=== PATIENT | male | born 1955 | race Hispanic/Latino ===

== ENCOUNTER → 2019-07-09 | Outpatient (CLI) | payer MEDICARE ==
[~2019-07-09] MED LIST: ASPIR 8181 MG PO; ATORVASTATIN CA10 MG PO; CALCIUM ACETAT667 M1 PO; CIPRO500 MG PO; CLOPIDOGREL75 MG PO; DOXYCYCLINE HY100 MG PO; GABAPENTIN100 MG PO; GLIPIZIDE5 MG PO; LEVOCETIRIZINE D5 MG PO; MELOXICAM15 MG PO; METOPROLOL SUCC50 MG PO; METOPROLOL TART50 MG PO; MIDODRINE HCL10 MG PO; MULTAQ 400MG T400 MG PO; MULTI-VITAMIN1 EACH PO; NITROSTAT0.4 MG SL; NORCO 5-325 TA1 EACH PO; OMEPRAZOLE40 MG PO; RENVELA800 MG PO; SANTYL15 GM TOP; SENSIPAR30 MG PO; TEMAZEPAM15 MG PO
--- NOTE | 2019-07-09 15:42 | Diagnostic Imaging Report ---
Chest, 2 views, 07/09/2019. History: Diabetes, preop. Comparison: None available. Findings: The cardiomediastinal silhouette and pulmonary vasculature are mildly prominent. Linear opacities are present at the lung bases. There is no focal consolidation or pleural effusion. Median sternotomy wires are present. There are no acute osseous or soft tissue abnormalities. Impression: Mild cardiomegaly, vascular congestion, and bibasilar atelectasis. Signed by: Aroldo Douglas on 07/09/2019 3:39 PM
--- NOTE | 2019-07-09 15:56 | Diagnostic Imaging Report ---
Right foot, 3 views. History: Diabetes with foot ulcer. Findings: There are diffuse vascular calcifications and mild diffuse swelling with a possible ulcer on the plantar surface of the foot. The bones are diffusely osteopenic. There is deformity of the distal aspects of the fourth and fifth metatarsals consistent with old trauma. There is no evidence of acute fracture or dislocation. There are no lytic or sclerotic lesions. The joint spaces are within normal limits. IMPRESSION: Plantar ulcer without focal osseous abnormality. A nuclear medicine bone scan would be more sensitive for detection of early osteomyelitis. Signed by: Aroldo Douglas on 07/09/2019 3:53 PM
== END ==
LOC: RAD 13:07
PROVIDERS: ATTEND Internal Medicine Pulmonary Disease
DX: E11.621 Type 2 diabetes mellitus with foot ulcer (principal); L97.411 Non-pressure chronic ulcer of right heel and midfoot limited to breakdown of skin; Z01.810 Encounter for preprocedural cardiovascular examination; Z01.811 Encounter for preprocedural respiratory examination
CPT/HCPCS: 71046; 93005; 93306

== ENCOUNTER → 2019-07-13 | Outpatient (CLI) | payer MEDICARE ==
[2019-07-13 10:13] LABS: ABG HCO3 27 mmol/L (23-28); ABG PCO2 42 mmHg (41-51); ABG PH 7.42 (7.31-7.41); ABG PO2 83 mmHg (80-105)
--- NOTE | 2019-07-13 10:22 | NUR ---
This patient was scheduled for both an arterial blood gas and a pulmonary function testing. The patient is aware that his pulmonary function test is not approved by medicare and if he has it done he will be charged for the test. The arterial blood gas is approved. The patients son told me that if the patient is going to have to pay out of pocket for the test that he does not want to have the pulmonary function test done. I called the woundcare/ hyperbaric department and spoke with Vy. I explained the situation and explained that per Akila Read health insurance adjuster that the patient was not approved for the pulmonary function testing and that the patient was only going to have the arterial blood gas drawn and that I would fax over the results. I also had spoken with Akila Read in insurance verification to make sure and confirm that there had been no changes to the account and that the patient was still not approved from medicare to have the pulmonary function test done. She stated that no medicare does not except the diagnosis code we were given for the test. I faxed over the arterial blood gas results to [phone].
== END ==
LOC: RESP 09:03
DX: E11.621 Type 2 diabetes mellitus with foot ulcer (principal); Z01.810 Encounter for preprocedural cardiovascular examination; Z01.811 Encounter for preprocedural respiratory examination
CPT/HCPCS: 36415; 82805

== ENCOUNTER → 2019-07-27 | Outpatient (CLI) | payer MEDICARE ==
--- NOTE | 2019-07-28 19:33 | Diagnostic Imaging Report ---
Bone Scan, three-phase - feet and ankles Reason for exam: 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 Concern for osteomyelitis. Radiopharmaceutical: Tc-99m MDP 27.5 mCi IV left forearm Comparison: Right foot radiograph 07/09/2019 Following intravenous administration of the radiopharmaceutical, dynamic flow and immediate blood pool images of the right lower leg, ankle and foot followed by 3-hour delayed spot images were obtained. Left LLE BKA. No abnormal focal accumulation of tracer is seen in the right foot on the flow images. The blood pool images show diffusely increased tracer in the plantar aspect of the right mid foot region. The delayed images show mildly increased tracer in the right calcaneal bursa, otherwise, distribution of tracer activity is normal throughout the right foot without abnormal focal uptake in bone. Impression: Soft tissue inflammation in the plantar aspect of the right mid foot. No scan evidence of osteomyelitis. Calcaneal bursitis is noted. Signed by: Dr. Isa Shah M.D. on 07/28/2019 7:30 PM
== END ==
LOC: NM 11:53
PROVIDERS: ATTEND Internal Medicine Pulmonary Disease
DX: E11.621 Type 2 diabetes mellitus with foot ulcer (principal); L97.414 Non-pressure chronic ulcer of right heel and midfoot with necrosis of bone; Z01.810 Encounter for preprocedural cardiovascular examination
CPT/HCPCS: 78315; 94010; A9503

== ENCOUNTER 2019-08-23 13:51 | Outpatient (RCR) | payer MEDICARE ==
[~2019-08-23 13:51] MED LIST changes: +LIDOCAINE/PRILOCAINE 2.5-2.5% KIT ONE
== END 2019-08-31 ==
LOC: WCC 13:51 → EDUNIT# 13:51
PROVIDERS: ATTEND Podiatrist Foot & Ankle Surgery
DX: E11.621 Type 2 diabetes mellitus with foot ulcer (principal); E11.40 Type 2 diabetes mellitus with diabetic neuropathy, unspecified; E11.65 Type 2 diabetes mellitus with hyperglycemia; I70.201 Unspecified atherosclerosis of native arteries of extremities, right leg; N18.6 End stage renal disease; E78.49 Other hyperlipidemia; Z01.810 Encounter for preprocedural cardiovascular examination; Z01.811 Encounter for preprocedural respiratory examination

== ENCOUNTER 2019-09-20 14:19 | Outpatient (RCR) | payer MEDICARE ==
[~2019-09-20 14:19] MED LIST changes: -LIDOCAINE/PRILOCAINE 2.5-2.5% KIT ONE
== END 2019-09-30 ==
LOC: WCC 14:19
PROVIDERS: ATTEND Podiatrist Foot & Ankle Surgery
DX: E11.621 Type 2 diabetes mellitus with foot ulcer (principal); E11.40 Type 2 diabetes mellitus with diabetic neuropathy, unspecified; E11.65 Type 2 diabetes mellitus with hyperglycemia; E11.51 Type 2 diabetes mellitus with diabetic peripheral angiopathy without gangrene; L97.511 Non-pressure chronic ulcer of other part of right foot limited to breakdown of skin; L97.411 Non-pressure chronic ulcer of right heel and midfoot limited to breakdown of skin; I70.201 Unspecified atherosclerosis of native arteries of extremities, right leg; R91.8 Other nonspecific abnormal finding of lung field; B96.89 Other specified bacterial agents as the cause of diseases classified elsewhere; E78.49 Other hyperlipidemia; N18.6 End stage renal disease; Z01.810 Encounter for preprocedural cardiovascular examination; Z01.811 Encounter for preprocedural respiratory examination

== ENCOUNTER → 2019-10-14 | Outpatient (CLI) | payer MEDICARE ==
--- NOTE | 2019-10-14 11:24 | Diagnostic Imaging Report ---
EXAMINATION: CHEST 2 VIEWS INDICATION: Preprocedural COMPARISON: Chest radiograph 07/09/2019 FINDINGS: LINES/TUBES:None LUNGS:The lungs are moderately inflated. Increased AP diameter of the chest. There is perihilar fullness and indistinctness of the pulmonary vasculature. PLEURA:No pleural effusion or pneumothorax. MEDIASTINUM:Mild cardiomegaly. Atherosclerotic calcifications of the thoracic aorta. BONES/SOFT TISSUES:No acute osseous injury. Sternotomy wires in place. ABDOMEN:No free air under the diaphragm. Status post cholecystectomy. IMPRESSION: Mild cardiomegaly. Pulmonary interstitial edema. No focal pneumonia. Signed by: Gus Altamirano MD on 10/14/2019 11:21 AM
== END ==
LOC: RAD 08:25
PROVIDERS: ATTEND Podiatrist Foot & Ankle Surgery
DX: Z01.810 Encounter for preprocedural cardiovascular examination (principal); Z01.811 Encounter for preprocedural respiratory examination
CPT/HCPCS: 71046; 93005; 93306

== ENCOUNTER 2019-10-18 13:15 | Outpatient (RCR) | payer MEDICARE ==
[2019-10-11 15:31] LABS: BASOPHILS # (AUTO) 0.1 (0.0-0.1); BASOPHILS % 0.9 % (0.0-1.0); EOSINOPHILS # (AUTO) 0.5 (0.0-0.4); EOSINOPHILS % 5.1 % (0.0-6.0); HEMATOCRIT 43.2 % (38.2-49.6); HEMOGLOBIN 13.7 g/dL (14.0-18.0); LYMPHOCYTES # (AUTO) 0.8 (1.0-3.2); LYMPHOCYTES % 8.9 % (18.0-39.1); MEAN CORPUSCULAR HEMOGLOBIN 29.9 pg (28-32); MEAN CORPUSCULAR HGB CONC 31.7 g/dL (31-35); MEAN CORPUSCULAR VOLUME 94.3 fL (81-99); MONOCYTES # (AUTO) 0.5 (0.2-0.8); MONOCYTES % 5.2 % (4.4-11.3); NEUTROPHILS # (AUTO) 7.3 (2.1-6.9); NEUTROPHILS % 79.6 % (38.7-80.0); PLATELET COUNT 281 x10e3/uL (140-360); RED BLOOD COUNT 4.58 x10e6/uL (4.3-5.7); RED CELL DISTRIBUTION WIDTH 14.9 % (11.7-14.4)
[2019-10-11 15:51] LABS: ALBUMIN 3.1 g/dL (3.5-5.0); ALBUMIN/GLOBULIN RATIO 0.6 (0.8-2.0); ANION GAP 16.7 mmol/L (8-16); CALCIUM 9.7 mg/dL (8.4-10.2); CREATININE, SERUM 4.03 mg/dL (0.72-1.25); POTASSIUM 3.7 mmol/L (3.5-5.1)
== END 2019-10-31 ==
LOC: WCC 13:15
PROVIDERS: ATTEND Podiatrist Foot & Ankle Surgery
DX: E11.621 Type 2 diabetes mellitus with foot ulcer (principal); E11.51 Type 2 diabetes mellitus with diabetic peripheral angiopathy without gangrene; E11.40 Type 2 diabetes mellitus with diabetic neuropathy, unspecified; E11.65 Type 2 diabetes mellitus with hyperglycemia; L97.411 Non-pressure chronic ulcer of right heel and midfoot limited to breakdown of skin; L97.511 Non-pressure chronic ulcer of other part of right foot limited to breakdown of skin; I70.201 Unspecified atherosclerosis of native arteries of extremities, right leg; N18.6 End stage renal disease; R91.8 Other nonspecific abnormal finding of lung field; B96.89 Other specified bacterial agents as the cause of diseases classified elsewhere; E78.49 Other hyperlipidemia; Z01.810 Encounter for preprocedural cardiovascular examination; Z01.811 Encounter for preprocedural respiratory examination
CPT/HCPCS: 15275; 36415; 80053; 83036; 84134; 85025; 85651; 86140; 99203; 99213 ×3; Q4186

== ENCOUNTER → 2019-11-30 | Outpatient (RCR) | payer MEDICARE ==
[~2019-11-30] MED LIST changes: +BALSAM PERU/CASTOR OIL 60 GM OINT...G. TP ONE; +MUPIROCIN 2% OINT 22 GM TUBE ONE
== END ==
LOC: WCC 11-01 14:32
PROVIDERS: ATTEND Podiatrist Foot & Ankle Surgery
DX: E11.621 Type 2 diabetes mellitus with foot ulcer (principal); E11.65 Type 2 diabetes mellitus with hyperglycemia; E11.40 Type 2 diabetes mellitus with diabetic neuropathy, unspecified; I96 Gangrene, not elsewhere classified; L97.514 Non-pressure chronic ulcer of other part of right foot with necrosis of bone; L97.411 Non-pressure chronic ulcer of right heel and midfoot limited to breakdown of skin; I70.201 Unspecified atherosclerosis of native arteries of extremities, right leg; N18.6 End stage renal disease; R91.8 Other nonspecific abnormal finding of lung field; B96.89 Other specified bacterial agents as the cause of diseases classified elsewhere; E78.49 Other hyperlipidemia; Z01.810 Encounter for preprocedural cardiovascular examination; Z01.811 Encounter for preprocedural respiratory examination
CPT/HCPCS: 11042 ×2; 36415 ×7; 82948 ×10; 97597; 99213 ×11; G0277 ×10

== ENCOUNTER → 2019-12-14 | Day surgery (SDC) | payer MEDICARE, OTHER ==
--- NOTE | 2019-12-09 14:45 | Diagnostic Imaging Report ---
X-ray chest PA and lateral History: Preop Comparison: 10/14/2019 Findings: Image taken in AP lordotic view. Poor inspiratory effort. Status post median sternotomy. Likely IVC dialysis catheter. Lower neck surgical kevin in the midline. Central airways unremarkable. Cardiomegaly. No definite pleural effusion. No pneumothorax. Vascular markings are crowded because of the poor respiratory effort. Visualized skeleton shows degenerative changes. Vascular calcification. Cholecystectomy clips. Impression: Cardiomegaly. No other acute cardiopulmonary disease. Signed by: Rangel Boogie MD on 12/09/2019 2:41 PM
[~2019-12-14] MED LIST changes: +BACITRACIN 50,000 UNIT VIAL ONE; -BALSAM PERU/CASTOR OIL 60 GM OINT...G. TP ONE; +BUPIVACAINE HCL 0.5% INJ 30 ML VIAL INJ ONE; +BUSPIRONE HCL5 MG PO; +CEFAZOLIN SOD 1 GM/NS 50ML 100 ML IV ONE; +CILOSTAZOL50 MG PO; +HYDROXYZINE HCL25 MG PO; +ISOSORBIDE MONO30 MG PO; +JANUVIA100 MG PO; +LEVOTHYROXINE50 MCG PO; +LORAZEPAM2 MG/1 M1 PO; +MONTELUKAST SOD10 MG PO; -MUPIROCIN 2% OINT 22 GM TUBE ONE; +NEOSTIGMINE 1 MG/ML 10ML VIAL ONE; +SEVOFLURANE INHAL SOLN 250 ML PEN BTL ONE; +SODIUM CHLORIDE 0.9% 500ML 500 ML ONE; +WARFARIN SODIUM1 MG PO
[2019-12-14 08:59] LABS: BASOPHILS # (AUTO) 0.1 (0.0-0.1); BASOPHILS % 0.5 % (0.0-1.0); EOSINOPHILS # (AUTO) 0.3 (0.0-0.4); EOSINOPHILS % 2.3 % (0.0-6.0); HEMATOCRIT 36.7 % (38.2-49.6); HEMOGLOBIN 11.3 g/dL (14.0-18.0); LYMPHOCYTES # (AUTO) 0.8 (1.0-3.2); LYMPHOCYTES % 6.1 % (18.0-39.1); MEAN CORPUSCULAR HEMOGLOBIN 27.6 pg (28-32); MEAN CORPUSCULAR HGB CONC 30.8 g/dL (31-35); MEAN CORPUSCULAR VOLUME 89.7 fL (81-99); MONOCYTES # (AUTO) 0.6 (0.2-0.8); MONOCYTES % 4.9 % (4.4-11.3); NEUTROPHILS # (AUTO) 10.6 (2.1-6.9); NEUTROPHILS % 85.7 % (38.7-80.0); PLATELET COUNT 394 x10e3/uL (140-360); RED BLOOD COUNT 4.09 x10e6/uL (4.3-5.7); RED CELL DISTRIBUTION WIDTH 15.6 % (11.7-14.4)
[2019-12-14 09:34] LABS: CALCIUM 9.1 mg/dL (8.4-10.2); CREATININE, SERUM 5.21 mg/dL (0.72-1.25)
[2019-12-14 09:35] LABS: INR 1.6; PROTHROMBIN TIME 20.2 seconds (11.9-14.5)
[2019-12-14 13:30] VITALS: BP 104/69
--- NOTE | 2019-12-14 18:16 | NUR ---
WOUND CARE INITIAL CONSULT FOR 64 YO MALE ADMITTED TO [facility] FOR RIGHT FOOT GANGRENE AND SURGICAL RIGHT TMA. WBC 12.37 HGB 11.3 GLUCOSE 108 RECEIVED REPORT AND INSTRUCTIONS FROM DR. GAFFNEY TO HOLD [facility] WOUND VAC APPLICATION TO RIGHT TMA; DUE TO EXCESSIVE SANGUINEOUS DRAINAGE AND TO ALLOW RIGHT TMA TO SURGICAL SITE TO DECREASE SANGUINOUS DRAINAGE BY NATURALLY COAGULATING WITH SURGICAL DRESSING IN PLACE. RECEIVED ORDERS TO LEAVE SURGICAL DRESSING INTACT UNTIL TOMORROW 12/15/2019 AND TO APPLY [facility] WOUND VAC TO RIGHT FOOT AT [facility] PATIENT WOUND CARE CENTER AND TO HAVE A CONSULT WITH INFECTIOUS DISEASE DOCTOR ALLEN ON FRIDAY. WOUND WINE SPECIALIST AWARE AND NOTIFIED FAMILY MEMBER TO TAKE PT TO OUTPATIENT WOUND CARE CENTER FOR [facility] WOUND VAC APPLICATION TO RIGHT TMA TOMORROW 12/15/[address] VILLA ON 12/17/2019. THANK YOU FOR THIS CONSULTATION. Addendum: 12/14/19 at 1822 by Vy Catalan RN Amended: Links added.
--- NOTE | 2019-12-14 19:56 | Operative Report ---
DATE OF PROCEDURE: 12/14/2019 SURGEON: Jennifer Garcia DPM SLAT GRADER: None. PREOPERATIVE DIAGNOSES: 1. Gangrene, diabetic foot ulcer, forefoot, right foot. 2. Diabetic foot ulcer, grade 2, plantar foot. POSTOPERATIVE DIAGNOSES: 1. Gangrene, diabetic foot ulcer, forefoot, right foot. 2. Diabetic foot ulcer, grade 2, plantar foot. PROCEDURES: 1. Transmetatarsal amputation, right foot. 2. Debridement with application of graft, right plantar foot. MATERIALS: AmnioFill 2000 mg for the TMA and AmnioFill 1000 mg for the plantar foot. HEMOSTASIS: None. ESTIMATED BLOOD LOSS: 50 mL. COMPLICATIONS: None. CONDITION: Stable. PROCEDURE IN DETAIL: Under mild sedation, the patient was brought to the operative room, placed on the operating table. Following IV sedation, anesthesia was obtained with a MAC anesthetic. The right foot scrubbed, prepped, and draped in usual aseptic manner and then was lowered to the table. Attention was then directed to the dorsal aspect of the foot, where utilizing sharp dissection all nonviable tissue at the dorsal aspect of the fishmouth-type of incision was then made. The metatarsals were then transected proximally. There was not enough tissue to flap dorsally, so AmnioFill application was performed. After all nonviable tissue was removed and the area was then flushed with a pressure carboy filler. Bone cultures and sensitivities were taken and sent for pathology. AmnioFill was then used to fill the void, it was then secured utilizing Adaptic and skin stapler. Attention was then directed to the plantar foot, where utilizing a #15 blade and a BONE rongeur and a curette, all tissue was removed to the plantar aspect of the foot down to clean viable tissue after the area was then flushed with copious amount of normal sterile saline solution. At this point, AmnioFill was also applied, it was then secured utilizing Adaptic and a skin stapler. Clean dressing was applied consisting of Adaptic, 4 X4s, Kerlix, and an Pawel bandage. The patient tolerated the procedure and anesthesia well, will be discharged home when he meets criteria. He will continue to follow up in Wound Care. He will have the wound VAC applied tomorrow at Wound care. He will call the office if any questions, concerns, or any problems arise. BISHOP Prakash/CAROLA /[id number]
== END | disposition home or self-care (01) ==
LOC: OR 08:15
PROVIDERS: ATTEND Podiatrist Foot & Ankle Surgery
DX: M86.171 Other acute osteomyelitis, right ankle and foot (principal); M86.671 Other chronic osteomyelitis, right ankle and foot; I96 Gangrene, not elsewhere classified; E11.22 Type 2 diabetes mellitus with diabetic chronic kidney disease; I12.0 Hypertensive chronic kidney disease with stage 5 chronic kidney disease or end stage renal disease; N18.6 End stage renal disease; I48.91 Unspecified atrial fibrillation; I25.810 Atherosclerosis of coronary artery bypass graft(s) without angina pectoris; I10 Essential (primary) hypertension; E78.5 Hyperlipidemia, unspecified; Z01.810 Encounter for preprocedural cardiovascular examination; Z01.812 Encounter for preprocedural laboratory examination; Z01.818 Encounter for other preprocedural examination; Z11.59 Encounter for screening for other viral diseases; Z79.01 Long term (current) use of anticoagulants; Z79.02 Long term (current) use of antithrombotics/antiplatelets; Z99.2 Dependence on renal dialysis; Z86.73 Personal history of transient ischemic attack (TIA), and cerebral infarction without residual deficits; Z95.1 Presence of aortocoronary bypass graft
CPT/HCPCS: 28805; 36415; 71046; 80048; 82948; 85025; 85610; 85730; 87071; 87075; 87186; 87205; 88307; 88311; 93005; J0690; J7040; Q4100 ×2; U0002; 88304; J2710

== ENCOUNTER 2019-12-30 12:47 | Outpatient (RCR) | payer MEDICARE ==
[~2019-12-30 12:47] MED LIST changes: -BACITRACIN 50,000 UNIT VIAL ONE; -BUPIVACAINE HCL 0.5% INJ 30 ML VIAL INJ ONE; -CEFAZOLIN SOD 1 GM/NS 50ML 100 ML IV ONE; +MINERAL OIL/PETROLAT/GLYCERI 6OZ BTL ONE; -NEOSTIGMINE 1 MG/ML 10ML VIAL ONE; -SEVOFLURANE INHAL SOLN 250 ML PEN BTL ONE; -SODIUM CHLORIDE 0.9% 500ML 500 ML ONE
== END 2019-12-31 ==
LOC: WCC 12:47
PROVIDERS: ATTEND Podiatrist Foot & Ankle Surgery
DX: E11.621 Type 2 diabetes mellitus with foot ulcer (principal); E11.51 Type 2 diabetes mellitus with diabetic peripheral angiopathy without gangrene; E11.65 Type 2 diabetes mellitus with hyperglycemia; E11.40 Type 2 diabetes mellitus with diabetic neuropathy, unspecified; I96 Gangrene, not elsewhere classified; L97.514 Non-pressure chronic ulcer of other part of right foot with necrosis of bone; L97.411 Non-pressure chronic ulcer of right heel and midfoot limited to breakdown of skin; R91.8 Other nonspecific abnormal finding of lung field; I70.201 Unspecified atherosclerosis of native arteries of extremities, right leg; N18.6 End stage renal disease; E78.49 Other hyperlipidemia; B96.89 Other specified bacterial agents as the cause of diseases classified elsewhere; Z01.810 Encounter for preprocedural cardiovascular examination; Z01.811 Encounter for preprocedural respiratory examination
CPT/HCPCS: 87071; 87075; 87186; 87205; 97605 ×4; 99212; 99213 ×12; G0277 ×9

== ENCOUNTER 2020-01-28 15:40 | Outpatient (RCR) | payer MEDICARE, OTHER ==
[~2020-01-28 15:40] MED LIST changes: -MINERAL OIL/PETROLAT/GLYCERI 6OZ BTL ONE
== END 2020-01-31 ==
LOC: WCC 15:40
PROVIDERS: ATTEND Podiatrist Foot & Ankle Surgery
DX: T87.89 Other complications of amputation stump (principal); E11.621 Type 2 diabetes mellitus with foot ulcer; E11.40 Type 2 diabetes mellitus with diabetic neuropathy, unspecified; E11.65 Type 2 diabetes mellitus with hyperglycemia; E11.51 Type 2 diabetes mellitus with diabetic peripheral angiopathy without gangrene; L97.411 Non-pressure chronic ulcer of right heel and midfoot limited to breakdown of skin; I70.201 Unspecified atherosclerosis of native arteries of extremities, right leg; B95.2 Enterococcus as the cause of diseases classified elsewhere; B96.29 Other Escherichia coli [E. coli] as the cause of diseases classified elsewhere; R91.8 Other nonspecific abnormal finding of lung field; B96.89 Other specified bacterial agents as the cause of diseases classified elsewhere; N18.6 End stage renal disease; E78.49 Other hyperlipidemia; Z01.810 Encounter for preprocedural cardiovascular examination; Z01.811 Encounter for preprocedural respiratory examination

== ENCOUNTER → 2020-02-15 | Outpatient (CLI) | payer MEDICARE ==
--- NOTE | 2020-02-15 12:29 | Diagnostic Imaging Report ---
Exam: CHEST 2 VIEWS Date: 02/15/2020 12:25 PM INDICATION: ^[id number] ^1207 ^PRE - PROCEDURE EXAM Comparison: 12/09/2019 FINDINGS: Lines/Tubes:Partially visualized probable femoral venous dialysis catheter is noted with tip projecting within the upper IVC. Midline sternotomy changes are again noted. Lungs:The lungs are well inflated. No focal consolidation or pulmonary edema. Pleura:No pleural effusion. No pneumothorax. Heart/Mediastinum:Cardiomediastinal silhouette is enlarged. Central vascular congestion is noted. Bones/Soft Tissues: No acute osseous abnormality. Upper abdomen: Unremarkable. IMPRESSION: 1. Negative for acute intrathoracic process. 2. Stable cardiomegaly and central vascular congestion. Signed by: Nilo Mackenzie MD on 02/15/2020 12:26 PM
== END ==
LOC: RAD 11:33
PROVIDERS: ATTEND Internal Medicine Infectious Disease
DX: Z01.810 Encounter for preprocedural cardiovascular examination (principal); Z01.811 Encounter for preprocedural respiratory examination
CPT/HCPCS: 71046; 93005

== ENCOUNTER → 2020-03-01 | Outpatient (RCR) | payer MEDICARE, OTHER ==
[~2020-03-01] MED LIST changes: +COLLAGENASE OINTMENT 30 GM TUBE ONE; +TYLENOL # 31 EA PO
== END ==
LOC: WCC 02-01 15:58
PROVIDERS: ATTEND Podiatrist Foot & Ankle Surgery
DX: E11.621 Type 2 diabetes mellitus with foot ulcer (principal); E11.40 Type 2 diabetes mellitus with diabetic neuropathy, unspecified; E11.65 Type 2 diabetes mellitus with hyperglycemia; E11.51 Type 2 diabetes mellitus with diabetic peripheral angiopathy without gangrene; M86.171 Other acute osteomyelitis, right ankle and foot; L97.416 Non-pressure chronic ulcer of right heel and midfoot with bone involvement without evidence of necrosis; L97.411 Non-pressure chronic ulcer of right heel and midfoot limited to breakdown of skin; I70.201 Unspecified atherosclerosis of native arteries of extremities, right leg; B96.89 Other specified bacterial agents as the cause of diseases classified elsewhere; E78.49 Other hyperlipidemia; B95.2 Enterococcus as the cause of diseases classified elsewhere; B96.29 Other Escherichia coli [E. coli] as the cause of diseases classified elsewhere; N18.6 End stage renal disease; R91.8 Other nonspecific abnormal finding of lung field; Z01.810 Encounter for preprocedural cardiovascular examination; Z01.811 Encounter for preprocedural respiratory examination
CPT/HCPCS: 11042 ×2; 11045; 36415 ×5; 82948 ×5; 97605 ×9; 99211; 99213 ×7; G0277 ×5

== ENCOUNTER 2020-03-31 13:16 | Outpatient (RCR) | payer MEDICARE ==
[~2020-03-31 13:16] MED LIST changes: -COLLAGENASE OINTMENT 30 GM TUBE ONE; +DEXTROSE 40% GEL 31 GM TUBE ONE; +LIDOCAINE/PRILOCAINE 2.5-2.5% KIT ONE; +TRYPSIN/BALSAM PERU/CASTOR OIL ONE; -TYLENOL # 31 EA PO
== END 2020-04-01 ==
LOC: WCC 13:16
PROVIDERS: ATTEND Podiatrist Foot & Ankle Surgery
DX: E11.621 Type 2 diabetes mellitus with foot ulcer (principal); E11.40 Type 2 diabetes mellitus with diabetic neuropathy, unspecified; E11.65 Type 2 diabetes mellitus with hyperglycemia; E11.51 Type 2 diabetes mellitus with diabetic peripheral angiopathy without gangrene; M86.671 Other chronic osteomyelitis, right ankle and foot; L97.416 Non-pressure chronic ulcer of right heel and midfoot with bone involvement without evidence of necrosis; L97.411 Non-pressure chronic ulcer of right heel and midfoot limited to breakdown of skin; B96.29 Other Escherichia coli [E. coli] as the cause of diseases classified elsewhere; B95.2 Enterococcus as the cause of diseases classified elsewhere; R91.8 Other nonspecific abnormal finding of lung field; Z01.811 Encounter for preprocedural respiratory examination
CPT/HCPCS: 11042; 15275 ×2; 15276; 36415 ×16; 82948 ×17; 83036; 84134; 97605 ×3; 99211; 99212 ×3; 99213 ×8; G0277 ×17; Q4186 ×2

== ENCOUNTER 2020-04-04 15:19 | Inpatient (IN) | payer MEDICARE ==
[2020-04-04] VITALS (7 sets, daily range): BP systolic 136; BP diastolic 72–75
[~2020-04-04] VITALS: Ht 152.4 cm; Wt 73.0 kg
[~2020-04-04 15:19] MED LIST changes: -DEXTROSE 40% GEL 31 GM TUBE ONE; -LIDOCAINE/PRILOCAINE 2.5-2.5% KIT ONE; -TRYPSIN/BALSAM PERU/CASTOR OIL ONE
--- NOTE | 2020-04-04 15:38 | NUR ---
DIRECT ADMISSION RECEIVED VIA EMS. PT IS AAOX3. EDUCATED PT ABOUT FALL PRECAUTIONS. PT VERBALIZED UNDERSTANDING. CALL LIGHT WITH IN EASY REACH. INSTRUCTED PT TO USE CALL LIGHT FOR ALL THE NEEDS. BED IS LOW AND LOCKED. SIDE RAILS X2. BED ALARM IS ON. PT DENIES NEEDS AT THIS TIME.
--- NOTE | 2020-04-04 15:45 | NUR ---
DR. VILLA AT BEDSIDE. NEW ORDER RECEIVED FOR CENTRAL LINE
[2020-04-04] MEDS ORDERED: VANCOMYCIN 750MG/NS 150ML IVPB 150 ML IV SCH ×2 (16:00→18:00)
[2020-04-04] MEDS ORDERED: MEROPENEM 500MG/ NS 50ML 50 ML IV SCH (16:00)
--- NOTE | 2020-04-04 16:38 | NUR ---
CONSENT FOR CENTRAL LINE RECEIVED THROUGH [facility] . [place] [id number] [place] [id number]. PT AGREED FOR NON TUNNELLED CENTRAL LINE
--- NOTE | 2020-04-04 16:40 | NUR ---
PT OFF TO RADIOLOGY IN SAFE CONDITION.
--- NOTE | 2020-04-04 17:06 | NUR ---
PT IS BACK TO THE UNIT FROM RADIOLOGY. PT REFUSED CENTRAL LINE PER RADIOLOGY. INFORMED THE SAME TO IRMA CLEMENTS AND DR. VILLA.
[2020-04-04] MEDS ORDERED: MEROPENEM 1GM 100 ML IV SCH (17:15)
--- NOTE | 2020-04-04 17:25 | NUR ---
OKAY TO START PERIPHERAL IV PER IRMA CLEMENTS
--- NOTE | 2020-04-04 17:30 | NUR ---
NEW PERIPHERAL IV 20 G RAC STARTED BY [address] PAINTER.
--- NOTE | 2020-04-04 18:30 | NUR ---
UNABLE TO VERIFY HOME MEDS. PT IS NOT SURE ABOUT HIS HOME MEDS. PAGED PT AND LEFT MESSAGE REGARDING THE SAME.
[2020-04-04 18:55] LABS: BASOPHILS # (AUTO) 0.1 (0.0-0.1); BASOPHILS % 0.6 % (0.0-1.0); EOSINOPHILS # (AUTO) 0.5 (0.0-0.4); EOSINOPHILS % 4.9 % (0.0-6.0); HEMATOCRIT 43.3 % (38.2-49.6); HEMOGLOBIN 13.4 g/dL (14.0-18.0); LYMPHOCYTES # (AUTO) 1.1 (1.0-3.2); MEAN CORPUSCULAR HEMOGLOBIN 29.6 pg (28-32); MEAN CORPUSCULAR HGB CONC 30.9 g/dL (31-35); MEAN CORPUSCULAR VOLUME 95.8 fL (81-99); MONOCYTES # (AUTO) 0.7 (0.2-0.8); MONOCYTES % 7.5 % (4.4-11.3); NEUTROPHILS % 74.6 % (38.7-80.0); PLATELET COUNT 234 x10e3/uL (140-360); RED BLOOD COUNT 4.52 x10e6/uL (4.3-5.7); RED CELL DISTRIBUTION WIDTH 14.8 % (11.7-14.4)
--- NOTE | 2020-04-04 19:00 | NUR ---
BEDSIDE SHIFT REPORT GIVEN TO THE LOGGING TRUCK DRIVER RN. PT DENIED FURTHER NEEDS.
--- NOTE | 2020-04-04 19:10 | NUR ---
PAGED DR. ARELLANO OFFICE REGARDING NEW CONSULT.
[2020-04-04 19:17] LABS: ANION GAP 18.1 mmol/L (8-16); CALCIUM 10.3 mg/dL (8.4-10.2); CREATININE, SERUM 5.33 mg/dL (0.72-1.25); POTASSIUM 4.1 mmol/L (3.5-5.1)
--- NOTE | 2020-04-04 19:19 | Diagnostic Imaging Report ---
X-ray 3 views of the foot. HISTORY: Pain. COMPARISON: None available. FINDINGS: The bones are severely demineralized. The patient is status post transmetatarsal amputation of the foot. Overlying dressing optimal assessment the soft tissues. There are no obvious erosive changes or lucency to suggest presence of osteomyelitis. There is severe scarring vascular calcification. IMPRESSION: 1. Status post transmetatarsal amputation of the foot. No radiographic evidence of osteomyelitis. However, if there is high clinical suspicion for osteomyelitis an MRI of the foot should be considered for further evaluation. 2. Severe atherosclerotic vascular calcification. Signed by: Valerie Gale MD on 04/04/2020 7:15 PM
[2020-04-04] MEDS ORDERED: ONDANSETRON HCL INJ 2MG/ML 2ML 2 MG/ML VIAL IV PRN (20:15)
[2020-04-04] MEDS ORDERED: HYDRALAZINE HCL 20 MG/ML VIAL IV PRN (20:15)
[2020-04-04] MEDS ORDERED: DEXTROSE 50% SYRINGE 50 ML IV PRN (20:15)
[2020-04-04] MEDS: INSULIN LISPRO 100 UNIT/1 ML 3ML VIAL SQ SCH (21:00)
[2020-04-04] MEDS: GABAPENTIN 100 MG CAP PO SCH (22:28)
[2020-04-04] MEDS: MIDODRINE HCL 5 MG TABLET PO SCH (22:28)
[2020-04-04] MEDS: CALCIUM ACETATE 667 MG GELCAP PO SCH (22:28)
[2020-04-04] MEDS: TEMAZEPAM 15 MG CAP PO SCH (22:29)
[2020-04-04] MEDS: METOPROLOL SUCCINATE 50 MG TAB XL PO SCH (22:29)
--- NOTE | 2020-04-04 22:33 | Consultation ---
DATE OF CONSULTATION: 04/04/2020 REQUESTING PHYSICIAN: Lowell Gregorio MD REASON FOR CONSULTATION: Sepsis, right BKA wound infection, and osteomyelitis. Thank you for this consultation. HISTORY OF PRESENT ILLNESS: This is a 64-year-old male with end-stage renal disease on hemodialysis through a dialysis catheter in the left groin. The patient has had a left BKA, has a right TMA, was seen at the wound care center, noted to be febrile with redness and swelling in the right foot and infection along the TMA site and was admitted to the hospital. The patient has subjective fevers, but no chills or rigors. REVIEW OF SYSTEMS: HEENT: Denies any headaches, visual complaints, sinus congestion, ear ache, throat pain, or neck pain. RESPIRATORY: No cough or shortness of breath. CARDIOVASCULAR: No chest pain or palpitations. GI: No nausea, vomiting, or diarrhea. : Makes very little urine. ALLERGIES: NO KNOWN DRUG ALLERGIES. MEDICATIONS: Chronic medications are reviewed. FAMILY HISTORY: Noncontributory. SOCIAL HISTORY: No active alcohol, tobacco, or drug use. PAST MEDICAL HISTORY: 1. End-stage renal disease, on hemodialysis. 2. Diabetes mellitus. 3. LSA. PAST SURGICAL HISTORY: Amputation, left 3 middle fingers of the right hand, cholecystectomy, ICD implantation, left BKA, history of chest tube, AV fistula previously, coronary artery disease with coronary artery bypass graft, and right TMA. PHYSICAL EXAMINATION: VITAL SIGNS: The patient is afebrile. Vital signs stable. LUNGS: Fair air entry bilaterally. Clear to auscultation. HEART: Sounds S1, S2. No murmur. No gallop. ABDOMEN: Soft, nontender, and normoactive bowel sounds. EXTREMITIES: The patient has left groin hemodialysis catheter. The right foot has a TMA wound with slough and necrosis. There is redness and some warmth in the right leg. LABORATORY DATA: Labs are pending. ASSESSMENT: 1. End-stage renal disease, on hemodialysis. 2. Diabetes mellitus. 3. Right below-knee amputation infection. 4. Cellulitis, right leg. 5. History of extended spectrum beta-lactamase positive, Escherichia coli infection in the right below-knee amputation stump. RECOMMENDATIONS: We will place the patient on an antibiotic regimen of vancomycin and meropenem. Labs will be obtained. Podiatry Dr. Garcia will be consulted. We will continue to follow. Thank you, Dr. Gregorio, for this consultation. We will follow the patient along with you. Damion Perry MD SR/MODL /[id number] cc: Lowell Gregorio MD
[2020-04-04] MEDS: ACETAMINOPHEN/CODEINE 300MG - 30MG TAB PO PRN (23:00)
[2020-04-05] VITALS (8 sets, daily range): BP systolic 93–136; BP diastolic 54–82
[2020-04-05] MEDS: ACETAMINOPHEN 325 MG TAB PO PRN (02:30)
[2020-04-05 05:49] LABS: BASOPHILS # (AUTO) 0.1 (0.0-0.1); EOSINOPHILS # (AUTO) 0.6 (0.0-0.4); EOSINOPHILS % 7.3 % (0.0-6.0); HEMATOCRIT 39.5 % (38.2-49.6); HEMOGLOBIN 12.5 g/dL (14.0-18.0); LYMPHOCYTES # (AUTO) 0.9 (1.0-3.2); LYMPHOCYTES % 11.5 % (18.0-39.1); MEAN CORPUSCULAR HEMOGLOBIN 29.9 pg (28-32); MEAN CORPUSCULAR HGB CONC 31.6 g/dL (31-35); MEAN CORPUSCULAR VOLUME 94.5 fL (81-99); MONOCYTES # (AUTO) 0.5 (0.2-0.8); MONOCYTES % 6.9 % (4.4-11.3); NEUTROPHILS # (AUTO) 5.6 (2.1-6.9); PLATELET COUNT 220 x10e3/uL (140-360); RED BLOOD COUNT 4.18 x10e6/uL (4.3-5.7); RED CELL DISTRIBUTION WIDTH 14.8 % (11.7-14.4)
[2020-04-05] MEDS: LEVOTHYROXINE SODIUM 100 MCG TAB PO SCH (05:55)
[2020-04-05 05:58] LABS: INR 1.11; PROTHROMBIN TIME 14.9 seconds (11.9-14.5)
[2020-04-05 06:14] LABS: ALBUMIN 2.8 g/dL (3.5-5.0); ALBUMIN/GLOBULIN RATIO 0.5 (0.8-2.0); ALKALINE PHOSPHATASE 170 IU/L (40-150); ANION GAP 16.5 mmol/L (8-16); BLOOD UREA NITROGEN 31 mg/dL (7-26); BUN/CREATININE RATIO 5 (6-25); CALCIUM 10.1 mg/dL (8.4-10.2); CARBON DIOXIDE 26 mmol/L (22-29); CHLORIDE 103 mmol/L (98-107); CREATININE, SERUM 5.81 mg/dL (0.72-1.25); EST GLOMERULAR FILTRATION RATE 10 ML/MIN (60-); GLUCOSE 80 mg/dL (74-118); POTASSIUM 4.5 mmol/L (3.5-5.1); SODIUM 141 mmol/L (136-145)
[2020-04-05 06:15] LABS: ALANINE AMINOTRANSFERASE < 6 IU/L (0-55)
--- NOTE | 2020-04-05 06:15 | NUR ---
COMPLETED DRESSING CHANGE AND COLLECTED WOUND CULTURE SAMPLE. SENT SAMPLE TO LAB
--- NOTE | 2020-04-05 07:05 | NUR ---
RCD PT AT BED PT IS ALERT AND ORIENTED PT RESTING ON BED IV PATENT BED LOW AND LOCKED CALL LIGHT IN REACH
[2020-04-05] MEDS: INSULIN LISPRO 100 UNIT/1 ML 3ML VIAL SQ SCH ×4 (07:30→20:42)
[2020-04-05] MEDS: PANTOPRAZOLE SOD 40 MG TABEC PO SCH (07:30)
--- NOTE | 2020-04-05 07:50 | NUR ---
AC TO DR ARELLANO TALKED TO RBAN IN ANSWERING SERVICE REGARDING HD SHE SAID SHE WILL SEND THE MESSAGE
[2020-04-05] MEDS: SEVELAMER CARBONATE 800 MG TAB PO SCH ×3 (08:00→16:50)
[2020-04-05] MEDS: GABAPENTIN 100 MG CAP PO SCH ×3 (09:00→20:42)
[2020-04-05] MEDS: MIDODRINE HCL 5 MG TABLET PO SCH ×3 (09:00→20:42)
[2020-04-05] MEDS ORDERED: CLOPIDOGREL BISULFATE 75 MG TAB PO SCH (09:00)
[2020-04-05] MEDS: CILOSTAZOL 100 MG TAB PO SCH ×2 (09:00→16:50)
[2020-04-05] MEDS: ISOSORBIDE MONONITRATE 30 MG TAB CR PO SCH (09:00)
[2020-04-05] MEDS: CALCIUM ACETATE 667 MG GELCAP PO SCH (09:00)
[2020-04-05] MEDS: BUSPIRONE HCL 5 MG TAB PO SCH (09:00)
[2020-04-05] MEDS: ACETAMINOPHEN/CODEINE 300MG - 30MG TAB PO PRN ×2 (09:04→20:41)
[2020-04-05] MEDS ORDERED: SODIUM CHLORIDE 0.9% 1000ML 2,000 ML ONE (09:15)
[2020-04-05] MEDS ORDERED: ONDANSETRON HCL 4 MG ORAL DISINTEGRATING TAB PO PRN (10:45)
--- NOTE | 2020-04-05 11:36 | Progress Note ---
DATE: 04/05/2020 SUBJECTIVE: The patient overall has been doing better. Has not had any febrile episodes, still has induration in the right leg along with warmth. Receiving hemodialysis, but not getting any chills. OBJECTIVE: VITAL SIGNS: Temperature of 98.3, pulse 74, respiratory rate 18, blood pressure 128/72. HEENT: Normocephalic, atraumatic. Extraocular movements not assessed. NECK: Supple. LUNGS: Fair air entry bilaterally. Clear to auscultation. HEART: Sounds S1, S2. No murmur. No gallop. ABDOMEN: Soft, nontender, normoactive bowel sounds. EXTREMITIES: Right TMA wound with slight slough, but there is no tissue necrosis today. There is some redness and warmth in the right leg. LABORATORY DATA: WBC count is 7.7, hemoglobin 12.5, and platelets 220. Wound culture in the right leg has been done pending. ASSESSMENT: 1. End-stage renal disease, on hemodialysis. 2. Right transmetatarsal amputation wound, infected. 3. Cellulitis, right foot and right leg. 4. History of extended-spectrum beta-lactamases positive gram negative infections in the right leg previously. 5. Diabetes mellitus. RECOMMENDATIONS: Antibiotic regimen of vancomycin and meropenem to continue. We will discuss halfway IV plans with Dr. Garcia and determine method of IV access which is difficult in this patient as central line was attempted yesterday, but could not be performed because of central venous congestion. Damion Perry MD SR/MODL /[id number]
--- NOTE | 2020-04-05 12:21 | NUR ---
WOUND CARE [id number] YO MALE HX OF RIGHT FOOT INFECTION CLARICE 15 0N MODERATE PUP STATUS AND INTERVENTIONS ALTERNATING PRESSURE SURFACE LABS: WBC- 7.71 HGB- 12.5 GLUCOSE-5 HEAD TO TOE SKIN ASSESSMENT COMPLETE PATIENT PRESENTS WITH RIGHT FOOT NONHEALING TRANS MET AMPUTATION SITE OPEN WOUND MEASURES 3CM X7CM X 0.3CM RIGHT PLANTAR SURFACE UNOPENED BLISTER DIABETIC RELATED 6CM X7.5CM RECOMMENDATIONS: NURSING TO CONTINUE TO MONITOR PATIENT AND KEEP SKIN CLEAN AND FREE FROM LOOSE STOOL OR IRRITATING MOISTURE AND CONTINUE TO FOLLOW MODERATE PUP STATUS INTERVENTIONS NURSING TO CONTINUE TO GET PATIENT OUT OF BED FOR MEALS AND MUCH TOLERATED NURSING TO CLEAN RIGHT FOOT NONHEALING TRANS MET AMPUTATION SITE AND RIGHT PLANTAR SURFACE UNOPENED BLISTER WITH NORMAL SALINE DAILY AND APPLY BETADINE AND LOOSELY WRAP WITH 4X4 AND KERLIX DRESSING Addendum: 04/05/20 at 1228 by Ryan Lepe RN Amended: Links added.
--- NOTE | 2020-04-05 12:56 | Consultation ---
DATE OF CONSULTATION: 04/05/2020 HISTORY OF PRESENT ILLNESS: A 64-year-old gentleman, end-stage renal disease, dialyzes, has of femoral access. Has severe peripheral vascular disease with TMA right foot, missing digits in both hands. Amputations in other words. Currently awake, alert, and oriented x3. Denies fever, chills, chest pain, or shortness of breath. Renal consult for management of underlying kidney failure. He has history of atherosclerotic cardiovascular disease, diabetes type 2 with diabetic kidney disease, end-stage renal disease, secondary hyperparathyroidism, and history of hypothyroidism. Currently lying supine. Denies shortness of breath, orthopnea, fever, chills, diarrhea, nausea, vomiting, or abdominal pain. CURRENT MEDICATIONS: Please see MAR for details. SOCIAL HISTORY: Does not smoke or drink. FAMILY HISTORY: Significant for hypertension. PHYSICAL EXAMINATION: GENERAL: Awake, alert, oriented x3, lying supine, in no apparent distress. VITAL SIGNS: Blood pressure 112/56, pulse rate 77, afebrile. HEAD AND NECK: Cornea clear. Oral mucosa moist. Neck veins flat. LUNGS: Relatively clear. HEART: S1 and S2 are audible. ABDOMEN: Soft and nontender. EXTREMITIES: Lower extremity, no edema. LABORATORY TEST: Shows white count 7.7, hemoglobin 12.5. Potassium 4.5, creatinine 5.8. The patient's nurse was bilingual by bedside. IMPRESSION AND PLAN: End-stage renal disease, anemia, chronic kidney disease. Calcium 10.1. I will discontinue calcium acetate tablets. Arrange for dialysis. Please see orders. MD LIS Medina/CAROLA /[id number]
--- NOTE | 2020-04-05 13:27 | Consultation ---
DATE OF CONSULTATION: 04/05/2020 HISTORY OF PRESENT ILLNESS: The patient was seen yesterday in the Wound Care Center. He was having a lot of pain to the lower extremity. He says he did not feel too well. He felt more tired than usual. His blood sugar was elevated. It was close to 300 when he usually runs in the low 100s. Upon removal of the dressing, there was noted to be edema and erythema and the leg cellulitis, so he was sent to the hospital. PAST MEDICAL HISTORY: Diabetes mellitus, end-stage renal disease, severe PVD, history of right foot TMA, and history of left foot AKA. MEDICATIONS: Please refer to MAR. Of interest to this consult are vancomycin and meropenem. REVIEW OF SYSTEMS: Noncontributory except for erythema and edema to the right lower extremity. LABORATORY DATA: White blood count has decreased. Yesterday, he came in with 9.37, it is down to 7.71. His hemoglobin today is 12.5 and his neutrophils are also trending down. He came in with 7 and it is down to 5.6. His ESR is 80. His C-reactive protein is 124. The x-ray is negative for pippa osteomyelitis. PHYSICAL EXAMINATION: LOWER EXTREMITIES: Erythema and edema actually as compared to yesterday, it is beginning to decrease. The wound bed is mostly granular. No streaking erythema. No ascending lymphangitis. Pedal pulses palpable with a decrease. He, I guess had revascularization couple of months ago and he was doing hyperbaric since this is purely limb salvage. ASSESSMENT: 1. Diabetic foot ulcer, grade 3, right. 2. Cellulitis. 3. End-stage renal disease. 4. Severe peripheral vascular disease. 5. Diabetes and neuropathy. PLAN: At this point, he is into the ER because he began to develop an infection. Last culture, he was resistant to oral antibiotic. He is currently on IV antibiotics by Infectious Disease and he is probably going to have a Port-A-Cath placement. My recommendation is to continue local wound care. Continue offloading. Once he is discharged, he will follow up outpatient and continue at the Wound Care Center. Thank you for letting me to participate in the care of this patient. Jennifer Garcia DPM ER/SHANTELLL /[id number]
[2020-04-05] MEDS: COLLAGENASE 5 GM TUBE TP SCH (13:30)
[2020-04-05] MEDS ORDERED: SODIUM CHLORIDE 0.9% 1000ML 2,000 ML IV PRN (13:45)
[2020-04-05] MEDS ORDERED: HEPARIN SOD (PORCINE) 1000 UNIT/ML SDV IV PRN (13:45)
--- NOTE | 2020-04-05 14:04 | NUR ---
DIALYSIS DONE AND REMOVED 2.25 LTRS
[2020-04-05] MEDS: VANCOMYCIN 750MG/NS 150ML IVPB 150 ML IV SCH (14:05)
[2020-04-05] MEDS: MEROPENEM 1GM 100 ML IV SCH (14:05)
--- NOTE | 2020-04-05 14:57 | Consultation ---
DATE OF CONSULTATION: 04/05/2020 Cardiology Consultation Note REASON FOR CONSULT: Peripheral arterial disease, nonhealing right foot wound. CHIEF COMPLAINT: Right foot wound, shortness of breath. HISTORY OF PRESENT ILLNESS: A 64-year-old man with history of end-stage renal disease, severe PAD, status post TMA of the right lower extremity, having chronic infection and healing issues of the TMA wound. REVIEW OF SYSTEMS: As per HPI, otherwise negative. PAST MEDICAL HISTORY: End-stage renal disease, diabetes, peripheral arterial disease. OUTPATIENT MEDICATIONS: Reviewed. SOCIAL HISTORY: Does not smoke, drink, or abuse drugs. FAMILY HISTORY: Noncontributory. OBJECTIVE: VITAL SIGNS: Temperature afebrile, pulse 68, respiratory rate 18, blood pressure 103/68, and saturating 98%. GENERAL: Well-developed, well-nourished, no acute distress. CARDIOVASCULAR: Regular rate and rhythm. No murmurs, rubs, or gallops. LUNGS: Coarse breath sounds bilaterally. ABDOMEN: Soft, nontender, nondistended. PSYCH: Alert and oriented. EXTREMITIES: Right lower extremity shows TMA incision and pink granulation tissue and some purulent exudate. No evidence of necrosis. INPATIENT MEDICATIONS: Reviewed. LABORATORY DATA: Reviewed. TELEMETRY DATA: Unavailable. IMAGING DATA: Reviewed. Foot x-ray shows no evidence of osteomyelitis, severe vascular calcifications. ASSESSMENT AND PLAN: 1. Nonhealing right lower extremity foot wound. 2. Peripheral arterial disease. 3. Coronary artery disease, status post coronary artery bypass graft. 4. Atrial fibrillation. 5. Status post AICD placement. PLAN: We will get arterial Doppler. He has not had one recently to evaluate if he has any revascularizable PAD to improve flow to the TMA incision to aid in wound healing and infection control. Continue other cardiovascular medications, otherwise. INR is 1.11. The patient is only on low-dose Coumadin. We will defer to pharmacy for up titration. Thank you for this consult. We will continue to follow. MD MALLY Hernandez/CAROLA /[id number]
--- NOTE | 2020-04-05 16:00 | NUR ---
DRESSING CHANGED ON RT FOOT
[2020-04-05] MEDS ORDERED: WARFARIN SOD 1 MG TAB PO SCH (17:00)
--- NOTE | 2020-04-05 18:45 | NUR ---
PT RESTING ON BED BED SIDE REPORT GIVEN TO ONCOMING NURSE
--- NOTE | 2020-04-05 19:00 | NUR ---
Received bedside shift report from morning nurse. Pt alert and oriented, lying in bed HOB 30 degrees. Denies pain at this time. Call dexter within reach. Bed low and locked. Bed alarm on.
[2020-04-05] MEDS: METOPROLOL SUCCINATE 50 MG TAB XL PO SCH (20:42)
[2020-04-05] MEDS: TEMAZEPAM 15 MG CAP PO SCH (20:42)
[2020-04-06] VITALS (7 sets, daily range): BP systolic 92–100; BP diastolic 58–76
[2020-04-06] MEDS: LEVOTHYROXINE SODIUM 100 MCG TAB PO SCH (06:00)
[2020-04-06 06:04] LABS: BASOPHILS # (AUTO) 0.1 (0.0-0.1); BASOPHILS % 0.9 % (0.0-1.0); EOSINOPHILS # (AUTO) 0.4 (0.0-0.4); EOSINOPHILS % 5.4 % (0.0-6.0); HEMATOCRIT 44.1 % (38.2-49.6); HEMOGLOBIN 13.9 g/dL (14.0-18.0); LYMPHOCYTES # (AUTO) 1.2 (1.0-3.2); LYMPHOCYTES % 14.5 % (18.0-39.1); MEAN CORPUSCULAR HEMOGLOBIN 30.1 pg (28-32); MEAN CORPUSCULAR HGB CONC 31.5 g/dL (31-35); MEAN CORPUSCULAR VOLUME 95.5 fL (81-99); MONOCYTES # (AUTO) 0.6 (0.2-0.8); MONOCYTES % 7.6 % (4.4-11.3); NEUTROPHILS # (AUTO) 5.7 (2.1-6.9); NEUTROPHILS % 71.3 % (38.7-80.0); PLATELET COUNT 245 x10e3/uL (140-360); RED BLOOD COUNT 4.62 x10e6/uL (4.3-5.7); RED CELL DISTRIBUTION WIDTH 14.7 % (11.7-14.4)
[2020-04-06 06:15] LABS: ALBUMIN 2.7 g/dL (3.5-5.0); ALBUMIN/GLOBULIN RATIO 0.5 (0.8-2.0); ALKALINE PHOSPHATASE 174 IU/L (40-150); BLOOD UREA NITROGEN 18 mg/dL (7-26); BUN/CREATININE RATIO 4 (6-25); CALCIUM 10.2 mg/dL (8.4-10.2); CARBON DIOXIDE 25 mmol/L (22-29); CHLORIDE 103 mmol/L (98-107); CREATININE, SERUM 4.06 mg/dL (0.72-1.25); EST GLOMERULAR FILTRATION RATE 15 ML/MIN (60-); GLUCOSE 85 mg/dL (74-118); SODIUM 140 mmol/L (136-145)
[2020-04-06 06:16] LABS: ALANINE AMINOTRANSFERASE < 6 IU/L (0-55)
--- NOTE | 2020-04-06 07:23 | NUR ---
Bedside report with morning nurse. Pt alert and oriented, no distress noted.
[2020-04-06] MEDS: PANTOPRAZOLE SOD 40 MG TABEC PO SCH (07:30)
[2020-04-06] MEDS: INSULIN LISPRO 100 UNIT/1 ML 3ML VIAL SQ SCH ×4 (07:30→21:00)
[2020-04-06] MEDS: SEVELAMER CARBONATE 800 MG TAB PO SCH ×3 (08:00→17:00)
[2020-04-06] MEDS: GABAPENTIN 100 MG CAP PO SCH ×3 (09:00→21:00)
[2020-04-06] MEDS: ISOSORBIDE MONONITRATE 30 MG TAB CR PO SCH (09:00)
[2020-04-06] MEDS: MIDODRINE HCL 5 MG TABLET PO SCH ×3 (09:00→21:00)
[2020-04-06] MEDS: CILOSTAZOL 100 MG TAB PO SCH ×2 (09:00→17:00)
[2020-04-06] MEDS: COLLAGENASE 5 GM TUBE TP SCH (09:00)
[2020-04-06] MEDS: BUSPIRONE HCL 5 MG TAB PO SCH (09:00)
--- NOTE | 2020-04-06 09:10 | NUR ---
Pt. expressed no spiritual or emotional concerns at this time. [employer] provided hospitality and information on how to reach glass processing worker, if needed. No need to follow at this time. SKYLER SHERWOOD [employer] Spiritual Care Department O: [phone]
--- NOTE | 2020-04-06 09:52 | Consultation ---
DATE OF CONSULTATION: 04/06/2020 HISTORY OF PRESENT ILLNESS: The patient is a 64-year-old male with multiple medical problems including end-stage renal disease, on dialysis, who has infection in right transmetatarsal amputation site. He will need long-term IV antibiotics needs access for this. Currently, he has a left thigh tunneled dialysis catheter. The patient really does not give any history when I talked to him. PAST MEDICAL HISTORY: Significant diabetes, end-stage renal disease, peripheral vascular disease previous surgeries include cholecystectomy, coronary bypass surgery, left below-knee amputation, right transmetatarsal amputation, and amputation of the fingers on the left hand. MEDICATIONS: Listed in the chart. ALLERGIES: HE HAS NO ALLERGIES. FAMILY HISTORY: Significant for diabetes. SOCIAL HISTORY: Unable to obtain from the patient. REVIEW OF SYSTEMS: Could not be obtained from the patient. PHYSICAL EXAMINATION: GENERAL: The patient is awake and alert, but does not really answer questions. There is scarring in both upper extremities. No edema of either arm. However, the evidence of previous dialysis access in the left arm. NECK: Has no masses. LUNGS: Equal breath sounds are clear bilaterally. CARDIAC: Regular rate and rhythm. ABDOMEN: Soft with no tenderness or mass. EXTREMITIES: In the lower extremities, there is a healed left below-knee amputation with tunneled catheter in the left thigh. There is a wound on the right foot with some granulation tissue but also some erythema. There is no purulent drainage. ASSESSMENT: A 64-year-old male needs access for long-term IV antibiotics. We will attempt to place a venous access port tomorrow. This was explained to the patient, although I am not sure how much he understands. Thank you for asking me to see Mr. Gomez. MD NUSRAT Bear/CAROLA /[id number]
--- NOTE | 2020-04-06 10:00 | NUR ---
PATIENT GOING TO PROCEDURE ON TOMORROW CONSENT SIGNED BY CHIEF [place] [id number] ,DR ALDRICH WANTED TO DO THE PROCEDURE AFTER PLACEMENT OF VENOUS ACCESS
[2020-04-06] MEDS: ACETAMINOPHEN/CODEINE 300MG - 30MG TAB PO PRN ×2 (10:16→20:10)
--- NOTE | 2020-04-06 10:28 | NUR ---
PT WENT TO PROCEDURE IN SAFE CONDITION
--- NOTE | 2020-04-06 11:23 | Diagnostic Imaging Report ---
TECHNIQUE: Magnetic resonance imaging of the RIGHT foot was performed WITHOUT injected contrast. HISTORY: Foot pain, evaluate for osteomyelitis COMPARISON: X-ray April 04, 2020 DISCUSSION: Limited evaluation due to incomplete study (patient removed foot from coil and dated not complete the exam per labor commissioner) and patient motion. Prior transmetatarsal amputation with irregularity of the soft tissues overlying the indications site. On the sagittal T1. No T1 replacement, however increased fluid sensitive signal involving the distal stumps. This could reflect postsurgical change, early osteomyelitis, or artifact. No soft tissue abscess. IMPRESSION: MRI study is essentially nondiagnostic. No T1 replacement involving the metatarsal stumps to definitively diagnose osteomyelitis. Increased fluid sensitive signal involving the distal stumps. This could reflect postsurgical change, early osteomyelitis, or artifact. Signed by: Dr. Maxim Roldan M.D. on 04/06/2020 11:20 AM
[2020-04-06 12:18] LABS: INR 1.15; PROTHROMBIN TIME 15.3 seconds (11.9-14.5)
--- NOTE | 2020-04-06 13:03 | NUR ---
Received order for LTAC eval. Used [employer] ID# [id number]. Spoke to pt and Wandy at bedside. Pt's wants to speak with Dr. Millan prior to making a decision. States she will call her now and let CM know of decision. CM's business card given to .
--- NOTE | 2020-04-06 15:23 | NUR ---
Spoke to Dr. Perry, who states he spoke to pt and he wants to go home. Said pt previously had IV abx with HD at [facility]. Would like to see if CM can arrange for IV abx when HD again. CM spoke to pt and at bedside and confirmed that they do want to go home. Pt goes to HD [facility]. Called [facility] and spoke with Molly States Vancomycin should not be a problem but will check to see if they can order Merrem. She will find out and call CM back.
--- NOTE | 2020-04-06 17:29 | Progress Note ---
DATE: 04/06/2020 SUBJECTIVE: The patient overall is doing well. Talked with the patient and by the bedside. OBJECTIVE: VITAL SIGNS: Temperature 97.7, pulse 80, respiratory rate 18, and blood pressure 92/65. HEENT: Normocephalic, atraumatic. Extraocular movements not assessed. NECK: Supple. LUNGS: Fair air entry bilaterally. Clear to auscultation. HEART: Sounds S1, S2. No murmur. No gallop. ABDOMEN: Soft, nontender, normoactive bowel sounds. EXTREMITIES: Left groin hemodialysis catheter, left BKA. Right leg erythema and induration slightly improved, with an open TMA wound. LABORATORY DATA: WBC count is 7.9, hemoglobin 13.9, and platelets 245. Cultures from the foot are showing moderate gram positive cocci in pairs and moderate gram negative bacilli. ASSESSMENT: 1. Soft tissue cellulitis, right leg. 2. Infected right transmetatarsal amputation wound. 3. History of extended-spectrum beta-lactamases positive gram negative infections in the past. 4. Diabetes mellitus. 5. End-stage renal disease, on hemodialysis. RECOMMENDATIONS: We will continue antibiotic treatment with vancomycin and meropenem. We will place a Port-A-Cath. We will attempt to arrange for home IV antibiotic treatment through either Dialysis Center or through Home Health. The patient's is more inclined to go home rather than to an LTAC facility. Wound care is ongoing, we will follow. Damion Perry MD SR/CAROLA /[id number]
--- NOTE | 2020-04-06 18:43 | NUR ---
PT RESTING ON BED BED SIDE REPORT GIVEN TO ONCOMING NURSE
--- OUTSIDE RECORDS SUMMARY | 2020-04-06 19:04 | XMS REPORT | Clinical Summary ---
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 Active glipiZIDE (GLUCOTROL) 5 Take 5 mg by 0 MG 24 hr tablet mouth daily. Active atorvastatin (LIPITOR) 80 Take 80 mg by 0 MG tabletIndications: mouth daily. hypercholesterolemia Active midodrine (PROAMATINE) 10 Take 10 mg by 0 MG tabletIndications: mouth 3 symptomatic orthostatic (three) times hypotension daily. Active gabapentin (NEURONTIN) Take 100 mg 0 100 MG by mouth 3 capsuleIndications: (three) times neuropathic pain daily. Active omeprazole (PRILOSEC) 40 Take 40 mg by 0 MG capsuleIndications: mouth 3 "help digest food" (three) times daily with meals. Active dronedarone (MULTAQ) 400 Take 400 mg 0 mg tabletIndications: by mouth 2 paroxysmal atrial (two) times fibrillation daily with breakfast and dinner. Active sevelamer (RENVELA) 800 Take 4,000 mg 0 mg tablet by mouth 3 (three) times daily with meals. Active calcium acetate (PHOSLO) Take 667 mg 0 667 mg capsule by mouth 3 (three) times daily with meals. Active fluticasone (FLONASE) 50 2 sprays by 0 mcg/actuation nasal Nasal route sprayIndications: daily as allergic rhinitis needed. Active clopidogrel (PLAVIX) 75 Take 75 mg by 0 mg tabletIndications: mouth daily. stents Active aspirin 81 MG chewable Take 81 mg by 0 tabletIndications: mouth daily. myocardial infarction prevention Active LORazepam (ATIVAN) 1 MG Take 1 mg by 0 tabletIndications: mouth 2 (two) anxiety times daily as needed. Active temazepam (RESTORIL) 30 Take 30 mg by 0 mg capsuleIndications: mouth insomnia nightly. Active nitroglycerin (NITROSTAT) Place 0.4 mg 0 0.4 MG SL under the tabletIndications: angina tongue every 5 (five) minutes as needed. Active acetaminophen-codeine Take 1-2 20 tablet 0 12/01 (TYLENOL #3) 300-30 mg tablets by 6 per tablet mouth every 6 (six) hours as needed for Pain (WARNING CAUSES SEDATION) for up to 20 doses. Active Problems Problem Noted Date Aphasia 12/15/2012 Family History Medical History Relation Name Comments Diabetes Brother rebecca Hypertension Brother rebecca Kidney disease Brother rebecca Stroke Brother rebecca Diabetes Daughter meghna Diabetes Mother delfina Hyperlipidemia Mother delfina Hypertension Mother delfina Diabetes Sister Unremarkable Son elysia Relation Name Status Comments Brother rebecca Alive Daughter meghna Alive Father Mother delfina Alive Sister Alive Son elysia Alive Social History Date Tobacco Use Types Packs/Day Years Used Current Every Day Smoker 20 Smokeless Tobacco: Never Used Tobacco Cessation: Ready to Quit: No; Co unseling Given: No Drinks/Week oz/Week Comments Alcohol Use No Sex Assigned at Date Recorded Not on file Last Filed Vital Signs Not on file Plan of Treatment Not on file Results Not on fileafter 04/04/2019 Insurance Type Payer Benefit Subscriber ID Effective Phone Address Plan / Dates Group Medicare MEDICARE MEDICARE A [id number] [id number] Advance Directives For more information, please contact: [phone] Date Inactivated Comments Code Status Date Activated 12/20/2012 5:41 PM All possible means of suppor t, including: cardiac massage, mechanical ventilation, and defibrillation will be used to support life. Code ONE 12/15/2012 10:02 PM
--- OUTSIDE RECORDS SUMMARY | 2020-04-06 19:04 | XMS REPORT | Clinical Summary ---
Author Author [facility] Organization [facility] Address Unknown Phone Unavailable Care Team Providers Care Legal Secretary Name Role Phone Carlos Alberto Cummings MD, Jer PCP Allergies No Known Active Allergies Medications End Date Status Medication Sig Dispensed Refills Start Date Active omeprazole (PriLOSEC) 40 Take 40 mg by 0 MG capsule mouth daily. Active calcium acetate (PHOSLO) Take 667 mg 0 667 mg capsule by mouth 3 (three) times a day. Active nitroglycerin (NITROSTAT) Place 0.4 mg 0 0.4 MG SL tablet under the tongue every 5 (five) minutes as needed for chest pain. Active midodrine (PROAMATINE) 10 Take 10 mg by 0 MG tablet mouth 2 (two) times a day. Friday, Friday, Friday Active sevelamer (RENVELA) 800 Take 3,200 mg 0 mg tablet by mouth 3 (three) times a day with meals. Active gabapentin (NEURONTIN) Take 100 mg 0 100 mg capsule by mouth 3 (three) times a day. Active cilostazol (PLETAL) 50 MG Take 50 mg by 0 tablet mouth 2 (two) times a day. Active sitaGLIPtin (JANUVIA) 25 Take 25 mg by 0 MG tablet mouth daily. Active hydrOXYzine (ATARAX) 25 Take 25 mg by 0 MG tablet mouth 3 (three) times a day as needed for itching. Active clopidogrel (PLAVIX) 75 Take 75 mg by 0 mg tablet mouth daily. Active warfarin (COUMADIN) 1 MG Take 1.5 mg 0 tablet by mouth daily. Active tiZANidine (ZANAFLEX) 4 Take 4 mg by 0 MG tablet mouth 2 (two) times a day. Active levothyroxine (SYNTHROID, Take 100 mcg 0 LEVOXYL) 100 mcg tablet by mouth daily. Active omega-3 acid ethyl esters Take 2 g by 0 (LOVAZA) 1 gram capsule mouth 2 (two) times a day. Active busPIRone (BUSPAR) 7.5 MG Take 7.5 mg 0 tablet by mouth nightly. Active acetaminophen-codeine TAKE 1 TABLET 1 11/07/19 1 (TYLENOL WITH CODEINE #3) BY MOUTH 9 300-30 mg per tablet EVERY 4 TO 6 HOURS NEEDED FOR PAIN Active collagenase (SANTYL) use as 0 ointment directed for wound on right hand Active metoprolol succinate XL Take 25 mg by 2 (TOPROL-XL) 25 mg 24 hr mouth every 9 tablet morning. Active Problems Patient Care Coordination Note Known to Supportive & Palliative Care (SPC). If returns to ED/Obs/Inpt, please consult SPC as soon as possible for continuity of care. 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 01/14/2020 Steal syndrome of upper extremity 01/14/2020 Wound infection 01/14/2020 Peripheral arterial occlusive disease 01/14/2020 Sepsis 01/14/2020 Encounter for hospice care discussion 01/14/2020 Encounter for palliative care 01/14/2020 Cachexia 01/14/2020 Anorexia 01/14/2020 Chronic congestive heart failure 01/14/2020 Diabetic foot infection 09/18/2018 ESRD (end stage renal disease) 03/01/2018 Shortness of breath 01/17/2018 Cellulitis 09/25/2017 Overview: Added automatically from request for darrian hillery [id number] End stage renal disease 09/25/2017 Overview: Added automatically from request for darrian bundy [id number] Dependence on hemodialysis 09/25/2017 Overview: Added automatically from request for darrian hillery [id number] Type 2 diabetes mellitus with peripheral angiopathy 08/04/2017 Atrial fibrillation with rapid ventricular response 07/16/2017 History of coronary artery bypass surgery 06/16/2017 Insomnia disorder related to known organic factor Diabetic skin ulcer 06/16/2017 Chronic kidney disease due to type 2 diabetes mellitu s 06/16/2017 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 06/16/2017 Peripheral vascular disease 06/16/2017 Secondary hyperparathyroidism of renal origin 2016 Hemodialysis-associated hypotension 06/07/2016 Aphasia 12/15/2012 Anemia in chronic kidney disease 05/13/2001 Mixed hyperlipidemia 05/13/2001 Polyneuropathy due to type 2 diabetes mellitus 05/13 Uncontrolled type 2 diabetes mellitus 05/13/2001 End stage renal disease 05/13/2001 Type 2 diabetes mellitus Stroke Overview: X2 2000 Resolved Problems Problem Noted Date Resolved Date Complicated laceration of hand, left, initial encounter 01/14/2020 Hand ulceration 01/14/2020 01/14/2020 Pain of right hand 01/14/2020 01/14/2020 Chest pain 12/04/2018 01/14/2020 Foot infection 09/17/2018 01/14/2020 Acute encephalopathy 10/28/2017 01/14/2020 History of amputation of finger 06/16/20172019 Anal fissure 07/05/2004 01/14/2020 Hypertension 01/14/2020 Encounters Care Team Description Date Type Specialty Bruce Harrison MD 01/20/2020 Anesthesia General Surgery Event Ian Tobias MD Right leg angiogram, 01/20/2020 Surgery General Surgery Provider, Unknown 01/20/2020 Documentation Medical Records 01/14/2020 Travel Harvey Mae DO Berberian, Esteban N., MD Nguyen, Daniel Nha, MD Morris, David, DO Fever in adult (Primary Dx); Atrial fibrillation with rapid ventricular response (HCC); ESRD on dialysis (HCC); Open wound of right foot, sequela; Diabetic foot infection (HCC) 01/13/2020 [facility] Internal Ny dicine - Encounter 01/21/2020 after 04/04/2019 Surgical History Surgery Date Site/Laterality Comments CORONARY ARTERY BYPASS GRAFT REMOVAL, GRAFT, 10/13/2017 Arm Upper/Right Procedure: RE MOVAL, GRAFT, ARTERIOVENOUS - RIGHT ARTERIOVENOUS ARM; Surgeon: Ian Tobias MD; Location: [facility] OR; Service: Vascular; Laterality: Ri ght; Medical devices from this surgery are i n the Implants section. AMPUTATION, BELOW KNEE left INSERT / REPLACE / REMOVE inserted then removed du e to infection PACEMAKER INCISION AND DRAINAGE, 09/23/2018 Leg Lower/Right Proced ure: INCISION AND DRAINAGE to Foot LOWER EXTREMITY Wound-Right; Surgeon: Fransisca Bains MD; Location: [facility] OR; Service: Plastics; Laterality: Right; CARDIAC SURGERY Medical History Medical History Date Comments Type 2 diabetes mellitus (HCC) ESRD (end stage renal disease) ([facility]) 1999 Hypotension Pacemaker PLACED 06/2018, REMOVED IN History of transfusion Hypothyroidism Stroke (HCC) X2 2000 ,2016 Acute encephalopathy 10/28/2017 History of coronary artery bypass 06/16/2017 surgery Embolic phenomenon secondary to atrial 01/14/2020 fibrillation (HCC) Hand ulceration (HCC) 01/14/2020 Atrial fibrillation with rapid 07/16/2017 ventricular response (HCC) History of amputation of finger 06/16/2017 Anal fissure 07/05/2004 Chronic congestive heart failure (HCC) 01/14/2020 Family History Medical History Relation Name Comments Kidney disease Father Cancer Mother Hypertension Mother Kidney disease Mother Relation Name Status Comments Father Mother Alive Social History Date Tobacco Use Types Packs/Day Years Used Never Smoker Smokeless Tobacco: Never Used Drinks/Week oz/Week Comments Alcohol Use No Sex Assigned at Date Recorded Not on file Last Filed Vital Signs Reading Time Taken Comments Vital Sign 139/70 01/21/2020 6:45 PM CDT Blood Pressure 57 01/21/2020 6:45 PM CDT Pulse 36.7 C (98 F) 01/21/2020 6:45 PM CDT Temperature 17 01/21/2020 6:45 PM CDT Respiratory Rate 97% 01/21/2020 6:45 PM CDT Oxygen Saturation - - Inhaled Oxygen Concentration 66.5 kg (146 lb 9.7 oz) 01/21/2020 6:43 AM CDT Weight 162.6 cm (5' 4") 01/14/2020 4:50 AM CDT Height 25.16 01/14/2020 4:50 AM CDT Body Mass Index Plan of Treatment Health Maintenance Due Date Last Done Comments DIABETES: RETINAL EYE 1965 EXAM DIABETIC FOOT EXAM 1965 COLONOSCOPY SCREENING 2005 SHINGLES VACCINES (#1) 2005 INFLUENZA VACCINE 01/01/2020 03/02/2017 Implants Device Identifier Shelf Expiration Date Model / Serial / L ot Implanted Type Area Manufactur er 08/30/2021 [id number] / NA / [id number] Device Vasclr Clsr Baln Cath 10ml Cardiovasc Left: Artery , ACCESS Lkng Syr 5fr Graham Mynxgrip - Sna - ular Femoral CLOSURE [id number] Implants INC Implanted: Qty: 1 on 01/20/2020 by Ian Tobias MD at [facility] 11/23/2022 [id number] / NA / [id number] 5fr X 65cm Impress Diagnostic Catheter, Left: Artery, MERIT Peripheral Catheter, Modified Hook Diagnostic Femoral MEDICAL Flush, 6 Side Ports, Non-Braided, Imaging - [employer], 0.038in Max Guidewire Angiograph INC. Implanted: Qty: 1 on 01/20/2020 by ic Ian Toibas MD at [facility] CMCV [id number] / / Cormatrix Ecm 1cm X 10cm For Human Right: N/A C ORMATRIX Vascular Repair (Pk-5) - [id number] Tissue CA RDIOVASC Implanted: Qty: 1 on 10/13/2017 by Implants Ian Barkley MD at [facility] Description:Expiration date: 12/30/2018 04/01/2019 [id number] / / [id number] Catheter Dialysis Glidepath Implantabl N/A: N/A BA RD [id number] Symmetric Tip - e Infusion PERIPHERAL [id number] Ports or VASCULAR Implanted: 10/02/[address] [facility] (Quantity not on file) s [id number] / / Catheter Dialysis Glidepath 14.5frx Implantabl N/A: N/A BARD 31cm Symmetric Tip - [id number] e Infusion PERIPH ERAL Implanted: 03/02/2018 at [facility] Port or [facility] (Quantity not on file) Accessorie s Procedures Comments Procedure Name Priority Date/Time Associated Diag nosis POC GLUCOSE Routine 01/21/2020 4:42 PM CDT POC GLUCOSE Routine 01/21/2020 12:46 PM CDT HEMODIALYSIS Routine 01/21/2020 7:53 AM CDT POC GLUCOSE Routine 01/21/2020 6:33 AM CDT MANUAL DIFFERENTIAL Routine 01/21/2020 4:26 AM CDT ESTIMATED GFR Routine 01/21/2020 4:26 AM CDT CBC WITH PLATELET AND Routine 01/21/2020 DIFFERENTIAL 4:26 AM CDT BASIC METABOLIC PANEL Routine 01/21/2020 4:26 AM CDT VANCOMYCIN LEVEL, RANDOM Routine 01/21/2020 4:26 AM CDT POC GLUCOSE Routine 01/20/2020 8:44 PM CDT POC GLUCOSE Routine 01/20/2020 4:12 PM CDT POC GLUCOSE Routine 01/20/2020 12:16 PM CDT POC GLUCOSE Routine 01/20/2020 9:15 AM CDT POC GLUCOSE Routine 01/20/2020 8:23 AM CDT POC GLUCOSE Routine 01/20/2020 7:10 AM CDT POC GLUCOSE Routine 01/20/2020 5:39 AM CDT POC GLUCOSE Routine 01/20/2020 2:35 AM CDT MANUAL DIFFERENTIAL Routine 01/20/2020 12:01 AM CDT ESTIMATED GFR Routine 01/20/2020 12:01 AM CDT PARTIAL THROMBOPLASTIN Routine 01/20/2020 TIME (PTT) 12:01 AM CDT PROTHROMBIN TIME WITH INR Routine 01/20/2020 12:01 AM CDT CBC WITH PLATELET AND Routine 01/20/2020 DIFFERENTIAL 12:01 AM CDT BASIC METABOLIC PANEL Routine 01/20/2020 12:01 AM CDT TYPE AND SCREEN Routine 01/20/2020 12:00 AM CDT POC GLUCOSE Routine 01/19/2020 8:18 PM CDT BLOOD CULTURE, AEROBIC & Routine 01/19/2020 ANAEROBIC 8:10 PM CDT BLOOD CULTURE, AEROBIC & Routine 01/19/2020 ANAEROBIC 8:10 PM CDT POC GLUCOSE Routine 01/19/2020 3:52 PM CDT ESTIMATED GFR Routine 01/19/2020 1:00 PM CDT BASIC METABOLIC PANEL Routine 01/19/2020 1:00 PM CDT HC COMPLETE BLD COUNT Routine 01/19/2020 W/AUTO DIFF 1:00 PM CDT HEMODIALYSIS Routine 01/19/2020 12:42 PM CDT POC GLUCOSE Routine 01/19/2020 10:57 AM CDT POC GLUCOSE Routine 01/19/2020 7:16 AM CDT POC GLUCOSE Routine 01/19/2020 6:46 AM CDT POC GLUCOSE Routine 01/18/2020 9:09 PM CDT POC GLUCOSE Routine 01/18/2020 4:07 PM CDT POC GLUCOSE Routine 01/18/2020 11:28 AM CDT POC GLUCOSE Routine 01/18/2020 6:41 AM CDT POC GLUCOSE Routine 01/17/2020 9:59 PM CDT POC GLUCOSE Routine 01/17/2020 4:09 PM CDT HEMODIALYSIS Routine 01/17/2020 1:20 PM CDT POC GLUCOSE Routine 01/17/2020 11:31 AM CDT POC GLUCOSE Routine 01/17/2020 6:40 AM CDT POC GLUCOSE Routine 01/16/2020 8:50 PM CDT POC GLUCOSE Routine 01/16/2020 3:59 PM CDT TTE COMPLETE, WO Routine 01/16/2020 CONTRAST, W DOPPLER 1:31 PM CDT (45064) MRI FOOT WO CONTRAST Routine 01/16/2020 RIGHT 1:25 PM CDT POC GLUCOSE Routine 01/16/2020 11:31 AM CDT POC GLUCOSE Routine 01/16/2020 8:10 AM CDT ESTIMATED GFR Routine 01/16/2020 4:37 AM CDT PROTHROMBIN TIME WITH INR Routine 01/16/2020 4:37 AM CDT MAGNESIUM LEVEL Routine 01/16/2020 4:37 AM CDT COMPREHENSIVE METABOLIC Routine 01/16/2020 PANEL 4:37 AM CDT HC COMPLETE BLD COUNT Routine 01/16/2020 W/AUTO DIFF 4:37 AM CDT VANCOMYCIN LEVEL, RANDOM Routine 01/16/2020 4:37 AM CDT T4, FREE Routine 01/16/2020 4:37 AM CDT THYROID STIMULATING Routine 01/16/2020 HORMONE 4:37 AM CDT HEMOGLOBIN A1C Routine 01/16/2020 4:37 AM CDT LIPID PANEL Routine 01/16/2020 4:37 AM CDT PHOSPHORUS LEVEL Routine 01/16/2020 4:37 AM CDT POC GLUCOSE Routine 01/16/2020 1:57 AM CDT POC GLUCOSE Routine 01/15/2020 9:11 PM CDT POC GLUCOSE Routine 01/15/2020 3:50 PM CDT LIPID PANEL Routine 01/15/2020 12:39 PM CDT ESTIMATED GFR STAT 01/15/2020 12:39 PM CDT MAGNESIUM LEVEL STAT 01/15/2020 12:39 PM CDT BASIC METABOLIC PANEL STAT 01/15/2020 12:39 PM CDT POC GLUCOSE Routine 01/15/2020 12:06 PM CDT POC GLUCOSE Routine 01/15/2020 7:17 AM CDT MANUAL DIFFERENTIAL Routine 01/15/2020 4:02 AM CDT ESTIMATED GFR Routine 01/15/2020 4:02 AM CDT PHOSPHORUS LEVEL Routine 01/15/2020 4:02 AM CDT MAGNESIUM LEVEL Routine 01/15/2020 4:02 AM CDT CBC WITH PLATELET AND Routine 01/15/2020 DIFFERENTIAL 4:02 AM CDT BASIC METABOLIC PANEL Routine 01/15/2020 4:02 AM CDT VANCOMYCIN LEVEL, RANDOM Routine 01/15/2020 4:02 AM CDT TROPONIN Timed 01/15/2020 4:02 AM CDT COVID-19 QUALITATIVE PCR Routine 01/15/2020 12:24 AM CDT POC GLUCOSE Routine 01/14/2020 9:09 PM CDT XR FOOT 2 VW RIGHT STAT 01/14/2020 9:05 PM CDT XR CHEST 1 VW PORTABLE STAT 01/14/2020 6:42 PM CDT ESTIMATED GFR STAT 01/14/2020 6:12 PM CDT TROPONIN STAT 01/14/2020 6:12 PM CDT BASIC METABOLIC PANEL STAT 01/14/2020 6:12 PM CDT ECG 12-LEAD STAT 01/14/2020 6:06 PM CDT TROPONIN Routine 01/14/2020 3:23 PM CDT HEPATITIS B SURFACE AB, Routine 01/14/2020 QUANTITATIVE 3:23 PM CDT HEPATITIS B SURFACE STAT 01/14/2020 ANTIGEN 3:23 PM CDT POC GLUCOSE Routine 01/14/2020 11:17 AM CDT HEMODIALYSIS Routine 01/14/2020 8:23 AM CDT B NATRIURETIC PEPTIDE STAT 01/14/2020 8:10 AM CDT TROPONIN STAT 01/14/2020 8:10 AM CDT ESTIMATED GFR Routine 01/14/2020 8:10 AM CDT COMPREHENSIVE METABOLIC Routine 01/14/2020 PANEL 8:10 AM CDT HC COMPLETE BLD COUNT Routine 01/14/2020 W/AUTO DIFF 8:10 AM CDT LACTIC ACID LEVEL, SEPSIS Timed 01/14/2020 - NOW AND REPEAT 2X EVERY 8:10 AM CDT 3 HOURS LACTIC ACID LEVEL, SEPSIS Timed 01/14/2020 - NOW AND REPEAT 2X EVERY 3:45 AM CDT 3 HOURS XR CHEST 1 VW PORTABLE Routine 01/14/2020 2:51 AM CDT CONSULT TO SEPSIS Routine 01/14/2020 Fever in oliver lt RESPONSE TEAM 2:08 AM CDT PARTIAL THROMBOPLASTIN STAT 01/14/2020 TIME (PTT) 12:55 AM CDT PROTHROMBIN TIME WITH INR STAT 01/14/2020 12:55 AM CDT ECG ED PRELIMINARY Routine 01/14/2020 INTERPRETATION 12:48 AM CDT OR CRITICAL CARE, E/M Routine 01/14/2020 30-74 MINUTES 12:48 AM CDT BLOOD CULTURE, AEROBIC & Routine 01/14/2020 ANAEROBIC 12:45 AM CDT BLOOD CULTURE, AEROBIC & Routine 01/14/2020 ANAEROBIC 12:45 AM CDT RESPIRATORY PATHOGEN Routine 01/14/2020 PANEL 12:43 AM CDT COVID-19 QUALITATIVE PCR STAT 01/14/2020 12:43 AM CDT INFLUENZA ANTIGEN TEST, Routine 01/14/2020 REFLEX NEGATIVE TO RPP 12:43 AM CDT LACTIC ACID LEVEL, SEPSIS Timed 01/14/2020 - NOW AND REPEAT 2X EVERY 12:30 AM CDT 3 HOURS ESTIMATED GFR STAT 01/14/2020 12:30 AM CDT COMPREHENSIVE METABOLIC STAT 01/14/2020 PANEL 12:30 AM CDT HC COMPLETE BLD COUNT STAT 01/14/2020 W/AUTO DIFF 12:30 AM CDT POC GLUCOSE Routine 01/13/2020 11:59 PM CDT ECG 12-LEAD STAT 01/13/2020 11:56 PM CDT after 04/04/2019 Results * POC glucose (01/21/2020 4:42 PM CDT) Only the most recent of 36 results within the time period is included. Pathologist [facility] POC glucose 119 (H) 65 - 100 mg/dL [place] Comment: [facility] Ceo & Board Director Name: Eileen Alcala [place] Device ID: [id number] HOSPITAL Specimen Blood Performing Organization Address City/State/ZIP Code P db Number [facility] DEPARTMENT OF [address] [place] [id number] PATHOLOGY AND GENOMIC MEDICINE [place] [facility] [place] [address] [place] [address] HOSPITAL * Estimated GFR (01/21/2020 4:26 AM CDT) Only the most recent of 9 results within the time period is included. Pathologist [facility] Estimated GFR 11 (A) mL/min/1.73 m2 [place] Comment: [facility] Catergory Units [facility] HOSPITAL G1 >=90 Normal or high G2 60-89 Mildly decreased G3a 45-59 Mildly to moderately decreased G3b 30-44 Moderately to severely decreased G4 15-29 Severely decreased G5 <15 Kidney failure The eGFR was calculated using the Chronic Kidney Disease Epidemiology Collaboration (CKD-EPI) equation. Interpretation is based on recommendations of the National Kidney Foundation-Kidney Disease Outcomes Quality Initiative (NKF-KDOQI) published in 2014. Specimen Performing Organization Address City/[facility] [place] [address] PATHOLOGY AND [facility] MEDICINE [address] * Manual differential (01/21/2020 4:26 AM CDT) Only the most recent of 3 results within the time period is included. Manual PERFORMED [place] differential [facility] Neutrophils 69.0 (H) 36.0 - 66.0 % [facility] Lymphocytes 10.0 (L) 24.0 - 44.0 % [facility] Monocytes 8.0 (H) 0.0 - 6.0 % [facility] Eosinophils 12.0 (H) 0.0 - 6.0 % [facility] Basophils 0.0 0.0 - 1.2 % [facility] Metamyelocytes 0 0 - 1 % [facility] Promyelocytes 0 0 - 1 % [facility] Reactive 1.0 [place] lymphocytes [facility] Platelet slide Harvinder adequate [place] review [facility] Specimen Performing Organization Address City/[facility] [place] [address] PATHOLOGY AND GENOMIC MEDICINE [address] * CBC with platelet and differential (01/21/2020 4:26 AM CDT) Only the most recent of 7 results within the time period is included. WBC 6.1 4.2 - 11.0 k/uL [facility] RBC 4.15 4.04 - 5.86 m/uL [facility] HGB 11.9 (L) 13.0 - 17.3 g/dL [facility] HCT 38.7 34.0 - 45.0 % [facility] MCV 93.3 80.0 - 98.0 fL [facility] MCH 28.7 27.0 - 34.0 pg [facility] MCHC 30.7 (L) 31.5 - 36.5 g/dL [facility] RDW - SD 59.6 (H) 37.0 - 51.0 fL [facility] MPV 13.8 (H) 7.4 - 10.4 fL [facility] Platelet count 139 (L) 150 - 400 k/uL [facility] Nucleated RBC 0.00 /100 WBC [facility] Neutrophils 69.0 (H) 36.0 - 66.0 % [facility] Lymphocytes 10.0 (L) 24.0 - 44.0 % [facility] Monocytes 8.0 (H) 0.0 - 6.0 % [facility] Eosinophils 12.0 (H) 0.0 - 6.0 % [facility] Basophils 0.0 0.0 - 1.2 % [facility] Specimen Blood Performing Organization Address City/State/[facility] [place] [address] PATHOLOGY AND GENOMIC MEDICINE [address] * Vancomycin level, random (01/21/2020 4:26 AM CDT) Only the most recent of 3 results within the time period is included. Vancomycin, 19.8 ug/mL [place] random Comment: [facility] Therapeutic Ranges: [place] Peak 30.0 - HOSPITAL 40.0 ug/mL Trough 10.0 - 20.0 ug/mL Specimen Blood Performing Organization Address City/[facility] [address] PATHOLOGY AND GENOMIC MEDICINE [address] * Basic metabolic panel (01/21/2020 4:26 AM CDT) Only the most recent of 6 results within the time period is included. Pathologist [facility] Sodium 139 135 - 150 mEq/L [facility] Potassium 3.3 (L) 3.5 - 5.0 mEq/L [facility] Chloride 96 (L) 98 - 112 mEq/L [facility] CO2 30 24 - 31 mmol/L [facility] Anion gap 13@ANIO 7 - 15 mEq/L [facility] BUN 13 7 - 18 mg/dL [facility] Creatinine 5.00 (H) 0.70 - 1.20 mg/dL [facility] Glucose 98 65 - 100 mg/dL [facility] Calcium 10.8 (H) 8.8 - 10.2 mg/dL [facility] Specimen Blood Performing Organization Address City/State/[place] [address] PATHOLOGY AND GENOMIC MEDICINE [address] * Partial thromboplastin time, activated (01/20/2020 12:01 AM CDT) Only the most recent of 2 results within the time period is included. [facility] PTT 43.8 (H) 23.0 - 36.0 sec [place] Comment: [facility] PTT therapeutic range for [place] unfractionated heparin is HOSPITAL 61.0-112.0 seconds which corresponds to Anti-Xa 0.3-0.7 U/ml. Specimen Blood Performing Organization Address City/State/[place] [address] PATHOLOGY AND [facility] MEDICINE [address] * Prothrombin time with INR (01/20/2020 12:01 AM CDT) Only the most recent of 3 results within the time period is included. [facility] Prothrombin 24.8 (H) 11.5 - 14.5 sec [facility] INR 2.21 [place] Comment: [facility] For patients on anticoagulant [place] therapy, reference ranges HOSPITAL below: Indication: INR Value Treatment of Venous Thrombosis, 2.0-3.0 pulmonary emboli, or prophylaxis of a venous thrombosis, or systemic emboli. High dose, high risk patients 3.0-4.5 with mechanical valves. NOTE: INR values over 3.0 are sometimes associated with gastrointestinal hemorrhage, especially values over 4.0. Specimen Blood Performing Organization Address [facility] P db Number [facility] DEPARTMENT OF [address] [place] [address] PATHOLOGY [place] [address] HOSPITAL * Type and screen (01/20/2020 12:00 AM CDT) Pathologist [facility] ABO grouping O [facility] Rh type POS [facility] Antibody screen NEG [place] (gel) [facility] Specimen Blood Performing Organization Address [facility] [place] [address] PATHOLOGY [place] [address] HOSPITAL * Blood culture, aerobic & anaerobic (01/19/2020 8:10 PM CDT) Only the most recent of 4 results within the time period is included. [facility] Blood culture No growth after 5 days of [place] isolate incubation. [facility] Comment: HOSPITAL Specimen Information Specimen Source: Blood Specimen Site: Peripheral Arm Right Specimen Blood Performing Organization Address [facility] P db Number [facility] [address] [place] [address] PATHOLOGY [place] [address] HOSPITAL * Transthoracic Echocardiogram Complete, (w Contrast, Strain and 3D if needed) (01/16/2020 1:31 PM CDT) Pathologist Sid Ao Root 3.13 cm [facility] Diameter AoV Area, Vmax 1.79 cm2 [facility] AoV Area, VTI 1.72 cm2 [facility] AoV Mean PG 4.43 mmHg [facility] AoV Peak PG 9.86 mmHg [facility] AoV Vmax 1.57 m/s HM [facility] AoV VTI 0.30 m HM [facility] BSA Grant 1.46 m2 HM [facility] BSA 1.49 m2 HM [facility] IVS,d 1.25 cm HM [facility] IVS/LVPW,2D 1.04 HM [facility] Left Atrium 4.43 cm HM [facility] Dimension Anterior LV,d 4.49 cm HM [facility] LV EF,2D 24.50 % HM [facility] LV,s 4.09 cm HM [facility] LVOT area 2.89 cm2 HM [facility] LVOT Diam,S 1.92 cm HM [facility] LVOT Vmax 0.97 m/s HM [facility] LVOT VTI 0.18 m HM [facility] LVPWD,d 1.20 cm HM [facility] PV Pk Grad 2.34 mmHg HM [facility] PV VMAX 0.76 m/s [facility] RVSP (TR) 39.47 mmHg HM [facility] TR Vpeak 2.71 mm/s HM [facility] AR Press Half 686.05 ms HM [facility] Time MV E A ratio 4.65 [facility] TR pk grad 26.94 mmHg HM [facility] AoV area i VTI 1.16 cm2/m2 HM [facility] BSA Daryl BMI 18.02 kg/m2 HM [facility] E wave 232.61 msec HM [facility] decelartion time MV Peak A Bakari 0.26 m/s HM [facility] MV valve area p 3.26 cm2 HM [facility]NGO 1/2 method MV Peak E Bakari 1.20 m/s HM SYNGO MV stenosis 67.46 ms HM SYNGO pressure 1/2 time AV LVOT peak 3.80 mmHg HM SYNGO gradient Ascending aorta 2.91 cm HM SYNGO RVSP 39.47 mmHg HM SYNGO Ao Root 3.13 cm HM SYNGO Diameter LV SYS VOL 73.91 ml HM SYNGO LV LARSEN VOL 92.19 ml HM SYNGO LA area s A4C 23.84 cm2 HM SYNGO LV SI Teich 2D 12.29 ml/m2 HM SYNGO LV SV Teich 2D 18.28 ml HM [facility] LV Vol s Teich 73.91 ml [facility] PSAX LVOT CI 1.83 l/min/m2 [facility] LVOT CO 2.72 l/min [facility] LVOT HR for 52.81 bpm [facility] LVOT CO LVOT SI 34.57 ml/m2 [facility] BSA Haycock 1.46 m2 [facility] AoV Vmn 0.98 [facility] IVS s 2D 1.16 [facility] LV FS Teich 2D 8.94 [facility] MV AE ratio 0.21 [facility] AR slope 1.36 [facility] Ar Vmax 3.21 [facility] LV FS Cube 2D 8.94 [facility] LVOT Vmn 0.60 [facility] Pt Size 162.56 [facility] Pt Wt 47.63 [facility] Aov area Vmn 1.77 cm2 [facility] LA A_P score P 4.23 [facility] LVOT mean grad 1.73 mmHg HM [facility] MAX Pred HR 155.26 [facility] 85 of MPHR 131.97 [facility] AoV area I VMN 1.19 cm2/m2 [facility] bsa AR DT 2,365.68 msec HM [facility] AR pk grad 41.26 mmHg HM [facility] Calc MPHR 155.26 bpm [facility] IVS pct thck -7.25 % [facility] PLAX LV SI Cube 2D 14.96 ml/m2 [facility] LV SV Cube 2D 22.25 ml HM [facility] LV vol d cube 90.81 ml HM [facility] 2D LV vol s cube 68.56 ml HM [facility] 2D LVPW pct thck 1.39 % HM [facility] PLAX LVPW s PLAX 1.21 cm HM [facility] MV Decel slope 5.16 m/s2 [facility] Pred Exer Dur 7.98 [facility] R1 Pred METS R1 8.29 [facility] LA Vol MOD A4C 68.07 ml [facility] Velocity Ratio 0.62 m/s [facility] (V1/V2) EF 19.83 % [facility] E/A ratio 4.62 [facility] Specimen Narrative Performed At [facility] Left ventricular systolic function i s severely impaired. Left Ventricular ejection fraction is 30 - 3 5%. Normal right ventricular size. Globa l RV systolic function is moderately reduced. The left atrium size by volume is mi ldly dilated. LA volume index is 37ml/m2 Elevated LV filling pressure Performing Organization Address City/State/ZIP Code P db Number [facility] [address] [place] [address], [place] * MRI Foot Wo Contrast Right (01/16/2020 1:25 PM CDT) Specimen Narrative Performed At [facility] EXAMINATION: MRI FOOT WO CONTRAST RIG HT CLINICAL HISTORY: Osteomyelitis suspe cted foot swelling diabetic TECHNIQUE: Multiplanar multisequence MR imaging of the right foot was performed without contrast. COMPARISON: Radiographs dated January 14, 2020. FINDINGS: 1.Status post right foot transmetatarsa l amputation. Soft tissue defect along the amputation stump compatible with ul ceration with multifocal geographic replacement of the normal T1 marrow sig nal of the amputation margins of the first through fifth metatarsals compatible with acute osteo myelitis. Findings are most extensive involving the first and fifth metatarsa ls. 2.Additional shallow soft tissue ulcera tion along the plantar soft tissues of the midfoot which does not appear to vi olate the underlying fascia. 3.No MR evidence of phlegmon or abscess formation. 4.No evidence of septic arthritis. 5.No MR evidence of tenosynovitis. 6.Nonspecific reactive muscle edema wit hout acute pathology. IMPRESSION: Acute osteomyelitis of the first-fifth metatarsal amputation margins. No drainable abscess. [facility]-[id number] Procedure Note Interface, Radiology Results - 01/16/2020 2:02 PM CDT EXAMINATION: MRI FOOT WO CONTRAST RIGHT CLINICAL HISTORY: Osteomyelitis suspected foot swelling diabetic TECHNIQUE: Multiplanar multisequence MR imaging of the right foot was performed without contrast. COMPARISON: Radiographs dated January 14, 2020. FINDINGS: 1.Status post right foot transmetatarsal amputation. Soft tissue defect along the amputation stump compatible with ulceration with multifocal geographic replacement of the normal T1 marrow signal of the amputation margins of the first through fifth metatarsals compatible with acute osteomyelitis. Findings are most extensive involving the first and fifth metatarsals. 2.Additional shallow soft tissue ulcerat ion along the plantar soft tissues of the midfoot which does not appear to violate the underlying fascia. 3.No MR evidence of phlegmon or abscess formation. 4.No evidence of septic arthritis. 5.No MR evidence of tenosynovitis. 6.Nonspecific reactive muscle edema with out acute pathology. IMPRESSION: Acute osteomyelitis of the first-fifth metatarsal amputation margins. No drainable abscess. [facility]-[id number] Performing Organization Address City/State/ZIP Code P db Number [facility] [address] [place] [address] * Thyroid stimulating hormone (01/16/2020 4:37 AM CDT) TSH 0.78 0.27 - 4.20 uIU/mL [facility] Specimen Blood Performing Organization Address City/State/ZIP [facility] P db Number [facility] [address] [place] [address] PATHOLOGY AND GENOMIC MEDICINE [facility] [address] * T4, free (01/16/2020 4:37 AM CDT) T4, free 1.30 0.90 - 1.70 ng/dL [facility] Specimen Blood Performing Organization Address City/[facility] [place] [address] PATHOLOGY AND GENOMIC MEDICINE [address] * Phosphorus level (01/16/2020 4:37 AM CDT) Only the most recent of 2 results within the time period is included. Pathologist [facility] Phosphorus 3.1 2.4 - 4.5 mg/dL [facility] Specimen Blood Performing Organization Address City/[facility] [place] [address] PATHOLOGY AND GENOMIC MEDICINE [address] * Magnesium level (01/16/2020 4:37 AM CDT) Only the most recent of 3 results within the time period is included. Pathologist [facility] Magnesium 2.50 (H) 1.60 - 2.40 mg/dL [facility] Specimen Blood Performing Organization Address City/[facility] [place] [address] PATHOLOGY AND GENOMIC MEDICINE [address] * Hemoglobin A1c (01/16/2020 4:37 AM CDT) [facility] Hemoglobin A1C 5.3 4.0 - 5.6 % [place] Comment: [facility] HbA1c cutoffs for diagnosing [place] diabetes: HOSPITAL 4.0% - 5.6% = normal 5.7% - 6.4% = increased risk for diabetes (prediabetes)9 >=6.5% = diabetes9 Goals for glycemic control (ADA 2016) < 7.0% Target for non adults with diabetes. More or less stringent targets may be appropriate for individual patients. <7.5% Target for Children and adolescents with type 1 diabetes. Specimen Blood Performing Organization Address City/[facility]/ZIP Code P db Number [facility] DEPARTMENT OF [address] [place] [address] PATHOLOGY AND GENOMIC MEDICINE [facility] [address] [facility] [place] [phone] HOSPITAL * Lipid panel (01/16/2020 4:37 AM CDT) Only the most recent of 2 results within the time period is included. Cholesterol 60 0 - 199 mg/dL [facility] Triglycerides 127 0 - 149 mg/dL [facility] HDL cholesterol 20 (L) 40 - 9,999 mg/dL [facility] LDL cholesterol 15Comment: Result obtained by 0 - 99 mg/dL [place] direct LDL measurement [facility] Lipid panel See below [place] interpretation Comment: [facility] Total Cholesterol (mg/dL) [facility] (mg/dL) <200 Desirable <100 Optimal 200-239 Borderline-high 100-129 Near or above optimal >=240 High 130-159 Borderline-high 160-189 High >=190 Very high HDL Cholesterol (mg/dL) Triglycerides (mg/dL) <40 Low <150 Normal >=60 High 150-199 Borderline-high 200-499 High >=500 Very high Risk Catergories that modify LDL goals. Risk Catergories LDL goal (mg/dL) CHD and CHD risk equivalent <100 (10-year risk >20%) Multiple (2+) risk factors <130 (10-year risk =<20%) 0-1 risk factors <160 (<10-year risk) Defining levels of lipids in metabolic syndrome Triglycerides >=150 mg/dL HDL Cholesterol Men <40 mg/dL Women <50 mg/dL Non-HDL cholesterol is a second target for therapy in persons with high triglycerides (>=200 mg/dL) Specimen Blood Performing Organization Address City/State/[facility] P db Number [facility] DEPARTMENT OF [address] [place] [phone] PATHOLOGY AND GENOMIC MEDICINE [facility] [address] [place] [address] * Comprehensive metabolic panel (01/16/2020 4:37 AM CDT) Only the most recent of 3 results within the time period is included. Sodium 137 135 - 150 mEq/L [facility] Potassium 3.6 3.5 - 5.0 mEq/L [facility] Chloride 99 98 - 112 mEq/L [facility] CO2 23 (L) 24 - 31 mmol/L [facility] Anion gap 15@ANIO 7 - 15 mEq/L [facility] BUN 30 (H) 7 - 18 mg/dL [facility] Creatinine 5.50 (H) 0.70 - 1.20 mg/dL [facility] Glucose 106 (H) 65 - 100 mg/dL [facility] Calcium 10.7 (H) 8.8 - 10.2 mg/dL [facility] Protein 6.7 6.3 - 8.3 g/dL [facility] Albumin 2.5 (L) 3.5 - 5.0 g/dL [facility] A/G ratio 0.6 (L) 0.7 - 3.8 [facility] Alkaline 140 (H) 0 - 129 U/L [place] phosphatase [facility] AST 39 10 - 50 U/L [facility] ALT 11 5 - 50 U/L [facility] Total bilirubin 0.6 0.2 - 1.2 mg/dL [facility] Specimen Blood Performing Organization Address City/State/ZIP Code P db Number [facility] DEPARTMENT OF [address] [place] [phone] PATHOLOGY AND GENOMIC MEDICINE [facility] [address] [place] [address] * Troponin (01/15/2020 4:02 AM CDT) Only the most recent of 4 results within the time period is included. Pathologist [facility] Troponin 0.262 (H) 0.000 - 0.040 ng/mL [place] Comment: [facility] In patients suspected of [place] having a myocardial HOSPITAL infarction, along with all other appropriate clinical measures and actions including ECG and other diagnostics as appropriate, measure Ultra TnI at 0 hrs and at 3 hrs. Myocardial infarction VERY LIKELY The 0 hr TnI level is > 0.10 ng/mL Myocardial infarction LIKELY The 0 hr TnI level is > 0.04 ng/mL and 3 hr level is increased or decreased by at least 0.020 ng/mL Myocardial infarction VERY UNLIKELY Both the 0 hr and 3 hr TnI levels <= 0.04 ng/mL(within normal limits) OR 0 hr is > 0.04 ng/mL and 3 hr is increased OR decreased by less than 0.020 ng/mL Specimen Blood Performing Organization Address City/State/ZIP Code P db Number [facility] [address] [place] [address] PATHOLOGY AND GENOMIC MEDICINE [place] [facility] [place] [address] * COVID-19 qualitative PCR (01/15/2020 12:24 AM CDT) Only the most recent of 2 results within the time period is included. Pathologist [facility] Interpretation Negative results do not TYSON preclude 2019-nCoV infection [facility] and should not be used as the HOSPITAL sole basis for treatment or other patient management decisions. Negative results must be combined with clinical observations, patient history, and epidemiological information. COVID-19 Not-Detected Not-Detected [place] qualitative PCR [facility] result HOSPITAL COVID-19 See link below for PDF Lab [place] qualitative PCR ReportComment: Case Number: [facility] [id number] HOSPITAL Specimen Nasopharyngeal swab Performing Organization Address City/[facility]/ZIP Code P db Number [facility] DEPARTMENT OF [address] [place] [address] PATHOLOGY AND GENOMIC MEDICINE [place] [facility] [address] [place] [address] HOSPITAL [facility] * XR Foot 2 Vw Right (01/14/2020 9:05 PM CDT) Specimen Narrative Performed At EXAMINATION: XR FOOT 2 VW RIGHT [facility] CLINICAL HISTORY: Osteomyelitis suspe cted foot swelling diabetic COMPARISON: September 17, 2018. IMPRESSION: Soft tissue swelling of the right foot. Postoperative findings of right foot tr ansmetatarsal amputation. Focal osteopenia about several of the a mputation margins raises the possibility of acute osteoarthritis, further evalua tion with an MR may be obtained if clinically indicated. The bones are demineralized. No suspect ed fracture. Diffuse diabetic type vascular calcifications. [id number] Procedure Note Interface, Radiology Results Incoming - 01/14/2020 9:13 PM CDT EXAMINATION: XR FOOT 2 VW RIGHT CLINICAL HISTORY: Osteomyelitis suspected foot swelling diabetic COMPARISON: September 17, 2018. IMPRESSION: Soft tissue swelling of the right foot. Postoperative findings of right foot transmetatarsal amputation. Focal osteopenia about several of the amputation margins raises the possibility of acute osteoarthritis, further evaluation with an MR may be obtained if clinically indicated. The bones are demineralized. No suspected fracture. Diffuse diabetic type vascular calcifications. [id number] Performing Organization Address [facility]/ZIP Code P db Number [facility] [address] [place] [address] * XR Chest 1 Vw Portable (01/14/2020 6:42 PM CDT) Only the most recent of 2 results within the time period is included. Specimen Narrative Performed At EXAMINATION: XR CHEST 1 VW PORTABLE [facility] CLINICAL HISTORY: fever XR CHEST 1 VW PORTABLE images are sub mitted COMPARISON: 01/14/2020 FINDINGS: There are changes of prior median johnson otomy. Cardiac silhouette is normal in size. The pulmonary vasculature is with in normal limits. The lung zones have no focal area of co nsolidation. IMPRESSION: 1. There are changes of prior median st ernotomy. 2. There is no acute consolidation or f ailure. [id number] Procedure Note Hm Interface, Radiology Results Incoming - 01/14/2020 6:48 PM CDT EXAMINATION: XR CHEST 1 VW PORTABLE CLINICAL HISTORY: fever XR CHEST 1 VW PORTABLE images are submitted COMPARISON: 01/14/2020 FINDINGS: There are changes of prior median sternotomy. Cardiac silhouette is normal in size. The pulmonary vasculature is within normal limits. The lung zones have no focal area of consolidation. IMPRESSION: 1. There are changes of prior median andrew rnotomy. 2. There is no acute consolidation or fa ilure. [id number] Performing Organization Address [facility] P db Number HM [facility] [address] [place] [address] * ECG 12 lead (01/14/2020 6:06 PM CDT) Only the most recent of 2 results within the time period is included. Ventricular 153 [facility] MUSE rate Atrial rate 208 [facility] M[facility] QRSD interval 84 [facility] QT interval 302 [facility] QTC interval 482 [facility] QRS axis 1 87 [facility] M[facility] T wave axis -88 [facility] EKG impression Atrial fibrillation with rapid [facility] MU SE ventricular response-Minimal voltage criteria for LVH, may be normal variant-Inferior infarct , age undetermined-Marked ST abnormality, possible anterolateral subendocardial injury-Compared to previous ECG:-No significant change was found-- Specimen Narrative Performed At This result has an attachment that is n ot available. Performing Organization Address [facility] P db Number [facility] MUSE [address] [place] [address] * Hepatitis B surface Ab, quantitative (01/14/2020 3:23 PM CDT) Hepatitis B 89.53 IU/L [facility] surface Ab Comment: The anti-HBs is greater than or equal to 10 IU/L. This patient has either had an antibody response to HBV vaccination, received a transfusion, or has recovered from HBV infection. This patient should be considered immune to hepatitis B. An anti-HBs result greater than or equal to 10 IU/L implies immunity. For post-vaccination antibody testing guidelines for the general public refer to MMWR May 24, 2005/Vol. 54(No. 16);1-23, and for healthcare workers refer to MMWR May 21, 2013/Vol. 62(No. 10);1-19. Reference Interval: anti-HBs 9.99 IU/L or less ....... Negative 10.00 IU/L or greater .... Positive Results greater than 1,000.00 IU/L are reported as greater than 1,000.00 IU/L. This assay should not be used for blood donor screening, associated re-entry protocols, or for screening Human Cell, Tissues and Cellular and Tissue-Based Products (HCT/P). Performed By: [facility] [address] [place] [address] Clinical Nurse: Tino Quintero MD, MS Specimen Serum Performing Organization Address [facility] P db Number [facility] [address] [place] [address] REF LAB [address] [place] [address] * Hepatitis B surface antigen (01/14/2020 3:23 PM CDT) Pathologist [facility] Hepatitis B Non-reactive Non-reactive [place] surface Ag [facility] Specimen Blood Performing Organization Address City/[facility] [place] [address] PATHOLOGY AND GENOMIC MEDICINE [address] * Lactic acid level, SEPSIS - Now and repeat 2x every 3 hours (01/14/2020 8:10 AM CDT) Only the most recent of 3 results within the time period is included. Pathologist [facility] Lactic acid 1.2 0.5 - 2.2 mmol/L [facility] Specimen Blood Performing Organization Address City/[facility] [address] PATHOLOGY AND GENOMIC MEDICINE [address] * B natriuretic peptide (01/14/2020 8:10 AM CDT) Pathologist [facility] BNP 1,808 (H) 0 - 100 pg/mL [facility] Specimen Blood Performing Organization Address [facility] P db Number [address] [place] [address] PATHOLOGY AND GENOMIC MEDICINE [place] [address] [place] [address] HOSPITAL * Sepsis Clinical Assessment (01/14/2020 2:08 AM CDT) Narrative Performed At Neisha Wallace NP 12/31 2:26 AM 64 y.o. male with PMH of ESRD on HD, an emia, PPM, DM, AFib (on Coumadin) who presented to the ED with c/o subjec tive fever, abdominal pain, and diarrhea. Lab called to report lactic acid 2.6. S epsis score 4, SIRS criteria 2. Blood cx and COVID-19 PCR pending. Add CXR. No fluid at this time as pt with ESRD on HD. Zosyn/Vancomycin initi ated per ED provider. Trend lactic acid. Sepsis Clinical Assessment Performed by: Neisha Wallace NP Authorized by: Neisha Wallace NP Sepsis Clinical Assessment General Assessment Information Current sepsis score: 4 On comfort care?: No If score does not worsen, snooze alerts until: 01/14/2020 14:08 CDT SIRS Criteria Temperature > 38.3 C (101 F) due to acu te condition Heart rate > 90 bpm due to acute condit ion Organ Dysfunction Lactate > 2.0 mmol/L due to acute condi tion INR > 1.5 or aPTT > 60 secs (used only if not on anticoagulants) due to acute condition Creatinine > 2.0 mg/dL due to chronic c ondition Sepsis Assessment Clinical suspicion of infection? Yes Time of suspicion of infection: 2019 2:08 AM Clinical suspicion of sepsis?: Yes Sepsis staging: Severe sepsis Severe Sepsis T0: 01/14/2020 2:08 AM Sepsis protocol started? Yes Where did the protocol start?: ED Sta rted Suspected Type/Source of Infection Suspected Type of Infection: Bacterial Suspected Source of Infection: Source u nknown Sepsis Related Vitals Heart rate: 144 Temperature: (!) 101.3 F Respiratory rate: 18 Blood pressure: 149/78 Altered mental status: WBC (k/uL) Date Value 01/14/2020 9.4 12/04/2018 11.0 Weight-Based Fluid Bolus Calculation The recommended weight-based bolus volu me: 1,428 mL (dosing weight) Please refer to the MAR for actual med/ fluid administrations. 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: yes Interpretation: Interpretation: abnormal Rate: ECG rate: 143 ECG rate assessment: tachycardic Rhythm: Rhythm: atrial fibrillation Rhythm comment: With RVR Ectopy: Ectopy: none QRS: QRS axis: Normal QRS intervals: Normal Conduction: Conduction: normal ST segments: ST segments: Non-specific Depression: V3, V4, V5 and V6 T waves: T waves: normal Comments: Rate related ST depressions * CRITICAL CARE (01/14/2020 12:48 AM CDT) Narrative Performed At Harvey Mae DO 2019 3:13 AM Critical Care Performed by: Harvey Mae DO Authorized by: Harvey Mae DO Critical care provider statement: Critical care time (minutes): 45 Critical care time was exclusive of: Separately billable procedures and treating other patients Critical care was necessary to treat or prevent imminent or life-threatening deterioration of the f ollowing conditions: Sepsis, cardiac failure and circulatory failure Critical care was time spent personal ly by me on the following activities: Development of treatment plan with patient or surrogate, discussions with consultants, discussio ns with primary provider, evaluation of patient's response to katie atment, examination of patient, interpretation of cardiac output measur ements, obtaining history from patient or surrogate, ordering and perf orming treatments and interventions, ordering and review of l aboratory studies, ordering and review of radiographic studies, pulse o ximetry, re-evaluation of patient's condition and review of old charts * Respiratory pathogen panel (01/14/2020 12:43 AM CDT) Pathologist Sid Adenovirus PCR Not Detected [facility] Comment: [facility] Specimen Information HOSPITAL Specimen Source: Nares Specimen Site: Right Coronavirus Not Detected [place] HKU1 PCR [facility] Coronavirus Not Detected [place] NL63 PCR [facility] Coronavirus Not Detected [place] 229E PCR [facility] Coronavirus Not Detected [place] OC43 PCR [facility] Human Not Detected [place] metapneumovirus [facility] PCR [facility]OSPITAL Human Not Detected [place] rhinovirus/ente [facility] rovirus PCR HOSPITAL Influenza A PCR Not Detected [facility] Influenza A/H1 Not Reported [place] PCR [facility] Influenza A/H3 Not Reported [place] PCR [facility] Influenza Not Reported [place] A/H1-2009 [facility] Influ[facility] B PCR Not Detected [facility] Parainfluenza Not Detected [place] virus 1 [facility] Parainfluenza Not Detected [place] virus [facility] Par[facility]fluenza Not Detected [place] virus 3 PCR [facility] Parainfluenza Not Detected [place] virus 4 PCR [facility] Respiratory Not Detected [place] syncytial virus [facility] PCR [facility]OS[facility]ITAL Bordetella Not Detected [place] pertussis [facility] Bordetella Not Detected [place] parapertussis [facility] PCR [facility]OS[facility]ITAL Chlamydia Not Detected [place] pneumoniae [facility] Mycoplasma Not Detected [place] pneumoniae PCR [facility] Influenza A no Not Reported [place] sub type [facility] Specimen Nares - Right Performing Organization Address City/State/ZIP Code P db Number [facility] DEPARTMENT [address] [place] [address] PATHOLOGY AND GENOMIC MEDICINE [address] * Influenza antigen test, reflex negative to RPP (01/14/2020 12:43 AM CDT) Influenza Negative for Influenza A/B [place] antigen antigen. [facility] Comment: [place] Specimen Information HOSPITAL Specimen Source: Nares Specimen Site: Right Specimen Nares - Right Performing Organization Address City/State/ZIP Code P db Number [facility] DEPARTMENT OF [address] [place] [address] PATHOLOGY AND GENOMIC MEDICINE [place] [address] [address] [place] [phone] HOSPITAL after 04/04/2019 Insurance Type Payer Benefit Subscriber ID Effective Phone Address Plan / Dates Group Medicare MEDICARE MEDICARE [id number] 2001-P [place], PART A AND resent [place] B Commercial AARP AAR [id number] 2018-P SUPPLEMENT resent Advance Directives For more information, please contact: [phone] 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
--- NOTE | 2020-04-06 19:05 | NUR ---
Completed bedside rounds with morning nurse. Pt alert and oriented to name, right side lying in bed HOB 30 degrees, denies pain at this time. Call light within reach.
--- OUTSIDE RECORDS SUMMARY | 2020-04-06 19:05 | XMS REPORT | Continuity of Care Document ---
Author Author [facility] t Organization [facility] Address [address] [place] [address] Phone Unavailable Care Team Providers Care Development Eng Name Role Phone MD PHILLIP CARCAMO PCP Unavailable SARAH BROWN Attphys Unavailable AMBAR VILLA Attphys Unavailable Ricki Mae DO Attphys [phone] Bud STAUFFER, Farzad Shannon Attphys Vanessa STAUFFER, Formerly [facility] [place] Attphys Rubina Ash DO Attphys Jatinder STAUFFER, Ian Attphys Clint Harrison MD Attphys [phone] Provider, Unknown Attphys Unavailable ALFRED PADRON Attphys Unavailable Mac STAUFFER, Lakia Attphys RANDY LOPEZ Attphys Unavailable RIYA COHEN M.D. Attphys Unavailable GARY ASH Attphys Unavailable MARTHA SANTOS M.D. Attphys Unavailable MOE MEZA M.D. Attphys UnavailKESHIA Santana M.D. Attphys Unavailable SARAH BROWN Admphys Unavailable DENISE BUI Admphys Unavailable Payers Payer Name Policy Type Policy Number Effective Date Expiration Date Sue florian Medicare A & B [id number] 2019 00:00:00 [facility] AARP [id number] [facility] Cdc Review [id number] [facility] MEDICAREMEDICARE PART A AND [id number] 2001-[place] [id number] 2001 00:00:00 Gustavo Velazquez AARPAARP [id number] 2018-PresentCommercial [id number] 2018 00:00:00 Gustavo Velazquez Problems Condition Name Condition Details Condition Category Status Onset Date Resolution Date Last Treatment Date Treating Clinician Comments Source Fever in adult Fever in adult Disease Active 2020-01-14 00:00:00 Gustavo Velazquez 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 of left hand with draining sinus Disease Active 2020-01-14 00:00:00 Gustavo Velazquez 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 Em bolic phenomenon secondary to atrial fibrillation Disease Active 2020-01-14 00:00:00 Gustavo Velazquez 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 ity Disease Active 2020-01-14 00:00:00 Delphine Velazquez Wound infection Wound infection Disease Active 2020-01-14 00:00:00 Gustavo Velazquez Peripheral arterial occlusive disease Peripheral arterial oc clusive disease Disease Active 2020-01-14 00:00:00 Gustavo Velazquez Sepsis Sepsis Disease Active 2020-01-14 00:00:00 Gustavo Velazquez Encounter for palliative care Encounter for palliative care Disease Active 2020-01-14 00:00:00 Gustavo Velazquez Cachexia Cachexia Disease Active 2020-01-14 00:00:00 Gustavo Velazquez Anorexia Anorexia Disease Active 2020-01-14 00:00:00 Gustavo Velazquez Chronic congestive heart failure Chronic congestive heart failur e Disease Active 2020-01-14 00:00:00 [place] [facility] Diabetic foot infection Diabetic foot infection Disease Active 2018-09-18 00:00:[address] ESRD (end stage renal disease) ESRD (end stage renal disease) Disea se Active 2018-03-01 00:00:00 Gustavo Velazquez Shortness of breath Shortness of breath Disease Active 2018-01-17 00:00 :00 Gustavo Velazquez Cellulitis Cellulitis Disease Active 2017-09-25 00:00:00 Overview: Added automatically from request for surgery [id number] Gustavo Velazquez End stage renal disease End stage renal disease Disease Active 2017-09-25 00:00:00 Overview: Added automaticall y from request for surgery [id number] Gustavo Velazquez Dependence on hemodialysis Dependence on hemodialysis Disease Active 2017-09-25 00:00:00 Overview: Added automaticall y from request for surgery [id number] Gustavo Velazquez Type 2 diabetes mellitus with peripheral angiopathy Ty pe 2 Diabetes Mellitus with Peripheral Angiopathy Problem Active 2017-08-04 00:00:00 [facility] Chronic atrial fibrillation Chronic Atrial Fibrillation Problem Active 2017-07-16 00:00:00 [facility] Atrial fibrillation with rapid ventricular response At rial fibrillation with rapid ventricular response Disease Active 2017-07-16 00:00:00 Gustavo Velazquez Polyneuropathy due to type 2 diabetes mellitus Polyneu ropathy Due to Type 2 Diabetes Mellitus Problem Active 2017-06-16 00:00:00 [facility] Mixed hyperlipidemia Mixed Hyperlipidemia Problem [facility] related to known organic factor Inso mnia Disorder Related to Known Organic Factor Problem Active 2017-06-16 00:00:00 [facility] Chronic hypotension Chronic Hypotension Problem Active 2017-06-16 00:00 :00 [facility] Dependence on hemodialysis Dependence on Hemodialysis Problem Active 2017-06-16 00:00:00 [facility] History of coronary artery bypass surgery History of c oronary artery bypass surgery Disease Active 2017-06-16 00:00:00 [place] [facility] Insomnia disorder related to known organic factor Inso mnia disorder related to known organic factor Disease Active 2017-06-16 00:00:00 Gustavo Velazquez Diabetic skin ulcer Diabetic skin ulcer Disease Active 2017-06-16 00:00 :00 Gustavo Velazquez Chronic kidney disease due to type 2 diabetes mellitus Chronic kidney disease due to type 2 diabetes mellitus Disease Active 2017-06-16 00:00:00 Gustavo Velazquez 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 Disease Active 2017-06-16 00:00:00 Gustavo Velazquez Peripheral vascular disease Peripheral vascular disease Disease Active 2017-06-16 00:00:00 Gustavo Velazquez Secondary hyperparathyroidism of renal origin Secondar y hyperparathyroidism of renal origin Disease Active 2016-12-16 00:00:00 Gustavo Mitchellist Hemodialysis-associated hypotension Hemodialysis-associated hypo tension Disease Active 2016-06-07 00:00:00 [place] [facility] Aphasia Aphasia Disease Active 2012-12-15 00:00:00 Gustavo Velazquez Anemia of chronic renal failure Anemia of Chronic Renal Failure Pro blem Active 2004-07-05 00:00:00 [facility] End stage renal disease End Stage Renal Disease Problem Active 2004-07-05 00:00:00 [facility] Anemia in chronic kidney disease Anemia in chronic kidney diseas e Disease Active 2001-05-13 00:00:00 [place] [facility] Mixed hyperlipidemia Mixed hyperlipidemia Disease Active 00:00:00 Gustavo Velazquez Polyneuropathy due to type 2 diabetes mellitus Polyneu ropathy due to type 2 diabetes mellitus Disease Active 2001-05-13 00:00:00 Gustavo Mitchellist Uncontrolled type 2 diabetes mellitus Uncontrolled type 2 di abetes mellitus Disease Active 2001-05-13 00:00:00 Gustavo Velazquez End stage renal disease End stage renal disease Disease Active 2001-05-13 00:00:[address] History of Coronary artery disease History of Coronary arter y disease Problem HL7.CCDAR2 Resolved [facility] History of diabetes mellitus History of diabetes mellitus Proble m HL7.CCDAR2 Resolved [facility] History of hyperlipidemia History of hyperlipidemia Problem HL7.CCD AR2 Resolved [facility] Non-healing wound Non-healing wound Problem HL7.CCDAR2 Active [facility] Pain of right hand Pain of right hand Problem HL7.CCDAR2 Active [facility] Atrial fibrillation Problem Active [facility] Type 2 diabetes mellitus Type 2 diabetes mellitus Disease Active Gustavo Velazquez Stroke Stroke Disease Active Overview: X2 200 Gustavo Velazquez Complicated laceration of hand, left, initial encounte r Complicated laceration of hand, left, initial encounter Disease Resolved 2020-01-14 00:0 0:00 2020-01-14 00:00:00 2020-01-14 18:21:34 [facility] odchema Hand ulceration Hand ulceration Disease Resolved 2020-01-14 00:0 0:00 2020-01-14 00:00:00 2020-01-14 18:21:20 Gustavo Hazel odist Pain of right hand Pain of right hand Disease Resolved 2020-01-01 4 00:00:00 2020-01-14 00:00:00 2020-01-14 18:23:06 Gustavo Velazquez Type II diabetes mellitus uncontrolled Type II Diabetes Yi itus Uncontrolled Problem Active 2004-07-05 00:00:00 2017-06-16 00:00:00 [facility] Essential hypertension Essential Hypertension Problem Active 2004-07-05 00:00:00 2017-06-16 00:00:00 [facility] History of Past Illness Condition Name Condition Details Condition Category Status Onset Date Resolution Date Last Treatment Date Treating Clinician Comments Source Chest pain Chest pain Disease Resolved 2018-12-04 00:00:00 00:00:00 2020-01-14 18:20:07 Gustavo Velazquez Foot infection Foot infection Disease Resolved 2018-09-17 00:00: 00 2020-01-14 00:00:00 2020-01-14 18:22:42 Gustavo [facility] Acute encephalopathy Acute encephalopathy Disease Resolved 10-28 00:00:00 2020-01-14 00:00:00 2020-01-14 18:19:49 Gustavo Velazquez History of amputation of finger History of amputation of finger Disease Resolved 2017-06-16 00:00:00 2020-01-14 00:00:00 2020-01-14 18:22:27 Gustavo Velazquez Anal fissure Anal fissure Disease Resolved 2004-07-05 00:00:00 2 00:00:00 2020-01-14 18:22:36 Gustavo Hazel odist Hypertension Hypertension Disease Resolved 2020-01-14 00: 00:00 2020-01-14 18:20:13 Gustavo Velazquez Allergies, Adverse Reactions, Alerts Allergy Name Allergy Type Status Severity Reaction(s) Onset Date Inacti ve Date Treating Clinician Comments Source No Known Allergies DA Active U 2018-06-15 00:00:00 [facility] No Known Allergies DA Active U 2016-08-30 00:00:00 [facility] Family History Family Member Diagnosis Comments Start Date Stop Date Source Natural brother Diabetes [facility] Natural brother Hypertension [facility] Natural brother Kidney disease [facility] Natural brother Stroke [facility] Natural daughter Diabetes [facility] Natural mother Diabetes [facility] Natural mother Hyperlipidemia [facility] Natural mother [facility]pertension [facility] Natural mother [facility] Natural mother Hypertension Gustavo Velazquez Natural mother Kidney disease [place] [facility] Natural sister Diabetes [facility] Natural son Unremarkable [facility] Natural father Kidney disease [place] [facility] Social History Social Habit Start Date Stop Date Quantity Comments Source Sex Assigned [facility] [place] [facility] Tobacco use and exposure 2020-01-14 00:00:00 2020-01-14 00:00:00 Clarissa r used Gustavo Velazquez Alcohol intake 2020-01-14 00:00:00 2020-01-14 00:00:00 Current non-drinker of alcohol (finding) Gustavo Velazquez Smoking Status Start Date Stop Date Source Former Smoker Gage howard Never smoker Gustavo martines Current every day smoker 2015-12-26 00:00:00 [facility] Medications Ordered Medication Name Filled Medication Name Start Date Stop Da te Current Medication? Ordering Clinician Indication Dosage Frequency Signature (SIG) Comments Components Source omeprazole (PriLOSEC) 40 MG capsule 2020-01-21 19:14:52 Yes 40mg QD Take 40 mg by mouth daily. Gustavo Velazquez calcium acetate (PHOSLO) 667 mg capsule 2020-01-21 19:14:52 Yes 667mg Q.[id number] Take 667 mg by mouth 3 (three) times a day. Gustavo Velazquez nitroglycerin (NITROSTAT) 0.4 MG SL tablet 2020-01-21 19:14:[address] 0.4 mg under the tongue every 5 (five) minutes a s needed for chest pain. Gustavo Velazquez midodrine (PROAMATINE) 10 MG tablet 2020-01-21 19:14:52 Yes 10mg Q.5D Take 10 mg by mouth 2 (two) times a day. [place], Friday, Friday Gustavo Velazquez sevelamer (RENVELA) 800 mg tablet 2020-01-21 19:14:52 Ye s 3200mg Q.[id number] Take 3,200 mg by mouth 3 (three) times a day with meals. Gustavo Velazquez gabapentin (NEURONTIN) 100 mg capsule 2020-01-21 19:14:52 Yes 100mg Q.[id number] Take 100 mg by mouth 3 (three) times a day. Gustavo Velazquez cilostazol (PLETAL) 50 MG tablet 2020-01-21 19:14:52 Yes 50mg Q.5D Take 50 mg by mouth 2 (two) times a day. Sandra Velazquez sitaGLIPtin (JANUVIA) 25 MG tablet 2020-01-21 19:14:52 Yes 25mg QD Take 25 mg by mouth daily. Gustavo Velazquez hydrOXYzine (ATARAX) 25 MG tablet 2020-01-21 19:14:52 Ye s 25mg Q.[id number] Take 25 mg by mouth 3 (three) times a da y as needed for itching. Gustavo Velazquez clopidogrel (PLAVIX) 75 mg tablet 2020-01-21 19:14:52 Yes 75mg QD Take 75 mg by mouth daily. Gustavo Velazquez warfarin (COUMADIN) 1 MG tablet 2020-01-21 19:14:52 Yes 1.5mg QD Take 1.5 mg by mouth daily. Gustavo pires tiZANidine (ZANAFLEX) 4 MG tablet 2020-01-21 19:14:52 Yes 4mg Q.5D Take 4 mg by mouth 2 (two) times a day. Delphine Velazquez levothyroxine (SYNTHROID, LEVOXYL) 100 mcg tablet 2020-01-21 19:14:52 Yes 100ug QD Take 100 mcg by mouth daily. Gustavo Velazquez omega-3 acid ethyl esters (LOVAZA) 1 gram capsule 2020-01-21 19:14:52 Yes 2g Q.5D Take 2 g by mouth 2 (two) times a day. Gustavo Velazquez busPIRone (BUSPAR) 7.5 MG tablet 2020-01-21 19:14:52 Yes 7.5mg QD Take 7.5 mg by mouth nightly. Gustavo pires collagenase (SANTYL) ointment 2020-01-21 19:14:52 Yes use as directed for wound on right hand Gustavo Velazquez acetaminophen-codeine (TYLENOL WITH CODEINE #3) 300-30 mg pe r tablet 2018-11-06 00:00:00 Yes TAKE 1 TABLET BY MOUTH EVERY 4 TO 6 HOURS NEEDED FOR PAIN Gustavo Velazquez metoprolol succinate XL (TOPROL-XL) 25 mg 24 hr tablet 2018-11-02 00:00:00 Yes 25mg QD Take 25 mg by mouth every morning. Gustavo Velazquez Acetaminophen-Codeine #3 300-30 MG Oral Tablet Acetami nophen-Codeine #3 300-30 MG Oral Tablet 2017-04-09 00:00:00 Yes RIYA COHEN M.D. TAKE 1 TABLET EVERY 6 TO 8 HOURS NEEDED FOR PAIN. U [facility] acetaminophen-codeine (TYLENOL #3) 300-30 mg per tablet 2015-12-27 00:00:00 Yes 1{tbl} Take 1-2 tablet s by mouth every 6 (six) hours as needed for Pain (WARNING CAUSES SEDATION) for up to 20 doses. [facility] metoprolol (LOPRESSOR) 50 MG tablet 2015-12-26 23:52:14 Yes 50mg Q.5D Take 50 mg by mouth 2 (two) times daily. [facility] glipiZIDE (GLUCOTROL) 5 MG 24 hr tablet 2015-12-26 23:52:14 Yes 5mg QD Take 5 mg by mouth daily. [facility] atorvastatin (LIPITOR) 80 MG tablet 2015-12-26 23:52:14 Yes hypercholesterolemia 80mg QD Take 80 mg by mouth daily. [facility] midodrine (PROAMATINE) 10 MG tablet 2015-12-26 23:52:14 Yes symptomatic orthostatic hypotension 10mg Q.[id number] Take 10 mg by mouth 3 (three) times daily. [facility] gabapentin (NEURONTIN) 100 MG capsule 2015-12-26 23:52:14 Yes neuropathic pain 100mg Q.[id number] Take 100 mg by mouth 3 (three) times daily. [facility] omeprazole (PRILOSEC) 40 MG capsule 2015-12-26 23:52:14 Yes 40mg Take 40 mg by mouth 3 (three) times daily with meals. [facility] dronedarone (MULTAQ) 400 mg tablet 2015-12-26 23:52:14 Yes paroxysmal atrial fibrillation 400mg Take 400 mg by mouth 2 (two) times daily with breakfast and dinner. [facility] sevelamer (RENVELA) 800 mg tablet 2015-12-26 23:52:14 Yes 4000mg Take 4,000 mg by mouth 3 (three) times daily with meals. [facility] calcium acetate (PHOSLO) 667 mg capsule 2015-12-26 23:52:14 Yes 667mg Take 667 mg by mouth 3 (three) times daily with meals. [facility] fluticasone (FLONASE) 50 mcg/actuation nasal spray 2015-12 23:52:14 Yes allergic rhinitis 2{spray} 2 sprays by Nasal route daily as needed. [facility] clopidogrel (PLAVIX) 75 mg tablet 2015-12-26 23:52:14 Yes 75mg QD Take 75 mg by mouth daily. [facility] aspirin 81 MG chewable tablet 2015-12-26 23:52:14 Yes myocardial infarction prevention 81mg QD Take 81 mg by mouth daily. [facility] LORazepam (ATIVAN) 1 MG tablet 2015-12-26 23:52:14 Yes anxiety 1mg Take 1 mg by mouth 2 (two) times daily as needed. [facility] temazepam (RESTORIL) 30 mg capsule 2015-12-26 23:52:14 Y es insomnia 30mg QD Take 30 mg by mouth nightly. [facility] nitroglycerin (NITROSTAT) 0.4 MG SL tablet 2015-12-26 23:52:[address] 0.4 mg under the tongue every 5 (five) minutes a s needed. [facility] Aspirin TABS Aspirin TABS Yes [facility] Atorvastatin Calcium TABS Atorvastatin Calcium TABS Yes [facility] Calcium CAPS Calcium CAPS Yes [facility] Sensipar TABS Sensipar TABS Yes [facility] Ciprofloxacin HCl TABS Ciprofloxacin HCl TABS Yes [facility] Plavix TABS Plavix TABS [facility] Doxycycline Hyclate CAPS Doxycycline Hyclate CAPS Yes [facility] Multaq TABS Multaq TABS Yes [facility] Gabapentin TABS Gabapentin TABS Yes [facility] GlipiZIDE TABS GlipiZIDE TABS Yes [facility] Hydrocodone-Acetaminophen TABS Hydrocodone-Acetaminophen TABS Yes [facility] Levocetirizine Dihydrochloride TABS Levocetirizine Dihydrochloride TA BS Yes [facility] Meloxicam 15 MG Oral Tablet Meloxicam 15 MG Oral Tablet Yes [facility] Metoprolol Tartrate TABS Metoprolol Tartrate TABS Yes [facility] Midodrine HCl TABS Midodrine HCl TABS Yes [facility] Nitroglycerin 0.4 MG Sublingual Tablet Sublingual Nitr oglycerin 0.4 MG Sublingual Tablet Sublingual Yes [facility] Omeprazole CPDR Omeprazole CPDR Yes [facility] Sevelamer Carbonate TABS Sevelamer Carbonate TABS Yes [facility] Temazepam CAPS Temazepam CAPS Yes [facility] Warfarin Sodium 1 MG Oral Tablet Warfarin Sodium 1 MG Oral Tablet Yes 1.5 QD TAKE 1.5 TABLET DAILY [facility] Cilostazol 50 MG Oral Tablet Cilostazol 50 MG Oral Tablet Yes MARTHA SANTOS M.D. TAKE ONE TABLET BY MOUTH TWICE DAILY [facility] Accu-Chek Ave Plus Meter Accu-Chek Ave Plus Meter No Accu-Chek Ave Plus Meter [facility] ice Accu-Chek Ave Plus test strips Accu-Chek Ave Plus test strips No Accu-Chek Ave Plus test strips [facility] Accu-Chek Softclix Lancets Accu-Chek Softclix Lancets No Accu-Chek Softclix Lancets [facility] ice bacitracin 500 unit/gram topical ointmen t aplicar hacia area afectada dos veces cada bhupinder bacitracin 500 unit/gram topical ointmen t aplicar hacia area afectada dos veces cada bhupinder No bacit racin 500 unit/gram topical ointment aplicar hacia area afectada dos veces cada bhupinder [facility] bupropion HCl XL 150 mg 24 hr tablet, extended release bupropion HCl XL 150 mg 24 hr tablet, extended release No bupropion HCl XL 150 mg 24 hr tablet, extended release [facility] calcium acetate 667 mg capsule Take 1 capsule 3 times a day by oral route. calcium acetate 667 mg capsule Take 1 capsule 3 times a day by oral route. No 1capsule(s) TID calcium acetate 667 mg capsule Take 1 capsule 3 times a day by oral route. [facility] ice ciprofloxacin 250 mg tablet ciprofloxacin 250 mg tablet No ciprofloxacin 250 mg tablet [facility] clopidogrel 75 mg tablet chiara 1 tableta por via oral kasia vez cada bhupinder clopidogrel 75 mg tablet chiara 1 tableta por via oral kasia vez cada bhupinder No clopidogrel 75 mg tablet chiara 1 tableta por vi a oral kasia vez cada bhupinder [facility] Enteric Coated Aspirin 81 mg tablet,lee yed release chiara 1 tableta por via oral kasia vez cada bhupinder Enteric Coated Aspirin 81 mg tablet,lee yed release chiara 1 tableta por via oral kasia vez cada bhupinder No Enteric Coated Aspirin 81 mg tablet,delayed release chiara 1 tableta por via oral kasia vez cada bhupinder [facility] fluticasone 50 mcg/actuation nasal spray,suspension fl uticasone 50 mcg/actuation nasal spray,suspension No f luticasone 50 mcg/actuation nasal spray,suspension [facility] ice folic acid 1 mg tablet folic acid 1 mg tablet No folic acid 1 mg tablet [facility] mg capsule gabapentin 100 mg capsule No gabapentin 100 mg capsule [facility] ice hydroxyzine HCl 25 mg tablet chiara 1 tab vic por via oral 3 veces cada bhupinder por vik necesaria prurito hydroxyzine HCl 25 mg tablet chiara 1 tab vic por via oral 3 veces cada bhupinder por vik necesaria prurito No hydroxyzine HCl 25 mg tablet chiara 1 tableta por via oral 3 veces cada bhupinder por vik necesaria prurito [facility] ice Januvia 25 mg tablet Januvia 25 mg tablet No Januvia 25 mg tablet [facility] lorazepam 1 mg tablet chiara 1 tableta po r via oral hasta 3 veces cada bhupinder por vik necesaria ansiedad lorazepam 1 mg tablet chiara 1 tableta po r via oral hasta 3 veces cada bhupinder por vik necesaria ansiedad No lorazepam 1 mg tablet chiara 1 tableta por via oral hasta 3 veces cada bhupinder por vik necesaria ansiedad [facility] Pract ice midodrine 10 mg tablet midodrine 10 mg tablet No midodrine 10 mg tablet [facility] 0.4 mg sublingual tablet P lace 1 tablet as needed by sublingual route as directed. nitroglycerin 0.4 mg sublingual tablet P lace 1 tablet as needed by sublingual route as directed. No 1 nitroglycerin 0.[address] 1 tablet as needed by sublingual route as directed. [facility] nystatin 100,000 unit/gram topical cream nystatin 100, 000 unit/gram topical cream No nystatin 100,000 unit/gram topic al cream [facility] omeprazole 40 mg capsule,delayed release omeprazole 40 mg capsule,delayed release No omeprazole 40 mg capsule,delay ed release [facility] peg-electrolyte solution 420 gram oral solution peg-el ectrolyte solution 420 gram oral solution No peg-e lectrolyte solution 420 gram oral solution [facility] 800 mg tablet Renvela 800 mg tablet No Renvela 800 mg tablet [facility] Santyl 250 unit/gram topical ointment use as directed for wound on right hand Santyl 250 unit/gram topical ointment use as directed for wound on right hand No Santyl 250 uni t/gram topical ointment use as directed for wound on right hand [facility] ice Sensipar 30 mg tablet Take 1 tablet every day by oral route with meals. Sensipar 30 mg tablet Take 1 tablet every day by oral route with meals. N o 1 Q1D Sensipar 30 mg tablet Take 1 tablet every day by oral route with meals. [facility] temazepam 30 mg capsule Take 1 capsule e very day by oral route as needed for 90 days. temazepam 30 mg capsule Take 1 capsule e very day by oral route as needed for 90 days. No 1capsule(s) Q1D temazep am 30 mg capsule Take 1 capsule every day by oral route as needed for 90 days. [facility] tramadol 50 mg tablet tramadol 50 mg tablet No tramadol 50 mg tablet [facility] ice warfarin 1 mg tablet warfarin 1 mg tablet No warfarin 1 mg tablet [facility] Buspirone Hcl Buspirone Hcl Yes 7.5 Daily [facility] Calcium Acetate Calcium Acetate Yes 1 Three Ti mes A Day [facility] Cilostazol Cilostazol Yes 50 Twice A Day [facility] Clopidogrel Bisulfate (Clopidogrel) 75 Mg TABLET Clopi dogrel Bisulfate (Clopidogrel) 75 Mg TABLET Yes 75 Daily [facility] Gabapentin Gabapentin Yes 100 Three Times A Day [facility] Hydroxyzine Hcl Hydroxyzine Hcl Yes 25 Daily [facility] Isosorbide Mononitrate (Isosorbide Mononitrate Er) 30 Mg TAB.ER.24H Isosorbide Mononitrate (Isosorbide Mononitrate Er) 30 Mg TAB.ER.24H Yes [address] [facility] Levothyroxine Sodium Levothyroxine Sodium Yes 100 Daily [facility] Lorazepam Lorazepam Yes 1 As Needed [facility] Metoprolol Succinate Metoprolol Succinate Yes 25 Bedtime [facility] Midodrine Hcl Midodrine Hcl Yes 10 Three Times A Day [facility] Montelukast Sodium Montelukast Sodium Yes 10 Da chandler [facility] Nitroglycerin (Nitrostat) 0.4 Mg TAB.SUBL Nitroglyceri n (Nitrostat) 0.4 Mg TAB.SUBL Yes .4 As Needed for Chest Pain [facility] Omeprazole Omeprazole Yes 40 Daily [facility] Sevelamer Hcl (Renvela) 800 Mg TAB Sevelamer Hcl (Renvela) 800 Mg TAB Yes 800 Three Times Daily With Meals [facility] Sitagliptin Phosphate (Januvia) 100 Mg TABLET Sitaglip tin Phosphate (Januvia) 100 Mg TABLET Yes 25 Daily [facility] Temazepam Temazepam Yes 30 Bedtime [facility] Warfarin Sodium Warfarin Sodium Yes 1 Daily [facility] Aspirin (Aspir 81) 81 Mg TABLET. Aspirin (Aspir 81) 81 Mg AMINAH ASHBY 2019-12-07 00:00:00 No 81 Daily [facility] Atorvastatin Calcium Atorvastatin Calcium 2019-12-07 00:00:00 No 80 Daily [facility] Cinacalcet Hcl (Sensipar) 30 Mg TABLET Cinacalcet Hcl (Sensipar) 30 Mg TABLET 2019-12-07 00:00:00 No 30 Before Supper [facility] Ciprofloxacin Hcl (Cipro) 500 Mg TABLET Ciprofloxacin Hcl (C ipro) 500 Mg TABLET 2019-12-07 00:00:00 No 500 Daily [facility] Doxycycline Hyclate Doxycycline Hyclate 2019-12-07 00:00:00 No 100 Daily [facility] Doxycycline Hyclate Doxycycline Hyclate 2019-12-07 00:00:00 No 100 Daily [facility] Dronedarone (Multaq 400MG Tablets*) 400 Mg TAB Droneda addison (Multaq 400MG Tablets*) 400 Mg TAB 2019-12-07 00:00:00 No 400 Twi ce A Day [facility] Glipizide Glipizide 2019-12-07 00:00:00 No 10 Daily [facility] Hydrocodone Bit/Acetaminophen ([place] 5-325 Tablet) 1 E ach TABLET Hydrocodone Bit/Acetaminophen ([place] 5-325 Tablet) 1 Each TABLET 2019-12-07 00: 00:00 No 1 Every 6 Hours as needed for Pain [facility] Levocetirizine Dihydrochloride Levocetirizine Dihydrochloride 2019-12-07 00:00:00 No 5 Daily [facility] Meloxicam Meloxicam 2019-12-07 00:00:00 No 15 Daily [facility] Multivitamin (Multi-Vitamin Daily) 1 Each TABLET Multi vitamin (Multi-Vitamin Daily) 1 Each TABLET 2019-12-07 00:00:00 No 1 Tricia ly [facility] bacitracin zinc 500 unit/gram topical ointment bacitra mahin zinc 500 unit/gram topical ointment 2017-09-05 00:00:00 No bacitracin zinc 500 unit/gram topical [facility]int[facility] mg tablet cilostazol 50 mg tablet 2017-07-16 00:00 :00 No cilostazol 50 mg tablet [facility] metoprolol tartrate 50 mg tablet metoprolol tartrate 50 mg table t 2017-07-16 00:00:00 No metoprolol tartrate 50 mg table t [facility] acetaminophen 300 mg-codeine 30 mg tablet acetaminophe n 300 mg-codeine 30 mg tablet 2017-06-16 00:00:00 No acet aminophen 300 mg-codeine 30 mg tablet [facility] ice atorvastatin 80 mg tablet Take 1 tablet every day by oral route at bedtime for 90 days. atorvastatin 80 mg tablet Take 1 tablet every day by oral route at bedtime for 90 days. 2017-06-16 00:00:00 No 1 Q1D atorvastatin 80 mg tablet Take 1 tablet every day by oral route at bedtime for 90 days. [facility] ciprofloxacin 500 mg tablet ciprofloxacin 500 mg tablet 2017-06-16 00:00:00 No ciprofloxacin 500 mg tablet [facility] clindamycin HCl 300 mg capsule clindamycin HCl 300 mg capsule 2017-06-16 00:00:00 No clindamycin HCl 300 mg capsule [facility] doxycycline hyclate 100 mg capsule doxycycline hyclate 100 mg ca psule 2017-06-16 00:00:00 No doxycycline hyclate 100 mg capsule [facility] glipizide ER 10 mg tablet, extended release 24 hr glip izide ER 10 mg tablet, extended release 24 hr 2017-06-16 00:00:00 No glipizide ER 10 mg tablet, extended release 24 hr [facility] hydrocodone 5 mg-acetaminophen 325 mg tablet hydrocodo ne 5 mg-acetaminophen 325 mg tablet 2017-06-16 00:00:00 No hy drocodone 5 mg-acetaminophen 325 mg tablet [facility] 1 gram solution for injection Invanz 1 gram solution for injection 2017-06-16 00:00:00 No Invanz 1 gram soluti on for injection [facility] Januvia 50 mg tablet Take 1 tablet every day by oral r oute for 90 days. Januvia 50 mg tablet Take 1 tablet every day by oral route for 90 days. 2017-06-16 00:00:00 No 1 Q1D Januvia 50 mg tablet Take 1 tablet every day by oral route for [address] [facility] levocetirizine 5 mg tablet levocetirizine 5 mg tablet 2017 00:00:00 No levocetirizine 5 mg tablet [facility] meloxicam 15 mg tablet Take 1 tablet every day by oral route for 30 days. meloxicam 15 mg tablet Take 1 tablet every day by oral route for 30 days. 2017-06-16 00:00:00 No 1 Q1D melox icam 15 mg tablet Take 1 tablet every day by oral route for 30 days. [facility] metoprolol succinate ER 100 mg tablet,extended release 24 hr metoprolol succinate ER 100 mg tablet,extended release 24 hr 2017-06-16 00:00:00 No metoprolol succinate ER 100 mg tablet,extended release 24 hr [facility] poulxrlx-qtwrcoqwv-zhwayqmxs 3.5 mg/mL-10,000 unit/mL- 1 % ear solution qyvktbbu-cyzjbrgfp-wlhpyxhse 3.5 mg/mL-10,000 unit/mL-1 % ear solution 2017-06-16 00:00:00 No neomy htw-vncnyawfz-zvrzwlchg 3.5 mg/mL-10,000 unit/mL-1 % ear solution [facility] omega-3 acid ethyl esters 1 gram capsule omega-3 acid ethyl esters 1 gram capsule 2017-06-16 00:00:00 No omeg a-3 acid ethyl esters [address] [facility] sulfamethoxazole 800 mg-trimethoprim 160 mg tablet sul famethoxazole 800 mg- trimethoprim 160 mg tablet 2017-06-16 00:00:00 No sulfamethoxazole 800 mg-trimethoprim 160 mg tablet [facility] Metoprolol Tartrate Metoprolol Tartrate 2016-08-01 00:00:00 No 50 Twice A Day [facility] Ciprofloxacin Hcl (Cipro) 500 Mg TABLET Ciprofloxacin Hcl (C ipro) 500 Mg TABLET 2014-11-21 00:00:00 No 500 Daily [facility] Collagenase Clostridium Hist. (Santyl) 15 Gm OINT...G. Collagenase Clostridium Hist. (Santyl) 15 Gm OINT...G. 2014-09-03 00:00:00 No 250 Daily [facility] Immunizations Ordered Immunization Name Filled Immunization Name Date Status Comments Source pneumococcal polysaccharide PPV23 pneumococcal polysaccharid e PPV23 2017-03-02 00:00:00 [facility], [facility]able, quadrivalent influenza, injectable, q uadrivalent 2017-03-02 00:00:00 [facility] T[facility] Tdap 2016-11-30 00:00:00 Completed [facility] Vital Signs Vital Name Observation Time Observation Value Comments Source Systolic blood pressure 2020-01-21 18:45:00 139 mm[Hg] [facility] Diastolic blood pressure 2020-01-21 18:45:00 70 mm[Hg] [facility] Heart rate 2020-01-21 18:45:00 57 /min [facility] Body temperature 2020-01-21 18:45:00 36.67 [place]oxy [place] [facility] Respiratory rate 2020-01-21 18:45:00 17 /min [facility] Oxygen saturation in Arterial blood by Pulse oximetry 01-20 18:45:00 97 /min [facility] Body weight 2020-01-21 06:43:00 66.5 kg [facility] BMI 2020-01-21 06:43:00 25.16 kg/m2 [facility] Body height 2020-01-14 04:50:28 162.6 cm [facility] Body Temperature 2019-12-14 12:30:00 98.4 [degF] [facility] BP Diastolic 2017-09-05 00:00:00 82 mm[Hg] [facility] Height 2017-09-05 00:00:00 65 [in_i] [facility] BMI (Body Mass Index) 2017-09-05 00:00:00 26.5 kg/m2 [facility] BP Systolic 2017-09-05 00:00:00 136 mm[Hg] [facility] Body Weight 2017-09-05 00:00:00 159 [lb_av] [facility] BP Diastolic 2017-07-16 00:00:00 97 mm[Hg] [facility] Height 2017-07-16 00:00:00 65 [in_i] [facility] BMI (Body Mass Index) 2017-07-16 00:00:00 26.5 kg/m2 [facility] BP Systolic 2017-07-16 00:00:00 157 mm[Hg] [facility] Body Weight 2017-07-16 00:00:00 159 [lb_av] [facility] BP Diastolic 2017-06-16 00:00:00 63 mm[Hg] [facility] Height 2017-06-16 00:00:00 65 [in_i] [facility] BMI (Body Mass Index) 2017-06-16 00:00:00 25.5 kg/m2 [facility] BP Systolic 2017-06-16 00:00:00 102 mm[Hg] [facility] Body Weight 2017-06-16 00:00:00 153 [lb_av] [facility] Height 2005-10-23 00:00:00 65 [in_i] [facility] Body Weight 2005-10-23 00:00:00 173 [lb_av] [facility] Height 2005-08-29 00:00:00 65 [in_i] [facility] Body Weight 2005-08-29 00:00:00 165 [lb_av] [facility] Height 2005-08-27 00:00:00 65 [in_i] [facility] Body Weight 2005-08-27 00:00:00 165 [lb_av] [facility] Height 2005-05-09 00:00:00 65 [in_i] [facility] Body Weight 2005-05-09 00:00:00 182 [lb_av] [facility] Height 2005-04-10 00:00:00 65 [in_i] [facility] Body Weight 2005-04-10 00:00:00 180 [lb_av] [facility] Height 2005-03-05 00:00:00 65 [in_i] [facility] Body Weight 2005-03-05 00:00:00 180 [lb_av] [facility] Height 2004-11-01 00:00:00 65 [in_i] [facility] Body Weight 2004-11-01 00:00:00 179 [lb_av] [facility] Height 2004-09-27 00:00:00 65 [in_i] [facility] Body Weight 2004-09-27 00:00:00 183 [lb_av] [facility] Height 2004-07-05 00:00:00 65 [in_i] [facility] Body Weight 2004-07-05 00:00:00 179 [lb_av] [facility] Procedures Procedure Date / Time Performed Performing Clinician [facility] e X-ray of chest, two views 2020-02-15 00:00:00 [facility] POC GLUCOSE 2020-01-21 16:42:00 Rubina Ash [facility] POC GLUCOSE 2020-01-21 12:46:00 Rubina Ash [facility] HEMODIALYSIS 2020-01-21 07:53:53 Osvaldo Cali [facility] POC GLUCOSE 2020-01-21 06:33:00 FoxOrlando brennan [facility] ethodist VANCOMYCIN LEVEL, RANDOM 2020-01-21 04:26:00 Maria M Allen [facility] BASIC METABOLIC PANEL 2020-01-21 04:26:00 DiabMaria M [facility] CBC WITH PLATELET AND DIFFERENTIAL 2020-01-21 04:26:00 DiabQue ed ESTIMATED GFR 2020-01-21 04:26:00 Orlando Fox [place] [facility] MANUAL DIFFERENTIAL 2020-01-21 04:26:00 Orlando Fox on [facility] POC GLUCOSE 2020-01-20 20:44:00 Orlando Fox [facility] ethodist POC GLUCOSE 2020-01-20 16:12:00 FoxOrlando brennan [place] [facility] POC GLUCOSE 2020-01-20 12:16:00 Orlando Fox [facility] ethodist POC GLUCOSE 2020-01-20 09:15:00 FoxOrlando brennan [facility] ethodist POC GLUCOSE 2020-01-20 08:23[facility] 2020-01-20 07:10:[facility]SE 2020-01-20 05:39:00 FoxOrlando brennan [place] [facility] POC GLUCOSE 2020-01-20 02:35:00 FoxOrlando brennan [place] [facility] BASIC METABOLIC PANEL 2020-01-20 00:01:00 DiabMaria M [facility] CBC WITH PLATELET AND DIFFERENTIAL 2020-01-20 00:01:00 Tiffany Que nita Chen [facility] PROTHROMBIN TIME WITH INR 2020-01-20 00:01:00 Que Allennita Karsten whitejose miguel [facility] PARTIAL THROMBOPLASTIN TIME (PTT) 2020-01-20 00:01:00 TiffanyDante pilar Chen [facility] ESTIMATED GFR 2020-01-20 00:01:00 Orlando Fox [place] [facility] MANUAL DIFFERENTIAL 2020-01-20 00:01:00 Orlando Foxt on [facility] TYPE AND SCREEN 2020-01-20 00:00:00 Tiffany Quenita Chen [facility] POC GLUCOSE 2020-01-19 20:18:00 FoxOrlando brennan [place] [facility] BLOOD CULTURE, AEROBIC & ANAEROBIC 2020-01-19 20:10:00 Freddy Alcaraz [facility] POC GLUCOSE 2020-01-19 15:52:00 Orlando Fox [place] [facility] HC COMPLETE BLD COUNT W/AUTO DIFF 2020-01-19 13:00:00 Osvaldo Hazel BASIC METABOLIC PANEL 2020-01-19 13:00:00 Osvaldo Cali ESTIMATED GFR 2020-01-19 13:00:00 Osvaldo Cali HEMODIALYSIS 2020-01-19 12:42:14 Osvaldo Cali POC GLUCOSE 2020-01-19 10:57:00 Orlando Fox [place] [facility] POC GLUCOSE 2020-01-19 07:16:00 FoxOrlando brennan [place] [facility] POC GLUCOSE 2020-01-19 06:46:00 FoxOrlando brennan [place] [facility] POC GLUCOSE 2020-01-18 21:09:00 FoxOrlando brennan [place] [facility] POC GLUCOSE 2020-01-18 16:07:00 FoxOrlando brennan [place] [facility] POC GLUCOSE 2020-01-18 11:28:00 FoxOrlando brennan [place] [facility] POC GLUCOSE 2020-01-18 06:41:00 FoxOrlando brennan [place] [facility] POC GLUCOSE 2020-01-17 21:59:00 FoxOrlando brennan [place] [facility] POC GLUCOSE 2020-01-17 16:09:00 FoxOrlando brennan [place] ethodist HEMODIALYSIS 2020-01-17 13:20:39 IngaOsvaldo hussein Chen [facility] POC GLUCOSE 2020-01-17 11:31:00 FoxOrlando brennan [place] [facility] POC GLUCOSE 2020-01-17 06:40:00 FoxOrlando rodrigez [facility] ethodist POC GLUCOSE 2020-01-16 20:50:00 FoxOrlando brennan [facility] ethodist POC GLUCOSE 2020-01-16 15:59:00 FoxOrlando brennan [facility] ethodist TTE COMPLETE, WO CONTRAST, W DOPPLER ([id number]) 2020-01-16 13:3 1:50 VanessaOrlando [facility] MRI FOOT WO CONTRAST RIGHT 2020-01-16 13:25:07 Cristy Chau [place] [facility] POC GLUCOSE 2020-01-16 11:31:00 FoxOrlando [facility] ethodist POC GLUCOSE 2020-01-16 08:10:00 FoxOrlando brennan [facility] ethodist PHOSPHORUS LEVEL 2020-01-16 04:37:00 Cristy Chau [facility] ethodist LIPID PANEL 2020-01-16 04:37:00 Vanessa Chaua [place] [facility] HEMOGLOBIN A1C 2020-01-16 04:37:[address] [facility] thodist THYROID STIMULATING HORMONE 2020-01-16 04:37:00 Cristy Chau [facility] T4, FREE 2020-01-16 04:37:[address] [facility] thodist VANCOMYCIN LEVEL, RANDOM 2020-01-16 04:37:00 Cristy Chau [facility] HC COMPLETE BLD COUNT W/AUTO DIFF 2020-01-16 04:37:00 Jori Chau [facility] COMPREHENSIVE METABOLIC PANEL 2020-01-16 04:37:00 Cristy Chau [facility] MAGNESIUM LEVEL 2020-01-16 04:37:00 Cristy Chau [place] [facility] PROTHROMBIN TIME WITH INR 2020-01-16 04:37:00 Cristy Chau [facility] ESTIMATED GFR 2020-01-16 04:37:00 Cristy [place]au [place] [facility] POC GLUCOSE 2020-01-16 01:57:00 VanessaOrlando Chen [place] [facility] POC GLUCOSE 2020-01-15 21:11:00 FoxOrlando Prsterling [facility] ethodist POC GLUCOSE 2020-01-15 15:50:00 Fox, Orlando Prsterling [facility] ethodist BASIC METABOLIC PANEL 2020-01-15 12:39:00 Cristy Chau [facility] MAGNESIUM LEVEL 2020-01-15 12:39:00 Cristy Chau [place] [facility] ESTIMATED GFR 2020-01-15 12:39:00 Vanessa Orlando Butcher [place] [facility] ethod[facility] LIPID PANEL 2020-01-15 12:39:00 Vanessa Orlando [facility] ethodist POC GLUCOSE 2020-01-15 12:06:00 Fox, Orlando Prsterling [facility] ethodist POC GLUCOSE 2020-01-15 07:17:00 FoxOrlando Prsterling [place] [facility] TROPONIN 2020-01-15 04:02:00 Neisha Wallace VANCOMYCIN LEVEL, RANDOM 2020-01-15 04:02:00 Neisha Wallace BASIC METABOLIC PANEL 2020-01-15 04:02:00 Neisha Wallace CBC WITH PLATELET AND DIFFERENTIAL 2020-01-15 04:02:00 Enmanuel notNeisha MAGNESIUM LEVEL 2020-01-15 04:02:00 Neisha Wallace PHOSPHORUS LEVEL 2020-01-15 04:02:00 Neisha Wallace [facility] ESTIMATED GFR 2020-01-15 04:02:00 Neisha Wallace MANUAL DIFFERENTIAL 2020-01-15 04:02:00 Neisha Wallace COVID-19 QUALITATIVE PCR 2020-01-15 00:24:00 Neisha Wallace POC GLUCOSE 2020-01-14 21:09:00 Orlando Fox Gustavo Donnelly ethodist XR FOOT 2 VW RIGHT 2020-01-14 21:05:37 Neisha Wallace Gustavo Velazquez XR CHEST 1 VW PORTABLE 2020-01-14 18:42:15 RodrigoNeisha Chen [facility] BASIC METABOLIC PANEL 2020-01-14 18:12:00 RodrigoNeisha Chen [facility] TROPONIN 2020-01-14 18:12:00 Neisha Wallace usjose miguel [facility] ESTIMATED GFR 2020-01-14 18:12:00 Neisha Wallace [facility] ECG 12-LEAD 2020-01-14 18:06:04 Rodrigo Neishamary Roach Karsten Velazquez HEPATITIS B SURFACE ANTIGEN 2020-01-14 15:23:00 Gatito Bethea HEPATITIS B SURFACE AB, QUANTITATIVE 2020-01-14 15:23:00 Gatito Mendiola TROPONIN 2020-01-14 15:23:[address] [facility] thodist POC GLUCOSE 2020-01-14 11:17:00 Orlando Fox Gustavo Donnelly ethodist HEMODIALYSIS 2020-01-14 08:23:52 Gatito Bethea LACTIC ACID LEVEL, SEPSIS - NOW AND REPEAT 2X EVERY 3 HOURS 2020-01-14 08:10:00 Harvey Mae HC COMPLETE BLD COUNT W/AUTO DIFF 2020-01-14 08:10:00 Neo Mae COMPREHENSIVE METABOLIC PANEL 2020-01-14 08:10:00 Harvey Mae ESTIMATED GFR 2020-01-14 08:10:00 Harvey Mae [facility] TROPONIN 2020-01-14 08:10:00 Orlando Fox Gustavo Donnelly ethodist B NATRIURETIC PEPTIDE 2020-01-14 08:10:00 Orlando Foxu ston [facility] LACTIC ACID LEVEL, SEPSIS - NOW AND REPEAT 2X EVERY 3 HOURS 2020-01-14 03:45:00 Harvey Mae XR CHEST 1 VW PORTABLE 2020-01-14 02:51:41 Neisha Wallace CONSULT TO SEPSIS RESPONSE TEAM 2020-01-14 02:08:39 Do sourav Wallace PROTHROMBIN TIME WITH INR 2020-01-14 00:55:00 Harvey Mae PARTIAL THROMBOPLASTIN TIME (PTT) 2020-01-14 00:55:[address] CRITICAL CARE, E/M 30-74 MINUTES 2020-01-14 00:48:18 Harvey Mae ECG ED PRELIMINARY INTERPRETATION 2020-01-14 00:48:18 Neo Mae BLOOD CULTURE, AEROBIC & ANAEROBIC 2020-01-14 00:45:00 Luca Mae INFLUENZA ANTIGEN TEST, REFLEX NEGATIVE TO RPP 2020-01-14 00 :43:00 Harvey Mae COVID-19 QUALITATIVE PCR 2020-01-14 00:43:00 Harvey Mae RESPIRATORY PATHOGEN PANEL 2020-01-14 00:43:00 Harvey Mae HC COMPLETE BLD COUNT W/AUTO DIFF 2020-01-14 00:30:00 Neo Mae COMPREHENSIVE METABOLIC PANEL 2020-01-14 00:30:00 Harvey Mae ESTIMATED GFR 2020-01-14 00:30:00 Harvey Mae LACTIC ACID LEVEL, SEPSIS - NOW AND REPEAT 2X EVERY 3 HOURS 2020-01-14 00:30:00 Harvey Mae POC GLUCOSE 2020-01-13 23:59:00 Harvey Mae ECG 12-LEAD 2020-01-13 23:56:44 Harvey Mae AMPUTATION THRU METATARSAL 2019-12-14 00:00:[address] [facility] X-ray of chest, two views 2019-12-09 00:00:00 [facility] X-ray of chest, two views 2019-10-14 00:00:00 [facility] X-ray of chest, two views 2019-07-09 00:00:00 [facility] Dialysis Procedure 2016-06-02 00:00:00 [facility] 2015-06-02 00:00:00 Alessandro nadir [facility] Amputation of Finger/thumb 2015-06-02 00:00:00 Ganesh illandrea [facility] Cholecystectomy 2012-06-02 00:00:00 [facility] Stephon ly [facility] Eye Surgery 2009-06-02 00:00:00 [facility] Amputation of Lower Leg 2005-06-02 00:00:00 Vill age [facility] Cardiac Surgery 2002-06-02 00:00:00 [facility] History of Cataract Surgery [facility] Of Leg Below Knee [facility] Physicians Plan of Care Planned Activity Planned Date Details Comments Source Future Scheduled Test 2020-01-01 00:00:00 INFLUENZA VACCINE [code = INFLUENZA VACCINE] [facility] Scheduled Test 2005 00:00:00 COLONOSCOPY SCREEN ING [code = COLONOSCOPY SCREENING] [facility] Scheduled Test 2005 00:00:00 SHINGLES VACCINES (#1) [code = SHINGLES VACCINES (#1)] [facility] Scheduled Test 1965 00:00:00 DIABETES: RETINAL EYE EXAM [code = DIABETES: RETINAL EYE EXAM] [facility] Scheduled Test 1965 00:00:00 DIABETIC FOOT EXAM [code = DIABETIC FOOT EXAM] [facility] Encounters Start Date/Time End Date/Time Encounter Type Admission Type Attendi [facility] Emergency Department Facility Care Department Encounter ID Source 2020-03-01 13:55:00 2020-03-01 23:59:00 Discharged Recurring [facility] [id number] [facility] Patients [place] dical Hansen 2020-02-15 11:33:00 2020-02-15 11:33:00 Registered Clinic 3 AMBAR JONES [facility] [id number] [facility] 2020-01-03 14:46:00 2020-01-31 23:59:00 Discharged Recurring [facility] [id number] [facility] 2020-01-13 00:00:00 2020-01-21 00:00:00 Inpatient [place]INA [place] [id number] Gustavo Velazquez 2019-12-01 13:48:00 2019-12-31 23:59:00 Discharged Recurring [facility] [id number] [facility] 2019-12-14 08:15:00 2019-12-14 08:15:00 Registered Surgical Day Car e 3 GULSHAN- ESQUIVEL, ALFRED [facility] [id number] [facility] 2019-11-01 14:32:00 2019-11-30 23:59:00 Discharged Recurring [facility] [id number] [facility] 2019-11-09 14:03:54 2019-11-09 15:59:16 Office Visit Lakia Watts [facility] [id number] 2019-10-04 14:33:00 2019-10-31 23:59:00 Discharged Recurring [facility] [id number] [facility] 2019-10-14 08:25:00 2019-10-14 08:25:00 Registered Clinic 3 FIORERRERO[facility] [id number] [facility] 2019-09-06 16:15:00 2019-09-30 23:59:00 Discharged Recurring [facility] [id number] [facility] [facility] 2019-08-02 13:35:00 2019-08-31 23:59:00 Discharged Recurring [facility] [id number] [facility] 2019-07-26 13:42:00 2019-07-31 23:59:00 Discharged Recurring [facility] [id number] [facility] 2019-07-05 15:05:00 2019-07-31 22:59:00 Discharged Recurring [facility] [id number] [facility] 2019-07-27 10:53:00 2019-07-27 10:53:00 Registered Clinic [facility] [id number] [facility] 2019-07-13 08:03:00 2019-07-13 08:03:00 Registered Clinic [facility] [id number] [facility] 2019-07-09 12:07:00 2019-07-09 12:07:00 Registered Clinic 3 JESSICA, [facility] [id number] [facility] 2018-06-11 16:00:00 2018-06-11 16:00:00 Appointment; RIYA COHEN M.D. WOERNER, KYLE, M.D. [facility] Orth[facility]ics [id number] [facility] 2018-05-06 11:30:00 2018-05-06 11:30:00 Appointment; GARY ASH JOSE [facility] [id number] [facility] 2017-09-18 15:45:00 2017-09-18 15:45:00 Appointment; RIYA COHEN M.D. WOERNER, KYLE, M.D. [facility] [id number] [facility] 2017-09-05 00:00:00 2017-09-05 00:00:00 ELIZABETH Reed: [id number], [address], [place] [address], Ph. [facility] [id number] [facility] camryn 2017-08-14 15:45:00 2017-08-14 15:45:00 Appointment; RIYA COHEN M.D. WOERNER, KYLE, M.D. [facility] UTP [id number] [facility] 2017-07-31 15:30:00 2017-07-31 15:30:00 Appointment; RIYA COHEN M.D. WOERNER, KYLE, M.D. [facility] UTP [id number] [facility] 2017-07-23 08:00:00 2017-07-23 08:00:00 Appointment; RIYA COHEN M.D. WOERNER, KYLE, M.D. [facility] UTP [id number] [facility] 2017-07-16 00:00:00 2017-07-16 00:00:00 Allan Radford MD: [address] [address], Ph. [facility] [id number] [facility] 2017-06-16 00:00:00 2017-06-16 00:00:00 Allan Radford MD: [address] [id number], Ph. [facility] [id number] [facility] 2017-06-04 13:00:00 2017-06-04 13:00:00 Appointment; MARTHA SANTOS M.D. HARLIN, STUART, M.D. [facility] UTP [id number] [facility] 2017-05-12 09:15:00 2017-05-12 09:15:00 Appointment; MARTHA SANTOS M.D. HARLIN, STUART, M.D. [facility] UTP [id number] [facility] 2017-05-09 08:30:00 2017-05-09 08:30:00 Appointment; RIYA COHEN M.D. WOERNER, KYLE, M.D. [facility] UTP [id number] [facility] 2017-04-04 08:00:00 2017-04-04 08:00:00 Appointment; RIYA COHEN M.D. WOERNER, KYLE, M.D. [facility] UTP [id number] [facility] 2017-01-09 15:30:00 2017-01-09 15:30:00 Appointment; RIYA COHEN M.D. WOERNER, KYLE, M.D. [facility] UTP [id number] [facility] 2016-12-19 16:30:00 2016-12-19 16:30:00 Appointment; RIYA COHEN M.D. WOERNER, KYLE, M.D. [facility]TP [id number] [facility] 2016-11-27 08:00:00 2016-11-27 08:00:00 Appointment; RIYA COHEN M.D. WOERNER, KYLE, M.D. [facility]TP [id number] [facility] 2016-11-21 15:45:00 2016-11-21 15:45:00 Appointment; RIYA COHEN M.D. WOERNER, KYLE, M.D. [facility] UTP [id number] [facility] 2016-11-14 14:45:00 2016-11-14 14:45:00 Appointment; RIYA COHEN M.D. WOERNER, KYLE, M.D. [facility] UTP [id number] [facility] 2016-11-06 07:00:00 2016-11-06 07:00:00 Appointment; RIYA COHEN M.D. WOERNER, KYLE, M.D. [facility] UTP [id number] [facility] 2016-10-17 14:00:00 2016-10-17 14:00:00 Appointment; RIYA COHEN M.D. WOERNER, KYLE, M.D. [facility] UTP [id number] [facility] 2016-10-03 13:30:00 2016-10-03 13:30:00 Appointment; MOE BOATENG M.D. CHARLTON-OUW, KRISTOFER, M.D. [facility] UTP [id number] [facility] 2016-08-13 13:00:00 2016-08-13 13:00:00 Appointment; KESHIA THOMPSON M.D. AZIZZADEH, ALI, M.D. [facility] UTP [id number] [facility] Results Test Description Test Time Test Comments Results Result Comments Source MRI FOOT RIGHT WO 2020-04-06 11:14:00 [facility] 1955 Sex: [place] [address] Patient Name: MARIE GOMEZ MR #: [id number] : 1955 Age/Sex: 64/M Req #: [id number] [facility] Physician: SARAH BROWN MD Ordered by: SARAH BROWN MD Report #: [id number] Location: MED/SURG Room/Bed: [facility] Procedure: [id number] MRI/MRI FOOT RIGHT WO Exam Date: Exam Time: REPORT STATUS: Signed TECHNIQUE: Magnetic resonance imaging of the RIGHT foot was performed WITHOUT injected contrast. HISTORY: Foot pain, evaluate for osteomyelitis COMPARISON: X-ray April 04, 2020 DISCUSSION: Limited evaluation due to incomplete study (patient removed foot from coil and dated not complete the exam per billing services manager) and patient motion. Prior transmetatarsal amputation with irregularity of the soft tissues overlying the indications site. On the sagittal T1. No T1 replacement, however increased fluid sensitive signal involving the distal stumps. This could reflect postsurgical change, early osteomyelitis, or artifact. No soft tissue abscess. IMPRESSION: MRI study is essentially nondiagnostic. No T1 replacement involving the metatarsal stumps to definitively diagnose osteomyelitis. Increased fluid sensitive signal involving the distal stumps. This could reflect postsurgical change, early osteomyelitis, or artifact. Signed by: Dr. Loulou Frey M.D. on 04/06/2020 11:20 AM Dictated By: LOULOU FREY MD 19 Transcribed By: KB on 04/06/201119 COPY TO: SARAH BROWN MD FOOT RIGHT COMPLETE 2020-04-04 19:01:00 [facility] 1955 Sex: [place] [address] Patient Name: MARIE GOMEZ MR #: [id number] : 1955 Age/Sex: 64/M Req #: [id number] [facility] Physician: SARAH BROWN MD Ordered by: ALFRED PADRON DPM Report #: [id number] Location: MED/SURG2 Room/Bed: [facility] Procedure: [id number] DX/FOOT RIGHT COMPLETE Exam Date: 04/04/20 Exam Time: 1831 REPORT STATUS: Signed X-ray 3 views of the foot. HISTOR Y: Pain. COMPARISON: None available. FINDINGS: The bones are severely demineralized. The patient is status post transmetatarsal amputation of the foot. Overlying dressing optimal assessment the soft tissues. There are no obvious erosive changes or lucency to suggest presence of osteomyelitis. There is severe scarring vascular calcification. IMPRESSION: 1. Status post transmetatarsal amputation of the foot. No radiographic evidence of osteomyelitis. However, if there is high clinical suspicion for osteomyelitis an MRI of the foot should be considered for further evaluation. 2. Severe atherosclerotic vascular calcification. Signed by: Valerie Kitchen MD on 04/04/2020 7:15 PM Dictated By: VALERIE KITCHEN MD 14 Transcribed By: KB on 04/04/201914 COPY TO: ALFRED PADRON DPM Capillary blood glucose measurement by glucometer (mas s/volume) 2020-02-29 14:29:00 Test Item Bedside Glucose (test code = 23313-6) 128 70-120 Meter ID: [id number] [facility] 2020-02-15 12:24:00 [facility] [address] [place] [address] Patient Name: MARIE GOMEZ MR #: [id number] : 1955 Age/Sex: 64/M Req #: [id number] Adm Physician: Ordered by: AMBAR VILLA MD Report #: [id number] Location: [facility] Room/Bed: Procedure: [id number] DX/CHEST 2 VIE WS Exam Date: 02/15/20 Exam Time: 1207 REPORT STATUS: Signed Exam: CHEST 2 VIEWS D ate: 02/15/2020 12:25 PM INDICATION: [id number] PRE - PROCEDURE EXAM Comparison: 12/09/2019 FINDINGS: Lines/Tubes:Partially visual ized probable femoral venous dialysis catheter is noted with tip projecting wi thin the upper IVC. Midline sternotomy changes are again noted. Lungs:The lungs are well inflated. No focal consolidation or pulmonary edema. Pleura :No pleural effusion. No pneumothorax. Heart/Mediastinum:Cardiomediastinal silhouette is enlarged. Central vascular congestion is noted. Bones/Soft Tissues: No acute osseous abnormality. Upper abdomen: Unremarkable. IMPRESSION: 1. Negative for acute intrathoracic process. 2. Stable cardi omegaly and central vascular congestion. Signed by: Nilo Aldrich MD on 02/14 12:26 PM Dictated By: NILO ALDRICH MD 1226 Transcribed By: KB on 02/15/20 1226 COPY TO: AMBAR VILLA MD Blood culture, aerobic & zdcopsjtb3672-46-54 23:03:02* Test Item Value Reference Range Interpretation Comments Blood culture isolate (test code = 600-7) No growth after 5 days of incubation. Specimen InformationSpecimen Source: BloodSpecimen Site: Peripheral Arm Right [place] [facility] [id number] 16:43:34* Test Item Value Reference Range Interpretation Comments POC glucose (test code = 60865-5) 119 mg/dL 65-100 H [employer] Name: Eileen Childs ID: [id number] Lab Interpretation (test code = 78610-3) Abnormal [place] [facility] with platelet and yhxfdvofeqly6649-82-10 06:40:30* Test Item Value Reference Range Interpretation Comments WBC (test code = 15505-1) 6.1 4.2- 11.0 k/uL RBC (test code = 21313-6) 4.15 m/uL 4.04-5.86 HGB (test code = 718-7) 11.9 g/dL 13-17.3 L HCT (test code = 4544-3) 38.7 % 34-45 MCV (test code = 787-2) 93.3 fL 80-98 MCH (test code = 785-6) 28.7 pg 27-34 MCHC (test code = 786-4) 30.7 g/dL 31.5-36.5 L RDW - SD (test code = 55318-0) 59.6 fL 37-51 H MPV (test code = 79051-7) 13.8 fL 7.4-10.4 H Platelet count (test code = 95374-1) 139 150- 400 k/uL L Nucleated RBC (test code = 85270-3) 0.00 /100 WBC Neutrophils (test code = 24206-1) 69.0 % 36-66 H Lymphocytes (test code = 03803-9) 10.0 % 24-44 L Monocytes (test code = 38740-5) 8.0 % 0-6 H Eosinophils (test code = 44490-6) 12.0 % 0-6 H Basophils (test code = 57541-7) 0.0 % 0-1.2 Lab Interpretation (test code = 53418-1) Abnormal [place] [facility]ual qlqwbzlntekk5110-93-58 06:40:30* Test Item Value Reference Range Interpretation Comments Manual differential (test code = 28227-9) PERFORMED Neutrophils (test code = 98255-1) 69.0 % 36-66 H Lymphocytes (test code = 10696-5) 10.0 % 24-44 L Monocytes (test code = 00198-7) 8.0 % 0-6 H Eosinophils (test code = 89790-9) 12.0 % 0-6 H Basophils (test code = 52809-0) 0.0 % 0-1.2 Metamyelocytes (test code = 740-1) 0 % 0-1 Promyelocytes (test code = 783-1) 0 % 0-1 Reactive lymphocytes (test code = 733-6) 1.0 Platelet slide review (test code = 10212-4) Harvinder adequate Lab Interpretation (test code = 37920-4) Abnormal [facility] MethodistVancomycin level, enphmr1463-85-01 06:04:53* Test Item Value Reference Range Interpretation Comments Vancomycin, random (test code = 84420-2) 19.8 ug/mL Therapeutic Ranges: Peak 30.0 - 40.0 ug/mL Trough 10.0 - 20.0 ug/mL [place] [facility] metabolic orfiw1656-38-62 05:52:32* Test Item Value Reference Range Interpretation Comments Sodium (test code = 2951-2) 139 135- 150 mEq/L Potassium (test code = 2823-3) 3.3 3.5- 5.0 mEq/L L Chloride (test code = 5-0) 96 98- 112 mEq/L L CO2 (test code = 8-9) 30 mmol/L 24-31 Anion gap (test code = 97988-4) 13@ANIO 7- 15 mEq/L BUN (test code = 3094-0) 13 mg/dL 7-18 Creatinine (test code = 2160-0) 5.00 mg/dL 0.7-1.2 H Glucose (test code = 2345-7) 98 mg/dL 65-100 Calcium (test code = 18855-4) 10.8 mg/dL 8.8-10.2 H Lab Interpretation (test code = 04969-0) Abnormal [place] MethodistEstimated QST5445-72-95 05:52:32* Test Item Value Reference Range Interpretation Comments Estimated GFR (test code = 5488) 11 mL/min/1.73 m2 A Catergory Units InterpretationG1 >=90 Normal or highG2 60-89 Mildly qbuyhcwahN0r 45-59 Mildly to moderately jtrpwpxcxF1z 30-44 Moderately to severely decreasedG4 15-29 Severely decreasedG5 <15 Kidney failureThe eGFR was calculated using the Chronic Kidney Disease Epidemiology Collaboration (CKD-EPI) equation. Interpretation is based on recommendations of the National Kidney Foundation-Kidney Disease Outcomes Quality Initiative (NKF-KDOQI) published in 2014. Lab Interpretation (test code = 45030-5) Abnormal [facility] MethodistType and jdiwzg6681-91-46 01:28:00* Test Item Value Reference Range Interpretation Comments ABO grouping (test code = 883-9) O Rh type (test code = 37304-3) POS Antibody screen (gel) (test code = 890-4) NEG [place] MethodistPartial thromboplastin time, ezcsbdzbn0603-21-00 00:20:15* Test Item Value Reference Range Interpretation Comments PTT (test code = 3173-2) 43.8 23.0- 36.0 sec H P TT therapeutic range for unfractionated heparin is61.0-112.0 seconds which corresponds to Anti-Xa0.3-0.7 U/ml. Lab Interpretation (test code = 37331-0) Abnormal [place] MethodistProthrombin time with FSA0066-05-89 00:19:21* Test Item Value Reference Range Interpretation Comments Prothrombin time (test code = 5902-2) 24.8 11.5- 14.5 sec H INR (test code = 15494-7) 2.21 Fo r patients on anticoagulant therapy, reference ranges below:Indication: INR ValueTreatment of Venous Thrombosis, 2.0-3.0pulmonary emboli, or prophylaxisof a venous thrombosis, or systemic emboli.High dose, high risk patients 3.0-4.5with mechanical valves.NOTE: INR values over 3.0 are sometimes associated withgastrointestinal hemorrhage, especially values over 4.0. Lab Interpretation (test code = 97965-1) Abnormal [place] MethodistECG 12 yryc2965-29-67 16:05:05* Test Item Value Reference Range Interpretation Comments Ventricular rate (test code = 253) 153 Atrial rate (test code = 255) 208 QRSD interval (test code = 260) 84 QT interval (test code = 264) 302 QTC interval (test code = 265) 482 QRS axis 1 (test code = 268) 87 T wave axis (test code = 270) -88 EKG impression (test code = 273) Atrial fibrillation w ith rapid ventricular response-Minimal voltage criteria for LVH, may be normal variant-Inferior infarct , age undetermined-Marked ST abnormality, possible anterolateral subendocardial injury-Compared to previous ECG:-No significant change was found-- Gust[facility] MethodistHepatitis B surface Ab, zaluumpjdkml9789-81-61 17:25:31* Test Item Value Reference Range Interpretation Comments Hepatitis B surface Ab (test code = 5193-8) 89.53 IU/L The anti-HBs is greater than or equal to 10 IU/L. This patient has either had an antibody response to HBV vaccination, received a transfusion, or has recovered from HBV infection. This patient should be considered immune to hepatitis B.An anti-HBs result greater than or equal to 10 IU/L implies immunity. For post-vaccination antibody testing guidelines for the general public refer to MMWR May 24, 2005/Vol. 54(No. 16);06-24, and for healthcare workers refer to MMWR May 21, 2013/Vol. 62(No. 10);-.Reference Interval: anti-HBs 9.99 IU/L or less ....... Actoagep28.00 IU/L or greater .... PositiveResults greater than 1,000.00 IU/L are reported as greater than 1,000.00 IU/L. This assay should not be used for blood donor screening, associated re-entry protocols, or for screening Human Cell, Tissues and Cellular and Tissue-Based Products (HCT/P).Performed By: [employer] [place] [id number] Director: Randy Quintero MD, MS Chen MethodistTransthoracic Echocardiogram Complete, (w Contrast, Strain and 3D if needed)2020-01-17 15:14:39* Test Item Value Reference Range Interpretation Comments Ao Root Diameter (test code = 7449443382) 3.13 cm AoV Area, Vmax (test code = 9063142856) 1.79 cm2 AoV Area, VTI (test code = 6038489003) 1.72 cm2 AoV Mean PG (test code = 8214856830) 4.43 mmHg AoV Peak PG (test code = 7345280040) 9.86 mmHg AoV Vmax (test code = 6727227991) 1.57 m/s AoV VTI (test code = 1618255348) 0.30 m BSA Grant (test code = 6667902658) 1.46 m2 BSA (test code = 8527346200) 1.49 m2 IVS,d (test code = 7853777999) 1.25 cm IVS/LVPW,2D (test code = 9434136437) 1.04 Left Atrium Dimension Anterior (test code = 9972278902) 4.43 cm LV,d (test code = 4836730149) 4.49 cm LV EF,2D (test code = 6789747381) 24.50 % LV,s (test code = 5789279621) 4.09 cm LVOT area (test code = 1561219970) 2.89 cm2 LVOT Diam,S (test code = 1721679180) 1.92 cm LVOT Vmax (test code = 7180328300) 0.97 m/s LVOT VTI (test code = 9595185691) 0.18 m LVPWD,d (test code = 7628397596) 1.20 cm PV Pk Grad (test code = 9904539863) 2.34 mmHg PV VMAX (test code = 1701332771) 0.76 m/s RVSP (TR) (test code = 0744964063) 39.47 mmHg TR Vpeak (test code = 5324534405) 2.71 mm/s AR Press Half Time (test code = 5643606806) 686.05 ms MV E A ratio (test code = 7190877414) 4.65 TR pk grad (test code = 9056255021) 26.94 mmHg AoV area i VTI BSA [place] (test code = 9152236772) 1.16 cm2/m2 BMI (test code = 5335787997) 18.02 kg/m2 E wave decelartion time (test code = 4348695021) 232.61 msec MV Peak A Bakari (test code = 8979442152) 0.26 m/s MV valve area p 1/2 method (test code = 5033104487) 3.26 cm2 MV Peak E Bakari (test code = 1053465424) 1.20 m/s MV stenosis pressure 1/2 time (test code = 4825175139) 67.46 ms AV LVOT peak gradient (test code = 7529088857) 3.80 mmHg Ascending aorta (test code = 6712200490) 2.91 cm RVSP (test code = 8705419614) 39.47 mmHg Ao Root Diameter (test code = 9456592981) 3.13 cm LV SYS VOL (test code = 8556867604) 73.91 ml LV LARSEN VOL (test code = 0627215576) 92.19 ml LA area s A4C (test code = 9361037699) 23.84 cm2 LV SI Teich 2D (test code = 1101220706) 12.29 ml/m2 LV SV Teich 2D (test code = 5522494206) 18.28 ml LV Vol s Teich PSAX (test code = 7648087354) 73.91 ml LVOT CI (test code = 2618666562) 1.83 l/min/m2 LVOT CO (test code = 8729332154) 2.72 l/min LVOT HR for LVOT CO (test code = 8415628284) 52.81 bpm LVOT SI (test code = 9859923538) 34.57 ml/m2 BSA Haycock (test code = 4654746411) 1.46 m2 AoV Vmn (test code = 3317879165) 0.98 IVS s 2D (test code = 7214481308) 1.16 LV FS Teich 2D (test code = 9018009944) 8.94 MV AE ratio (test code = 4489022801) 0.21 AR slope (test code = 5263734042) 1.36 Ar Vmax (test code = 4195052437) 3.21 LV FS Cube 2D (test code = 7247953241) 8.94 LVOT Vmn (test code = 6911454260) 0.60 Pt Size (test code = 6818387741) 162.56 Pt Wt (test code = 2468933293) 47.63 Aov area Vmn (test code = 4161509209) 1.77 cm2 LA A_P score P (test code = 1769089368) 4.23 LVOT mean grad (test code = 2643309293) 1.73 mmHg MAX Pred HR (test code = 4585531747) 155.26 85 of MPHR (test code = 3021095492) 131.97 AoV area I VMN bsa (test code = 0449754592) 1.19 cm2/m2 AR DT (test code = 8252472236) 2365.68 msec AR pk grad (test code = 1986932063) 41.26 mmHg Calc MPHR (test code = 3958070116) 155.26 bpm IVS pct thck PLAX (test code = 2418882459) -7.25 % LV SI Cube 2D (test code = 1805611004) 14.96 ml/m2 LV SV Cube 2D (test code = 3112769656) 22.25 ml LV vol d cube 2D (test code = 0084106216) 90.81 ml LV vol s cube 2D (test code = 7811523352) 68.56 ml LVPW pct thck PLAX (test code = 9019493498) 1.39 % LVPW s PLAX (test code = 8604045490) 1.21 cm MV Decel slope (test code = 2549617413) 5.16 m/s2 Pred Exer Dur R1 (test code = 8118704961) 7.98 Pred METS R1 (test code = 5146248932) 8.29 LA Vol MOD A4C (test code = 0372511361) 68.07 ml Velocity Ratio (V1/V2) (test code = 4689) 0.62 m/s EF (test code = 1767018355) 19.83 % E/A ratio (test code = 7605603904) 4.62 APOLLO (test code = APOLLO) Left ventricular systolic function is severely impaired. Left Ventricular ejection fraction is 30 - 35%. Normal right ventricular size. Global RV systolic function is moderately reduced. The left atrium size by volume is mildly dilated. LA volume index is 37ml/m2 Elevated LV filling pressure [facility] Foot Wo Contrast Otker8806-14-30 13:58:56Hm Interface, Radiology Results - 01/16/2020 2:02 PM CDTEXAMINATION: MRI FOOT WO CONTRAST RIGHTCLINICAL HISTORY: Osteomyelitis suspected foot swelling diabeticTECHNIQUE: Multiplanar multisequence MR imaging of the right foot was performed without contrast.COMPARISON: Radiographs dated January 14, 2020.F INDINGS:1.Status post right foot transmetatarsal amputation. Soft tissue defect along the amputation stump compatible with ulceration with multifocal geographic replacement of the normal T1 marrow signal of the amputation margins of the fir st through fifth metatarsals compatible with acute osteomyelitis. Findings are m ost extensive involving the first and fifth metatarsals. 2.Additional shallow so ft tissue ulceration along the plantar soft tissues of the midfoot which does no t appear to violate the underlying fascia. 3.No MR evidence of phlegmon or absce ss formation. 4.No evidence of septic arthritis. 5.No MR evidence of tenosynovit is. 6.Nonspecific reactive muscle edema without acute pathology. IMPRESSION: Acu te osteomyelitis of the first-fifth metatarsal amputation margins. No drainable abscess. HMH-AG28PWUX Gustavo MethodistThyroid stimulating fhtmwrs7221-44-32 05:51:10* Test Item Value Reference Range Interpretation Comments TSH (test code = 3016-3) 0.78 0.27- 4.20 uIU/mL Gustavo MitchellistT4, mwut6874-59-61 05:51:09* Test Item Value Reference Range Interpretation Comments T4, free (test code = 3024-7) 1.30 ng/dL 0.9-1.7 Gustavo MitchellistComprehensive metabolic zuxnr7160-60-95 05:47:29* Test Item Value Reference Range Interpretation Comments Sodium (test code = 2951-2) 137 135- 150 mEq/L Potassium (test code = 2823-3) 3.6 3.5- 5.0 mEq/L Chloride (test code = 2075-0) 99 98- 112 mEq/L CO2 (test code = 2027-9) 23 mmol/L 24-31 L Anion gap (test code = 00465-5) 15@ANIO 7- 15 mEq/L BUN (test code = 3094-0) 30 mg/dL 7-18 H Creatinine (test code = 2160-0) 5.50 mg/dL 0.7-1.2 H Glucose (test code = 2345-7) 106 mg/dL 65-100 H Calcium (test code = 99435-4) 10.7 mg/dL 8.8-10.2 H Protein (test code = 2885-2) 6.7 g/dL 6.3-8.3 Albumin (test code = 1751-7) 2.5 g/dL 3.5-5 L A/G ratio (test code = 1759-0) 0.6 0.7-3.8 L Alkaline phosphatase (test code = 6768-6) 140 U/L 0-129 H AST (test code = 1920-8) 39 U/L 10-50 ALT (test code = 1742-6) 11 U/L 5-50 Total bilirubin (test code = 1974-) 0.6 mg/dL 0.2-1.2 Lab Interpretation (test code = 45907-3) Abnormal [place] MethodistLipid ioyql5938-88-38 05:47:29* Test Item Value Reference Range Interpretation Comments Cholesterol (test code = 2093-3) 60 mg/dL 0-199 Triglycerides (test code = 2571-8) 127 mg/dL 0-149 HDL cholesterol (test code = 2085-9) 20 mg/dL 40-9999 L LDL cholesterol (test code = 2089-1) 15 mg/dL 0-99 Result obtained by direct LDL measurement Lipid panel interpretation (test code = 75520-3) See below Total Cholesterol (mg/dL) LDL Cholesterol (mg/dL) <200 Desirable <100 Optimal 200-239 Borderline-high 100-129 Near or above optimal >=240 High 130-159 Borderline- high 160-189 High >=190 Very highHDL Cholesterol (mg/dL) Triglycerides (mg/dL) <40 Low <150 Normal >=60 High 150-199 Borderline-high 200-499 High >=500 Very high Risk Catergories that modify LDL goals.Risk Catergories LDL goal (mg/dL)CHD and CHD risk equivalent <100 (10-year risk >20%)Multiple (2+) risk factors <130 (10-year risk =<20%)0-1 risk factors <160 (<10-year risk) Defining levels of lipids in metabolic syndromeTriglycerides >=150 mg/dLHDL Cholesterol Men <40 mg/dL Women <50 mg/dL Non-HDL cholesterol is a second target for therapy in personswith high triglycerides (>=200 mg/dL) Lab Interpretation (test code = 16308-6) Abnormal [place] MethodistMagnesium [id number] 05:47:29* Test Item Value Reference Range Interpretation Comments Magnesium (test code = 58443-2) 2.50 mg/dL 1.6-2.4 H Lab Interpretation (test code = 05087-8) Abnormal [place] MethodistPhosphorus [id number] 05:47:29* Test Item Value Reference Range Interpretation Comments Phosphorus (test code = 2777-1) 3.1 mg/dL 2.4-4.5 [place] MethodistHemoglobin [id number] 05:29:03* Test Item Value Reference Range Interpretation Comments Hemoglobin A1C (test code = 72910-0) 5.3 % 4-5.6 HbA1c cutoffs for diagnosing diabetes:4.0% - 5.6% = normal5.7% - 6.4% = increased risk for diabetes (prediabetes)9>=6.5% = [id number] for glycemic control (ADA 2016)< 7.0% Target for non adults with diabetes. More or less stringent targets may be appropriate for individual patients. <7.5% Target for Children and adolescents with type 1 diabetes. Gustavo MethodchemaCOVID-19 qualitative [id number] 06:17:15* Test Item Value Reference Range Interpretation Comments Interpretation (test code = 4403523) Negative results do not preclude 2019-nCoV infection and should not be used as the sole basis for treatment or other patient management decisions. Negative results must be combined with clinical observations, patient history, and epidemiological information. COVID-19 qualitative PCR result (test code = 07482-9) Not-Detect ed Not-Detected COVID-19 qualitative PCR (test code = 7070) See link below for P DF Lab Report Gustavo VelazquezVdbtvtqhuEefpbkut3850-42-99 05:35:40* Test Item Value Reference Range Interpretation Comments Troponin (test code = 88996-9) 0.262 ng/mL 0-0.04 H In patients suspected of having a myocardial infarction, along with all other appropriate clinical measures and actions including ECG and other diagnostics as appropriate, measure Ultra TnI at 0 hrs and at 3 hrs.Myocardial infarction VERY LIKELYThe 0 hr TnI level is > 0.10 ng/mL Praful cardial infarction LIKELYThe 0 hr TnI level is > 0.04 ng/mL and 3 hr level is increased or decreased by at least 0.020 ng/mL Myocardi al infarction VERY UNLIKELYBoth the 0 hr and 3 hr TnI levels <= 0.04 ng/mL(within normal limits) OR 0 hr is > 0.04 ng/mL and 3 hr is increased OR decreased by less than 0.020 ng/mL Lab Interpretation (test code = 92035-2) Abnormal [place] MethodistXR Foot 2 Vw Zwiht5219-95-63 21:10:23Hm Interface, Radiology Results 01/14/2020 9:13 PM CDTEXAMINATION: XR FOOT 2 VW RIGHTCLINICAL HISTORY: Osteomyelitis suspected foot swelling diab eticCOMPARISON: September 17, 2018.IMPRESSION:Soft tissue swelling of the right foot . Postoperative findings of right foot transmetatarsal amputation. Focal osteope mikal about several of the amputation margins raises the possibility of acute oste oarthritis, further evaluation with an MR may be obtained if clinically indicate d.The bones are demineralized. No suspected fracture. Diffuse diabetic type vasc ular calcifications.[id number] [place] [facility]XR Chest 1 Vw Portable 2020-01-14 18:44:56Hm Interface, Radiology Results - 01/14/2020 6:48 PM CDTEXAMINATION: XR CHEST 1 VW PORTABLECLINICAL HISTORY: feverXR CHEST 1 VW PORTABLE images are submittedCOMPARISON: 01/14/2020FINDINGS:There are changes of prior median sternotomy. Cardiac silhouette is normal in size. The pulmonary vasculature is within normal limits.The lung zones have no focal area of consolidation.IMPRESSION:1. There are changes of prior median sternotomy.2. There is no acute consolidation or failure.[id number][facility] Hospital of [facility] Hepatitis B surface dahlljz2721-42-03 16:13:23* Test Item Value Reference Range Interpretation Comments Hepatitis B surface Ag (test code = 5195-3) Non-reactive Non-reacti ve [facility]istRespiratory pathogen ipykm8362-23-38 11:55:04* Test Item Value Reference Range Interpretation Comments Adenovirus PCR (test code = 7092) Not Detected Specimen InformationSpecimen Source: NaresSpecimen Site: Right Coronavirus HKU1 PCR (test code = 7093) Not Detected Coronavirus NL63 PCR (test code = 7094) Not Detected Coronavirus 229E PCR (test code = 7095) Not Detected Coronavirus OC43 PCR (test code = 7096) Not Detected Human metapneumovirus PCR (test code = 7097) Not Detected Human rhinovirus/enterovirus PCR (test code = 7098) Not Detected Influenza A PCR (test code = 7099) Not Detected Influenza A/H1 PCR (test code = 7100) Not Reported Influenza A/H3 PCR (test code = 7102) Not Reported Influenza A/H1-2009 PCR (test code = 7101) Not Reported Influenza B PCR (test code = 7104) Not Detected Parainfluenza virus 1 PCR (test code = 7105) Not Detected Parainfluenza virus 2 PCR (test code = 7106) Not Detected Parainfluenza virus 3 PCR (test code = 7107) Not Detected Parainfluenza virus 4 PCR (test code = 7108) Not Detected Respiratory syncytial virus PCR (test code = 7109) Not Detected Bordetella pertussis PCR (test code = 9795979) Not Detected Bordetella parapertussis PCR (test code = 5811836) Not Detected Chlamydia pneumoniae PCR (test code = 3753) Not Detected Mycoplasma pneumoniae PCR (test code = 7110) Not Detected Influenza A no sub type PCR (test code = 7127) Not Reported [place] MethodistInfluenza antigen test, reflex negative to [id number] 11:50:40* Test Item Value Reference Range Interpretation Comments Influenza antigen (test code = 99345-3) Negative for Influenza A/B antigen. Specimen InformationSpecimen Source: NaresSpecimen Site: Right [facility]istB natriuretic kxllrpl6325-54-15 09:47:07* Test Item Value Reference Range Interpretation Comments BNP (test code = 82653-5) 1808 pg/mL 0-100 H Lab Interpretation (test code = 22994-0) Abnormal [place] MethodistLactic acid level, SEPSIS - Now and repeat 2x every 3 hours 2020-01-14 08:41:28* Test Item Value Reference Range Interpretation Comments Lactic acid (test code = 62489-2) 1.2 mmol/L 0.5-2.2 [place] MethodistSepsis Clinical Llcuytowel0441-01-63 02:08:39FoNeisha montez NP 01/14/2020 2:26 AM64 y.o. male with PMH of ESRD on HD, anemia, PPM, DM, AFib (on Coumadin) who presented to the ED with c/o subjective fever, abdominal pain, and diarrhea. Lab called to report lactic acid 2.6. Sepsis score 4, SIRS criteria 2. Blood cx and COVID-19 PCR pending. Add CXR. No fluid at this time as pt with ESRD on HD. Zosyn/Vancomycin initiated per ED provider. Trend lactic acid. Sepsis Clinical AssessmentPerformed by: Neisha Wallace NPAuthorized by: Neisha Wallace NP Sepsis Clinical Assessment General Assessment InformationCurrent sepsis score: 4 On comfort c are?: No If score does not worsen, snooze alerts until: 01/14/2020 14:08 CDT SIR S CriteriaTemperature > 38.3 C (101 F) due to acute condition Heart rate > 90 bpm due to acute condition Organ Dysfunction Lactate > 2.0 mmol/L due to acute conditionINR > 1.5 or aPTT > 60 secs (used only if not on anticoagulants) due to acute condition Creatinine > 2.0 mg/dL due to chronic condition Sepsis AssessmentClinical suspicion of infection? YesTime of suspicion of infection: 01/14/2020 2:08 AMClinical suspicion of sepsis?: YesSepsis staging: Severe sepsisSevere Sepsis T0: 01/14/2020 2:08 AM Sepsis protocol started? YesWhere did the protocol start?: ED Started Suspected Type/Source of InfectionSuspected Type of Infection: BacterialSuspected Source of Infection: Source unknown Sepsis Related VitalsHeart rate: 144Temperature: (!) 101.3 FRespiratory rate: 18Blood pressure: 149/78Altered mental status: WBC (k/uL) Date Value 01/14/2020 9.4 12/04/2018 11.0 Weight-Based Fluid Bolus CalculationThe recommended weight-based bolus volume: 1,428 mL (dosing weight)Please refer to the MAR for actual med/fluid administrations. [facility]UNC [facility] Preliminary Interpretation - Not an Ligco1782-06-51 00:48:18* Test Item Value Reference Range Interpretation Comments APOLLO (test code = APOLLO) Harvey Mae DO 01/14/2020 3:13 AMECG ED Preliminary Interpretation - Not an OrderPerformed by: Harvey Mae DOAuthorized by: Harvey Mae DO ECG reviewed by ED Physician in the absence of a greaser operator: yes Interpretation: Interpretation: abnormal Rate: ECG rate: 143 ECG rate assessment: tachycardic Rhythm: Rhythm: atrial fibrillation Rhythm comment: With RVREctopy: Ectopy: none QRS: QRS axis: Normal QRS intervals: NormalConduction: Conduction: normal ST segments: ST segments: Non-specific Depression: V3, V4, V5 and V6T waves: T waves: normal Comments: Rate related ST depressions Lab Interpretation (test code = 45986-5) Abnormal [place] [facility]xicoCRITICAL [id number] 00:48:18Harvey Mae DO 01/14/2020 3:13 AMCritical CarePerformed by: Harvey Mae DOAuthorized by: Harvey Mae DO Critical care provider statement: Critical care time (minutes): 45 Critical care time was exclusive of: Separately billable procedures and treating other patients Critical care was necessary to treat or prevent imminent or life-threatening deterioration of the following conditions: Sepsis, cardiac failure and circulatory failure Critical care was time spent personally by me on the following activities: Development of treatment plan with patient or surrogate, discussions with consultants, discussions with primary provider, evaluation of patient's response to treatment, examination of patient, interpretation of cardiac output measurement s, obtaining history from patient or surrogate, ordering and performing treatmen ts and interventions, ordering and review of laboratory studies, ordering and re view of radiographic studies, pulse oximetry, re-evaluation of patient's conditi on and review of old chartsO[place] MethodistBacteria identification in wound by bfkloln9137-06-32 12:05:00* Test Item Value Reference Range Interpretation Comments Wound Culture (test code = 6462-6) ESCHERICHIA COLI-ESBL [facility] HospitalBacteria identification in wound by flwhfow7315-04-62 12:05:00* Test Item Value Reference Range Interpretation Comments Wound Culture (test code = 6462-6) ESCHERICHIA COLI-ESBL [facility] HospitalBacteria identification in wound by lvozfom8601-15-26 12:05:00* Test Item Value Reference Range Interpretation Comments Wound Culture (test code = 6462-6) ESCHERICHIA COLI-ESBL [facility] HospitalCapillary blood glucose measurement by glucometer (mass/volume)2019-12-14 10:19:00* Test Item Value Reference Range Interpretation Comments Bedside Glucose (test code = 78315-3) 102 70-120 Meter ID: [id number] Country Memorial HospitalCapillary blood glucose measurement by glucometer (mass/volume)2019-12-14 10:19:00* Test Item Value Reference Range Interpretation Comments Bedside Glucose (test code = 97857-6) 102 70-120 Meter ID: [id number] Country Memorial HospitalBlood leukocytes automated count (number/volume)2019-12-14 08:49:00* Test Item Value Reference Range Interpretation Comments White Blood Count (test code = 6690-2) 12.37 4.8-10.8 [facility] HospitalBlood erythrocytes automated count (number/volume)2019-12-14 08:49:00* Test Item Value Reference Range Interpretation Comments Red Blood Count (test code = 789-8) 4.09 4.3-5.7 [facility] HospitalBlood hemoglobin measurement (moles/volume)2019-12-14 08:49:00* Test Item Value Reference Range Interpretation Comments Hemoglobin (test code = 78319-9) 11.3 14.0-18.0 [facility] HospitalAutomated blood hematocrit (volume fraction)2019-12-14 08:49:00* Test Item Value Reference Range Interpretation Comments Hematocrit (test code = 4544-3) 36.7 38.2-49.6 [facility] HospitalAutomated erythrocyte mean corpuscular gbsutg5645-40-31 08:49:00* Test Item Value Reference Range Interpretation Comments Mean Corpuscular Volume (test code = 787-2) 89.7 81-99 [facility] HospitalAutomated erythrocyte mean corpuscular hemoglobin (mass per erythrocyte)2019-12-14 08:49:00* Test Item Value Reference Range Interpretation Comments Mean Corpuscular Hemoglobin (test code = 785-6) 27.6 28-32 [facility] HospitalAutomated erythrocyte mean corpuscular hemoglobin concentration measurement (mass/volume)2019-12-14 08:49:00* Test Item Value Reference Range Interpretation Comments Mean Corpuscular Hemoglobin Concent (test code = 786-4) 30.8 31-35 [facility] HospitalRDW UtgQh-Zhc5135-01-14 08:49:00* Test Item Value Reference Range Interpretation Comments Red Cell Distribution Width (test code = 87114-6) 15.6 11.7 -14.4 [facility] HospitalAutomated blood platelet count (count/volume)2019-12-14 08:49:00* Test Item Value Reference Range Interpretation Comments Platelet Count (test code = 777-3) 394 140-360 [facility] HospitalAutomated blood segmented neutrophil count as percentage of total vlxwpmorka4350-27-78 08:49:00* Test Item Value Reference Range Interpretation Comments Neutrophils (%) (Auto) (test code = 68851-6) 85.7 38.7-80.0 [facility] HospitalAutomated blood lymphocyte count as percentage ot total xtnxpjnbui1067-55-31 08:49:00* Test Item Value Reference Range Interpretation Comments Lymphocytes (%) (Auto) (test code = 736-9) 6.1 18.0-39.1 [facility] HospitalAutomated blood monocyte count as percentage of total osjjsujyfe3448-00-25 08:49:00* Test Item Value Reference Range Interpretation Comments Monocytes (%) (Auto) (test code = 5905-5) 4.9 4.4-11.3 [facility] HospitalAutomated blood eosinophil count as percentage of total fkdbrggggn2024-51-12 08:49:00* Test Item Value Reference Range Interpretation Comments Eosinophils (%) (Auto) (test code = 713-8) 2.3 0.0-6.0 [facility] HospitalAutomated blood basophil count as percentage of total pgybyrmeok2170-24-51 08:49:00* Test Item Value Reference Range Interpretation Comments Basophils (%) (Auto) (test code = 706-2) 0.5 0.0-1.0 [facility] HospitalFluoroscopic procedure less than one hour mcztwaor7964-22-74 08:49:00* Test Item Value Reference Range Interpretation Comments IM GRANULOCYTES % (test code = IM GRANULOCYTES %) 0.5 0.0- 1.0 [facility] HospitalAutomated blood neutrophil count 2019-12-14 08:49:00* Test Item Value Reference Range Interpretation Comments Neutrophils # (Auto) (test code = 751-8) 10.6 2.1-6.9 [facility] HospitalBlood lymphocytes count (number/volume) 2019-12-14 08:49:00* Test Item Value Reference Range Interpretation Comments Lymphocytes # (Auto) (test code = 78396-2) 0.8 1.0-3.2 [facility] HospitalBlst. [facility] monocytes automated count (number/volume)2019-12-14 08:49:00* Test Item Value Reference Range Interpretation Comments Monocytes # (Auto) (test code = 742-7) 0.6 0.2-0.8 [facility] HospitalAutomated blood eosinophil count 2019-12-14 08:49:00* Test Item Value Reference Range Interpretation Comments Eosinophils # (Auto) (test code = 711-2) 0.3 0.0-0.4 [facility] HospitalAutomated blood basophil count (count/volume)2019-12-14 08:49:00* Test Item Value Reference Range Interpretation Comments Basophils # (Auto) (test code = 704-7) 0.1 0.0-0.1 [facility] HospitalFluoroscopic procedure less than one hour lgkoagcs3150-21-57 08:49:00* Test Item Value Reference Range Interpretation Comments Absolute Immature Granulocyte (auto (na t code = Absolute Immature Granulocyte (auto) 0.06 0-0.1 [facility] HospitalProthrombin time (PT) in platelet poor plasma by coagulation qtldn0415-46-48 08:49:00* Test Item Value Reference Range Interpretation Comments Prothrombin Time (test code = 5902-2) 20.2 11.9-14.5 [facility] HospitalINR in Platelet poor plasma by Coagulation vymmn9552-30-76 08:49:00* Test Item Value Reference Range Interpretation Comments Prothromb Time International Ratio (test code = 6301-6) 1.60 Oral Anticoagulant Therapy INR Values:1. Low Intensity Therapy 1.5 - 2.02 . Moderate Intensity Therapy 2.0 - 3.03. High Intensity Therapy(1) 2.5 - 3. 54. High Intensity Therapy(2) 3.0 - 4.05. Panic Value INR > 5.0 [facility] HospitalActivated partial thromboplastin time (aPTT) in platelet poor plasma by coagulation ttnnt4413-29-81 08:49:00* Test Item Value Reference Range Interpretation Comments Activated Partial Thromboplast Time (test code = 09970-8) 39.4 23.8-35.5 [facility] Tylererum or plasma sodium measurement (moles/volume)2019-12-14 08:49:00* Test Item Value Reference Range Interpretation Comments Sodium Level (test code = 2951-2) 138 136-145 [facility] Tylererum or plasma potassium measurement (moles/volume)2019-12-14 08:49:00* Test Item Value Reference Range Interpretation Comments Potassium Level (test code = 2823-3) 4.0 3.5-5.1 [facility] Tylererum or plasma chloride measurement (moles/volume)2019-12-14 08:49:00* Test Item Value Reference Range Interpretation Comments Chloride Level (test code = 2075-0) 98 98-107 [facility] Tylererum or plasma carbon dioxide, total measurement (moles/volume)2019-12-14 08:49:00* Test Item Value Reference Range Interpretation Comments Carbon Dioxide Level (test code = 2028-9) 27 22-29 [facility] Tylererum or plasma anion zzu8581-74-74 08:49:00* Test Item Value Reference Range Interpretation Comments Anion Gap (test code = 86722-7) 17.0 8-16 [facility] Tylererum or plasma urea nitrogen measurement (mass/volume)2019-12-14 08:49:00* Test Item Value Reference Range Interpretation Comments Blood Urea Nitrogen (test code = 3094-0) 14 7-26 [facility] Tylererum or plasma creatinine measurement (mass/volume)2019-12-14 08:49:00* Test Item Value Reference Range Interpretation Comments Creatinine (test code = 2160-0) 5.21 0.72-1.25 [facility] Tylererum or plasma urea nitrogen/creatinine mass rmwrs2872-62-00 08:49:00* Test Item Value Reference Range Interpretation Comments BUN/Creatinine Ratio (test code = 3097-3) 3 6-25 [facility] HospitalEstimated glomerular filtration rate (GFR) jtsdliwztntmh6570-99-62 08:49:00* Test Item Value Reference Range Interpretation Comments Estimat Glomerular Filtration Rate (test code = 279871237) 11 >60 Ranges were taken from the National Kidney Disease Education Program and the [facility] Kidney Foundation literature.Reference ranges:60 or greater: Xwwaqh28-00 ( for 3 consecutive months): Chronic kidney disease 15 or less: Kidney failureHill Country Memorial HospitalGlucose lsiffygjnmp4821-93-73 08:49:00* Test Item Value Reference Range Interpretation Comments Glucose Level (test code = MVT7062) 108 74-118 [facility] Tylererum or plasma calcium measurement (mass/volume)2019-12-14 08:49:00* Test Item Value Reference Range Interpretation Comments Calcium Level (test code = 00405-3) 9.1 8.4-10.2 [facility] HospitalBlood leukocytes automated count (number/volume)2019-12-14 08:49:00* Test Item Value Reference Range Interpretation Comments White Blood Count (test code = 6690-2) 12.37 4.8-10.8 [facility] HospitalBlood erythrocytes automated count (number/volume)2019-12-14 08:49:00* Test Item Value Reference Range Interpretation Comments Red Blood Count (test code = 789-8) 4.09 4.3-5.7 [facility] HospitalBlood hemoglobin measurement (moles/volume)2019-12-14 08:49:00* Test Item Value Reference Range Interpretation Comments Hemoglobin (test code = 39829-9) 11.3 14.0-18.0 [facility] HospitalAutomated blood hematocrit (volume fraction)2019-12-14 08:49:00* Test Item Value Reference Range Interpretation Comments Hematocrit (test code = 4544-3) 36.7 38.2-49.6 [facility] HospitalAutomated erythrocyte mean corpuscular qhuvot8917-02-05 08:49:00* Test Item Value Reference Range Interpretation Comments Mean Corpuscular Volume (test code = 787-2) 89.7 81-99 [facility] HospitalAutomated erythrocyte mean corpuscular hemoglobin (mass per erythrocyte)2019-12-14 08:49:00* Test Item Value Reference Range Interpretation Comments Mean Corpuscular Hemoglobin (test code = 785-6) 27.6 28-32 [facility] HospitalAutomated erythrocyte mean corpuscular hemoglobin concentration measurement (mass/volume)2019-12-14 08:49:00* Test Item Value Reference Range Interpretation Comments Mean Corpuscular Hemoglobin Concent (test code = 786-4) 30.8 31-35 [facility] HospitalRDW WcoZa-Jlm8762-99-14 08:49:00* Test Item Value Reference Range Interpretation Comments Red Cell Distribution Width (test code = 94987-8) 15.6 11.7 -14.4 [facility] HospitalAutomated blood platelet count (count/volume)2019-12-14 08:49:00* Test Item Value Reference Range Interpretation Comments Platelet Count (test code = 777-3) 394 140-360 [facility] HospitalAutomated blood segmented neutrophil count as percentage of total vjathjmjjv0393-93-92 08:49:00* Test Item Value Reference Range Interpretation Comments Neutrophils (%) (Auto) (test code = 94517-5) 85.7 38.7-80.0 [facility] HospitalAutomated blood lymphocyte count as percentage ot total pwhiyhjmdt0136-37-25 08:49:00* Test Item Value Reference Range Interpretation Comments Lymphocytes (%) (Auto) (test code = 736-9) 6.1 18.0-39.1 [facility] HospitalAutomated blood monocyte count as percentage of total bwyjyijkej5929-95-78 08:49:00* Test Item Value Reference Range Interpretation Comments Monocytes (%) (Auto) (test code = 5905-5) 4.9 4.4-11.3 [facility] HospitalAutomated blood eosinophil count as percentage of total icqcxokqnj1185-74-23 08:49:00* Test Item Value Reference Range Interpretation Comments Eosinophils (%) (Auto) (test code = 713-8) 2.3 0.0-6.0 [facility] HospitalAutunc health wayneed blood basophil count as percentage of total yjqwwxjyxq4499-70-46 08:49:00* Test Item Value Reference Range Interpretation Comments Basophils (%) (Auto) (test code = 706-2) 0.5 0.0-1.0 [facility] HospitalFluoroscopic procedure less than one hour eqaesghq8863-86-93 08:49:00* Test Item Value Reference Range Interpretation Comments IM GRANULOCYTES % (test code = IM GRANULOCYTES %) 0.5 0.0- 1.0 [facility] HospitalAutunc health wayneed blood neutrophil count 2019-12-14 08:49:00* Test Item Value Reference Range Interpretation Comments Neutrophils # (Auto) (test code = 751-8) 10.6 2.1-6.9 [facility] HospitalBlood lymphocytes count (number/volume) 2019-12-14 08:49:00* Test Item Value Reference Range Interpretation Comments Lymphocytes # (Auto) (test code = 54653-8) 0.8 1.0-3.2 [facility] HospitalBlood monocytes automated count (number/volume)2019-12-14 08:49:00* Test Item Value Reference Range Interpretation Comments Monocytes # (Auto) (test code = 742-7) 0.6 0.2-0.8 [facility] HospitalAutomated blood eosinophil count 2019-12-14 08:49:00* Test Item Value Reference Range Interpretation Comments Eosinophils # (Auto) (test code = 711-2) 0.3 0.0-0.4 [facility]used blood basophil count (count/volume)2019-12-14 08:49:00* Test Item Value Reference Range Interpretation Comments Basophils # (Auto) (test code = 704-7) 0.1 0.0-0.1 [facility] HospitalFluoroscopic procedure less than one hour cchljmde7887-91-49 08:49:00* Test Item Value Reference Range Interpretation Comments Absolute Immature Granulocyte (auto (na t code = Absolute Immature Granulocyte (auto) 0.06 0-0.1 [facility] HospitalProthrombin time (PT) in platelet poor plasma by coagulation rqxmd0158-58-47 08:49:00* Test Item Value Reference Range Interpretation Comments Prothrombin Time (test code = 5902-2) 20.2 11.9-14.5 [facility] HospitalINR in Platelet poor plasma by Coagulation biglo9043-27-91 08:49:00* Test Item Value Reference Range Interpretation Comments Prothromb Time International Ratio (test code = 6301-6) 1.60 Oral Anticoagulant Therapy INR Values:1. Low Intensity Therapy 1.5 - 2.02 . Moderate Intensity Therapy 2.0 - 3.03. High Intensity Therapy(1) 2.5 - 3. 54. High Intensity Therapy(2) 3.0 - 4.05. Panic Value INR > 5.0 [facility] HospitalActivated partial thromboplastin time (aPTT) in platelet poor plasma by coagulation kwizf1243-03-24 08:49:00* Test Item Value Reference Range Interpretation Comments Activated Partial Thromboplast Time (test code = 47415-6) 39.4 23.8-35.5 [facility] Tylererum or plasma sodium measurement (moles/volume)2019-12-14 08:49:00* Test Item Value Reference Range Interpretation Comments Sodium Level (test code = 2951-2) 138 136-145 [facility] Tylererum or plasma potassium measurement (moles/volume)2019-12-14 08:49:00* Test Item Value Reference Range Interpretation Comments Potassium Level (test code = 2823-3) 4.0 3.5-5.1 [facility] Tylererum or plasma chloride measurement (moles/volume)2019-12-14 08:49:00* Test Item Value Reference Range Interpretation Comments Chloride Level (test code = 2075-0) 98 98-107 [facility] Tylererum or plasma carbon dioxide, total measurement (moles/volume)2019-12-14 08:49:00* Test Item Value Reference Range Interpretation Comments Carbon Dioxide Level (test code = 2028-9) 27 22-29 [facility] Tylererum or plasma anion tut3508-40-54 08:49:00* Test Item Value Reference Range Interpretation Comments Anion Gap (test code = 85451-7) 17.0 8-16 [facility] Tylererum or plasma urea nitrogen measurement (mass/volume)2019-12-14 08:49:00* Test Item Value Reference Range Interpretation Comments Blood Urea Nitrogen (test code = 3094-0) 14 7-26 [facility] Tylererum or plasma creatinine measurement (mass/volume)2019-12-14 08:49:00* Test Item Value Reference Range Interpretation Comments Creatinine (test code = 2160-0) 5.21 0.72-1.25 [facility] Tylererum or plasma urea nitrogen/creatinine mass ztfxc6623-68-86 08:49:00* Test Item Value Reference Range Interpretation Comments BUN/Creatinine Ratio (test code = 3097-3) 3 6-25 [facility] HospitalEstimated glomerular filtration rate (GFR) gestpwgygmmpe6875-69-12 08:49:00* Test Item Value Reference Range Interpretation Comments Estimat Glomerular Filtration Rate (test code = 578966647) 11 >60 Ranges were taken from the National Kidney Disease Education Program and the [facility] literature.Reference ranges:60 or greater: Hsavxf16-04 ( for 3 consecutive months): Chronic kidney disease 15 or less: Kidney failureHill [facility] HospitalGlucose tmignaefwrg7546-85-32 08:49:00* Test Item Value Reference Range Interpretation Comments Glucose Level (test code = JMT5967) 108 74-118 [facility] Tylererum or plasma calcium measurement (mass/volume)2019-12-14 08:49:00* Test Item Value Reference Range Interpretation Comments Calcium Level (test code = 13098-1) 9.1 8.4-10.2 [facility] HospitalBlood leukocytes automated count (number/volume)2019-12-14 08:49:00* Test Item Value Reference Range Interpretation Comments White Blood Count (test code = 6690-2) 12.37 4.8-10.8 [facility] HospitalBlood erythrocytes automated count (number/volume)2019-12-14 08:49:00* Test Item Value Reference Range Interpretation Comments Red Blood Count (test code = 789-8) 4.09 4.3-5.7 [facility] (moles/volume)2019-12-14 08:49:00* Test Item Value Reference Range Interpretation Comments Hemoglobin (test code = 58463-4) 11.3 14.0-18.0 [facility] HospitalAutunc health wayneed blood hematocrit (volume fraction)2019-12-14 08:49:00* Test Item Value Reference Range Interpretation Comments Hematocrit (test code = 4544-3) 36.7 38.2-49.6 [facility] HospitalAutomated erythrocyte mean corpuscular yfjxxd6371-66-11 08:49:00* Test Item Value Reference Range Interpretation Comments Mean Corpuscular Volume (test code = 787-2) 89.7 81-99 [facility] HospitalAutomated erythrocyte mean corpuscular hemoglobin (mass per erythrocyte)2019-12-14 08:49:00* Test Item Value Reference Range Interpretation Comments Mean Corpuscular Hemoglobin (test code = 785-6) 27.6 28-32 [facility] HospitalAutomated erythrocyte mean corpuscular hemoglobin concentration measurement (mass/volume)2019-12-14 08:49:00* Test Item Value Reference Range Interpretation Comments Mean Corpuscular Hemoglobin Concent (test code = 786-4) 30.8 31-35 [facility] HospitalRDW XtgHh-Bnb1663-90-14 08:49:00* Test Item Value Reference Range Interpretation Comments Red Cell Distribution Width (test code = 65251-1) 15.6 11.7 -14.4 [facility] HospitalAutomated blood platelet count (count/volume)2019-12-14 08:49:00* Test Item Value Reference Range Interpretation Comments Platelet Count (test code = 777-3) 394 140-360 [facility] HospitalAutomated blood segmented neutrophil count as percentage of total sjcxggddcn8434-47-01 08:49:00* Test Item Value Reference Range Interpretation Comments Neutrophils (%) (Auto) (test code = 00013-1) 85.7 38.7-80.0 [facility] HospitalAutomated blood lymphocyte count as percentage ot total gnunruyxnn4008-89-41 08:49:00* Test Item Value Reference Range Interpretation Comments Lymphocytes (%) (Auto) (test code = 736-9) 6.1 18.0-39.1 [facility] HospitalAutomated blood monocyte count as percentage of total trnmjaywkx2939-79-78 08:49:00* Test Item Value Reference Range Interpretation Comments Monocytes (%) (Auto) (test code = 5905-5) 4.9 4.4-11.3 [facility] HospitalAutomated blood eosinophil count as percentage of total jerysiwtha6887-53-79 08:49:00* Test Item Value Reference Range Interpretation Comments Eosinophils (%) (Auto) (test code = 713-8) 2.3 0.0-6.0 [facility] HospitalAutomated blood basophil count as percentage of total wavyygdnzc0870-37-09 08:49:00* Test Item Value Reference Range Interpretation Comments Basophils (%) (Auto) (test code = 706-2) 0.5 0.0-1.0 [facility] HospitalFluoroscopic procedure less than one hour xqkvjfkk1359-28-98 08:49:00* Test Item Value Reference Range Interpretation Comments IM GRANULOCYTES % (test code = IM GRANULOCYTES %) 0.5 0.0- 1.0 [facility] HospitalAutomated blood neutrophil count 2019-12-14 08:49:00* Test Item Value Reference Range Interpretation Comments Neutrophils # (Auto) (test code = 751-8) 10.6 2.1-6.9 [facility] HospitalBlood lymphocytes count (number/volume) 2019-12-14 08:49:00* Test Item Value Reference Range Interpretation Comments Lymphocytes # (Auto) (test code = 09274-7) 0.8 1.0-3.2 [facility] HospitalBlood monocytes automated count (number/volume)2019-12-14 08:49:00* Test Item Value Reference Range Interpretation Comments Monocytes # (Auto) (test code = 742-7) 0.6 0.2-0.8 [facility] HospitalAutomated blood eosinophil count 2019-12-14 08:49:00* Test Item Value Reference Range Interpretation Comments Eosinophils # (Auto) (test code = 711-2) 0.3 0.0-0.4 [facility] HospitalAutomated blood basophil count (count/volume)2019-12-14 08:49:00* Test Item Value Reference Range Interpretation Comments Basophils # (Auto) (test code = 704-7) 0.1 0.0-0.1 [facility] HospitalFluoroscopic procedure less than one hour damsdkiu7262-01-86 08:49:00* Test Item Value Reference Range Interpretation Comments Absolute Immature Granulocyte (auto (na t code = Absolute Immature Granulocyte (auto) 0.06 0-0.1 [facility] HospitalProthrombin time (PT) in platelet poor plasma by coagulation olqqf8257-43-37 08:49:00* Test Item Value Reference Range Interpretation Comments Prothrombin Time (test code = 5902-2) 20.2 11.9-14.5 [facility] HospitalINR in Platelet poor plasma by Coagulation jzffy0598-20-98 08:49:00* Test Item Value Reference Range Interpretation Comments Prothromb Time International Ratio (test code = 6301-6) 1.60 Oral Anticoagulant Therapy INR Values:1. Low Intensity Therapy 1.5 - 2.02 . Moderate Intensity Therapy 2.0 - 3.03. High Intensity Therapy(1) 2.5 - 3. 54. High Intensity Therapy(2) 3.0 - 4.05. Panic Value INR > 5.0 [facility] HospitalActivated partial thromboplastin time (aPTT) in platelet poor plasma by coagulation cloke8366-71-07 08:49:00* Test Item Value Reference Range Interpretation Comments Activated Partial Thromboplast Time (test code = 08028-5) 39.4 23.8-35.5 [facility] Tylererum or plasma sodium measurement (moles/volume)2019-12-14 08:49:00* Test Item Value Reference Range Interpretation Comments Sodium Level (test code = 2951-2) 138 136-145 [facility] Tylererum or plasma potassium measurement (moles/volume)2019-12-14 08:49:00* Test Item Value Reference Range Interpretation Comments Potassium Level (test code = 2823-3) 4.0 3.5-5.1 [facility] Tylererum or plasma chloride measurement (moles/volume)2019-12-14 08:49:00* Test Item Value Reference Range Interpretation Comments Chloride Level (test code = 2075-0) 98 98-107 [facility] Tylererum or plasma carbon dioxide, total measurement (moles/volume)2019-12-14 08:49:00* Test Item Value Reference Range Interpretation Comments Carbon Dioxide Level (test code = 2028-9) 27 22-29 [facility] Tylererum or plasma anion pmg6823-75-74 08:49:00* Test Item Value Reference Range Interpretation Comments Anion Gap (test code = 20287-5) 17.0 8-16 [facility] Tylererum or plasma urea nitrogen measurement (mass/volume)2019-12-14 08:49:00* Test Item Value Reference Range Interpretation Comments Blood Urea Nitrogen (test code = 3094-0) 14 7-26 [facility] Tylererum or plasma creatinine measurement (mass/volume)2019-12-14 08:49:00* Test Item Value Reference Range Interpretation Comments Creatinine (test code = 2160-0) 5.21 0.72-1.25 [facility] Tylererum or plasma urea nitrogen/creatinine mass ulxzv2089-70-76 08:49:00* Test Item Value Reference Range Interpretation Comments BUN/Creatinine Ratio (test code = 3097-3) 3 6-25 [facility] HospitalEstimated glomerular filtration rate (GFR) btmnwyhtyrvkh2682-19-14 08:49:00* Test Item Value Reference Range Interpretation Comments Estimat Glomerular Filtration Rate (test code = 175445685) 11 >60 Ranges were taken from the National Kidney Disease Education Program and the [facility] literature.Reference ranges:60 or greater: Tixmbw59-79 ( for 3 consecutive months): Chronic kidney disease 15 or less: Kidney failureCHI [facility] Sp[facility] Surgical HospitalGlucose vfvqleoktcj0568-21-92 08:49:00* Test Item Value Reference Range Interpretation Comments Glucose Level (test code = IKY9126) 108 74-118 [facility] Tylererum or plasma calcium measurement (mass/volume)2019-12-14 08:49:00* Test Item Value Reference Range Interpretation Comments Calcium Level (test code = 00671-6) 9.1 8.4-10.2 [facility] HospitalCHEST 2 OAFSH3123-21-50 14:39:00 [facility] [address] [place] [address] Patient Name: MARIE GOMEZ MR #: [id number] : 1955 Age/Sex: 64/M Req #: [id number] Adm Physician: Ordered by: ALFRED PADRON DPM Report #: [id number] Location: OR Room/Bed: Procedure: [id number] DX/CH EST 2 VIEWS Exam Date: 12/09/19 Exam Time: 1415 REPORT STATUS: Signed X-ray chest PA and lateral History: Preop Comparison: 10/14/2019 Findings: Image taken in AP lordotic view. Poor inspiratory effort. Status post median andrew rnotomy. Likely IVC dialysis catheter. Lower neck surgical kevin in the midl ine. Central airways unremarkable. Cardiomegaly. No definite pleural effusion. No pneumothorax. Vascular markings are crowded because of the poor respiratory effort. Visualized skeleton shows degenerative changes. Vascular calcificati on. Cholecystectomy clips. Impression: Cardiomegaly. No other acute cardiop ulmonary disease. Signed by: Rangel Sanchez MD on 12/09/2019 2:41 PM D ictated By: RANGEL SANCHEZ MD 40 Transcribed By: KB on 12/09/191440 COPY TO: ALFRED DA SILVA DPCony Fluoroscopic procedure less than one hour duration 2019-12-09 14:36:00* Test Item Value Reference Range Interpretation Comments Coronavirus (PCR) (test code = Coronavirus (PCR)) NOT DETECTED NOTD ETECTED Hologic Aptima SARS-CoV-2 assay is a nucleic amplification test intended for the qualitative detection of RNA from SARS-CoV-2 from nasopharyngeal ([employer]ATE [employer] DEVELOPER) specimens. It is used under Emergency Use Authorization (EUA) by FDA.A positive result is indicative of the presence of SARS-CoV-2 RNA. Clinical correlation with patient history and other diagnostic information is necessary to determine patient infe ction status.A negative (Not Detected) result does not preclude SARS-CoV-2 infec tion. Clinical Correlation with patient history and other diagnostic information should be used in patient management decisions.Invalid: Unable to generate a va lid result on this specimen. Please submit a new specimen for reprat testing oc clinically indicated.Tesing performed by:[facility] [address] [place] [address] [id number], Winston Minor MD, PhD [facility] HospitalFluoroscopic procedure less than one hour hjlrcflb0039-75-29 14:36:00* Test Item Value Reference Range Interpretation Comments Coronavirus (PCR) (test code = Coronavirus (PCR)) NOT DETECTED NOTD ETECTED Hologic Aptima SARS-CoV-2 assay is a nucleic amplification test intended for the qualitative detection of RNA from SARS-CoV-2 from nasopharyngeal (ASSOCIATE JAVA DEVELOPER) specimens. It is used under Emergency Use Authorization (EUA) by FDA.A positive result is indicative of the presence of SARS-CoV-2 RNA. Clinical correlation with patient history and other diagnostic information is necessary to determine patient infe ction status.A negative (Not Detected) result does not preclude SARS-CoV-2 infec tion. Clinical Correlation with patient history and other diagnostic information should be used in patient management decisions.Invalid: Unable to generate a va lid result on this specimen. Please submit a new specimen for reprat testing oc clinically indicated.Tesing performed by:[facility] [address] [place] [address] [id number] chu MD, PhD [facility] HospitalFluoroscopic procedure less than one hour mwjpufzr2432-21-81 14:36:00* Test Item Value Reference Range Interpretation Comments Coronavirus (PCR) (test code = Coronavirus (PCR)) NOT DETECTED NOTD ETECTED [employer] Aptima SARS-CoV-2 assay is a nucleic amplification test intended for the qualitative detection of RNA from SARS-CoV-2 from nasopharyngeal (ASSOCIATE JAVA DEVELOPER) specimens. It is used under Emergency Use Authorization (EUA) by FDA.A positive result is indicative of the presence of SARS-CoV-2 RNA. Clinical correlation with patient history and other diagnostic information is necessary to determine patient infe ction status.A negative (Not Detected) result does not preclude SARS-CoV-2 infec tion. Clinical Correlation with patient history and other diagnostic information should be used in patient management decisions.Invalid: Unable to generate a va lid result on this specimen. Please submit a new specimen for reprat testing oc clinically indicated.Tesing performed by:[facility] [address] [place] [address] [id number] chu MD, PhD [facility] HospitalBacteria identification in wound by qhnttvn7149-50-75 13:20:00* Test Item Value Reference Range Interpretation Comments Wound Culture (test code = 6462-6) ESCHERICHIA COLI [facility] HospitalBacteria identification in wound by zvraybv1744-93-01 13:20:00* Test Item Value Reference Range Interpretation Comments Wound Culture (test code = 6462-6) ESCHERICHIA COLI [facility] HospitalBacteria identification in wound by wlkjvee0863-34-25 13:20:00* Test Item Value Reference Range Interpretation Comments Wound Culture (test code = 6462-6) ESCHERICHIA COLI [facility] HospitalCapillary blood glucose measurement by glucometer (mass/volume)2019-11-29 15:22:00* Test Item Value Reference Range Interpretation Comments Bedside Glucose (test code = 23867-9) 161 70-120 Meter ID: [id number] HospitalPROTHROMBIN TIME 2019-10-26 08:21:00* Test Item Value Reference Range Interpretation Comments PROTHROMBIN TIME PATIENT (test code = PTP) 28.8 seconds 9.0-14.0 H INTERNATIONAL NORMAL RATIO (test code = INR) 2.4 0.8-1.2 H The therapeutic range for oral anticoagulant therapy formost indications is an international normalized ratio (INR)of between 2.0 and 3.0. The recommended therapeutic INRrange for various clinical situations is listed below: Clinical Situation INR range Pulmonary e mbolism treatment (2.0-3.0)Venous thrombosis treatmentVenous thrombosis prophylaxis (high risk surgery)Prevention of systemic embolism from: Acute myocardial infarction Valvular heart disease Atrial fibrillation Mechanical prosthetic heart valves (2.5-3.5) IS PATIENT ON ANTICOAGULANTS? YLIST ANTICOAGULANTS COUMADIN PLAVIX XZGQGYBIC9030-20-49 08:12:00* Test Item Value Reference Range Interpretation Comments POTASSIUM (test code = K) 3.5 mmol/L 3.5-5.1 N OSWMWB0527-45-24 07:23:00* Test Item Value Reference Range Interpretation Comments GLUBED (test code = GLUBED) 94 mg/dL 74-106 N Performed by certified terminal computer operator at [facility] Novel Coronavirus 2019 Hekzfaq2253-34-45 11:47:00* Test Item Value Reference Range Interpretation Comments Novel Coronavirus 2019 Inhouse (test code = COVNONPUI) Negative Negative Testing Criteria: Preprocedure ScreeningComments: 10/26/19Novel Coronavirus 2019 Fiqawug4312-14-39 11:47:00* Test Item Value Reference Range Interpretation Comments Novel Coronavirus 2019 Inhouse (test code = COVNONPUI) Negative Negative Testing Criteria: Preprocedure ScreeningComments: 10/26/19BASIC METABOLIC XHVBR7535-09-31 17:42:00* Test Item Value Reference Range Interpretation Comments SODIUM (test code = NA) 136 mmol/L 136-145 N POTASSIUM (test code = K) 4.1 mmol/L 3.5-5.1 N CHLORIDE (test code = CL) 100.0 mmol/L 98-107 N CARBON DIOXIDE (test code = CO2) 27.0 mmol/L 21-32 N ANION GAP (test code = GAP) 13.1 10-20 N GLUCOSE (test code = GLU) 121 mg/dL 74-106 H BLOOD UREA NITROGEN (test code = BUN) 14 mg/dL 7-18 N GLOMERULAR FILTRATION RATE (test code = GFR) 13 mL/min >=60 Estimated GFR by using Modified MDRD formula.Chronic kidney disease is defined as either kidney damageor GFR <60 mL/min/1.73 m2 for >3 months. CREATININE (test code = CREAT) 4.70 mg/dL 0.7-1.3 H BUN/CREATININE RATIO (test code = BUN/CREA) 3.0 10-20 L CALCIUM (test code = CA) 9.5 mg/dL 8.5-10.1 N LIPID PROFILE (CORONARY RISK)2019-10-21 17:42:00* Test Item Value Reference Range Interpretation Comments TRIGLYCERIDES (test code = TRIG) 130 mg/dL 20-150 N CHOLESTEROL (test code = CHOL) 69 mg/dL 0-200 N CHOLESTEROL/HDL RATIO (test code = CHOLHDL) 2.0 RATIO 0-4.9 N RISK ASSOCIATED WITH CHOL/HDL RATIOS: Risk Male Female1/2 AVERAGE 3.43 3.27AVERAGE 4.97 4.442X AVERAGE 9.55 7.053X AVERAGE 23.39 11.04 REFERENCE VALUE IS RELATED TO RISK LEVELS ASRECOMMENDED BY THE [facility]. HEART, LUNG, AND BLOOD INST. HDL CHOLESTEROL (test code = HDL) 26 mg/dL 40-60 L LIPOPROTEIN LDL (test code = LDL) 34 mg/dL 100-129 L Reference Interval: mg/dL mmol/L Optimal <100 <2.6Near/above optimal 100-129 2.6- 3.3Borderline High 130-159 3.4-4.1High 160-189 4.1-4.9Very High >=190 >=4.9========= This LDL result is a direct measurement.========= BASIC METABOLIC [id number] 17:37:00* Test Item Value Reference Range Interpretation Comments SODIUM (test code = NA) 136 mmol/L 136-145 N POTASSIUM (test code = K) 4.1 mmol/L 3.5-5.1 N CHLORIDE (test code = CL) 100.0 mmol/L 98-107 N CARBON DIOXIDE (test code = CO2) mmol/L 21-32 ANION GAP (test code = GAP) 10-20 GLUCOSE (test code = GLU) mg/dL 74-106 BLOOD UREA NITROGEN (test code = BUN) mg/dL 7-18 GLOMERULAR FILTRATION RATE (test code = GFR) mL/min >=60 CREATININE (test code = CREAT) mg/dL 0.7-1.3 BUN/CREATININE RATIO (test code = BUN/CREA) 10-20 CALCIUM (test code = CA) mg/dL 8.5-10.1 LIPID PROFILE (CORONARY RISK)2019-10-21 17:37:00* Test Item Value Reference Range Interpretation Comments TRIGLYCERIDES (test code = TRIG) mg/dL 20-150 CHOLESTEROL (test code = CHOL) mg/dL 0-200 CHOLESTEROL/HDL RATIO (test code = CHOLHDL) RATIO 0-4.9 HDL CHOLESTEROL (test code = HDL) mg/dL 40-60 LIPOPROTEIN LDL (test code = LDL) mg/dL 100-129 PROTHROMBIN [id number] 17:26:00* Test Item Value Reference Range Interpretation Comments PROTHROMBIN TIME PATIENT (test code = PTP) 41.1 seconds 9.0-14.0 H INTERNATIONAL NORMAL RATIO (test code = INR) 3.5 0.8-1.2 H The therapeutic range for oral anticoagulant therapy formost indications is an international normalized ratio (INR)of between 2.0 and 3.0. The recommended therapeutic INRrange for various clinical situations is listed below: Clinical Situation INR range Pulmonary e mbolism treatment (2.0-3.0)Venous thrombosis treatmentVenous thrombosis prophylaxis (high risk surgery)Prevention of systemic embolism from: Acute myocardial infarction Valvular heart disease Atrial fibrillation Mechanical prosthetic heart valves (2.5-3.5) IS PATIENT ON ANTICOAGULANTS? NCBC W/AUTO [id number] 17:00:00* Test Item Value Reference Range Interpretation Comments WHITE BLOOD CELL (test code = WBC) 10.5 K/mm3 4.5-12.5 N RED BLOOD CELL (test code = RBC) 4.38 mill/mm3 4.0-5.8 N HEMOGLOBIN (test code = HGB) 13.4 gram/dL 13.0-17.5 N HEMATOCRIT (test code = HCT) 40.9 % 42.0-52.0 L MEAN CELL VOLUME (test code = MCV) 93.4 fL 80-98 N MEAN CELL HGB (test code = MCH) 30.6 picogram 27.0-33.0 N MEAN CELL HGB CONCETRATION (test code = MCHC) 32.8 gram/dL 33.0-36. 0 L RED CELL DISTRIBUTION WIDTH (test code = RDW) 14.7 % 11.6-16. 2 N RED CELL DISTRIBUTION WIDTH SD (test code = RDW-SD) 50.3 fL 37 .0-51.0 N PLATELET COUNT (test code = PLT) 282 K/mm3 150-450 N MEAN PLATELET VOLUME (test code = MPV) 11.4 fL 6.7-11.0 H NEUTROPHIL % (test code = NT%) 81.0 % 39.0-69.0 H IMMATURE GRANULOCYTE % (test code = IG%) 0.4 % 0.0-5.0 N LYMPHOCYTE % (test code = LY%) 8.0 % 25.0-55.0 L MONOCYTE % (test code = MO%) 6.5 % 0.0-10.0 N EOSINOPHIL % (test code = EO%) 3.5 % 0.0-5.0 N BASOPHIL % (test code = BA%) 0.6 % 0.0-1.0 N NUCLEATED RBC % (test code = NRBC%) 0.0 % 0-0 N NEUTROPHIL # (test code = NT#) 8.49 K/mm3 1.8-7.7 H IMMATURE GRANULOCYTE # (test code = IG#) 0.04 x10 3/uL 0-0.03 H LYMPHOCYTE # (test code = LY#) 0.84 K/mm3 1.0-5.0 L MONOCYTE # (test code = MO#) 0.68 K/mm3 0-0.8 N EOSINOPHIL # (test code = EO#) 0.37 K/mm3 0.0-0.5 N BASOPHIL # (test code = BA#) 0.06 K/mm3 0.0-0.2 N NUCLEATED RBC # (test code = NRBC#) 0.00 K/mm3 0.0-0.1 N MANUAL DIFF REQUIRED (test code = MDIFF) NO CHEST 2 [id number] 11:20:00 [place] [address] Patient Name: MARIE GOMEZ MR #: [id number] : 1955 Age/Sex: 64/M Req #: [id number] Adm Physician: Ordered by: ALFRED PADRON DPM Report #: [id number] Location: RAD Room/Bed: Procedure: [id number] DX/CH EST 2 VIEWS Exam Date: 10/14/19 Exam Time: 941 REPORT STATUS: Signed EXAMINATION: CHEST 2 VIEWS INDICATION: Preprocedural COMPARISON: Chest radiogra ph 07/09/2019 FINDINGS: LINES/TUBES:None LUNGS:The lungs are m oderately inflated. Increased AP diameter of the chest. There is perihilar ful lness and indistinctness of the pulmonary vasculature. PLEURA:No pleural ef fusion or pneumothorax. MEDIASTINUM:Mild cardiomegaly. Atherosclerotic calc ifications of the thoracic aorta. BONES/SOFT TISSUES:No acute osseous inj ury. Sternotomy wires in place. ABDOMEN:No free air under the diaphragm. St atus post cholecystectomy. IMPRESSION: Mild cardiomegaly. Pulmonary i nterstitial edema. No focal pneumonia. Signed by: Fletcher Borges MD on 10/14/19 11:21 AM Dictated By: FLETCHER BORGES MD 20 Transcribed By: KB on 10/14/191120 COPY TO: ALFRED PADRON [facility] Blood leukocytes automated count (number/volume)2019-10-11 14:00:00* Test Item Value Reference Range Interpretation Comments White Blood Count (test code = 6690-2) 9.20 4.8-10.8 [facility] HospitalBlood erythrocytes automated count (number/volume)2019-10-11 14:00:00* Test Item Value Reference Range Interpretation Comments Red Blood Count (test code = 789-8) 4.58 4.3-5.7 [facility] HospitalBlood hemoglobin measurement (moles/volume)2019-10-11 14:00:00* Test Item Value Reference Range Interpretation Comments Hemoglobin (test code = 84449-2) 13.7 14.0-18.0 [facility] HospitalAutomated blood hematocrit (volume fraction)2019-10-11 14:00:00* Test Item Value Reference Range Interpretation Comments Hematocrit (test code = 4544-3) 43.2 38.2-49.6 [facility] HospitalAutomated erythrocyte mean corpuscular oaxukj9334-95-58 14:00:00* Test Item Value Reference Range Interpretation Comments Mean Corpuscular Volume (test code = 787-2) 94.3 81-99 [facility] HospitalAutomated erythrocyte mean corpuscular hemoglobin (mass per erythrocyte)2019-10-11 14:00:00* Test Item Value Reference Range Interpretation Comments Mean Corpuscular Hemoglobin (test code = 785-6) 29.9 28-32 [facility] HospitalAutunc health wayneed erythrocyte mean corpuscular hemoglobin concentration measurement (mass/volume)2019-10-11 14:00:00* Test Item Value Reference Range Interpretation Comments Mean Corpuscular Hemoglobin Concent (test code = 786-4) 31.7 31-35 [facility] HospitalRDW RozKr-Leq9410-10-11 14:00:00* Test Item Value Reference Range Interpretation Comments Red Cell Distribution Width (test code = 75636-1) 14.9 11.7 -14.4 [facility] HospitalAutomated blood platelet count (count/volume)2019-10-11 14:00:00* Test Item Value Reference Range Interpretation Comments Platelet Count (test code = 777-3) 281 140-360 [facility] HospitalAutomated blood segmented neutrophil count as percentage of total tccgxmviny9625-02-17 14:00:00* Test Item Value Reference Range Interpretation Comments Neutrophils (%) (Auto) (test code = 49755-2) 79.6 38.7-80.0 [facility] HospitalAutomated blood lymphocyte count as percentage ot total viyabpvmcm9883-50-24 14:00:00* Test Item Value Reference Range Interpretation Comments Lymphocytes (%) (Auto) (test code = 736-9) 8.9 18.0-39.1 [facility] HospitalAutomated blood monocyte count as percentage of total flhiazydqh8315-70-28 14:00:00* Test Item Value Reference Range Interpretation Comments Monocytes (%) (Auto) (test code = 5905-5) 5.2 4.4-11.3 [facility] HospitalAutomated blood eosinophil count as percentage of total iuuoioklok1908-50-31 14:00:00* Test Item Value Reference Range Interpretation Comments Eosinophils (%) (Auto) (test code = 713-8) 5.1 0.0-6.0 [facility] HospitalAutomated blood basophil count as percentage of total zjmuaomrgz1312-02-18 14:00:00* Test Item Value Reference Range Interpretation Comments Basophils (%) (Auto) (test code = 706-2) 0.9 0.0-1.0 [facility] HospitalFluoroscopic procedure less than one hour rbwpdvtw1237-73-12 14:00:00* Test Item Value Reference Range Interpretation Comments IM GRANULOCYTES % (test code = IM GRANULOCYTES %) 0.3 0.0- 1.0 [facility] HospitalAutomated blood neutrophil count 2019-10-11 14:00:00* Test Item Value Reference Range Interpretation Comments Neutrophils # (Auto) (test code = 751-8) 7.3 2.1-6.9 [facility] HospitalBlood lymphocytes count (number/volume) 2019-10-11 14:00:00* Test Item Value Reference Range Interpretation Comments Lymphocytes # (Auto) (test code = 30708-3) 0.8 1.0-3.2 [facility] HospitalBlood monocytes automated count (number/volume)2019-10-11 14:00:00* Test Item Value Reference Range Interpretation Comments Monocytes # (Auto) (test code = 742-7) 0.5 0.2-0.8 [facility] HospitalAutomated blood eosinophil count 2019-10-11 14:00:00* Test Item Value Reference Range Interpretation Comments Eosinophils # (Auto) (test code = 711-2) 0.5 0.0-0.4 [facility] HospitalAutomated blood basophil count (count/volume)2019-10-11 14:00:00* Test Item Value Reference Range Interpretation Comments Basophils # (Auto) (test code = 704-7) 0.1 0.0-0.1 [facility] HospitalFluoroscopic procedure less than one hour rupwuspq5659-43-88 14:00:00* Test Item Value Reference Range Interpretation Comments Absolute Immature Granulocyte (auto (na t code = Absolute Immature Granulocyte (auto) 0.03 0-0.1 [facility] HospitalErythrocyte sedimentation rate by Westergren xitknc9138-53-19 14:00:00* Test Item Value Reference Range Interpretation Comments Erythrocyte Sedimentation Rate (test code = 4537-7) 75 0- 13 [facility] Tylererum or plasma sodium measurement (moles/volume)2019-10-11 14:00:00* Test Item Value Reference Range Interpretation Comments Sodium Level (test code = 2951-2) 140 136-145 [facility] Tylererum or plasma potassium measurement (moles/volume)2019-10-11 14:00:00* Test Item Value Reference Range Interpretation Comments Potassium Level (test code = 2823-3) 3.7 3.5-5.1 [facility] Tylererum or plasma chloride measurement (moles/volume)2019-10-11 14:00:00* Test Item Value Reference Range Interpretation Comments Chloride Level (test code = 2075-0) 100 98-107 [facility] Tylererum or plasma carbon dioxide, total measurement (moles/volume)2019-10-11 14:00:00* Test Item Value Reference Range Interpretation Comments Carbon Dioxide Level (test code = 2028-9) 27 22-29 [facility] Tylererum or plasma anion wsx0246-00-05 14:00:00* Test Item Value Reference Range Interpretation Comments Anion Gap (test code = 69124-4) 16.7 8-16 [facility] Tylererum or plasma urea nitrogen measurement (mass/volume)2019-10-11 14:00:00* Test Item Value Reference Range Interpretation Comments Blood Urea Nitrogen (test code = 3094-0) 9 7-26 [facility] Tylererum or plasma creatinine measurement (mass/volume)2019-10-11 14:00:00* Test Item Value Reference Range Interpretation Comments Creatinine (test code = 2160-0) 4.03 0.72-1.25 [facility] Tylererum or plasma urea nitrogen/creatinine mass txboi2047-00-88 14:00:00* Test Item Value Reference Range Interpretation Comments BUN/Creatinine Ratio (test code = 3097-3) 2 6-25 [facility] HospitalEstimated glomerular filtration rate (GFR) qffxpnrwgjqaa9088-15-17 14:00:00* Test Item Value Reference Range Interpretation Comments Estimat Glomerular Filtration Rate (test code = 712834225) 15 >60 Ranges were taken from the National Kidney Disease Education Program and the [facility] Kidney Foundation literature.Reference ranges:60 or greater: Zvsuhn91-54 ( for 3 consecutive months): Chronic kidney disease 15 or less: Kidney failureHill Country Memorial HospitalGlucose euhptmwsiyu7377-59-86 14:00:00* Test Item Value Reference Range Interpretation Comments Glucose Level (test code = YOR3919) 79 74-118 [facility] Tylererum or plasma calcium measurement (mass/volume)2019-10-11 14:00:00* Test Item Value Reference Range Interpretation Comments Calcium Level (test code = 15172-4) 9.7 8.4-10.2 [facility] HospitalFluoroscopic procedure less than one hour vtvuwptm2836-82-36 14:00:00* Test Item Value Reference Range Interpretation Comments Hemoglobin A1c Percent (test code = Hemoglobin A1c Percent) 5.7 4.0-7.0 [facility] Tylererum or plasma total bilirubin measurement (mass/volume)2019-10-11 14:00:00* Test Item Value Reference Range Interpretation Comments Total Bilirubin (test code = 1975-2) 0.8 0.2-1.2 [facility] HospitalFluoroscopic procedure less than one hour ydhieclu4798-09-41 14:00:00* Test Item Value Reference Range Interpretation Comments Aspartate Amino Transf (AST/SGOT) (test code = Aspartate Amino Transf (AST/SGOT)) 13 5-34 [facility] Tylererum or plasma alanine aminotransferase measurement (enzymatic activity/volume)2019-10-11 14:00:00* Test Item Value Reference Range Interpretation Comments Alanine Aminotransferase (ALT/SGPT) (test code = 1742-6) 7 0-55 [facility] Tylererum or plasma protein measurement (mass/volume)2019-10-11 14:00:00* Test Item Value Reference Range Interpretation Comments Total Protein (test code = 2885-2) 8.6 6.5-8.1 [facility] Tylererum or plasma albumin measurement (mass/volume)2019-10-11 14:00:00* Test Item Value Reference Range Interpretation Comments Albumin (test code = 1751-7) 3.1 3.5-5.0 [facility] HospitalPlasma globulin measurement (mass/volume) 2019-10-11 14:00:00* Test Item Value Reference Range Interpretation Comments Globulin (test code = 22232-6) 5.5 2.3-3.5 [facility] Tylererum or plasma albumin/globulin mass fszyd2321-21-07 14:00:00* Test Item Value Reference Range Interpretation Comments Albumin/Globulin Ratio (test code = 1759-0) 0.6 0.8-2.0 [facility] Tylererum or plasma alkaline phosphatase measurement (enzymatic activity/volume)2019-10-11 14:00:00* Test Item Value Reference Range Interpretation Comments Alkaline Phosphatase (test code = 6768-6) 142 40-150 [facility] Tylererum or plasma prealbumin measurement (mass/volume)2019-10-11 14:00:00* Test Item Value Reference Range Interpretation Comments Prealbumin (test code = 35283-7) 15 10-36 Performed at: - [facility] [id number] Director: Riya Leary MD, Phone: [phone] [facility] C reactive protein measurement (mass/volume)2019-10-11 14:00:00* Test Item Value Reference Range Interpretation Comments C-Reactive Protein (test code = 1988-5) 42 0-10 [facility] HospitalBlood leukocytes automated count (number/volume)2019-10-11 14:00:00* Test Item Value Reference Range Interpretation Comments White Blood Count (test code = 6690-2) 9.20 4.8-10.8 [facility] HospitalBlood erythrocytes automated count (number/volume)2019-10-11 14:00:00* Test Item Value Reference Range Interpretation Comments Red Blood Count (test code = 789-8) 4.58 4.3-5.7 [facility] HospitalBlood hemoglobin measurement (moles/volume)2019-10-11 14:00:00* Test Item Value Reference Range Interpretation Comments Hemoglobin (test code = 18696-0) 13.7 14.0-18.0 [facility] HospitalAutomated blood hematocrit (volume fraction)2019-10-11 14:00:00* Test Item Value Reference Range Interpretation Comments Hematocrit (test code = 4544-3) 43.2 38.2-49.6 [facility] HospitalAutomated erythrocyte mean corpuscular ctmqlf1317-75-66 14:00:00* Test Item Value Reference Range Interpretation Comments Mean Corpuscular Volume (test code = 787-2) 94.3 81-99 [facility] HospitalAutomated erythrocyte mean corpuscular hemoglobin (mass per erythrocyte)2019-10-11 14:00:00* Test Item Value Reference Range Interpretation Comments Mean Corpuscular Hemoglobin (test code = 785-6) 29.9 28-32 [facility] HospitalAutomated erythrocyte mean corpuscular hemoglobin concentration measurement (mass/volume)2019-10-11 14:00:00* Test Item Value Reference Range Interpretation Comments Mean Corpuscular Hemoglobin Concent (test code = 786-4) 31.7 31-35 [facility] HospitalRDW NxiNn-Ndr7167-30-11 14:00:00* Test Item Value Reference Range Interpretation Comments Red Cell Distribution Width (test code = 19002-0) 14.9 11.7 -14.4 [facility] HospitalAutomated blood platelet count (count/volume)2019-10-11 14:00:00* Test Item Value Reference Range Interpretation Comments Platelet Count (test code = 777-3) 281 140-360 [facility] HospitalAutomated blood segmented neutrophil count as percentage of total srddhbmljv8523-32-79 14:00:00* Test Item Value Reference Range Interpretation Comments Neutrophils (%) (Auto) (test code = 35698-2) 79.6 38.7-80.0 [facility] HospitalAutomated blood lymphocyte count as percentage ot total fecssvycph8506-67-61 14:00:00* Test Item Value Reference Range Interpretation Comments Lymphocytes (%) (Auto) (test code = 736-9) 8.9 18.0-39.1 [facility] HospitalAutomated blood monocyte count as percentage of total qukkipfqas6258-79-86 14:00:00* Test Item Value Reference Range Interpretation Comments Monocytes (%) (Auto) (test code = 5905-5) 5.2 4.4-11.3 [facility] HospitalAutomated blood eosinophil count as percentage of total pdbdauqkla7693-32-07 14:00:00* Test Item Value Reference Range Interpretation Comments Eosinophils (%) (Auto) (test code = 713-8) 5.1 0.0-6.0 [facility] HospitalAutomated blood basophil count as percentage of total vjfwkwxjpy5359-66-00 14:00:00* Test Item Value Reference Range Interpretation Comments Basophils (%) (Auto) (test code = 706-2) 0.9 0.0-1.0 [facility] HospitalFluoroscopic procedure less than one hour ekdtgqkz4214-96-64 14:00:00* Test Item Value Reference Range Interpretation Comments IM GRANULOCYTES % (test code = IM GRANULOCYTES %) 0.3 0.0- 1.0 [facility] HospitalAutomated blood neutrophil count 2019-10-11 14:00:00* Test Item Value Reference Range Interpretation Comments Neutrophils # (Auto) (test code = 751-8) 7.3 2.1-6.9 [facility] HospitalBlood lymphocytes count (number/volume) 2019-10-11 14:00:00* Test Item Value Reference Range Interpretation Comments Lymphocytes # (Auto) (test code = 18046-3) 0.8 1.0-3.2 [facility] HospitalBlood monocytes automated count (number/volume)2019-10-11 14:00:00* Test Item Value Reference Range Interpretation Comments Monocytes # (Auto) (test code = 742-7) 0.5 0.2-0.8 [facility] HospitalAutomated blood eosinophil count 2019-10-11 14:00:00* Test Item Value Reference Range Interpretation Comments Eosinophils # (Auto) (test code = 711-2) 0.5 0.0-0.4 [facility] HospitalAutomated blood basophil count (count/volume)2019-10-11 14:00:00* Test Item Value Reference Range Interpretation Comments Basophils # (Auto) (test code = 704-7) 0.1 0.0-0.1 [facility] HospitalFluoroscopic procedure less than one hour mfuuuiem6606-64-18 14:00:00* Test Item Value Reference Range Interpretation Comments Absolute Immature Granulocyte (auto (na t code = Absolute Immature Granulocyte (auto) 0.03 0-0.1 [facility] HospitalErythrocyte sedimentation rate by Westergren fyeppm3477-12-79 14:00:00* Test Item Value Reference Range Interpretation Comments Erythrocyte Sedimentation Rate (test code = 4537-7) 75 0- 13 [facility] Tylererum or plasma sodium measurement (moles/volume)2019-10-11 14:00:00* Test Item Value Reference Range Interpretation Comments Sodium Level (test code = 2951-2) 140 136-145 [facility] Tylererum or plasma potassium measurement (moles/volume)2019-10-11 14:00:00* Test Item Value Reference Range Interpretation Comments Potassium Level (test code = 2823-3) 3.7 3.5-5.1 [facility] Tylererum or plasma chloride measurement (moles/volume)2019-10-11 14:00:00* Test Item Value Reference Range Interpretation Comments Chloride Level (test code = 2075-0) 100 98-107 [facility] Tylererum or plasma carbon dioxide, total measurement (moles/volume)2019-10-11 14:00:00* Test Item Value Reference Range Interpretation Comments Carbon Dioxide Level (test code = 2028-9) 27 22-29 [facility] Tylererum or plasma anion xhd4935-63-84 14:00:00* Test Item Value Reference Range Interpretation Comments Anion Gap (test code = 89664-2) 16.7 8-16 [facility] Tylererum or plasma urea nitrogen measurement (mass/volume)2019-10-11 14:00:00* Test Item Value Reference Range Interpretation Comments Blood Urea Nitrogen (test code = 3094-0) 9 7-26 [facility] Tylererum or plasma creatinine measurement (mass/volume)2019-10-11 14:00:00* Test Item Value Reference Range Interpretation Comments Creatinine (test code = 2160-0) 4.03 0.72-1.25 [facility] Tylererum or plasma urea nitrogen/creatinine mass nubqt2204-67-26 14:00:00* Test Item Value Reference Range Interpretation Comments BUN/Creatinine Ratio (test code = 3097-3) 2 6-25 [facility] HospitalEstimated glomerular filtration rate (GFR) ynmnzsxsgpqsu0698-14-29 14:00:00* Test Item Value Reference Range Interpretation Comments Estimat Glomerular Filtration Rate (test code = 093400803) 15 >60 Ranges were taken from the National Kidney Disease Education Program and the [facility] Kid[facility] Foundation literature.Reference ranges:60 or greater: Ldrwug34-99 ( for 3 consecutive months): Chronic kidney disease 15 or less: Kidney failureHill Country Memorial HospitalGlucose exmudldcwfl5318-12-00 14:00:00* Test Item Value Reference Range Interpretation Comments Glucose Level (test code = ZCX7230) 79 74-118 [facility] Tylererum or plasma calcium measurement (mass/volume)2019-10-11 14:00:00* Test Item Value Reference Range Interpretation Comments Calcium Level (test code = 47781-5) 9.7 8.4-10.2 [facility] HospitalFluoroscopic procedure less than one hour vrmrtxnz2922-85-89 14:00:00* Test Item Value Reference Range Interpretation Comments Hemoglobin A1c Percent (test code = Hemoglobin A1c Percent) 5.7 4.0-7.0 [facility] Tylererum or plasma total bilirubin measurement (mass/volume)2019-10-11 14:00:00* Test Item Value Reference Range Interpretation Comments Total Bilirubin (test code = 1975-2) 0.8 0.2-1.2 [facility] HospitalFluoroscopic procedure less than one hour rwqcisfc1671-08-80 14:00:00* Test Item Value Reference Range Interpretation Comments Aspartate Amino Transf (AST/SGOT) (test code = Aspartate Amino Transf (AST/SGOT)) 13 5-34 [facility] Tylererum or plasma alanine aminotransferase measurement (enzymatic activity/volume)2019-10-11 14:00:00* Test Item Value Reference Range Interpretation Comments Alanine Aminotransferase (ALT/SGPT) (test code = 1742-6) 7 0-55 [facility] Tylererum or plasma protein measurement (mass/volume)2019-10-11 14:00:00* Test Item Value Reference Range Interpretation Comments Total Protein (test code = 2885-2) 8.6 6.5-8.1 [facility] Tylererum or plasma albumin measurement (mass/volume)2019-10-11 14:00:00* Test Item Value Reference Range Interpretation Comments Albumin (test code = 1751-7) 3.1 3.5-5.0 [facility] HospitalPlasma globulin measurement (mass/volume) 2019-10-11 14:00:00* Test Item Value Reference Range Interpretation Comments Globulin (test code = 07768-3) 5.5 2.3-3.5 [facility] Tylererum or plasma albumin/globulin mass xwrbr6703-86-20 14:00:00* Test Item Value Reference Range Interpretation Comments Albumin/Globulin Ratio (test code = 1759-0) 0.6 0.8-2.0 [facility] Tylererum or plasma alkaline phosphatase measurement (enzymatic activity/volume)2019-10-11 14:00:00* Test Item Value Reference Range Interpretation Comments Alkaline Phosphatase (test code = 6768-6) 142 40-150 [facility] Tylererum or plasma prealbumin measurement (mass/volume)2019-10-11 14:00:00* Test Item Value Reference Range Interpretation Comments Prealbumin (test code = 47303-7) 15 10-36 Performed at: - [facility] [id number] Director: Riya Leary MD, Phone: [phone] [facility] C reactive protein measurement (mass/volume)2019-10-11 14:00:00* Test Item Value Reference Range Interpretation Comments C-Reactive Protein (test code = 1988-5) 42 0-10 [facility] HospitalErythrocyte sedimentation rate by Westergren gdybfy1329-85-49 14:00:00* Test Item Value Reference Range Interpretation Comments Erythrocyte Sedimentation Rate (test code = 4537-7) 75 0- 13 [facility] HospitalFluoroscopic procedure less than one hour iywqlieo4840-84-36 14:00:00* Test Item Value Reference Range Interpretation Comments Hemoglobin A1c Percent (test code = Hemoglobin A1c Percent) 5.7 4.0-7.0 [facility] Tylererum or plasma total bilirubin measurement (mass/volume)2019-10-11 14:00:00* Test Item Value Reference Range Interpretation Comments Total Bilirubin (test code = 1975-2) 0.8 0.2-1.2 [facility] HospitalFluoroscopic procedure less than one hour hbbwwtkn2005-35-74 14:00:00* Test Item Value Reference Range Interpretation Comments Aspartate Amino Transf (AST/SGOT) (test code = Aspartate Amino Transf (AST/SGOT)) 13 5-34 [facility] Tylererum or plasma alanine aminotransferase measurement (enzymatic activity/volume)2019-10-11 14:00:00* Test Item Value Reference Range Interpretation Comments Alanine Aminotransferase (ALT/SGPT) (test code = 1742-6) 7 0-55 [facility] Tylererum or plasma protein measurement (mass/volume)2019-10-11 14:00:00* Test Item Value Reference Range Interpretation Comments Total Protein (test code = 2885-2) 8.6 6.5-8.1 [facility] Tylererum or plasma albumin measurement (mass/volume)2019-10-11 14:00:00* Test Item Value Reference Range Interpretation Comments Albumin (test code = 1751-7) 3.1 3.5-5.0 [facility] HospitalPlasma globulin measurement (mass/volume) 2019-10-11 14:00:00* Test Item Value Reference Range Interpretation Comments Globulin (test code = 55234-0) 5.5 2.3-3.5 [facility] Tylererum or plasma albumin/globulin mass uirct1126-66-91 14:00:00* Test Item Value Reference Range Interpretation Comments Albumin/Globulin Ratio (test code = 1759-0) 0.6 0.8-2.0 [facility] Tylererum or plasma alkaline phosphatase measurement (enzymatic activity/volume)2019-10-11 14:00:00* Test Item Value Reference Range Interpretation Comments Alkaline Phosphatase (test code = 6768-6) 142 40-150 [facility] Tylererum or plasma prealbumin measurement (mass/volume)2019-10-11 14:00:00* Test Item Value Reference Range Interpretation Comments Prealbumin (test code = 70322-0) 15 10-36 Performed at: - [facility] [id number] Director: Riya Leary MD, Phone: [phone] [facility] C reactive protein measurement (mass/volume)2019-10-11 14:00:00* Test Item Value Reference Range Interpretation Comments C-Reactive Protein (test code = 1988-5) 42 0-10 [facility] HospitalErythrocyte sedimentation rate by Westergren qiyxsb4179-19-13 14:00:00* Test Item Value Reference Range Interpretation Comments Erythrocyte Sedimentation Rate (test code = 4537-7) 75 0- 13 [facility] HospitalFluoroscopic procedure less than one hour fzlduuan4862-34-66 14:00:00* Test Item Value Reference Range Interpretation Comments Hemoglobin A1c Percent (test code = Hemoglobin A1c Percent) 5.7 4.0-7.0 [facility] Tylererum or plasma total bilirubin measurement (mass/volume)2019-10-11 14:00:00* Test Item Value Reference Range Interpretation Comments Total Bilirubin (test code = 1975-2) 0.8 0.2-1.2 [facility] HospitalFluoroscopic procedure less than one hour yoifwzvb5105-77-16 14:00:00* Test Item Value Reference Range Interpretation Comments Aspartate Amino Transf (AST/SGOT) (test code = Aspartate Amino Transf (AST/SGOT)) 13 5-34 [facility] Tylererum or plasma alanine aminotransferase measurement (enzymatic activity/volume)2019-10-11 14:00:00* Test Item Value Reference Range Interpretation Comments Alanine Aminotransferase (ALT/SGPT) (test code = 1742-6) 7 0-55 [facility] Tylererum or plasma protein measurement (mass/volume)2019-10-11 14:00:00* Test Item Value Reference Range Interpretation Comments Total Protein (test code = 2885-2) 8.6 6.5-8.1 [facility] Tylererum or plasma albumin measurement (mass/volume)2019-10-11 14:00:00* Test Item Value Reference Range Interpretation Comments Albumin (test code = 1751-7) 3.1 3.5-5.0 [facility] HospitalPlasma globulin measurement (mass/volume) 2019-10-11 14:00:00* Test Item Value Reference Range Interpretation Comments Globulin (test code = 55260-3) 5.5 2.3-3.5 [facility] Tylererum or plasma albumin/globulin mass uiwnk5038-96-58 14:00:00* Test Item Value Reference Range Interpretation Comments Albumin/Globulin Ratio (test code = 1759-0) 0.6 0.8-2.0 [facility] Tylererum or plasma alkaline phosphatase measurement (enzymatic activity/volume)2019-10-11 14:00:00* Test Item Value Reference Range Interpretation Comments Alkaline Phosphatase (test code = 6768-6) 142 40-150 [facility] Tylererum or plasma prealbumin measurement (mass/volume)2019-10-11 14:00:00* Test Item Value Reference Range Interpretation Comments Prealbumin (test code = 76030-3) 15 10-36 Performed at: - Lab[address] [id number] Director: Riya Leary MD, Phone: [phone] Tylererum or plasma C reactive protein measurement (mass/volume)2019-10-11 14:00:00* Test Item Value Reference Range Interpretation Comments C-Reactive Protein (test code = 1988-5) 42 0-10 [facility] HospitalErythrocyte sedimentation rate by Westergren rkqaqu8569-34-75 14:00:00* Test Item Value Reference Range Interpretation Comments Erythrocyte Sedimentation Rate (test code = 4537-7) 75 0- 13 [facility] HospitalFluoroscopic procedure less than one hour hclezmvy1273-05-20 14:00:00* Test Item Value Reference Range Interpretation Comments Hemoglobin A1c Percent (test code = Hemoglobin A1c Percent) 5.7 4.0-7.0 [facility] Tylererum or plasma total bilirubin measurement (mass/volume)2019-10-11 14:00:00* Test Item Value Reference Range Interpretation Comments Total Bilirubin (test code = 1975-2) 0.8 0.2-1.2 [facility] HospitalFluoroscopic procedure less than one hour qjbeyfel6453-11-40 14:00:00* Test Item Value Reference Range Interpretation Comments Aspartate Amino Transf (AST/SGOT) (test code = Aspartate Amino Transf (AST/SGOT)) 13 5-34 [facility] Tylererum or plasma alanine aminotransferase measurement (enzymatic activity/volume)2019-10-11 14:00:00* Test Item Value Reference Range Interpretation Comments Alanine Aminotransferase (ALT/SGPT) (test code = 1742-6) 7 0-55 [facility] Tylererum or plasma protein measurement (mass/volume)2019-10-11 14:00:00* Test Item Value Reference Range Interpretation Comments Total Protein (test code = 2885-2) 8.6 6.5-8.1 [facility] Tylererum or plasma albumin measurement (mass/volume)2019-10-11 14:00:00* Test Item Value Reference Range Interpretation Comments Albumin (test code = 1751-7) 3.1 3.5-5.0 [facility] HospitalPlasma globulin measurement (mass/volume) 2019-10-11 14:00:00* Test Item Value Reference Range Interpretation Comments Globulin (test code = 75535-2) 5.5 2.3-3.5 [facility] Tylererum or plasma albumin/globulin mass ofuct7869-52-22 14:00:00* Test Item Value Reference Range Interpretation Comments Albumin/Globulin Ratio (test code = 1759-0) 0.6 0.8-2.0 [facility] Tylererum or plasma alkaline phosphatase measurement (enzymatic activity/volume)2019-10-11 14:00:00* Test Item Value Reference Range Interpretation Comments Alkaline Phosphatase (test code = 6768-6) 142 40-150 [facility] Tylererum or plasma prealbumin measurement (mass/volume)2019-10-11 14:00:00* Test Item Value Reference Range Interpretation Comments Prealbumin (test code = 09260-5) 15 10-36 Performed at: [employer] [facility] [address] [id number] Director: Riya Leary MD, Phone: [phone] [facility] Tylererum or plasma C reactive protein measurement (mass/volume)2019-10-11 14:00:00* Test Item Value Reference Range Interpretation Comments C-Reactive Protein (test code = 1988-5) 42 0-10 [facility] HospitalBONE SCAN, 3 YGTTU3634-53-10 21:16:00 [place] [address] Patient Name: MARIE GOMEZ MR #: [id number] : 1955 Age/Sex: 64/M Req #: [id number] Adm Physician: Ordered by: RANDY LOPEZ MD Report #: [id number] Location: [place] Room/Bed: Procedure: [id number] NM /BONE SCAN, 3 PHASE Exam Date: 07/27/19 Exam Time: 1 330 REPORT STATUS: Signed Bone S can, three-phase - feet and ankles Reason for exam: 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 Concern for osteomyelitis. Radioph armaceutical: Tc-99m MDP 27.5 mCi IV left forearm Comparison: Right foot ra diograph 07/09/2019 Following intravenous administration of the radiopharmace utical, dynamic flow and immediate blood pool images of the right lower leg, a nkle and foot followed by 3-hour delayed spot images were obtained. Left LLE B KA. No abnormal focal accumulation of tracer is seen in the right foot on t he flow images. The blood pool images show diffusely increased tracer in the plantar aspect of the right mid foot region. The delayed images show mildly increased tracer in the right calcaneal bursa, otherwise, distribution of tracer activity is normal throughout the right foot without abnormal focal uptake in bone. Impression: Soft tissue inflammation in the plantar aspect of the right mid foot. No scan evidence of osteomyelitis. Calcaneal b ursitis is noted. Signed by: Dr. Isa Shah M.D. on 07/28/2019 7:30 PM Dictated By: ISA SHAH MD 29 COPY TO: ANTONY LOPEZ MD Uibumnimoq1542-11-28 11:32:00* Test Item Value Reference Range Interpretation Comments Prealbumin (test code = 67562-3) 23 10-36 Performed at: [facility] Lab[address] [id number] Director: Riya Leary MD, Phone: [phone] Country Memorial HospitalC-Reactive Mdadboj0627-82-19 11:32:00* Test Item Value Reference Range Interpretation Comments C-Reactive Protein (test code = 1988-5) 14 0-10 H [facility] HospitalBedside Xitxqiy9778-53-89 17:18:00* Test Item Value Reference Range Interpretation Comments Bedside Glucose (test code = 26881-4) 102 70-120 Meter ID: [id number] Country Memorial HospitalErythrocyte Sedimentation Rtkp5988-16-57 16:08:00* Test Item Value Reference Range Interpretation Comments Erythrocyte Sedimentation Rate (test code = 4537-7) 61 0- 13 [facility] Tylerodium Deoqk4264-29-75 15:34:00* Test Item Value Reference Range Interpretation Comments Sodium Level (test code = 2951-2) 138 136-145 [facility] HospitalPotassium Pqmfe9790-18-23 15:34:00* Test Item Value Reference Range Interpretation Comments Potassium Level (test code = 2823-3) 3.5 3.5-5.1 [facility] HospitalChloride Glelj3874-23-43 15:34:00* Test Item Value Reference Range Interpretation Comments Chloride Level (test code = 2075-0) 101 98-107 [facility] HospitalCarbon Dioxide Hlxtx8517-17-51 15:34:00* Test Item Value Reference Range Interpretation Comments Carbon Dioxide Level (test code = 2028-9) 27 22-29 [facility] HospitalAnion Ihc2994-61-64 15:34:00* Test Item Value Reference Range Interpretation Comments Anion Gap (test code = 90522-0) 13.5 8-16 [facility] HospitalBlood Urea Vpiwvcod4407-91-43 15:34:00* Test Item Value Reference Range Interpretation Comments Blood Urea Nitrogen (test code = 3094-0) 8 7-26 [facility] HospitalCreatinine2020-02-24 15:34:00* Test Item Value Reference Range Interpretation Comments Creatinine (test code = 2160-0) 4.09 0.72-1.25 H [facility] HospitalBUN/Creatinine Vlxno4142-53-50 15:34:00* Test Item Value Reference Range Interpretation Comments BUN/Creatinine Ratio (test code = 3097-3) 2 6-25 L [facility] HospitalEstimat Glomerular Filtration Rate 2019-07-26 15:34:00* Test Item Value Reference Range Interpretation Comments Estimat Glomerular Filtration Rate (test code = 316257274) 15 >60 L Ranges were taken from the National Kidney Disease Education Program and the [place] [place] [employer] literature.Reference ranges:60 or greater: Fxbuef52-00 ( for 3 consecutive months): Chronic kidney disease 15 or less: Kidney failureHill Country Memorial HospitalGlucose Ixtpi4368-22-58 15:34:00* Test Item Value Reference Range Interpretation Comments Glucose Level (test code = KYQ6290) 92 74-118 [facility] HospitalCalcium Saxkl6254-83-61 15:34:00* Test Item Value Reference Range Interpretation Comments Calcium Level (test code = 71571-1) 8.7 8.4-10.2 [facility] HospitalTotal Rhvybwnrt4106-33-32 15:34:00* Test Item Value Reference Range Interpretation Comments Total Bilirubin (test code = 1975-2) 0.9 0.2-1.2 [facility] HospitalAspartate Amino Transf (AST/SGOT) 2019-07-26 15:34:00* Test Item Value Reference Range Interpretation Comments Aspartate Amino Transf (AST/SGOT) (test code = Aspartate Amino Transf (AST/SGOT)) 14 5-34 [facility] HospitalAlanine Aminotransferase (ALT/SGPT) 2019-07-26 15:34:00* Test Item Value Reference Range Interpretation Comments Alanine Aminotransferase (ALT/SGPT) (test code = 1742-6) 9 0-55 [facility] HospitalTotal Qegtuii4798-99-07 15:34:00* Test Item Value Reference Range Interpretation Comments Total Protein (test code = 2885-2) 8.6 6.5-8.1 H [facility] HospitalAlbumin2020-02-24 15:34:00* Test Item Value Reference Range Interpretation Comments Albumin (test code = 1751-7) 3.7 3.5-5.0 [facility] HospitalGlobulin2020-02-24 15:34:00* Test Item Value Reference Range Interpretation Comments Globulin (test code = 62606-0) 4.9 2.3-3.5 H [facility] HospitalAlbumin/Globulin Xurml0949-88-90 15:34:00 * Test Item Value Reference Range Interpretation Comments Albumin/Globulin Ratio (test code = 1759-0) 0.8 0.8-2.0 [facility] HospitalAlkaline Skqsjcujaho2098-82-58 15:34:00* Test Item Value Reference Range Interpretation Comments Alkaline Phosphatase (test code = 6768-6) 198 40-150 H [facility] HospitalHemoglobin A1c Pmqehfq7094-72-81 15:23:00 * Test Item Value Reference Range Interpretation Comments Hemoglobin A1c Percent (test code = Hemoglobin A1c Percent) 6.4 4.0-7.0 [facility] HospitalWhite Blood Krata5711-04-62 15:15:00* Test Item Value Reference Range Interpretation Comments White Blood Count (test code = 6690-2) 5.74 4.8-10.8 [facility] HospitalRed Blood Rrcdv3968-33-36 15:15:00* Test Item Value Reference Range Interpretation Comments Red Blood Count (test code = 789-8) 4.94 4.3-5.7 [facility] HospitalHemoglobin2020-02-24 15:15:00* Test Item Value Reference Range Interpretation Comments Hemoglobin (test code = 43276-3) 14.2 14.0-18.0 [facility] HospitalHematocrit2020-02-24 15:15:00* Test Item Value Reference Range Interpretation Comments Hematocrit (test code = 4544-3) 45.6 38.2-49.6 [facility] HospitalMean Corpuscular Qibmvg0876-78-97 15:15:00* Test Item Value Reference Range Interpretation Comments Mean Corpuscular Volume (test code = 787-2) 92.3 81-99 [facility] HospitalMean Corpuscular Wqzssqyglp6977-14-71 15:15:00* Test Item Value Reference Range Interpretation Comments Mean Corpuscular Hemoglobin (test code = 785-6) 28.7 28-32 [facility] HospitalMean Corpuscular Hemoglobin Concent 2019-07-26 15:15:00* Test Item Value Reference Range Interpretation Comments Mean Corpuscular Hemoglobin Concent (test code = 786-4) 31.1 31-35 [facility] HospitalRed Cell Distribution Pszck1441-71-07 15:15:00* Test Item Value Reference Range Interpretation Comments Red Cell Distribution Width (test code = 42796-8) 18.2 11.7 -14.4 H [facility] HospitalPlatelet Asmkr9587-28-33 15:15:00* Test Item Value Reference Range Interpretation Comments Platelet Count (test code = 777-3) 193 140-360 [facility] HospitalNeutrophils (%) (Auto)2019-07-26 15:15:00 * Test Item Value Reference Range Interpretation Comments Neutrophils (%) (Auto) (test code = 50863-2) 61.4 38.7-80.0 [facility] HospitalLymphocytes (%) (Auto)2019-07-26 15:15:00 * Test Item Value Reference Range Interpretation Comments Lymphocytes (%) (Auto) (test code = 736-9) 16.9 18.0-39.1 L [facility] HospitalMonocytes (%) (Auto)2019-07-26 15:15:00* Test Item Value Reference Range Interpretation Comments Monocytes (%) (Auto) (test code = 5905-5) 9.9 4.4-11.3 [facility] HospitalEosinophils (%) (Auto)2019-07-26 15:15:00 * Test Item Value Reference Range Interpretation Comments Eosinophils (%) (Auto) (test code = 713-8) 10.6 0.0-6.0 H [facility] HospitalBasophils (%) (Auto)2019-07-26 15:15:00* Test Item Value Reference Range Interpretation Comments Basophils (%) (Auto) (test code = 706-2) 0.9 0.0-1.0 [facility] HospitalIM GRANULOCYTES %2019-07-26 15:15:00* Test Item Value Reference Range Interpretation Comments IM GRANULOCYTES % (test code = IM GRANULOCYTES %) 0.3 0.0- 1.0 [facility] HospitalNeutrophils # (Auto)2019-07-26 15:15:00* Test Item Value Reference Range Interpretation Comments Neutrophils # (Auto) (test code = 751-8) 3.5 2.1-6.9 [facility] HospitalLymphocytes # (Auto)2019-07-26 15:15:00* Test Item Value Reference Range Interpretation Comments Lymphocytes # (Auto) (test code = 37234-9) 1.0 1.0-3.2 [facility] HospitalMonocytes # (Auto)2019-07-26 15:15:00* Test Item Value Reference Range Interpretation Comments Monocytes # (Auto) (test code = 742-7) 0.6 0.2-0.8 [facility] HospitalEosinophils # (Auto)2019-07-26 15:15:00* Test Item Value Reference Range Interpretation Comments Eosinophils # (Auto) (test code = 711-2) 0.6 0.0-0.4 H [facility] HospitalBasophils # (Auto)2019-07-26 15:15:00* Test Item Value Reference Range Interpretation Comments Basophils # (Auto) (test code = 704-7) 0.1 0.0-0.1 [facility] HospitalAbsolute Immature Granulocyte (auto 2019-07-26 15:15:00* Test Item Value Reference Range Interpretation Comments Absolute Immature Granulocyte (auto (na t code = Absolute Immature Granulocyte (auto) 0.02 0-0.1 [facility] HospitalBlood leukocytes automated count (number/volume)2019-07-26 13:30:00* Test Item Value Reference Range Interpretation Comments White Blood Count (test code = 6690-2) 5.74 4.8-10.8 [facility] HospitalBlood erythrocytes automated count (number/volume)2019-07-26 13:30:00* Test Item Value Reference Range Interpretation Comments Red Blood Count (test code = 789-8) 4.94 4.3-5.7 [facility] HospitalBlood hemoglobin measurement (moles/volume)2019-07-26 13:30:00* Test Item Value Reference Range Interpretation Comments Hemoglobin (test code = 22276-1) 14.2 14.0-18.0 [facility] HospitalAutomated blood hematocrit (volume fraction)2019-07-26 13:30:00* Test Item Value Reference Range Interpretation Comments Hematocrit (test code = 4544-3) 45.6 38.2-49.6 [facility] HospitalAutomated erythrocyte mean corpuscular bgawdf4751-12-01 13:30:00* Test Item Value Reference Range Interpretation Comments Mean Corpuscular Volume (test code = 787-2) 92.3 81-99 [facility] HospitalAutomated erythrocyte mean corpuscular hemoglobin (mass per erythrocyte)2019-07-26 13:30:00* Test Item Value Reference Range Interpretation Comments Mean Corpuscular Hemoglobin (test code = 785-6) 28.7 28-32 [facility] erythrocyte mean corpuscular hemoglobin concentration measurement (mass/volume)2019-07-26 13:30:00* Test Item Value Reference Range Interpretation Comments Mean Corpuscular Hemoglobin Concent (test code = 786-4) 31.1 31-35 [facility] HospitalRDW RjvOu-Fhd4893-84-24 13:30:00* Test Item Value Reference Range Interpretation Comments Red Cell Distribution Width (test code = 98484-2) 18.2 11.7 -14.4 [facility] HospitalAutunc health wayneed blood platelet count (count/volume)2019-07-26 13:30:00* Test Item Value Reference Range Interpretation Comments Platelet Count (test code = 777-3) 193 140-360 [facility] HospitalAutunc health wayneed blood segmented neutrophil count as percentage of total kvgykjtcdb9030-68-25 13:30:00* Test Item Value Reference Range Interpretation Comments Neutrophils (%) (Auto) (test code = 45053-4) 61.4 38.7-80.0 [facility] HospitalAutomated blood lymphocyte count as percentage ot total qgqhplgwap9243-05-73 13:30:00* Test Item Value Reference Range Interpretation Comments Lymphocytes (%) (Auto) (test code = 736-9) 16.9 18.0-39.1 [facility] HospitalAutomated blood monocyte count as percentage of total wfjogvfpwh3188-61-07 13:30:00* Test Item Value Reference Range Interpretation Comments Monocytes (%) (Auto) (test code = 5905-5) 9.9 4.4-11.3 [facility] HospitalAutomated blood eosinophil count as percentage of total yezcdmiwhb4534-61-35 13:30:00* Test Item Value Reference Range Interpretation Comments Eosinophils (%) (Auto) (test code = 713-8) 10.6 0.0-6.0 [facility] HospitalAutomated blood basophil count as percentage of total xrndpxriuz8646-13-96 13:30:00* Test Item Value Reference Range Interpretation Comments Basophils (%) (Auto) (test code = 706-2) 0.9 0.0-1.0 [facility] HospitalFluoroscopic procedure less than one hour haxiiobv4436-11-40 13:30:00* Test Item Value Reference Range Interpretation Comments IM GRANULOCYTES % (test code = IM GRANULOCYTES %) 0.3 0.0- 1.0 [facility] HospitalAutomated blood neutrophil count 2019-07-26 13:30:00* Test Item Value Reference Range Interpretation Comments Neutrophils # (Auto) (test code = 751-8) 3.5 2.1-6.9 [facility] HospitalBlood lymphocytes count (number/volume) 2019-07-26 13:30:00* Test Item Value Reference Range Interpretation Comments Lymphocytes # (Auto) (test code = 37659-9) 1.0 1.0-3.2 [facility] HospitalBlood monocytes automated count (number/volume)2019-07-26 13:30:00* Test Item Value Reference Range Interpretation Comments Monocytes # (Auto) (test code = 742-7) 0.6 0.2-0.8 [facility] HospitalAutomated blood eosinophil count 2019-07-26 13:30:00* Test Item Value Reference Range Interpretation Comments Eosinophils # (Auto) (test code = 711-2) 0.6 0.0-0.4 [facility] HospitalAutomated blood basophil count (count/volume)2019-07-26 13:30:00* Test Item Value Reference Range Interpretation Comments Basophils # (Auto) (test code = 704-7) 0.1 0.0-0.1 [facility] HospitalFluoroscopic procedure less than one hour lxezyazp4688-84-99 13:30:00* Test Item Value Reference Range Interpretation Comments Absolute Immature Granulocyte (auto (na t code = Absolute Immature Granulocyte (auto) 0.02 0-0.1 [facility] HospitalErythrocyte sedimentation rate by Westergren slfete5638 13:30:00* Test Item Value Reference Range Interpretation Comments Erythrocyte Sedimentation Rate (test code = 4537-7) 61 0- 13 [facility] Tylererum or plasma sodium measurement (moles/volume)2019-07-26 13:30:00* Test Item Value Reference Range Interpretation Comments Sodium Level (test code = 2951-2) 138 136-145 [facility] Tylererum or plasma potassium measurement (moles/volume)2019-07-26 13:30:00* Test Item Value Reference Range Interpretation Comments Potassium Level (test code = 2823-3) 3.5 3.5-5.1 [facility] Tylererum or plasma chloride measurement (moles/volume)2019-07-26 13:30:00* Test Item Value Reference Range Interpretation Comments Chloride Level (test code = 2075-0) 101 98-107 [facility] Tylererum or plasma carbon dioxide, total measurement (moles/volume)2019-07-26 13:30:00* Test Item Value Reference Range Interpretation Comments Carbon Dioxide Level (test code = 2028-9) 27 22-29 [facility] Tylererum or plasma anion gjp7082-81-81 13:30:00* Test Item Value Reference Range Interpretation Comments Anion Gap (test code = 38712-0) 13.5 8-16 [facility] Tylererum or plasma urea nitrogen measurement (mass/volume)2019-07-26 13:30:00* Test Item Value Reference Range Interpretation Comments Blood Urea Nitrogen (test code = 3094-0) 8 7-26 [facility] Tylererum or plasma creatinine measurement (mass/volume)2019-07-26 13:30:00* Test Item Value Reference Range Interpretation Comments Creatinine (test code = 2160-0) 4.09 0.72-1.25 [facility] Tylererum or plasma urea nitrogen/creatinine mass neiph2026-71-25 13:30:00* Test Item Value Reference Range Interpretation Comments BUN/Creatinine Ratio (test code = 3097-3) 2 6-25 [facility] HospitalEstimated glomerular filtration rate (GFR) klimuysozfnez4232-22-85 13:30:00* Test Item Value Reference Range Interpretation Comments Estimat Glomerular Filtration Rate (test code = 256694852) 15 >60 Ranges were taken from the National Kidney Disease Education Program and the [facility] Kidney Foundation literature.Reference ranges:60 or greater: Gpxagn98-65 ( for 3 consecutive months): Chronic kidney disease 15 or less: Kidney failureHill Country Memorial HospitalGlucose ombwmlujbfx9722-04-68 13:30:00* Test Item Value Reference Range Interpretation Comments Glucose Level (test code = FZI8719) 92 74-118 [facility] Tylererum or plasma calcium measurement (mass/volume)2019-07-26 13:30:00* Test Item Value Reference Range Interpretation Comments Calcium Level (test code = 38831-7) 8.7 8.4-10.2 [facility] HospitalFluoroscopic procedure less than one hour idkxrcda4442-29-06 13:30:00* Test Item Value Reference Range Interpretation Comments Hemoglobin A1c Percent (test code = Hemoglobin A1c Percent) 6.4 4.0-7.0 [facility] Tylererum or plasma total bilirubin measurement (mass/volume)2019-07-26 13:30:00* Test Item Value Reference Range Interpretation Comments Total Bilirubin (test code = 1975-2) 0.9 0.2-1.2 [facility] HospitalFluoroscopic procedure less than one hour ejstrdlk4988-76-96 13:30:00* Test Item Value Reference Range Interpretation Comments Aspartate Amino Transf (AST/SGOT) (test code = Aspartate Amino Transf (AST/SGOT)) 14 5-34 [facility] Tylererum or plasma alanine aminotransferase measurement (enzymatic activity/volume)2019-07-26 13:30:00* Test Item Value Reference Range Interpretation Comments Alanine Aminotransferase (ALT/SGPT) (test code = 1742-6) 9 0-55 [facility] Tylererum or plasma protein measurement (mass/volume)2019-07-26 13:30:00* Test Item Value Reference Range Interpretation Comments Total Protein (test code = 2885-2) 8.6 6.5-8.1 [facility] Tylererum or plasma albumin measurement (mass/volume)2019-07-26 13:30:00* Test Item Value Reference Range Interpretation Comments Albumin (test code = 1751-7) 3.7 3.5-5.0 [facility] HospitalPlasma globulin measurement (mass/volume) 2019-07-26 13:30:00* Test Item Value Reference Range Interpretation Comments Globulin (test code = 59177-3) 4.9 2.3-3.5 [facility] Tylererum or plasma albumin/globulin mass slcuu9298-83-23 13:30:00* Test Item Value Reference Range Interpretation Comments Albumin/Globulin Ratio (test code = 1759-0) 0.8 0.8-2.0 [facility] Tylererum or plasma alkaline phosphatase measurement (enzymatic activity/volume)2019-07-26 13:30:00* Test Item Value Reference Range Interpretation Comments Alkaline Phosphatase (test code = 6768-6) 198 40-150 [facility] Tylererum or plasma prealbumin measurement (mass/volume)2019-07-26 13:30:00* Test Item Value Reference Range Interpretation Comments Prealbumin (test code = 04724-6) 23 10-36 Performed at: [facility] [address] [id number] Director: Riya Leary MD, Phone: [phone] [facility] Tylererum or plasma C reactive protein measurement (mass/volume)2019-07-26 13:30:00* Test Item Value Reference Range Interpretation Comments C-Reactive Protein (test code = 1988-5) 14 0-10 [facility] HospitalCapillary blood glucose measurement by glucometer (mass/volume)2019-07-26 13:02:00* Test Item Value Reference Range Interpretation Comments Bedside Glucose (test code = 65285-1) 102 70-120 Meter ID: [id number] [facility] HospitalCapillary blood glucose measurement by glucometer (mass/volume)2019-07-26 13:02:00* Test Item Value Reference Range Interpretation Comments Bedside Glucose (test code = 01169-6) 102 70-120 Meter ID: [id number] [facility] HospitalGLUBED2020-02-19 09:07:00* Test Item Value Reference Range Interpretation Comments GLUBED (test code = GLUBED) 115 mg/dL 74-106 H Performed by certified terminal computer operator at [facility] BASIC METABOLIC SNSSJ6445-45-57 17:00:00* Test Item Value Reference Range Interpretation Comments SODIUM (test code = NA) 137 mmol/L 136-145 N POTASSIUM (test code = K) 3.8 mmol/L 3.5-5.1 N CHLORIDE (test code = CL) 101.0 mmol/L 98-107 N CARBON DIOXIDE (test code = CO2) 26.0 mmol/L 21-32 N ANION GAP (test code = GAP) 13.8 10-20 N GLUCOSE (test code = GLU) 113 mg/dL 74-106 H BLOOD UREA NITROGEN (test code = BUN) 19 mg/dL 7-18 H GLOMERULAR FILTRATION RATE (test code = GFR) 11 mL/min >=60 Estimated GFR by using Modified MDRD formula.Chronic kidney disease is defined as either kidney damageor GFR <60 mL/min/1.73 m2 for >3 months. CREATININE (test code = CREAT) 5.40 mg/dL 0.7-1.3 H BUN/CREATININE RATIO (test code = BUN/CREA) 3.5 10-20 L CALCIUM (test code = CA) 9.5 mg/dL 8.5-10.1 N LIPID PROFILE (CORONARY RISK)2019-07-20 17:00:00* Test Item Value Reference Range Interpretation Comments TRIGLYCERIDES (test code = TRIG) 629 mg/dL 20-150 H CHOLESTEROL (test code = CHOL) 143 mg/dL 0-200 N CHOLESTEROL/HDL RATIO (test code = CHOLHDL) 5.0 RATIO 0-4.9 H RISK ASSOCIATED WITH CHOL/HDL RATIOS: Risk Male Female1/2 AVERAGE 3.43 3.27AVERAGE 4.97 4.442X AVERAGE 9.55 7.053X AVERAGE 23.39 11.04 REFERENCE VALUE IS RELATED TO RISK LEVELS ASRECOMMENDED BY THE [facility]. HEART, LUNG, AND BLOOD INST. HDL CHOLESTEROL (test code = HDL) 26 mg/dL 40-60 L LIPOPROTEIN LDL (test code = LDL) 44 mg/dL 100-129 L Reference Interval: mg/dL mmol/L Optimal <100 <2.6Near/above optimal 100-129 2.6- 3.3Borderline High 130-159 3.4-4.1High 160-189 4.1-4.9Very High >=190 >=4.9========= This LDL result is a direct measurement.========= PROTHROMBIN [id number] 16:42:00* Test Item Value Reference Range Interpretation Comments PROTHROMBIN TIME PATIENT (test code = PTP) 12.7 seconds 9.0-14.0 N INTERNATIONAL NORMAL RATIO (test code = INR) 1.1 0.8-1.2 N The therapeutic range for oral anticoagulant therapy formost indications is an international normalized ratio (INR)of between 2.0 and 3.0. The recommended therapeutic INRrange for various clinical situations is listed below: Clinical Situation INR range Pulmonary e mbolism treatment (2.0-3.0)Venous thrombosis treatmentVenous thrombosis prophylaxis (high risk surgery)Prevention of systemic embolism from: Acute myocardial infarction Valvular heart disease Atrial fibrillation Mechanical prosthetic heart valves (2.5-3.5) CBC W/AUTO [id number] 16:30:00* Test Item Value Reference Range Interpretation Comments WHITE BLOOD CELL (test code = WBC) 7.8 K/mm3 4.5-12.5 N RED BLOOD CELL (test code = RBC) 5.12 mill/mm3 4.0-5.8 N HEMOGLOBIN (test code = HGB) 14.4 gram/dL 13.0-17.5 N HEMATOCRIT (test code = HCT) 47.0 % 42.0-52.0 N MEAN CELL VOLUME (test code = MCV) 91.8 fL 80-98 N MEAN CELL HGB (test code = MCH) 28.1 picogram 27.0-33.0 N MEAN CELL HGB CONCETRATION (test code = MCHC) 30.6 gram/dL 33.0-36. 0 L RED CELL DISTRIBUTION WIDTH (test code = RDW) 17.7 % 11.6-16. 2 H RED CELL DISTRIBUTION WIDTH SD (test code = RDW-SD) 58.4 fL 37 .0-51.0 H PLATELET COUNT (test code = PLT) 189 K/mm3 150-450 N MEAN PLATELET VOLUME (test code = MPV) 12.0 fL 6.7-11.0 H NEUTROPHIL % (test code = NT%) 63.6 % 39.0-69.0 N IMMATURE GRANULOCYTE % (test code = IG%) 0.4 % 0.0-5.0 N LYMPHOCYTE % (test code = LY%) 16.5 % 25.0-55.0 L MONOCYTE % (test code = MO%) 10.7 % 0.0-10.0 H EOSINOPHIL % (test code = EO%) 7.6 % 0.0-5.0 H BASOPHIL % (test code = BA%) 1.2 % 0.0-1.0 H NUCLEATED RBC % (test code = NRBC%) 0.0 % 0-0 N NEUTROPHIL # (test code = NT#) 4.96 K/mm3 1.8-7.7 N IMMATURE GRANULOCYTE # (test code = IG#) 0.03 x10 3/uL 0-0.03 N LYMPHOCYTE # (test code = LY#) 1.28 K/mm3 1.0-5.0 N MONOCYTE # (test code = MO#) 0.83 K/mm3 0-0.8 H EOSINOPHIL # (test code = EO#) 0.59 K/mm3 0.0-0.5 H BASOPHIL # (test code = BA#) 0.09 K/mm3 0.0-0.2 N NUCLEATED RBC # (test code = NRBC#) 0.00 K/mm3 0.0-0.1 N CBC W/AUTO [id number] 16:28:00* Test Item Value Reference Range Interpretation Comments WHITE BLOOD CELL (test code = WBC) K/mm3 4.5-12.5 RED BLOOD CELL (test code = RBC) mill/mm3 4.0-5.8 HEMOGLOBIN (test code = HGB) 14.4 gram/dL 13.0-17.5 N HEMATOCRIT (test code = HCT) 47.0 % 42.0-52.0 N MEAN CELL VOLUME (test code = MCV) fL 80-98 MEAN CELL HGB (test code = MCH) picogram 27.0-33.0 MEAN CELL HGB CONCETRATION (test code = MCHC) gram/dL 33.0-36. 0 RED CELL DISTRIBUTION WIDTH (test code = RDW) % 11.6-16. 2 RED CELL DISTRIBUTION WIDTH SD (test code = RDW-SD) fL 37 .0-51.0 PLATELET COUNT (test code = PLT) K/mm3 150-450 MEAN PLATELET VOLUME (test code = MPV) fL 6.7-11.0 NEUTROPHIL % (test code = NT%) % 39.0-69.0 IMMATURE GRANULOCYTE % (test code = IG%) % 0.0-5.0 LYMPHOCYTE % (test code = LY%) % 25.0-55.0 MONOCYTE % (test code = MO%) % 0.0-10.0 EOSINOPHIL % (test code = EO%) % 0.0-5.0 BASOPHIL % (test code = BA%) % 0.0-1.0 NEUTROPHIL # (test code = NT#) K/mm3 1.8-7.7 LYMPHOCYTE # (test code = LY#) K/mm3 1.0-5.0 MONOCYTE # (test code = MO#) K/mm3 0-0.8 EOSINOPHIL # (test code = EO#) K/mm3 0.0-0.5 BASOPHIL # (test code = BA#) K/mm3 0.0-0.2 Arterial blood pH [id number] 08:59:00* Test Item Value Reference Range Interpretation Comments Arterial Blood pH (test code = 2744-1) 7.42 7.31-7.41 [facility] [id number] 08:59:00* Test Item Value Reference Range Interpretation Comments Arterial Blood Partial Pressure CO2 (test code = 2018-12) 42 41-51 [facility] [id number] 08:59:00* Test Item Value Reference Range Interpretation Comments Arterial Blood Partial Pressure O2 (test code = 2018-12) 83 80-105 [facility] bicarbonate measurement (moles/volume)2019-07-13 08:59:00* Test Item Value Reference Range Interpretation Comments Arterial Blood HCO3 (test code = 1960-4) 27 23-28 [facility] base excess by calculation 2019-07-13 08:59:00* Test Item Value Reference Range Interpretation Comments Arterial Blood Base Excess (test code = 1925-7) 3.0 -2-3 [facility] oxygen saturation [id number] 08:59:00* Test Item Value Reference Range Interpretation Comments Arterial Blood Oxygen Saturation (test code = 2708-6) 96.0 95-98 [facility]Flu[facility] procedure less than one hour [id number] 08:59:00* Test Item Value Reference Range Interpretation Comments FiO2 (test code = FiO2) 96 PT CAME IN OUTPATIENT FOR AN ABG. PATIENT IS ON RA DURING THE DRAW. IT WAS DRAWN BY CRISTINA FOX,DEVORA. FAXED RESULTS TO WOUNDCARE/HYPERBARIC [id number] 3.[facility] HospitalAr[facility] blood pH bsrnhzbedmi8686-46-08 08:59:00* Test Item Value Reference Range Interpretation Comments Arterial Blood pH (test code = 2744-1) 7.42 7.31-7.41 [facility] [id number] 08:59:00* Test Item Value Reference Range Interpretation Comments Arterial Blood Partial Pressure CO2 (test code = 2018-12) 42 41-51 [facility] [id number] 08:59:00* Test Item Value Reference Range Interpretation Comments Arterial Blood Partial Pressure O2 (test code = 2018-12) 83 80-105 [facility] bicarbonate measurement (moles/volume)2019-07-13 08:59:00* Test Item Value Reference Range Interpretation Comments Arterial Blood HCO3 (test code = 1960-4) 27 23-28 [facility] base excess by calculation 2019-07-13 08:59:00* Test Item Value Reference Range Interpretation Comments Arterial Blood Base Excess (test code = 1925-7) 3.0 -2-3 [facility] oxygen saturation waojaiiobvo4389-98-71 08:59:00* Test Item Value Reference Range Interpretation Comments Arterial Blood Oxygen Saturation (test code = 2708-6) 96.0 95-98 [facility]Flu[facility] procedure less than one hour dsgtsqkz5280-91-22 08:59:00* Test Item Value Reference Range Interpretation Comments FiO2 (test code = FiO2) 96 PT CAME IN OUTPATIENT FOR AN ABG. PATIENT IS ON RA DURING THE DRAW. IT WAS DRAWN BY CRISTINA FOX,DEVORA. FAXED RESULTS TO WOUNDCARE/HYPERBARIC [id number] 3.[facility] HospitalAr[facility] blood pH ngtaajxpata3137-77-75 08:59:00* Test Item Value Reference Range Interpretation Comments Arterial Blood pH (test code = 2744-1) 7.42 7.31-7.41 [facility] [id number] 08:59:00* Test Item Value Reference Range Interpretation Comments Arterial Blood Partial Pressure CO2 (test code = 2018-12) 42 41-51 [facility] [id number] 08:59:00* Test Item Value Reference Range Interpretation Comments Arterial Blood Partial Pressure O2 (test code = 2018-12) 83 80-105 [facility] bicarbonate measurement (moles/volume)2019-07-13 08:59:00* Test Item Value Reference Range Interpretation Comments Arterial Blood HCO3 (test code = 1960-4) - [facility] base excess by calculation 2019-07-13 08:59:00* Test Item Value Reference Range Interpretation Comments Arterial Blood Base Excess (test code = 1925-7) 3.0 -2-3 [facility]Ar[facility] oxygen saturation aktutgvufkc6883-79-99 08:59:00* Test Item Value Reference Range Interpretation Comments Arterial Blood Oxygen Saturation (test code = 2708-6) 96.0 95-98 [facility]Flu[facility] procedure less than one hour [id number] 08:59:00* Test Item Value Reference Range Interpretation Comments FiO2 (test code = FiO2) 96 PT CAME IN OUTPATIENT FOR AN ABG. PATIENT IS ON RA DURING THE DRAW. IT WAS DRAWN BY CRISTINA FOX,DEVORA. FAXED RESULTS TO WOUNDCARE/HYPERBARIC [id number] 3.[facility] HospitalAr[facility] blood pH whmiqkftaoh5789-86-92 08:59:00* Test Item Value Reference Range Interpretation Comments Arterial Blood pH (test code = 2744-1) 7.42 7.31-7.41 [facility] [id number] 08:59:00* Test Item Value Reference Range Interpretation Comments Arterial Blood Partial Pressure CO2 (test code = 2018-12) 42 41-51 [facility] [id number] 08:59:00* Test Item Value Reference Range Interpretation Comments Arterial Blood Partial Pressure O2 (test code = 2018-12) 83 80-105 [facility]Ar[facility] blood bicarbonate measurement (moles/volume)2019-07-13 08:59:00* Test Item Value Reference Range Interpretation Comments Arterial Blood HCO3 (test code = 1960-4) 27 - [facility]Ar[facility] base excess by calculation 2019-07-13 08:59:00* Test Item Value Reference Range Interpretation Comments Arterial Blood Base Excess (test code = 1925-7) 3.0 -2-3 [facility]Ar[facility] oxygen saturation xoxusgqfgho3545-37-18 08:59:00* Test Item Value Reference Range Interpretation Comments Arterial Blood Oxygen Saturation (test code = 2708-6) 96.0 95-98 [facility] HospitalFluor[facility] procedure less than one hour zbxobail3663-85-31 08:59:00* Test Item Value Reference Range Interpretation Comments FiO2 (test code = FiO2) 96 PT CAME IN OUTPATIENT FOR AN ABG. PATIENT IS ON RA DURING THE DRAW. IT WAS DRAWN BY CRISTINA FOX,DEVORA. FAXED RESULTS TO WOUNDCARE/HYPERBARIC [id number] 3.[facility] HospitalAr[facility] blood pH ncqhajpoppx8942-56-07 08:59:00* Test Item Value Reference Range Interpretation Comments Arterial Blood pH (test code = 2744-1) 7.42 7.31-7.41 [facility] [id number] 08:59:00* Test Item Value Reference Range Interpretation Comments Arterial Blood Partial Pressure CO2 (test code = 2018-12) 42 41-51 [facility] [id number] 08:59:00* Test Item Value Reference Range Interpretation Comments Arterial Blood Partial Pressure O2 (test code = 2018-8) 83 80-105 [facility]Ar[facility] blood bicarbonate measurement (moles/volume)2019-07-13 08:59:00* Test Item Value Reference Range Interpretation Comments Arterial Blood HCO3 (test code = 1960-4) 27 23-28 [facility]Ar[facility] blood base excess by calculation 2019-07-13 08:59:00* Test Item Value Reference Range Interpretation Comments Arterial Blood Base Excess (test code = 1925-7) 3.0 -2-3 [facility]Ar[facility] blood oxygen saturation [id number] 08:59:00* Test Item Value Reference Range Interpretation Comments Arterial Blood Oxygen Saturation (test code = 2708-6) 96.0 95-98 [facility] HospitalFluoroscopic procedure less than one hour nabnbigv5351-03-69 08:59:00* Test Item Value Reference Range Interpretation Comments FiO2 (test code = FiO2) 96 PT CAME IN OUTPATIENT FOR AN ABG. PATIENT IS ON RA DURING THE DRAW. IT WAS DRAWN BY CRISTINA FOX,DEVORA. FAXED RESULTS TO WOUNDCARE/HYPERBARIC [id number] 3.[facility] HospitalArterial blood pH nsnjgnutssj2376-96-27 08:59:00* Test Item Value Reference Range Interpretation Comments Arterial Blood pH (test code = 2744-1) 7.42 7.31-7.41 [facility] [id number] 08:59:00* Test Item Value Reference Range Interpretation Comments Arterial Blood Partial Pressure CO2 (test code = 2018-12) 42 41-51 [facility] [id number] 08:59:00* Test Item Value Reference Range Interpretation Comments Arterial Blood Partial Pressure O2 (test code = 2018-12) 83 80-105 [facility]Ar[facility] blood bicarbonate measurement (moles/volume)2019-07-13 08:59:00* Test Item Value Reference Range Interpretation Comments Arterial Blood HCO3 (test code = 1960-4) 27 23-28 [facility]Ar[facility] blood base excess by calculation 2019-07-13 08:59:00* Test Item Value Reference Range Interpretation Comments Arterial Blood Base Excess (test code = 1925-7) 3.0 -2-3 [facility]Ar[facility] blood oxygen saturation zymfxuvilau8841-64-71 08:59:00* Test Item Value Reference Range Interpretation Comments Arterial Blood Oxygen Saturation (test code = 2708-6) 96.0 95-98 [facility] HospitalFluoroscopic procedure less than one hour rquqpxol3826-19-64 08:59:00* Test Item Value Reference Range Interpretation Comments FiO2 (test code = FiO2) 96 PT CAME IN OUTPATIENT FOR AN ABG. PATIENT IS ON RA DURING THE DRAW. IT WAS DRAWN BY CRISTINA FOX,DEVORA. [facility] [id number] 3.[facility] HospitalFO[facility] [id number] 15:50:00 [place] [address] Patient Name: MARIE GOMEZ MR #: [id number] : 1954 Age/Sex: 64/M Req #: [id number] Adm Physician: Ordered by: RANDY LOPEZ MD Report #: [id number] Location: [facility] Room/Bed: Procedure: [id number] DX /FOOT RIGHT COMPLETE Exam Date: 07/09/19 Exam Time: 1438 REPORT STATUS: Signed Ri [facility], 3 views. History: Diabetes with foot ulcer. Findings: The re are diffuse vascular calcifications and mild diffuse swelling with a possib le ulcer on the plantar surface of the foot. The bones are diffusely osteopeni c. There is deformity of the distal aspects of the fourth and fifth metatarsal s consistent with old trauma. There is no evidence of acute fracture or disloc ation. There are no lytic or sclerotic lesions. The joint spaces are within no rmal limits. IMPRESSION: Plantar ulcer without focal osseous abnormali ty. A nuclear medicine bone scan would be more sensitive for detection of kenny y osteomyelitis. Signed by: Aroldo Bhatti on 07/09/2019 3:53 PM Dictat ed By: AROLDO BHATTI MD 52 Transcribed By: KB on 07/09/191552 COPY TO: RANDY LOPEZ MD CHEST 2 [id number] 15:38:00 [facility] [address] [place] [address] Patient Name: MARIE GOMEZ MR #: [id number] : 1955 Age/Sex: 64/M Req #: [id number] Adm Physician: Ordered by: RANDY LOPEZ MD Report #: [id number] Location: [facility] Room/Bed: Procedure: [id number] DX /CHEST 2 VIEWS Exam Date: 07/09/19 Exam Time: 1438 REPORT STATUS: Signed Chest, 2 vi ews, 07/09/2019. History: Diabetes, preop. Comparison: None avai lable. Findings: The cardiomediastinal silhouette and pulmonary vasculature are mildly prominent. Linear opacities are present at the lung bases. There is no focal consolidation or pleural effusion. Median sternotomy wires are pres ent. There are no acute osseous or soft tissue abnormalities. Impression : Mild cardiomegaly, vascular congestion, and bibasilar atelectasis. Sig fouzia by: Aroldo Bhatti on 07/09/2019 3:39 PM Dictated By: AROLDO BHATTI MD 38 Transcribed By: COM CARMICHAEL on 07/09/191538 COPY TO: RANDY LOPEZ MD - CTA ABD AORTA IF LWEX [id number] 15:54:00 Name: MARIE GOMEZ [facility] : 1955 Age/S: 64 / M [address] [facility] Unit #: [id number] Loc: [place] [address] Phys: Smith Nagel MD Acct: [id number] Dis Date: Status: DEP CLI PHONE #: [phone] Exam Date: 06/29/2019 1231 FAX #: [phone] Reason: PAD EXAMS: CPT CODE: [id number] [place] [id number] EXAM: CT angiography of the abdomen, pelvis and the lower extremities; INFORMATION: Peripheral arterial disease. TECHNIQUE AND FINDINGS: CT dose reduction protocol. Helical scans were obtained through the abdomen, pelvis and the lower extremities during intravenous infusion of contrast material. Multiple curvilinear reconstructions were obtained. 3-D angiographic studies were generated on an independent workstation, using volume rendering and maximum intensity projection algorithms. The abdominal aorta shows extensive calcifications. It is otherwise patent and without stenosis; no aneurysm. Sensitive calcifications of the visceral arteries. Celiac artery and SMA show no abnormalities. High-grade renal artery stenoses are present bilaterally about 95% on the right and about 80-90% on the left. The CHUNG is patent. Calcified plaques of the iliac arteries. These vessels are otherwise patent and without significant stenosis. Right leg: The right common femoral artery in the right profunda femoris arteries are patent. Extensive calcifications of the SFA. There is a stent in the distal portion of the SFA in this portion is either occluded or severely stenosed. There is poor infrapopliteal runoff with a high-grade stenosis at the origin of the right anterior tibial artery. This vessel shows additional multiple high-grade stenosis but there is o pacification of a small caliber dorsalis pedis artery. There is dist al occlusion of the right posterior tibial artery. This vessel shows multi ple high-grade stenoses in its proximal two thirds. There are also multipl e high-grade stenosis of the peroneal artery. This is a small caliber vess el which is otherwise patent. There is reconstitution of a small caliber p lantar pedis artery via collaterals. Left leg: There is status post BKA. Severe atherosclerotic changes are seen of the femoropopliteal vessels with extensive calcifications and multiple stenose s. PAGE 1 Signed Report (C ONTINUED) Name: MARIE GOMEZ [facility] : 1955 Age/S: 64 / M [address] Un it #: [id number] Loc: [place] [address] Phys: Smith Nagel MD Acct: [id number] Dis Date: Status: DEP CLI PHONE #: [phone] Exam Date: 06/29/2019 1231 FAX #: [phone] Reason: PAD E XAMS: CPT CODE: [id number] [place] [address] <Continued> Axial source images show large polycystic kidneys and there is also evidence of fatty infiltration of the liver. A left femoral tunneled hem odialysis catheter is seen with its tip in the IVC, at the level of the re nal veins. There are prostate calcifications and calcifications of the sonia inal vesicles. IMPRESSION: 1. Severe atherosclerot ic changes with extensive vascular calcifications. 2. Patent aor ta without aneurysm or stenosis and patent iliac vessels. 3. High-grade stenosis at the origin of the renal arteries bilaterally. 4. Sev ere, diffuse atherosclerotic changes of the right femoral popliteal and infrapopliteal vessels as described including a high-grade stenosis or p otentially occlusion of a stented portion of the distal right SFA. 5. 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 6. Fatty liver. 7. Prostate calcifications and calcifications of the seminal vesicles. 8. Adult type polycystic kidney disease. Location code: [facility] at 1554 Reported and signed by: Kishan Grubbs M.D. CC: Smith Nagel M.D.; Phillip Carcamo Jr, MD Technologist:RT Della(R),CT CTDI: DLP: Trnscb Date/Time: 06/30/2019 (7074) Duane Orig Print D/T: S: 06/30/2019 (6869) PAGE 2 Signed Report CREATININE W ESTIMATED [id number] 11:09:00* Test Item Value Reference Range Interpretation Comments BEDSIDE CREATININE (test code = CREATBED) mg/dL 0.7-1.3 HH GLOMERULAR FILTRATION RATE POC (test code = GFRBED) 12 >6 0 LL CREATININE W ESTIMATED [id number] 11:09:00* Test Item Value Reference Range Interpretation Comments BEDSIDE CREATININE (test code = CREATBED) 4.88 mg/dL 0.7-1.3 HH GLOMERULAR FILTRATION RATE POC (test code = GFRBED) 13 >6 0 LL Previously reported result: 12 Edited by: NAINA on 06/29/19:658980 1109: GFRBED previously reported as: 12 *L [id number] 07:38:00* Test Item Value Reference Range Interpretation Comments GLUBED (test code = GLUBED) 117 mg/dL 74-106 H Performed by certified terminal computer operator at [facility] [id number] 07:38:00* Test Item Value Reference Range Interpretation Comments GLUBED (test code = GLUBED) 257 mg/dL 74-106 H Performed by certified terminal computer operator at [facility] [id number] 07:38:00* Test Item Value Reference Range Interpretation Comments GLUBED (test code = GLUBED) 173 mg/dL 74-106 H Performed by certified terminal computer operator at [facility] [id number] 07:38:00* Test Item Value Reference Range Interpretation Comments GLUBED (test code = GLUBED) 162 mg/dL 74-106 H Performed by certified terminal computer operator at [facility] [id number] 07:36:00* Test Item Value Reference Range Interpretation Comments GLUBED (test code = GLUBED) 202 mg/dL 74-106 H Performed by certified terminal computer operator at [facility] [id number] 07:36:00* Test Item Value Reference Range Interpretation Comments GLUBED (test code = GLUBED) 217 mg/dL 74-106 H Performed by certified terminal computer operator at [facility] [id number] 07:34:00* Test Item Value Reference Range Interpretation Comments GLUBED (test code = GLUBED) 205 mg/dL 74-106 H Performed by certified terminal computer operator at [facility] [id number] 07:34:00* Test Item Value Reference Range Interpretation Comments GLUBED (test code = GLUBED) 177 mg/dL 74-106 H Performed by certified terminal computer operator at [facility] [id number] 07:34:00* Test Item Value Reference Range Interpretation Comments GLUBED (test code = GLUBED) 189 mg/dL 74-106 H Performed by certified terminal computer operator at [facility] [id number] 07:34:00* Test Item Value Reference Range Interpretation Comments GLUBED (test code = GLUBED) 150 mg/dL 74-106 H Performed by certified terminal computer operator at [facility] [id number] 07:33:00* Test Item Value Reference Range Interpretation Comments GLUBED (test code = GLUBED) 87 mg/dL 74-106 N Performed by certified terminal computer operator at [facility] [id number] 07:33:00* Test Item Value Reference Range Interpretation Comments GLUBED (test code = GLUBED) 249 mg/dL 74-106 H Performed by certified terminal computer operator at [facility] [id number] 07:33:00* Test Item Value Reference Range Interpretation Comments GLUBED (test code = GLUBED) 216 mg/dL 74-106 H Performed by certified terminal computer operator at [facility] [id number] 07:33:00* Test Item Value Reference Range Interpretation Comments GLUBED (test code = GLUBED) 123 mg/dL 74-106 H Performed by certified terminal computer operator at [facility]2019-02-26 09:35:00* Test Item Value Reference Range Interpretation Comments GLUBED (test code = GLUBED) 147 mg/dL 74-106 H Performed by certified terminal computer operator [facility] [facility]-26 09:35:00* Test Item Value Reference Range Interpretation Comments GLUBED (test code = GLUBED) 182 mg/dL 74-106 H Performed by certified terminal computer operator at [facility] [id number] 09:35:00* Test Item Value Reference Range Interpretation Comments GLUBED (test code = GLUBED) 183 mg/dL 74-106 H Performed by certified terminal computer operator at [facility] - US GUIDANCE VASC [id number] 10:13:00 Name: MARIE GOMEZ [facility] : 1955 Age/S: 63 / M [address] Unit #: [id number] Loc: [place] [address] Phys: Edis Broussard MD Acct: [id number] Dis Date: Status: ADM IN PHONE #: [phone] Exam Date: 07/21/2018 1045 FAX #: [phone] Reason: EXAMS: CPT CODE: [id number] US GUIDANCE VASC ACCESS [id number] Fluoro Time: DAP (Gy m2): Air Kerma (mGy): EXAM: 1. Insertion of a temporary hemodialysis catheter with sonographic and fluoroscopic guidance; 2. Removal of a tunneled hemodialysis catheter with fluoroscopic guidance; INFORMATION: End-stage renal disease, sepsis; TECHNIQUE AND FINDINGS: Informed consent was obtained and the patient was placed supine on the procedure table. Initial fluoroscopic imaging showed a long tunneled hemodialysis catheter inserted via right common femoral vein ac cess. The patient's skin in both groin regions was prepped and draped in t he usual sterile fashion. Ultrasound of the left groin showed a patent and compressible left common femoral vein. Sonographic images were stor ed in PACS. Xylocaine was administered and using sonographic guidance the left common femoral vein was accessed with a micropuncture system. V enography was performed showing somewhat tortuous left Insertion iliac vei ns these vessels as well as the IVC were patent and well without thrombus. An 035 guidewire was inserted. Sequential dilatation was performed and a 13 [place] triple-lumen temporary hemodialysis catheter was then inse rted and positioned with its tip in the inferior aspect of the SVC. Good b lood return was noticed; the catheter was sutured to the skin and flushed with heparinized saline. Subsequently, Xylocaine was administered in the right groin region and the indwelling tunneled hemodialysis cathete r was mobilized by blunt dissection with a hemostat. This catheter was rem kelechi and its tip was sent for cultures. Hemostasis was promptly achi eved. Final fluoroscopic imaging confirmed complete removal of the tunneled catheter and showed a well positioned temporary hemodialysis cat heter, inserted via the left common femoral vein. IMPRESSI ON: 1. Successful insertion of a temporary hemodialysis catheter via lef t common femoral vein access, using sonographic and fluoroscopic guidance. 2. Successful removal of a tunneled right femoral hemodialysis catheter, using fluoroscopic guidance. Fluoroscopy T juany: 72 sec CAK : 178.05 mGy PAGE 1 Signed R eport (CONTINUED) Name: JASONMARIE H [facility] : 1955 Age/S: 63 / M [address] Unit #: [id number] Loc: [place] [address] Phys: Edis Broussard MD Acct: [id number] Dis Date: Status: ADM IN PHONE #: [phone] Exam Date: 07/21/2018 1045 FAX #: [phone] Reason: EXAMS: CPT CODE: [id number] US GUIDANCE VASC ACCESS 27066 Fluoro Time: DAP (Gy m2): Air Kerma (mGy): < Continued> DAP : 23936 mGy sq cm at 1013 Reported and signed by: Kishan Grubbs M.D. CC: Edis Broussard MD Technologist: JEANETTE MARK RT(R) Trnscb Date/Time: 07/25/2018 (1013) [email or web address] Orig Print D/T: S: 07/25/2018 (1016) PAGE 2 Signed Report - SP FLUORO GUID CTRL ACC DEV 2018-07-25 10:13:00 Name: MARIE GOMEZ [facility] : 1955 Age/S: 63 / M [address] Unit #: [id number] Loc: [place] [address] Phys: Edis Broussard MD Acct: [id number] Dis Date: Status: ADM IN PHONE #: [phone] Exam Date: 07/21/2018 1045 FAX #: [phone] Reason: EXAMS: CPT CODE: [id number] SP FLUORO GUID CTRL ACC DEV 52337 Fluoro Time: 72 DAP (Gy m2): 46228 Air Kerma (mGy): 178.0 EXAM: 1. Insertion of a temporary hemodialysis catheter with sonographic and fluoroscopic guidance; 2. Removal of a tunneled hemodialysis catheter with fluoroscopic guidance; INFORMATION: End-stage renal disease, sepsis; TECHNIQUE AND FINDINGS: Informed consent was obtained and the patient was placed supine on the procedure table. Initial fluoroscopic imaging showed a long tunneled hemodialysis catheter inserted via right common femoral vein access. The patient's skin in both groin regions was prepped and draped in the usual sterile fashion. Ultrasound of the left groin showed a patent and compressible left common femoral vein. Sonographic images were stored in PACS. Xylocaine was administered and using sonographic guidance the left common femoral vein was accessed with a micropuncture system. Venography was performed showing somewhat tortuous left Insertion iliac veins these vessels as well as the IVC were patent and well without thrombus. An 035 guidewire was inserted. Sequential dilatation was performed and a 13 [place] triple-lumen temporary hemodialysis catheter was then inserted and positioned with its tip in the inferior aspect of the SVC. Good blood return was noticed; the catheter was sutured to the skin and flushed with heparinized saline. Subsequently, Xylocaine was administered in the right groin region and the indwelling tunneled hemodialysis catheter was mobilized by blunt dissection with a hemostat. This catheter was removed and its tip was sent for cultures. Hemostasis was promptly achieved. Final fluoroscopic imaging confirmed complete removal of the tunneled catheter and showed a well positioned temporary hemodialysis catheter, inserted via the left common femoral vein. IMPRESSION: 1. Successful insertion of a temporary hemodialysis catheter via left common femoral vein access, using sonographic and fluoroscopic guidance. 2. Successful removal of a tunneled right femoral hemodialysis catheter, using fluoroscopic guidance. Fluoroscopy Time: 72 sec CAK : 178.05 mGy PAGE 1 Signed Report (CONTINUED) Name: MARIE GOMEZ [facility] : 1955 Age/S: 63 / M [address] [facility] Unit #: [id number] Loc: [place] [address] Phys: Edis Broussard MD Acct: [id number] Dis Date: Status: ADM IN PHONE #: [phone] Exam Date: 07/21/2018 1045 FAX #: [phone] Reason: EXAMS: CPT CODE: [id number] SP FLUORO GUID CTRL ACC DEV 00470 Fluoro Time: 72 DAP (Gy m2): 86931 Air Kerma (mGy): 178.0 <Continued> DAP : 72256 mGy sq cm at 1013 Reported and signed by: Kishan Grubbs M.D. CC: Edis Broussard MD Technologist: JEANETTE MARK RT(R) Trnscb Date/Time: 07/25/2018 (1013) Duane Orig Print D/T: S: 07/25/2018 (1016) PAGE 2 Signed Report [id number] 06:50:00* Test Item Value Reference Range Interpretation Comments GLUBED (test code = GLUBED) 108 mg/dL 74-106 H Performed by certified terminal computer operator at [facility] BASIC METABOLIC [id number] 10:57:00* Test Item Value Reference Range Interpretation Comments SODIUM (test code = NA) 140 mmol/L 136-145 N POTASSIUM (test code = K) 4.1 mmol/L 3.5-5.1 N CHLORIDE (test code = CL) 103.0 mmol/L 98-107 N CARBON DIOXIDE (test code = CO2) 25.0 mmol/L 21-32 N ANION GAP (test code = GAP) 16.1 10-20 N GLUCOSE (test code = GLU) 159 mg/dL 74-106 H BLOOD UREA NITROGEN (test code = BUN) 40 mg/dL 7-18 H RESULT VERIFIED BY REPEAT ANALYSIS GLOMERULAR FILTRATION RATE (test code = GFR) 9 mL/min >=60 Estimated GFR by using Modified MDRD formula.Chronic kidney disease is defined as either kidney damageor GFR <60 mL/min/1.73 m2 for >3 months. CREATININE (test code = CREAT) 6.50 mg/dL 0.7-1.3 H BUN/CREATININE RATIO (test code = BUN/CREA) 6.2 10-20 L CALCIUM (test code = CA) 10.0 mg/dL 8.5-10.1 N BASIC METABOLIC [id number] 10:40:00* Test Item Value Reference Range Interpretation Comments SODIUM (test code = NA) 140 mmol/L 136-145 N POTASSIUM (test code = K) 4.1 mmol/L 3.5-5.1 N CHLORIDE (test code = CL) 103.0 mmol/L 98-107 N CARBON DIOXIDE (test code = CO2) 25.0 mmol/L 21-32 N ANION GAP (test code = GAP) 16.1 10-20 N GLUCOSE (test code = GLU) 159 mg/dL 74-106 H BLOOD UREA NITROGEN (test code = BUN) 40 mg/dL 7-18 H GLOMERULAR FILTRATION RATE (test code = GFR) 9 mL/min >=60 Estimated GFR by using Modified MDRD formula.Chronic kidney disease is defined as either kidney damageor GFR <60 mL/min/1.73 m2 for >3 months. CREATININE (test code = CREAT) 6.50 mg/dL 0.7-1.3 H BUN/CREATININE RATIO (test code = BUN/CREA) 6.2 10-20 L CALCIUM (test code = CA) 10.0 mg/dL 8.5-10.1 N CBC W/AUTO [id number] 07:44:00* Test Item Value Reference Range Interpretation Comments WHITE BLOOD CELL (test code = WBC) 5.5 K/mm3 4.5-12.5 N RED BLOOD CELL (test code = RBC) 4.37 mill/mm3 4.0-5.8 N HEMOGLOBIN (test code = HGB) 12.5 gram/dL 13.0-17.5 L HEMATOCRIT (test code = HCT) 40.5 % 42.0-52.0 L MEAN CELL VOLUME (test code = MCV) 92.7 fL 80-98 N MEAN CELL HGB (test code = MCH) 28.6 picogram 27.0-33.0 N MEAN CELL HGB CONCETRATION (test code = MCHC) 30.9 gram/dL 33.0-36. 0 L RED CELL DISTRIBUTION WIDTH (test code = RDW) 14.7 % 11.6-16. 2 N RED CELL DISTRIBUTION WIDTH SD (test code = RDW-SD) 49.5 fL 37 .0-51.0 N PLATELET COUNT (test code = PLT) 150 K/mm3 150-450 N MEAN PLATELET VOLUME (test code = MPV) 13.2 fL 6.7-11.0 H NEUTROPHIL % (test code = NT%) 56.5 % 39.0-69.0 N IMMATURE GRANULOCYTE % (test code = IG%) 0.9 % 0.0-5.0 N LYMPHOCYTE % (test code = LY%) 18.8 % 25.0-55.0 L MONOCYTE % (test code = MO%) 12.0 % 0.0-10.0 H EOSINOPHIL % (test code = EO%) 10.7 % 0.0-5.0 H BASOPHIL % (test code = BA%) 1.1 % 0.0-1.0 H NUCLEATED RBC % (test code = NRBC%) 0.0 % 0-0 N NEUTROPHIL # (test code = NT#) 3.10 K/mm3 1.8-7.7 N IMMATURE GRANULOCYTE # (test code = IG#) 0.05 x10 3/uL 0-0.03 H LYMPHOCYTE # (test code = LY#) 1.03 K/mm3 1.0-5.0 N MONOCYTE # (test code = MO#) 0.66 K/mm3 0-0.8 N EOSINOPHIL # (test code = EO#) 0.59 K/mm3 0.0-0.5 H BASOPHIL # (test code = BA#) 0.06 K/mm3 0.0-0.2 N NUCLEATED RBC # (test code = NRBC#) 0.00 K/mm3 0.0-0.1 N MANUAL DIFF REQUIRED (test code = MDIFF) NO [id number] 06:51:00* Test Item Value Reference Range Interpretation Comments GLUBED (test code = GLUBED) 167 mg/dL 74-106 H Performed by certified terminal computer operator at [facility] [id number] 05:56:00* Test Item Value Reference Range Interpretation Comments GLUBED (test code = GLUBED) 219 mg/dL 74-106 H Performed by certified terminal computer operator at [facility] [id number] 05:52:00* Test Item Value Reference Range Interpretation Comments VANCOMYCIN (test code = VANCO) 27.6 UG/ML 5.0-45.0 N [id number] 20:30:00* Test Item Value Reference Range Interpretation Comments GLUBED (test code = GLUBED) 188 mg/dL 74-106 H Performed by certified terminal computer operator at [facility] [id number] 16:55:00* Test Item Value Reference Range Interpretation Comments GLUBED (test code = GLUBED) 281 mg/dL 74-106 H Performed by certified terminal computer operator at [facility] [id number] 14:04:00* Test Item Value Reference Range Interpretation Comments GLUBED (test code = GLUBED) 253 mg/dL 74-106 H Performed by certified terminal computer operator at [facility] BASIC METABOLIC [id number] 10:46:00* Test Item Value Reference Range Interpretation Comments SODIUM (test code = NA) 139 mmol/L 136-145 N POTASSIUM (test code = K) 4.1 mmol/L 3.5-5.1 N CHLORIDE (test code = CL) 99.0 mmol/L 98-107 N CARBON DIOXIDE (test code = CO2) 26.0 mmol/L 21-32 N ANION GAP (test code = GAP) 18.1 10-20 N GLUCOSE (test code = GLU) 157 mg/dL 74-106 H BLOOD UREA NITROGEN (test code = BUN) 30 mg/dL 7-18 H GLOMERULAR FILTRATION RATE (test code = GFR) 12 mL/min >=60 Estimated GFR by using Modified MDRD formula.Chronic kidney disease is defined as either kidney damageor GFR <60 mL/min/1.73 m2 for >3 months. CREATININE (test code = CREAT) 5.10 mg/dL 0.7-1.3 H BUN/CREATININE RATIO (test code = BUN/CREA) 5.8 10-20 L CALCIUM (test code = CA) 9.9 mg/dL 8.5-10.1 N BASIC METABOLIC [id number] 10:39:00* Test Item Value Reference Range Interpretation Comments SODIUM (test code = NA) 139 mmol/L 136-145 N POTASSIUM (test code = K) 4.1 mmol/L 3.5-5.1 N CHLORIDE (test code = CL) 99.0 mmol/L 98-107 N CARBON DIOXIDE (test code = CO2) mmol/L 21-32 ANION GAP (test code = GAP) 10-20 GLUCOSE (test code = GLU) mg/dL 74-106 BLOOD UREA NITROGEN (test code = BUN) mg/dL 7-18 GLOMERULAR FILTRATION RATE (test code = GFR) mL/min >=60 CREATININE (test code = CREAT) mg/dL 0.7-1.3 BUN/CREATININE RATIO (test code = BUN/CREA) 10-20 CALCIUM (test code = CA) mg/dL 8.5-10.1 CBC W/AUTO [id number] 10:24:00* Test Item Value Reference Range Interpretation Comments WHITE BLOOD CELL (test code = WBC) 5.9 K/mm3 4.5-12.5 N RED BLOOD CELL (test code = RBC) 4.56 mill/mm3 4.0-5.8 N HEMOGLOBIN (test code = HGB) 12.8 gram/dL 13.0-17.5 L HEMATOCRIT (test code = HCT) 42.4 % 42.0-52.0 N MEAN CELL VOLUME (test code = MCV) 93.0 fL 80-98 N MEAN CELL HGB (test code = MCH) 28.1 picogram 27.0-33.0 N MEAN CELL HGB CONCETRATION (test code = MCHC) 30.2 gram/dL 33.0-36. 0 L RED CELL DISTRIBUTION WIDTH (test code = RDW) 14.7 % 11.6-16. 2 N RED CELL DISTRIBUTION WIDTH SD (test code = RDW-SD) 50.0 fL 37 .0-51.0 N PLATELET COUNT (test code = PLT) 133 K/mm3 150-450 L MEAN PLATELET VOLUME (test code = MPV) 13.2 fL 6.7-11.0 H NEUTROPHIL % (test code = NT%) 65.1 % 39.0-69.0 N IMMATURE GRANULOCYTE % (test code = IG%) 0.5 % 0.0-5.0 N LYMPHOCYTE % (test code = LY%) 15.3 % 25.0-55.0 L MONOCYTE % (test code = MO%) 11.6 % 0.0-10.0 H EOSINOPHIL % (test code = EO%) 6.6 % 0.0-5.0 H BASOPHIL % (test code = BA%) 0.9 % 0.0-1.0 N NUCLEATED RBC % (test code = NRBC%) 0.0 % 0-0 N NEUTROPHIL # (test code = NT#) 3.83 K/mm3 1.8-7.7 N IMMATURE GRANULOCYTE # (test code = IG#) 0.03 x10 3/uL 0-0.03 N LYMPHOCYTE # (test code = LY#) 0.90 K/mm3 1.0-5.0 L MONOCYTE # (test code = MO#) 0.68 K/mm3 0-0.8 N EOSINOPHIL # (test code = EO#) 0.39 K/mm3 0.0-0.5 N BASOPHIL # (test code = BA#) 0.05 K/mm3 0.0-0.2 N NUCLEATED RBC # (test code = NRBC#) 0.00 K/mm3 0.0-0.1 N MANUAL DIFF REQUIRED (test code = MDIFF) NO CBC W/AUTO [id number] 10:22:00* Test Item Value Reference Range Interpretation Comments WHITE BLOOD CELL (test code = WBC) K/mm3 4.5-12.5 RED BLOOD CELL (test code = RBC) mill/mm3 4.0-5.8 HEMOGLOBIN (test code = HGB) gram/dL 13.0-17.5 HEMATOCRIT (test code = HCT) 42.4 % 42.0-52.0 N MEAN CELL VOLUME (test code = MCV) fL 80-98 MEAN CELL HGB (test code = MCH) picogram 27.0-33.0 MEAN CELL HGB CONCETRATION (test code = MCHC) gram/dL 33.0-36. 0 RED CELL DISTRIBUTION WIDTH (test code = RDW) % 11.6-16. 2 RED CELL DISTRIBUTION WIDTH SD (test code = RDW-SD) fL 37 .0-51.0 PLATELET COUNT (test code = PLT) K/mm3 150-450 MEAN PLATELET VOLUME (test code = MPV) fL 6.7-11.0 NEUTROPHIL % (test code = NT%) % 39.0-69.0 IMMATURE GRANULOCYTE % (test code = IG%) % 0.0-5.0 LYMPHOCYTE % (test code = LY%) % 25.0-55.0 MONOCYTE % (test code = MO%) % 0.0-10.0 EOSINOPHIL % (test code = EO%) % 0.0-5.0 BASOPHIL % (test code = BA%) % 0.0-1.0 NEUTROPHIL # (test code = NT#) K/mm3 1.8-7.7 LYMPHOCYTE # (test code = LY#) K/mm3 1.0-5.0 MONOCYTE # (test code = MO#) K/mm3 0-0.8 EOSINOPHIL # (test code = EO#) K/mm3 0.0-0.5 BASOPHIL # (test code = BA#) K/mm3 0.0-0.2 [id number] 09:41:00* Test Item Value Reference Range Interpretation Comments GLUBED (test code = GLUBED) 118 mg/dL 74-106 H Performed by certified terminal computer operator at [facility] [id number] 03:54:00* Test Item Value Reference Range Interpretation Comments GLUBED (test code = GLUBED) 115 mg/dL 74-106 H Performed by certified terminal computer operator at [facility] [id number] 20:58:00* Test Item Value Reference Range Interpretation Comments GLUBED (test code = GLUBED) 175 mg/dL 74-106 H Performed by certified terminal computer operator at [facility] [id number] 16:27:00* Test Item Value Reference Range Interpretation Comments GLUBED (test code = GLUBED) 176 mg/dL 74-106 H Performed by certified terminal computer operator at [facility] [id number] 08:55:00* Test Item Value Reference Range Interpretation Comments GLUBED (test code = GLUBED) 213 mg/dL 74-106 H Performed by certified terminal computer operator at [facility] BASIC METABOLIC [id number] 06:12:00* Test Item Value Reference Range Interpretation Comments SODIUM (test code = NA) 137 mmol/L 136-145 N POTASSIUM (test code = K) 3.8 mmol/L 3.5-5.1 N CHLORIDE (test code = CL) 99.0 mmol/L 98-107 N CARBON DIOXIDE (test code = CO2) 24.0 mmol/L 21-32 N ANION GAP (test code = GAP) 17.8 10-20 N GLUCOSE (test code = GLU) 171 mg/dL 74-106 H BLOOD UREA NITROGEN (test code = BUN) 38 mg/dL 7-18 H RESULT VERIFIED BY REPEAT ANALYSIS GLOMERULAR FILTRATION RATE (test code = GFR) 9 mL/min >=60 Estimated GFR by using Modified MDRD formula.Chronic kidney disease is defined as either kidney damageor GFR <60 mL/min/1.73 m2 for >3 months. CREATININE (test code = CREAT) 6.10 mg/dL 0.7-1.3 H BUN/CREATININE RATIO (test code = BUN/CREA) 6.2 10-20 L CALCIUM (test code = CA) 9.8 mg/dL 8.5-10.1 N [id number] 06:12:00* Test Item Value Reference Range Interpretation Comments ALBUMIN (test code = ALB) 2.4 g/dL 3.4-5.0 L BASIC METABOLIC [id number] 05:37:00* Test Item Value Reference Range Interpretation Comments SODIUM (test code = NA) 137 mmol/L 136-145 N POTASSIUM (test code = K) 3.8 mmol/L 3.5-5.1 N CHLORIDE (test code = CL) 99.0 mmol/L 98-107 N CARBON DIOXIDE (test code = CO2) mmol/L 21-32 ANION GAP (test code = GAP) 10-20 GLUCOSE (test code = GLU) mg/dL 74-106 BLOOD UREA NITROGEN (test code = BUN) mg/dL 7-18 GLOMERULAR FILTRATION RATE (test code = GFR) mL/min >=60 CREATININE (test code = CREAT) mg/dL 0.7-1.3 BUN/CREATININE RATIO (test code = BUN/CREA) 10-20 CALCIUM (test code = CA) mg/dL 8.5-10.1 [id number] 05:37:00* Test Item Value Reference Range Interpretation Comments ALBUMIN (test code = ALB) g/dL 3.4-5.0 - XR CHEST 1 [id number] 19:56:00 FAX: Edis Robertson MD [place]: St: ADM FAX: Gary Flowers [phone] Name: MARIE GOMEZ [facility] : 1955 Age/S: 63/M [address] [facility] Unit #: [id number] Loc: V.[address] [place] [address] Phys: Gary Ortiz MD Acct: [id number] Dis Date: Status: ADM IN PHONE #: [phone] Exam Date: 07/21/20181939 FAX #: [phone] Reason: post icd removal EXAMS: CPT CODE: [id number] XR CHEST 1 V 92545 REASON FOR EXAM: post icd removal EXAM ORDER DATE: 07/21/2018 4:45 PM Ordering MNitesh: Gary Estrella MD PROCEDURE: - XR CHEST 1 V COMPARISON: 06/16/2018 FINDINGS: Portable AP frontal view of the chest obtained at 7:47 PM shows clear lungs. There is no evidence of consolidation. There is no evidence of effusion. The heart size is minimally enlarged. Pulmonary vasculatures are unremarkable. 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 at 1956 Reported and signed by: Eulalio Mike M.D. CC: Edis Broussard MD; Gary Ortiz MD Technologist: ANISH DACOSTA Trnscrd Date/Time/By: 07/21/2018 (1955) : By: Duy Orig Print D/T: S: 07/21/2018 (1999) PAGE 1 Signed Report [id number] 18:26:00* Test Item Value Reference Range Interpretation Comments GLUBED (test code = GLUBED) 235 mg/dL 74-106 H Performed by certified terminal computer operator at [facility] AB HEPATITIS B [id number] 12:14:00* Test Item Value Reference Range Interpretation Comments AB HEPATITIS B SURFACE (test code = HBSAB) Reactive () Non Reactive: Inconsistent with immunity, less than 10 mIU/mL Reactive: Consistent with immunity, greater than 9.9 mIU/mLPerformed At: [facility] [address] [id number] Riya Juarez MD Ph:[phone] BASIC METABOLIC [id number] 08:09:00* Test Item Value Reference Range Interpretation Comments SODIUM (test code = NA) 137 mmol/L 136-145 N POTASSIUM (test code = K) 3.8 mmol/L 3.5-5.1 N CHLORIDE (test code = CL) 97.0 mmol/L 98-107 L CARBON DIOXIDE (test code = CO2) 26.0 mmol/L 21-32 N ANION GAP (test code = GAP) 17.8 10-20 N GLUCOSE (test code = GLU) 191 mg/dL 74-106 H BLOOD UREA NITROGEN (test code = BUN) 27 mg/dL 7-18 H RESULT VERIFIED BY REPEAT ANALYSIS GLOMERULAR FILTRATION RATE (test code = GFR) 13 mL/min >=60 Estimated GFR by using Modified MDRD formula.Chronic kidney disease is defined as either kidney damageor GFR <60 mL/min/1.73 m2 for >3 months. CREATININE (test code = CREAT) 4.70 mg/dL 0.7-1.3 H BUN/CREATININE RATIO (test code = BUN/CREA) 5.7 10-20 L CALCIUM (test code = CA) 9.6 mg/dL 8.5-10.1 N [id number] 08:09:00* Test Item Value Reference Range Interpretation Comments ALBUMIN (test code = ALB) 2.5 g/dL 3.4-5.0 L CBC W/AUTO [id number] 07:40:00* Test Item Value Reference Range Interpretation Comments WHITE BLOOD CELL (test code = WBC) 7.2 K/mm3 4.5-12.5 N RED BLOOD CELL (test code = RBC) 4.44 mill/mm3 4.0-5.8 N HEMOGLOBIN (test code = HGB) 12.7 gram/dL 13.0-17.5 L HEMATOCRIT (test code = HCT) 40.7 % 42.0-52.0 L MEAN CELL VOLUME (test code = MCV) 91.7 fL 80-98 N MEAN CELL HGB (test code = MCH) 28.6 picogram 27.0-33.0 N MEAN CELL HGB CONCETRATION (test code = MCHC) 31.2 gram/dL 33.0-36. 0 L RED CELL DISTRIBUTION WIDTH (test code = RDW) 14.6 % 11.6-16. 2 N RED CELL DISTRIBUTION WIDTH SD (test code = RDW-SD) 48.9 fL 37 .0-51.0 N PLATELET COUNT (test code = PLT) 102 K/mm3 150-450 L MEAN PLATELET VOLUME (test code = MPV) 13.9 fL 6.7-11.0 H NEUTROPHIL % (test code = NT%) 77.9 % 39.0-69.0 H IMMATURE GRANULOCYTE % (test code = IG%) 0.8 % 0.0-5.0 N LYMPHOCYTE % (test code = LY%) 8.6 % 25.0-55.0 L MONOCYTE % (test code = MO%) 10.6 % 0.0-10.0 H EOSINOPHIL % (test code = EO%) 1.5 % 0.0-5.0 N BASOPHIL % (test code = BA%) 0.6 % 0.0-1.0 N NUCLEATED RBC % (test code = NRBC%) 0.0 % 0-0 N NEUTROPHIL # (test code = NT#) 5.60 K/mm3 1.8-7.7 N IMMATURE GRANULOCYTE # (test code = IG#) 0.06 x10 3/uL 0-0.03 H LYMPHOCYTE # (test code = LY#) 0.62 K/mm3 1.0-5.0 L MONOCYTE # (test code = MO#) 0.76 K/mm3 0-0.8 N EOSINOPHIL # (test code = EO#) 0.11 K/mm3 0.0-0.5 N BASOPHIL # (test code = BA#) 0.04 K/mm3 0.0-0.2 N NUCLEATED RBC # (test code = NRBC#) 0.00 K/mm3 0.0-0.1 N [id number] 03:32:00* Test Item Value Reference Range Interpretation Comments GLUBED (test code = GLUBED) 212 mg/dL 74-106 H Performed by certified terminal computer operator at [facility] BASIC METABOLIC [id number] 23:36:00* Test Item Value Reference Range Interpretation Comments SODIUM (test code = NA) 136 mmol/L 136-145 N POTASSIUM (test code = K) 3.6 mmol/L 3.5-5.1 N CHLORIDE (test code = CL) 97.0 mmol/L 98-107 L CARBON DIOXIDE (test code = CO2) 26.0 mmol/L 21-32 N ANION GAP (test code = GAP) 16.6 10-20 N GLUCOSE (test code = GLU) 192 mg/dL 74-106 H BLOOD UREA NITROGEN (test code = BUN) 21 mg/dL 7-18 H GLOMERULAR FILTRATION RATE (test code = GFR) 16 mL/min >=60 Estimated GFR by using Modified MDRD formula.Chronic kidney disease is defined as either kidney damageor GFR <60 mL/min/1.73 m2 for >3 months. CREATININE (test code = CREAT) 3.80 mg/dL 0.7-1.3 H BUN/CREATININE RATIO (test code = BUN/CREA) 5.5 10-20 L CALCIUM (test code = CA) 9.4 mg/dL 8.5-10.1 N CBC W/AUTO [id number] 18:13:00* Test Item Value Reference Range Interpretation Comments WHITE BLOOD CELL (test code = WBC) 8.1 K/mm3 4.5-12.5 N RED BLOOD CELL (test code = RBC) 4.68 mill/mm3 4.0-5.8 N HEMOGLOBIN (test code = HGB) 13.3 gram/dL 13.0-17.5 N HEMATOCRIT (test code = HCT) 43.2 % 42.0-52.0 N MEAN CELL VOLUME (test code = MCV) 92.3 fL 80-98 N MEAN CELL HGB (test code = MCH) 28.6 picogram 27.0-33.0 N MEAN CELL HGB CONCETRATION (test code = MCHC) 31.0 gram/dL 33.0-36. 0 L RED CELL DISTRIBUTION WIDTH (test code = RDW) 14.8 % 11.6-16. 2 N RED CELL DISTRIBUTION WIDTH SD (test code = RDW-SD) 50.0 fL 37 .0-51.0 N PLATELET COUNT (test code = PLT) 106 K/mm3 150-450 L MEAN PLATELET VOLUME (test code = MPV) 13.4 fL 6.7-11.0 H NEUTROPHIL % (test code = NT%) 81.7 % 39.0-69.0 H IMMATURE GRANULOCYTE % (test code = IG%) 1.0 % 0.0-5.0 N LYMPHOCYTE % (test code = LY%) 6.8 % 25.0-55.0 L MONOCYTE % (test code = MO%) 8.7 % 0.0-10.0 N EOSINOPHIL % (test code = EO%) 1.4 % 0.0-5.0 N BASOPHIL % (test code = BA%) 0.4 % 0.0-1.0 N NUCLEATED RBC % (test code = NRBC%) 0.0 % 0-0 N NEUTROPHIL # (test code = NT#) 6.64 K/mm3 1.8-7.7 N IMMATURE GRANULOCYTE # (test code = IG#) 0.08 x10 3/uL 0-0.03 H LYMPHOCYTE # (test code = LY#) 0.55 K/mm3 1.0-5.0 L MONOCYTE # (test code = MO#) 0.71 K/mm3 0-0.8 N EOSINOPHIL # (test code = EO#) 0.11 K/mm3 0.0-0.5 N BASOPHIL # (test code = BA#) 0.03 K/mm3 0.0-0.2 N NUCLEATED RBC # (test code = NRBC#) 0.00 K/mm3 0.0-0.1 N CBC W/AUTO [id number] 17:55:00* Test Item Value Reference Range Interpretation Comments WHITE BLOOD CELL (test code = WBC) K/mm3 4.5-12.5 RED BLOOD CELL (test code = RBC) mill/mm3 4.0-5.8 HEMOGLOBIN (test code = HGB) 13.3 gram/dL 13.0-17.5 N HEMATOCRIT (test code = HCT) % 42.0-52.0 MEAN CELL VOLUME (test code = MCV) fL 80-98 MEAN CELL HGB (test code = MCH) picogram 27.0-33.0 MEAN CELL HGB CONCETRATION (test code = MCHC) gram/dL 33.0-36. 0 RED CELL DISTRIBUTION WIDTH (test code = RDW) % 11.6-16. 2 RED CELL DISTRIBUTION WIDTH SD (test code = RDW-SD) fL 37 .0-51.0 PLATELET COUNT (test code = PLT) K/mm3 150-450 MEAN PLATELET VOLUME (test code = MPV) fL 6.7-11.0 NEUTROPHIL % (test code = NT%) % 39.0-69.0 IMMATURE GRANULOCYTE % (test code = IG%) % 0.0-5.0 LYMPHOCYTE % (test code = LY%) % 25.0-55.0 MONOCYTE % (test code = MO%) % 0.0-10.0 EOSINOPHIL % (test code = EO%) % 0.0-5.0 BASOPHIL % (test code = BA%) % 0.0-1.0 NEUTROPHIL # (test code = NT#) K/mm3 1.8-7.7 LYMPHOCYTE # (test code = LY#) K/mm3 1.0-5.0 MONOCYTE # (test code = MO#) K/mm3 0-0.8 EOSINOPHIL # (test code = EO#) K/mm3 0.0-0.5 BASOPHIL # (test code = BA#) K/mm3 0.0-0.2 [id number] 16:58:00* Test Item Value Reference Range Interpretation Comments GLUBED (test code = GLUBED) 234 mg/dL 74-106 H Performed by certified terminal computer operator at [facility] PROTHROMBIN [id number] 10:55:00* Test Item Value Reference Range Interpretation Comments PROTHROMBIN TIME PATIENT (test code = PTP) 15.4 seconds 9.0-14.0 H INTERNATIONAL NORMAL RATIO (test code = INR) 1.3 0.8-1.2 H The therapeutic range for oral anticoagulant therapy formost indications is an international normalized ratio (INR)of between 2.0 and 3.0. The recommended therapeutic INRrange for various clinical situations is listed below: Clinical Situation INR range Pulmonary e mbolism treatment (2.0-3.0)Venous thrombosis treatmentVenous thrombosis prophylaxis (high risk surgery)Prevention of systemic embolism from: Acute myocardial infarction Valvular heart disease Atrial fibrillation Mechanical prosthetic heart valves (2.5-3.5) IS PATIENT ON ANTICOAGULANTS? NSPECIMEN COMMENTS: MAY USE AM BLOODTHROMBOPLASTIN TIME [id number] 10:55:00* Test Item Value Reference Range Interpretation Comments THROMBOPLASTIN TIME PARTIAL (test code = PTT) 38.9 seconds 25.0-36. 5 H IS PATIENT ON ANTICOAGULANTS? NSPECIMEN COMMENTS: MAY USE AM BLOODGLUBED 2018-07-20 09:01:00* Test Item Value Reference Range Interpretation Comments GLUBED (test code = GLUBED) 140 mg/dL 74-106 H Performed by certified terminal computer operator at [facility] [id number] 06:36:00* Test Item Value Reference Range Interpretation Comments GLUBED (test code = GLUBED) 258 mg/dL 74-106 H Performed by certified terminal computer operator at [facility] CBC W/MANUAL [id number] 09:54:00* Test Item Value Reference Range Interpretation Comments WHITE BLOOD CELL (test code = WBC) 8.0 K/mm3 4.5-12.5 N RED BLOOD CELL (test code = RBC) 5.03 mill/mm3 4.0-5.8 N HEMOGLOBIN (test code = HGB) 14.4 gram/dL 13.0-17.5 N HEMATOCRIT (test code = HCT) 46.6 % 42.0-52.0 N MEAN CELL VOLUME (test code = MCV) 92.6 fL 80-98 N MEAN CELL HGB (test code = MCH) 28.6 picogram 27.0-33.0 N MEAN CELL HGB CONCETRATION (test code = MCHC) 30.9 gram/dL 33.0-36. 0 L RED CELL DISTRIBUTION WIDTH (test code = RDW) 14.9 % 11.6-16. 2 N RED CELL DISTRIBUTION WIDTH SD (test code = RDW-SD) 50.6 fL 37 .0-51.0 N PLATELET COUNT (test code = PLT) 113 K/mm3 150-450 L MEAN PLATELET VOLUME (test code = MPV) 13.3 fL 6.7-11.0 H IMMATURE GRANULOCYTE % (test code = IG%) 0.5 % 0.0-5.0 N NUCLEATED RBC % (test code = NRBC%) 0.0 % 0-0 N NEUTROPHIL # (test code = NT#) 6.75 K/mm3 1.8-7.7 N IMMATURE GRANULOCYTE # (test code = IG#) 0.04 x10 3/uL 0-0.03 H LYMPHOCYTE # (test code = LY#) 0.52 K/mm3 1.0-5.0 L MONOCYTE # (test code = MO#) 0.62 K/mm3 0-0.8 N EOSINOPHIL # (test code = EO#) 0.07 K/mm3 0.0-0.5 N BASOPHIL # (test code = BA#) 0.03 K/mm3 0.0-0.2 N NUCLEATED RBC # (test code = NRBC#) 0.00 K/mm3 0.0-0.1 N MANUAL DIFF REQUIRED (test code = MDIFF) YES STAIN ACCEPTABILITY (test code = STN ACCEPTABLE) STAIN ACCEPTABLE TOTAL CELLS COUNTED (test code = TCC) 115 #CELLS SEGMENTED NEUTROPHILS (test code = SEG) 86.1 % 39-69 H BAND NEUTROPHIL (test code = BAND) 0 % 0-10 N LYMPHOCYTE (test code = LYMPH) 6.1 % 25-55 L REACTIVE LYMPH (test code = RELYMPH) 0 % MONOCYTE (test code = MON) 6.9 % 0-10 N EOSINOPHIL (test code = EOS) 0.9 % 0.0-5.0 N BASOPHIL (test code = BASO) 0 % 0-1.0 N METAMYELOCYTE (test code = META) 0 % 0-0 N MYELOCYTE (test code = MYELO) 0 % 0.0-0.0 N PROMYELOCYTE (test code = PROM) 0 % 0-0 N PLATELET ESTIMATE (test code = PLTEST) DECREASED PLATELET MORPHOLOGY (test code = PLTMORPH) NORMAL IMMATURE FORMS (test code = IMMAT) 0 % COMPREHENSIVE METABOLIC [id number] 08:59:00* Test Item Value Reference Range Interpretation Comments SODIUM (test code = NA) 139 mmol/L 136-145 N POTASSIUM (test code = K) 4.4 mmol/L 3.5-5.1 N CHLORIDE (test code = CL) 99.0 mmol/L 98-107 N CARBON DIOXIDE (test code = CO2) 23.0 mmol/L 21-32 N ANION GAP (test code = GAP) 21.4 10-20 H GLUCOSE (test code = GLU) 121 mg/dL 74-106 H BLOOD UREA NITROGEN (test code = BUN) 26 mg/dL 7-18 H GLOMERULAR FILTRATION RATE (test code = GFR) 12 mL/min >=60 Estimated GFR by using Modified MDRD formula.Chronic kidney disease is defined as either kidney damageor GFR <60 mL/min/1.73 m2 for >3 months. CREATININE (test code = CREAT) 4.90 mg/dL 0.7-1.3 H BUN/CREATININE RATIO (test code = BUN/CREA) 5.3 10-20 L TOTAL PROTEIN (test code = PROT) 8.2 gram/dL 6.4-8.2 N ALBUMIN (test code = ALB) 3.1 g/dL 3.4-5.0 L GLOBULIN (test code = GLOB) 5.1 gram/dL 2.7-4.2 H ALBUMIN/GLOBULIN RATIO (test code = A/G) 0.6 0.75-1.50 L CALCIUM (test code = CA) 9.4 mg/dL 8.5-10.1 N BILIRUBIN TOTAL (test code = BILT) 1.40 mg/dL 0.0-1.0 H SGOT/AST (test code = AST) 25 IUnit/L 15-37 N SGPT/ALT (test code = ALT) 13 IUnit/L 12-78 N ALKALINE PHOSPHATASE TOTAL (test code = ALKP) 185 IUnit/L 45-117 H Note change in reference range due to change in reagent. [id number] 08:23:00* Test Item Value Reference Range Interpretation Comments GLUBED (test code = GLUBED) 196 mg/dL 74-106 H Performed by certified terminal computer operator at [facility] COMPREHENSIVE METABOLIC [id number] 08:07:00* Test Item Value Reference Range Interpretation Comments SODIUM (test code = NA) 139 mmol/L 136-145 N POTASSIUM (test code = K) 4.4 mmol/L 3.5-5.1 N CHLORIDE (test code = CL) 99.0 mmol/L 98-107 N CARBON DIOXIDE (test code = CO2) mmol/L 21-32 ANION GAP (test code = GAP) 10-20 GLUCOSE (test code = GLU) mg/dL 74-106 BLOOD UREA NITROGEN (test code = BUN) mg/dL 7-18 GLOMERULAR FILTRATION RATE (test code = GFR) mL/min >=60 CREATININE (test code = CREAT) mg/dL 0.7-1.3 BUN/CREATININE RATIO (test code = BUN/CREA) 10-20 TOTAL PROTEIN (test code = PROT) gram/dL 6.4-8.2 ALBUMIN (test code = ALB) g/dL 3.4-5.0 GLOBULIN (test code = GLOB) gram/dL 2.7-4.2 ALBUMIN/GLOBULIN RATIO (test code = A/G) 0.75-1.50 CALCIUM (test code = CA) mg/dL 8.5-10.1 BILIRUBIN TOTAL (test code = BILT) mg/dL 0.0-1.0 SGOT/AST (test code = AST) IUnit/L 15-37 SGPT/ALT (test code = ALT) IUnit/L 12-78 ALKALINE PHOSPHATASE TOTAL (test code = ALKP) IUnit/L 45-117 CBC W/MANUAL [id number] 07:39:00* Test Item Value Reference Range Interpretation Comments WHITE BLOOD CELL (test code = WBC) 8.0 K/mm3 4.5-12.5 N RED BLOOD CELL (test code = RBC) 5.03 mill/mm3 4.0-5.8 N HEMOGLOBIN (test code = HGB) 14.4 gram/dL 13.0-17.5 N HEMATOCRIT (test code = HCT) 46.6 % 42.0-52.0 N MEAN CELL VOLUME (test code = MCV) 92.6 fL 80-98 N MEAN CELL HGB (test code = MCH) 28.6 picogram 27.0-33.0 N MEAN CELL HGB CONCETRATION (test code = MCHC) 30.9 gram/dL 33.0-36. 0 L RED CELL DISTRIBUTION WIDTH (test code = RDW) 14.9 % 11.6-16. 2 N RED CELL DISTRIBUTION WIDTH SD (test code = RDW-SD) 50.6 fL 37 .0-51.0 N PLATELET COUNT (test code = PLT) 113 K/mm3 150-450 L MEAN PLATELET VOLUME (test code = MPV) 13.3 fL 6.7-11.0 H IMMATURE GRANULOCYTE % (test code = IG%) 0.5 % 0.0-5.0 N NUCLEATED RBC % (test code = NRBC%) 0.0 % 0-0 N NEUTROPHIL # (test code = NT#) 6.75 K/mm3 1.8-7.7 N IMMATURE GRANULOCYTE # (test code = IG#) 0.04 x10 3/uL 0-0.03 H LYMPHOCYTE # (test code = LY#) 0.52 K/mm3 1.0-5.0 L MONOCYTE # (test code = MO#) 0.62 K/mm3 0-0.8 N EOSINOPHIL # (test code = EO#) 0.07 K/mm3 0.0-0.5 N BASOPHIL # (test code = BA#) 0.03 K/mm3 0.0-0.2 N NUCLEATED RBC # (test code = NRBC#) 0.00 K/mm3 0.0-0.1 N MANUAL DIFF REQUIRED (test code = MDIFF) YES STAIN ACCEPTABILITY (test code = STN ACCEPTABLE) TOTAL CELLS COUNTED (test code = TCC) #CELLS SEGMENTED NEUTROPHILS (test code = SEG) % 39-69 LYMPHOCYTE (test code = LYMPH) % 25-55 MONOCYTE (test code = MON) % 0-10 EOSINOPHIL (test code = EOS) % 0.0-5.0 CABOT RINGS (test code = CAB) MORPHOLOGY COMMENT (test code = MOC) PLATELET ESTIMATE (test code = PLTEST) PLATELET MORPHOLOGY (test code = PLTMORPH) CBC W/MANUAL [id number] 07:39:00* Test Item Value Reference Range Interpretation Comments WHITE BLOOD CELL (test code = WBC) 8.0 K/mm3 4.5-12.5 N RED BLOOD CELL (test code = RBC) 5.03 mill/mm3 4.0-5.8 N HEMOGLOBIN (test code = HGB) 14.4 gram/dL 13.0-17.5 N HEMATOCRIT (test code = HCT) 46.6 % 42.0-52.0 N MEAN CELL VOLUME (test code = MCV) 92.6 fL 80-98 N MEAN CELL HGB (test code = MCH) 28.6 picogram 27.0-33.0 N MEAN CELL HGB CONCETRATION (test code = MCHC) 30.9 gram/dL 33.0-36. 0 L RED CELL DISTRIBUTION WIDTH (test code = RDW) 14.9 % 11.6-16. 2 N RED CELL DISTRIBUTION WIDTH SD (test code = RDW-SD) 50.6 fL 37 .0-51.0 N PLATELET COUNT (test code = PLT) 113 K/mm3 150-450 L MEAN PLATELET VOLUME (test code = MPV) 13.3 fL 6.7-11.0 H IMMATURE GRANULOCYTE % (test code = IG%) 0.5 % 0.0-5.0 N NUCLEATED RBC % (test code = NRBC%) 0.0 % 0-0 N NEUTROPHIL # (test code = NT#) 6.75 K/mm3 1.8-7.7 N IMMATURE GRANULOCYTE # (test code = IG#) 0.04 x10 3/uL 0-0.03 H LYMPHOCYTE # (test code = LY#) 0.52 K/mm3 1.0-5.0 L MONOCYTE # (test code = MO#) 0.62 K/mm3 0-0.8 N EOSINOPHIL # (test code = EO#) 0.07 K/mm3 0.0-0.5 N BASOPHIL # (test code = BA#) 0.03 K/mm3 0.0-0.2 N NUCLEATED RBC # (test code = NRBC#) 0.00 K/mm3 0.0-0.1 N MANUAL DIFF REQUIRED (test code = MDIFF) YES STAIN ACCEPTABILITY (test code = STN ACCEPTABLE) TOTAL CELLS COUNTED (test code = TCC) #CELLS SEGMENTED NEUTROPHILS (test code = SEG) % 39-69 LYMPHOCYTE (test code = LYMPH) % 25-55 MONOCYTE (test code = MON) % 0-10 EOSINOPHIL (test code = EOS) % 0.0-5.0 CABOT RINGS (test code = CAB) MORPHOLOGY COMMENT (test code = MOC) PLATELET ESTIMATE (test code = PLTEST) PLATELET MORPHOLOGY (test code = PLTMORPH) CBC W/MANUAL [id number] 07:39:00* Test Item Value Reference Range Interpretation Comments WHITE BLOOD CELL (test code = WBC) 8.0 K/mm3 4.5-12.5 N RED BLOOD CELL (test code = RBC) 5.03 mill/mm3 4.0-5.8 N HEMOGLOBIN (test code = HGB) 14.4 gram/dL 13.0-17.5 N HEMATOCRIT (test code = HCT) 46.6 % 42.0-52.0 N MEAN CELL VOLUME (test code = MCV) 92.6 fL 80-98 N MEAN CELL HGB (test code = MCH) 28.6 picogram 27.0-33.0 N MEAN CELL HGB CONCETRATION (test code = MCHC) 30.9 gram/dL 33.0-36. 0 L RED CELL DISTRIBUTION WIDTH (test code = RDW) 14.9 % 11.6-16. 2 N RED CELL DISTRIBUTION WIDTH SD (test code = RDW-SD) 50.6 fL 37 .0-51.0 N PLATELET COUNT (test code = PLT) 113 K/mm3 150-450 L MEAN PLATELET VOLUME (test code = MPV) 13.3 fL 6.7-11.0 H IMMATURE GRANULOCYTE % (test code = IG%) 0.5 % 0.0-5.0 N NUCLEATED RBC % (test code = NRBC%) 0.0 % 0-0 N NEUTROPHIL # (test code = NT#) 6.75 K/mm3 1.8-7.7 N IMMATURE GRANULOCYTE # (test code = IG#) 0.04 x10 3/uL 0-0.03 H LYMPHOCYTE # (test code = LY#) 0.52 K/mm3 1.0-5.0 L MONOCYTE # (test code = MO#) 0.62 K/mm3 0-0.8 N EOSINOPHIL # (test code = EO#) 0.07 K/mm3 0.0-0.5 N BASOPHIL # (test code = BA#) 0.03 K/mm3 0.0-0.2 N NUCLEATED RBC # (test code = NRBC#) 0.00 K/mm3 0.0-0.1 N MANUAL DIFF REQUIRED (test code = MDIFF) YES STAIN ACCEPTABILITY (test code = STN ACCEPTABLE) TOTAL CELLS COUNTED (test code = TCC) #CELLS SEGMENTED NEUTROPHILS (test code = SEG) % 39-69 LYMPHOCYTE (test code = LYMPH) % 25-55 MONOCYTE (test code = MON) % 0-10 EOSINOPHIL (test code = EOS) % 0.0-5.0 MORPHOLOGY COMMENT (test code = MOC) PLATELET ESTIMATE (test code = PLTEST) PLATELET MORPHOLOGY (test code = PLTMORPH) CBC W/MANUAL [id number] 07:39:00* Test Item Value Reference Range Interpretation Comments WHITE BLOOD CELL (test code = WBC) 8.0 K/mm3 4.5-12.5 N RED BLOOD CELL (test code = RBC) 5.03 mill/mm3 4.0-5.8 N HEMOGLOBIN (test code = HGB) 14.4 gram/dL 13.0-17.5 N HEMATOCRIT (test code = HCT) 46.6 % 42.0-52.0 N MEAN CELL VOLUME (test code = MCV) 92.6 fL 80-98 N MEAN CELL HGB (test code = MCH) 28.6 picogram 27.0-33.0 N MEAN CELL HGB CONCETRATION (test code = MCHC) 30.9 gram/dL 33.0-36. 0 L RED CELL DISTRIBUTION WIDTH (test code = RDW) 14.9 % 11.6-16. 2 N RED CELL DISTRIBUTION WIDTH SD (test code = RDW-SD) 50.6 fL 37 .0-51.0 N PLATELET COUNT (test code = PLT) 113 K/mm3 150-450 L MEAN PLATELET VOLUME (test code = MPV) 13.3 fL 6.7-11.0 H IMMATURE GRANULOCYTE % (test code = IG%) 0.5 % 0.0-5.0 N NUCLEATED RBC % (test code = NRBC%) 0.0 % 0-0 N NEUTROPHIL # (test code = NT#) 6.75 K/mm3 1.8-7.7 N IMMATURE GRANULOCYTE # (test code = IG#) 0.04 x10 3/uL 0-0.03 H LYMPHOCYTE # (test code = LY#) 0.52 K/mm3 1.0-5.0 L MONOCYTE # (test code = MO#) 0.62 K/mm3 0-0.8 N EOSINOPHIL # (test code = EO#) 0.07 K/mm3 0.0-0.5 N BASOPHIL # (test code = BA#) 0.03 K/mm3 0.0-0.2 N NUCLEATED RBC # (test code = NRBC#) 0.00 K/mm3 0.0-0.1 N MANUAL DIFF REQUIRED (test code = MDIFF) YES STAIN ACCEPTABILITY (test code = STN ACCEPTABLE) TOTAL CELLS COUNTED (test code = TCC) #CELLS SEGMENTED NEUTROPHILS (test code = SEG) % 39-69 LYMPHOCYTE (test code = LYMPH) % 25-55 MONOCYTE (test code = MON) % 0-10 MORPHOLOGY COMMENT (test code = MOC) PLATELET ESTIMATE (test code = PLTEST) PLATELET MORPHOLOGY (test code = PLTMORPH) CBC W/MANUAL [id number] 07:39:00* Test Item Value Reference Range Interpretation Comments WHITE BLOOD CELL (test code = WBC) 8.0 K/mm3 4.5-12.5 N RED BLOOD CELL (test code = RBC) 5.03 mill/mm3 4.0-5.8 N HEMOGLOBIN (test code = HGB) 14.4 gram/dL 13.0-17.5 N HEMATOCRIT (test code = HCT) 46.6 % 42.0-52.0 N MEAN CELL VOLUME (test code = MCV) 92.6 fL 80-98 N MEAN CELL HGB (test code = MCH) 28.6 picogram 27.0-33.0 N MEAN CELL HGB CONCETRATION (test code = MCHC) 30.9 gram/dL 33.0-36. 0 L RED CELL DISTRIBUTION WIDTH (test code = RDW) 14.9 % 11.6-16. 2 N RED CELL DISTRIBUTION WIDTH SD (test code = RDW-SD) 50.6 fL 37 .0-51.0 N PLATELET COUNT (test code = PLT) 113 K/mm3 150-450 L MEAN PLATELET VOLUME (test code = MPV) 13.3 fL 6.7-11.0 H IMMATURE GRANULOCYTE % (test code = IG%) 0.5 % 0.0-5.0 N NUCLEATED RBC % (test code = NRBC%) 0.0 % 0-0 N NEUTROPHIL # (test code = NT#) 6.75 K/mm3 1.8-7.7 N IMMATURE GRANULOCYTE # (test code = IG#) 0.04 x10 3/uL 0-0.03 H LYMPHOCYTE # (test code = LY#) 0.52 K/mm3 1.0-5.0 L MONOCYTE # (test code = MO#) 0.62 K/mm3 0-0.8 N EOSINOPHIL # (test code = EO#) 0.07 K/mm3 0.0-0.5 N BASOPHIL # (test code = BA#) 0.03 K/mm3 0.0-0.2 N NUCLEATED RBC # (test code = NRBC#) 0.00 K/mm3 0.0-0.1 N MANUAL DIFF REQUIRED (test code = MDIFF) YES STAIN ACCEPTABILITY (test code = STN ACCEPTABLE) TOTAL CELLS COUNTED (test code = TCC) #CELLS SEGMENTED NEUTROPHILS (test code = SEG) % 39-69 LYMPHOCYTE (test code = LYMPH) % 25-55 MONOCYTE (test code = MON) % 0-10 EOSINOPHIL (test code = EOS) % 0.0-5.0 CABOT RINGS (test code = CAB) MORPHOLOGY COMMENT (test code = MOC) PLATELET ESTIMATE (test code = PLTEST) PLATELET MORPHOLOGY (test code = PLTMORPH) CBC W/AUTO [id number] 07:35:00* Test Item Value Reference Range Interpretation Comments WHITE BLOOD CELL (test code = WBC) K/mm3 4.5-12.5 RED BLOOD CELL (test code = RBC) mill/mm3 4.0-5.8 HEMOGLOBIN (test code = HGB) 14.4 gram/dL 13.0-17.5 N HEMATOCRIT (test code = HCT) 46.6 % 42.0-52.0 N MEAN CELL VOLUME (test code = MCV) fL 80-98 MEAN CELL HGB (test code = MCH) picogram 27.0-33.0 MEAN CELL HGB CONCETRATION (test code = MCHC) gram/dL 33.0-36. 0 RED CELL DISTRIBUTION WIDTH (test code = RDW) % 11.6-16. 2 RED CELL DISTRIBUTION WIDTH SD (test code = RDW-SD) fL 37 .0-51.0 PLATELET COUNT (test code = PLT) K/mm3 150-450 MEAN PLATELET VOLUME (test code = MPV) fL 6.7-11.0 NEUTROPHIL % (test code = NT%) % 39.0-69.0 IMMATURE GRANULOCYTE % (test code = IG%) % 0.0-5.0 LYMPHOCYTE % (test code = LY%) % 25.0-55.0 MONOCYTE % (test code = MO%) % 0.0-10.0 EOSINOPHIL % (test code = EO%) % 0.0-5.0 BASOPHIL % (test code = BA%) % 0.0-1.0 NEUTROPHIL # (test code = NT#) K/mm3 1.8-7.7 LYMPHOCYTE # (test code = LY#) K/mm3 1.0-5.0 MONOCYTE # (test code = MO#) K/mm3 0-0.8 EOSINOPHIL # (test code = EO#) K/mm3 0.0-0.5 BASOPHIL # (test code = BA#) K/mm3 0.0-0.2 [id number] 20:56:00* Test Item Value Reference Range Interpretation Comments GLUBED (test code = GLUBED) 348 mg/dL 74-106 H Performed by certified terminal computer operator at [facility] [id number] 17:32:00* Test Item Value Reference Range Interpretation Comments GLUBED (test code = GLUBED) 163 mg/dL 74-106 H Performed by certified terminal computer operator at [facility] US EXTREM NON VASC [id number] 17:20:00 Name: MARIE GOMEZ [facility] : 1955 Age/S: 63 / M [address] [facility] Unit #: [id number] Loc: [place] [address] Phys: Edis Broussard MD Acct: [id number] Dis Date: Status: ADM IN PHONE #: [phone] Exam Date: 07/18/2018 1640 FAX #: [phone] Reason: area of fluctuance left chest. Eval for abscess EXAMS: CPT CODE: [id number] EXTREM NON VASC LTD [id number] CLINICAL HISTORY: area of fluctuance left chest. Eval for abscess TECHNIQUE: Static grayscale images from sonographic survey of the left anterior chest wall soft tissues at area of clinical concern. COMPARISON: None IMPRESSION: Complex 11.5 x 6.1 x 9.1 cm fluid collection within the left upper anterior chest soft tissues. Linear echogenic interface observed within the fluid collection, possible foreign body. Correlate clinically. at 1720 Reported and signed by: Marjan Noonan D.O. CC: Edis Broussard MD Technologist: [employer] [facility] Date/Time: 07/18/2018 (1720) [id number] Orig Print D/T: S: 07/18/2018 (0817) Probe: PAGE 1 Signed Report AG HEPAT B [id number] 13:14:00* Test Item Value Reference Range Interpretation Comments AG HEPAT B SURF (test code = HBSAG) Nonreactive Index Nonreactive [id number] 12:55:00* Test Item Value Reference Range Interpretation Comments GLUBED (test code = GLUBED) 177 mg/dL 74-106 H Performed by certified terminal computer operator at [facility] [id number] 12:42:00* Test Item Value Reference Range Interpretation Comments PHOSPHORUS (test code = PHOS) 2.2 mg/dL 2.5-4.9 L PARATHYROID HORMONE [id number] 12:42:00* Test Item Value Reference Range Interpretation Comments PARATHYROID HORMONE INTACT (test code = PARAI) 141.10 pgram/mL 8.4- 88 H [id number] 12:41:00* Test Item Value Reference Range Interpretation Comments PHOSPHORUS (test code = PHOS) mg/dL 2.5-4.9 PARATHYROID HORMONE [id number] 12:41:00* Test Item Value Reference Range Interpretation Comments PARATHYROID HORMONE INTACT (test code = PARAI) 141.10 pgram/mL 8.4- 88 H LACTIC [id number] 12:38:00* Test Item Value Reference Range Interpretation Comments LACTIC ACID (test code = LACT) 0.9 mmol/L 0.4-1.9 N LACTIC [id number] 11:15:00* Test Item Value Reference Range Interpretation Comments LACTIC ACID (test code = LACT) 2.5 mmol/L 0.4-1.9 HH Results called to [id number] by [email or web address] 07/18/18 1115Critical results verified and read back by Nurse? Y Specimen 4+ Hemolysed.Some results MAY NOT be accurate due to hemolysis. PROTHROMBIN [id number] 10:17:00* Test Item Value Reference Range Interpretation Comments PROTHROMBIN TIME PATIENT (test code = PTP) 22.7 seconds 9.0-14.0 H INTERNATIONAL NORMAL RATIO (test code = INR) 1.9 0.8-1.2 H The therapeutic range for oral anticoagulant therapy formost indications is an international normalized ratio (INR)of between 2.0 and 3.0. The recommended therapeutic INRrange for various clinical situations is listed below: Clinical Situation INR range Pulmonary e mbolism treatment (2.0-3.0)Venous thrombosis treatmentVenous thrombosis prophylaxis (high risk surgery)Prevention of systemic embolism from: Acute myocardial infarction Valvular heart disease Atrial fibrillation Mechanical prosthetic heart valves (2.5-3.5) IS PATIENT ON ANTICOAGULANTS? YLIST ANTICOAGULANTS [id number] 08:22:00* Test Item Value Reference Range Interpretation Comments GLUBED (test code = GLUBED) 137 mg/dL 74-106 H Performed by certified terminal computer operator at [facility] PROCALCITONIN (PCT)2018-07-18 05:08:00* Test Item Value Reference Range Interpretation Comments PROCALCITONIN (PCT) (test code = PROCAL) 5.87 ng/ml Results called to [id number] by [email or web address] 07/18/18 0507Critical results verified and read back by Nurse? YConcentration Interpretation (ng/mL) <0.51 Sepsis is not likely. Local bacterial infection is possible. (LOW RISK for progression to Sepsis) 0.51 - 2.00 Sepsis is possible, but other conditions are known to elevate PCT as well. (MODERATE RISK for progression to Sepsis) > 2.00 Sepsis is likely, unless other causes are known. (HIGH RISK for progression to Severe Sepsis or Septic Shock) 10.00 High likelihood of Severe Sepsis or Septic or higher Shock. *Increased PCT levels may not always be related to systemic bacterial infection.*Low PCT levels do not automatically exclude the presence of bacterial infection.*All results should be interpreted taking into account the patients history. COMPREHENSIVE METABOLIC [id number] 04:11:00* Test Item Value Reference Range Interpretation Comments SODIUM (test code = NA) 135 mmol/L 136-145 L POTASSIUM (test code = K) 4.4 mmol/L 3.5-5.1 N CHLORIDE (test code = CL) 100.0 mmol/L 98-107 N CARBON DIOXIDE (test code = CO2) 23.0 mmol/L 21-32 N ANION GAP (test code = GAP) 16.4 10-20 N GLUCOSE (test code = GLU) 151 mg/dL 74-106 H BLOOD UREA NITROGEN (test code = BUN) 24 mg/dL 7-18 H GLOMERULAR FILTRATION RATE (test code = GFR) 11 mL/min >=60 Estimated GFR by using Modified MDRD formula.Chronic kidney disease is defined as either kidney damageor GFR <60 mL/min/1.73 m2 for >3 months. CREATININE (test code = CREAT) 5.50 mg/dL 0.7-1.3 H BUN/CREATININE RATIO (test code = BUN/CREA) 4.4 10-20 L TOTAL PROTEIN (test code = PROT) 8.4 gram/dL 6.4-8.2 H ALBUMIN (test code = ALB) 3.1 g/dL 3.4-5.0 L GLOBULIN (test code = GLOB) 5.3 gram/dL 2.7-4.2 H ALBUMIN/GLOBULIN RATIO (test code = A/G) 0.6 0.75-1.50 L CALCIUM (test code = CA) 8.3 mg/dL 8.5-10.1 L BILIRUBIN TOTAL (test code = BILT) 1.50 mg/dL 0.0-1.0 H SGOT/AST (test code = AST) 17 IUnit/L 15-37 N SGPT/ALT (test code = ALT) 8 IUnit/L 12-78 L ALKALINE PHOSPHATASE TOTAL (test code = ALKP) 156 IUnit/L 45-117 H Note change in reference range due to change in reagent. [id number] 04:11:00* Test Item Value Reference Range Interpretation Comments PHOSPHORUS (test code = PHOS) 3.5 mg/dL 2.5-4.9 N [id number] 04:11:00* Test Item Value Reference Range Interpretation Comments MAGNESIUM (test code = MAG) 2.1 mg/dL 1.8-2.4 N COMPREHENSIVE METABOLIC [id number] 03:37:00* Test Item Value Reference Range Interpretation Comments SODIUM (test code = NA) 135 mmol/L 136-145 L POTASSIUM (test code = K) 4.4 mmol/L 3.5-5.1 N CHLORIDE (test code = CL) 100.0 mmol/L 98-107 N CARBON DIOXIDE (test code = CO2) mmol/L 21-32 ANION GAP (test code = GAP) 10-20 GLUCOSE (test code = GLU) mg/dL 74-106 BLOOD UREA NITROGEN (test code = BUN) mg/dL 7-18 GLOMERULAR FILTRATION RATE (test code = GFR) mL/min >=60 CREATININE (test code = CREAT) mg/dL 0.7-1.3 BUN/CREATININE RATIO (test code = BUN/CREA) 10-20 TOTAL PROTEIN (test code = PROT) gram/dL 6.4-8.2 ALBUMIN (test code = ALB) g/dL 3.4-5.0 GLOBULIN (test code = GLOB) gram/dL 2.7-4.2 ALBUMIN/GLOBULIN RATIO (test code = A/G) 0.75-1.50 CALCIUM (test code = CA) mg/dL 8.5-10.1 BILIRUBIN TOTAL (test code = BILT) mg/dL 0.0-1.0 SGOT/AST (test code = AST) IUnit/L 15-37 SGPT/ALT (test code = ALT) IUnit/L 12-78 ALKALINE PHOSPHATASE TOTAL (test code = ALKP) IUnit/L 45-117 [id number] 03:37:00* Test Item Value Reference Range Interpretation Comments PHOSPHORUS (test code = PHOS) mg/dL 2.5-4.9 [id number] 03:37:00* Test Item Value Reference Range Interpretation Comments MAGNESIUM (test code = MAG) mg/dL 1.8-2.4 CBC W/AUTO [id number] 03:22:00* Test Item Value Reference Range Interpretation Comments WHITE BLOOD CELL (test code = WBC) 9.2 K/mm3 4.5-12.5 N RED BLOOD CELL (test code = RBC) 4.80 mill/mm3 4.0-5.8 N HEMOGLOBIN (test code = HGB) 13.8 gram/dL 13.0-17.5 N HEMATOCRIT (test code = HCT) 44.1 % 42.0-52.0 N MEAN CELL VOLUME (test code = MCV) 91.9 fL 80-98 N MEAN CELL HGB (test code = MCH) 28.8 picogram 27.0-33.0 N MEAN CELL HGB CONCETRATION (test code = MCHC) 31.3 gram/dL 33.0-36. 0 L RED CELL DISTRIBUTION WIDTH (test code = RDW) 14.8 % 11.6-16. 2 N RED CELL DISTRIBUTION WIDTH SD (test code = RDW-SD) 49.8 fL 37 .0-51.0 N PLATELET COUNT (test code = PLT) 128 K/mm3 150-450 L MEAN PLATELET VOLUME (test code = MPV) 12.1 fL 6.7-11.0 H NEUTROPHIL % (test code = NT%) 88.6 % 39.0-69.0 H IMMATURE GRANULOCYTE % (test code = IG%) 0.3 % 0.0-5.0 N LYMPHOCYTE % (test code = LY%) 3.8 % 25.0-55.0 L MONOCYTE % (test code = MO%) 6.7 % 0.0-10.0 N EOSINOPHIL % (test code = EO%) 0.1 % 0.0-5.0 N BASOPHIL % (test code = BA%) 0.5 % 0.0-1.0 N NUCLEATED RBC % (test code = NRBC%) 0.0 % 0-0 N NEUTROPHIL # (test code = NT#) 8.18 K/mm3 1.8-7.7 H IMMATURE GRANULOCYTE # (test code = IG#) 0.03 x10 3/uL 0-0.03 N LYMPHOCYTE # (test code = LY#) 0.35 K/mm3 1.0-5.0 L MONOCYTE # (test code = MO#) 0.62 K/mm3 0-0.8 N EOSINOPHIL # (test code = EO#) 0.01 K/mm3 0.0-0.5 N BASOPHIL # (test code = BA#) 0.05 K/mm3 0.0-0.2 N NUCLEATED RBC # (test code = NRBC#) 0.00 K/mm3 0.0-0.1 N CBC W/AUTO [id number] 03:21:00* Test Item Value Reference Range Interpretation Comments WHITE BLOOD CELL (test code = WBC) K/mm3 4.5-12.5 RED BLOOD CELL (test code = RBC) mill/mm3 4.0-5.8 HEMOGLOBIN (test code = HGB) 13.8 gram/dL 13.0-17.5 N HEMATOCRIT (test code = HCT) 44.1 % 42.0-52.0 N MEAN CELL VOLUME (test code = MCV) fL 80-98 MEAN CELL HGB (test code = MCH) picogram 27.0-33.0 MEAN CELL HGB CONCETRATION (test code = MCHC) gram/dL 33.0-36. 0 RED CELL DISTRIBUTION WIDTH (test code = RDW) % 11.6-16. 2 RED CELL DISTRIBUTION WIDTH SD (test code = RDW-SD) fL 37 .0-51.0 PLATELET COUNT (test code = PLT) K/mm3 150-450 MEAN PLATELET VOLUME (test code = MPV) fL 6.7-11.0 NEUTROPHIL % (test code = NT%) % 39.0-69.0 IMMATURE GRANULOCYTE % (test code = IG%) % 0.0-5.0 LYMPHOCYTE % (test code = LY%) % 25.0-55.0 MONOCYTE % (test code = MO%) % 0.0-10.0 EOSINOPHIL % (test code = EO%) % 0.0-5.0 BASOPHIL % (test code = BA%) % 0.0-1.0 NEUTROPHIL # (test code = NT#) K/mm3 1.8-7.7 LYMPHOCYTE # (test code = LY#) K/mm3 1.0-5.0 MONOCYTE # (test code = MO#) K/mm3 0-0.8 EOSINOPHIL # (test code = EO#) K/mm3 0.0-0.5 BASOPHIL # (test code = BA#) K/mm3 0.0-0.2 [U] XRAY FINGER(S) - 2 VWS MIN. RIGHT [id number] 15:49:00Images acquired, not reported on this accession number.[facility] Parathyrin.intact [Mass/volume] in Serum or [id number] 19:30:00* Test Item Value Reference Range Interpretation Comments parathyroid hormone, intact (test code = parathyroid hormone , intact) 630 pg/mL 14-64 H [facility]Calc[facility]+Calciferol [Mass/volume] in Serum or Plasma 2017-06-19 12:02:00* Test Item Value Reference Range Interpretation Comments vitamin D, 1,25 (oh)2, total (test code = vitamin D, 1 ,25 (oh)2, total) 312 pg/mL 18-72 H vitamin D3, 1,25 (oh)2 (test code = vitamin D3, 1,25 (oh)2) 146 pg/ mL vitamin D2, 1,25 (oh)2 (test code = vitamin D2, 1,25 (oh)2) 166 pg/ mL [facility] CenterPhosphate [Mass/volume] in Serum or [id number] 07:52:00* Test Item Value Reference Range Interpretation Comments phosphate ( phosphorus) (test code = phosphate ( phospho oliver)) 5.4 mg/dL 2.5-4.5 H [facility] CenterMagnesium [Mass/volume] in Serum or [id number] 07:52:00* Test Item Value Reference Range Interpretation Comments magnesium (test code = magnesium) 2.3 mg/dL 1.5-2.5 [facility] CenterIron and Iron binding capacity panel - Serum or Plasma 2017-06-19 07:52:00* Test Item Value Reference Range Interpretation Comments iron, total (test code = iron, total) 39 mcg/dL 50-180 L iron binding capacity (test code = iron binding capacity) 35 1 mcg/dL (calc) 250-425 % saturation (test code = % saturation) 11 % (calc) 15-60 L [facility] CenterLipid 1995 panel - Serum or [id number] 07:52:00* Test Item Value Reference Range Interpretation Comments cholesterol, total (test code = cholesterol, total) 118 mg/dL <2 00 HDL cholesterol (test code = HDL cholesterol) 30 mg/dL >40 L triglycerides (test code = triglycerides) 271 mg/dL <150 H LDL-cholesterol (test code = LDL-cholesterol) 56 mg/dL (calc) chol/HDLC ratio (test code = chol/HDLC ratio) 3.9 (calc) <5.0 non HDL cholesterol (test code = non HDL cholesterol) 88 mg/dL (hina c) <130 [facility] CenterComprehensive metabolic 1999 panel - Serum or Plasma 2017-06-19 07:52:00* Test Item Value Reference Range Interpretation Comments glucose (test code = glucose) 136 mg/dL 65-99 H urea nitrogen (BUN) (test code = urea nitrogen (BUN)) 19 mg/dL 7-25 creatinine (test code = creatinine) 4.50 mg/dL 0.70-1.25 H eGFR non-afr. [place]ong [place]onger (test code = eGFR non-afr. [place]er) 13 mL/min/1.73m2 > or = 60 L eGFR (test code = eGFR ) 15 mL/min/1.73m2 > or = 60 L BUN/creatinine ratio (test code = BUN/creatinine ratio) 4 (calc) 6-22 L sodium (test code = sodium) 141 mmol/L 135-146 potassium (test code = potassium) 4.7 mmol/L 3.5-5.3 chloride (test code = chloride) 95 mmol/L 98-110 L carbon dioxide (test code = carbon dioxide) 24 mmol/L 20-31 calcium (test code = calcium) 10.3 mg/dL 8.6-10.3 protein, total (test code = protein, total) 8.9 g/dL 6.1-8.1 H albumin (test code = albumin) 4.5 g/dL 3.6-5.1 globulin (test code = globulin) 4.4 g/dL (calc) 1.9-3.7 H albumin/globulin ratio (test code = albumin/globulin ratio) 1.0 (calc) 1.0-2.5 bilirubin, total (test code = bilirubin, total) 0.7 mg/dL 0.2-1. 2 alkaline phosphatase (test code = alkaline phosphatase) 230 U/L 40-115 H AST (test code = AST) 19 U/L 10-35 ALT (test code = ALT) 11 U/L 9-46 [facility] W Auto Differential panel - [id number] 07:52:00 * Test Item Value Reference Range Interpretation Comments white blood cell count (test code = white blood cell count) 5.9 thousand/uL 3.8-10.8 red blood cell count (test code = red blood cell count) 5.18 million/uL 4.20-5.80 hemoglobin (test code = hemoglobin) 13.5 g/dL 13.2-17.1 hematocrit (test code = hematocrit) 42.6 % 38.5-50.0 MCV (test code = MCV) 82.2 fL 80.0-100.0 MCH (test code = MCH) 26.1 pg 27.0-33.0 L MCHC (test code = MCHC) 31.7 g/dL 32.0-36.0 L RDW (test code = RDW) 19.8 % 11.0-15.0 H platelet count (test code = platelet count) 241 thousand/uL 140-400 MPV (test code = MPV) tnp absolute neutrophils (test code = absolute neutrophils) 3328 roxy ls/uL 3118-0807 absolute lymphocytes (test code = absolute lymphocytes) 1304 roxy ls/uL 850-3900 absolute monocytes (test code = absolute monocytes) 484 cells/uL 20 0-950 absolute eosinophils (test code = absolute eosinophils) 726 cells/u L 15-500 H absolute basophils (test code = absolute basophils) 59 cells/uL 0- 200 neutrophils (test code = neutrophils) 56.4 % lymphocytes (test code = lymphocytes) 22.1 % monocytes (test code = monocytes) 8.2 % eosinophils (test code = eosinophils) 12.3 % basophils (test code = basophils) 1.0 % [facility] CenterFolate [Mass/volume] in Serum or [id number] 07:52:00* Test Item Value Reference Range Interpretation Comments folate, serum (test code = folate, serum) 4.2 NG/mL L [facility] CenterFolate+Cyanocobalamin [interpretation] in Serum or Blood 2017-06-19 07:52:00* Test Item Value Reference Range Interpretation Comments vitamin B12 (test code = vitamin B12) 538 pg/mL 200-1100 [facility] CenterProstate specific Ag [Mass/volume] in Serum or Plasma 2017-06-19 07:52:00* Test Item Value Reference Range Interpretation Comments PSA, total (test code = PSA, total) 1.0 NG/mL < or = 4.0 [facility] CenterHemoglobin A1c/Hemoglobin.total in [id number] 07:52:00* Test Item Value Reference Range Interpretation Comments hemoglobin A1C (test code = hemoglobin A1C) 6.2 % of total HGB <5.7 H [facility]
[2020-04-06] MEDS: METOPROLOL SUCCINATE 50 MG TAB XL PO SCH (21:00)
[2020-04-06] MEDS: TEMAZEPAM 15 MG CAP PO SCH (21:00)
[2020-04-07] VITALS (7 sets, daily range): BP systolic 110–139; BP diastolic 71–82
[2020-04-07] MEDS: LEVOTHYROXINE SODIUM 100 MCG TAB PO SCH (06:00)
[2020-04-07] MEDS: MORPHINE SULFATE 2 MG/ML SYR 1ML IV PRN (07:00)
[2020-04-07 07:05] LABS: BASOPHILS # (AUTO) 0.1 (0.0-0.1); BASOPHILS % 0.7 % (0.0-1.0); EOSINOPHILS # (AUTO) 0.4 (0.0-0.4); HEMATOCRIT 44.7 % (38.2-49.6); HEMOGLOBIN 14.2 g/dL (14.0-18.0); LYMPHOCYTES # (AUTO) 1.1 (1.0-3.2); MEAN CORPUSCULAR HEMOGLOBIN 30.5 pg (28-32); MEAN CORPUSCULAR HGB CONC 31.8 g/dL (31-35); MEAN CORPUSCULAR VOLUME 96.1 fL (81-99); MONOCYTES # (AUTO) 0.7 (0.2-0.8); MONOCYTES % 7.1 % (4.4-11.3); NEUTROPHILS # (AUTO) 7.1 (2.1-6.9); NEUTROPHILS % 75.9 % (38.7-80.0); PLATELET COUNT 246 x10e3/uL (140-360); RED BLOOD COUNT 4.65 x10e6/uL (4.3-5.7); RED CELL DISTRIBUTION WIDTH 14.7 % (11.7-14.4)
[2020-04-07 07:30] LABS: ALANINE AMINOTRANSFERASE < 6 IU/L (0-55); ALBUMIN 2.8 g/dL (3.5-5.0); ALBUMIN/GLOBULIN RATIO 0.5 (0.8-2.0); ALKALINE PHOSPHATASE 180 IU/L (40-150); BLOOD UREA NITROGEN 30 mg/dL (7-26); BUN/CREATININE RATIO 5 (6-25); CALCIUM 10.8 mg/dL (8.4-10.2); CARBON DIOXIDE 25 mmol/L (22-29); CHLORIDE 102 mmol/L (98-107); EST GLOMERULAR FILTRATION RATE 10 ML/MIN (60-); GLUCOSE 112 mg/dL (74-118); SODIUM 140 mmol/L (136-145)
[2020-04-07] MEDS: INSULIN LISPRO 100 UNIT/1 ML 3ML VIAL SQ SCH ×3 (07:30→17:03)
[2020-04-07] MEDS: SEVELAMER CARBONATE 800 MG TAB PO SCH ×3 (08:00→16:55)
[2020-04-07] MEDS: CILOSTAZOL 100 MG TAB PO SCH ×2 (09:00→16:55)
[2020-04-07] MEDS: MIDODRINE HCL 5 MG TABLET PO SCH ×2 (09:00→15:00)
[2020-04-07] MEDS: GABAPENTIN 100 MG CAP PO SCH ×2 (09:00→16:55)
[2020-04-07 10:35] LABS: INR 1.13; PROTHROMBIN TIME 15.1 seconds (11.9-14.5)
--- NOTE | 2020-04-07 10:37 | Progress Note ---
DATE: 04/07/2020 SUBJECTIVE: The patient offers no new complaints. Progress noted. Notes reviewed. OBJECTIVE: VITAL SIGNS: Temperature 97.6, pulse 59, respiratory rate 18, and blood pressure 110/73. HEENT: Normocephalic, atraumatic. Extraocular movements not assessed. NECK: Supple. LUNGS: Fair air entry bilaterally. Clear to auscultation. HEART: Sounds S1, S2. No murmur. No gallop. ABDOMEN: Soft, nontender, normoactive bowel sounds. EXTREMITIES: The patient has a left groin hemodialysis catheter, left BKA. Right leg has erythema and induration which have been improved in the lower leg. There is a TMA wound with an open ulcer without any purulent drainage. LABORATORY DATA: WBC count is 9.4, hemoglobin 14, and platelets 246. Cultures from the wound are now showing Serratia marcescens. ASSESSMENT: 1. Soft tissue infection/cellulitis, right leg. 2. Infected right transmetatarsal amputation wound. 3. Gram negative soft tissue infections. Current culture is positive for Serratia marcescens. 4. End-stage renal disease, on hemodialysis. 5. Diabetes mellitus. RECOMMENDATIONS: Arranging for antibiotic treatment, possibly at home, combination of vancomycin and meropenem. Wound care is ongoing. We will await recommendations by Podiatry if any further interventions are needed. We will continue to follow. Damion Perry MD SR/CAROLA /[id number]
[2020-04-07] MEDS ORDERED: SODIUM CHLORIDE 0.9% 100 ML ONE ×2 (13:11→14:11)
[2020-04-07] MEDS ORDERED: MIDAZOLAM HCL 2 MG/2 ML VIAL ONE (13:29)
[2020-04-07] MEDS ORDERED: FENTANYL CITRATE/PF 100MCG/2 ML INJ ONE (13:30)
[2020-04-07] MEDS ORDERED: LIDOCAINE HCL 2% LOCAL 20 ML VIAL ONE (13:30)
[2020-04-07] MEDS ORDERED: HEPARIN SOD/SOD CHLORIDE 2,000 ML ONE (13:30)
[2020-04-07] MEDS ORDERED: IOPAMIDOL 300MG/ML 100 ML INFUS..BTL IV ONE (13:30)
[2020-04-07] MEDS ORDERED: SODIUM CHLORIDE 0.9% 500ML 500 ML ONE ×2 (13:31→14:11)
[2020-04-07] MEDS ORDERED: SEVOFLURANE INHAL SOLN 250 ML PEN BTL ONE (13:43)
[2020-04-07] MEDS ORDERED: PROPOFOL IV EMULSION 10 MG/ML 20 ML VIAL ONE (13:43)
[2020-04-07] MEDS ORDERED: LIDOCAINE HCL 2% LOCAL INJ 5 ML SDV VIAL INJ ONE (13:43)
[2020-04-07] MEDS ORDERED: PHENYLEPHRINE HCL 1% 10 MG/ML VIAL ONE (13:43)
[2020-04-07] MEDS ORDERED: EPHEDRINE SULFATE INJ 50 MG/ML VIAL ONE (13:43)
--- NOTE | 2020-04-07 13:50 | NUR ---
Spoke with Molly at [facility]. She confirmed that they will not be able to order Merrem, but they will be able to administer Vancomycin. Order faxed to clinic at [phone] Pt currently off unit at procedure. CM called pt's [place] [phone] with TAMIR Hung. Explained to pt's that Dr. Perry wants pt on Vancomycin and Merrem. HD clinic will be able to administer Vancomycin but not Merrem. She stated that pt had home IV abx previously. Informed her that Dr. Perry prefers to use [facility]. She is agreeable. Signed choice letter placed in front of chart. IMM letter discussed. Pt's verbalized understanding. Signed copy placed in chart. Copies of IMM and choice letter placed at pt's bedside. Referral for IV abx sent to [facility]. Carlton with [facility] was informed of anticipated dc for tomorrow.
[2020-04-07] MEDS ORDERED: BUPIVACAINE HCL 0.5% INJ 30 ML VIAL INJ ONE (14:11)
[2020-04-07] MEDS ORDERED: HEPARIN SOD (PORCINE) 1000 UNIT/ML SDV ONE (14:11)
--- NOTE | 2020-04-07 16:26 | NUR ---
Confirmed with [facility]ora that they received order and will have abx ready for pt on Friday when he comes for his scheduled session. Per Carlton with [facility], they have made arrangements to deliver medications. Currently working on getting home health arranged.
[2020-04-07] MEDS: PANTOPRAZOLE SOD 40 MG TABEC PO SCH (16:53)
[2020-04-07] MEDS: BUSPIRONE HCL 5 MG TAB PO SCH (16:53)
[2020-04-07] MEDS: ISOSORBIDE MONONITRATE 30 MG TAB CR PO SCH (16:54)
[2020-04-07] MEDS: COLLAGENASE 5 GM TUBE TP SCH (16:54)
[2020-04-07] MEDS: MEROPENEM 1GM 100 ML IV SCH (17:03)
--- NOTE | 2020-04-07 17:29 | Operative Report ---
DATE OF PROCEDURE: 04/07/2020 SURGEON: Austin Wells MD PREOPERATIVE DIAGNOSIS: Right foot infection, poor venous access. POSTOPERATIVE DIAGNOSIS: Right foot infection, poor venous access. PROCEDURE: Placement of left external jugular subcutaneous venous access port. POCKET STITCHER: None. ANESTHESIA: General. INDICATIONS AND FINDINGS: The patient is a 64-year-old male, who has severe peripheral vascular disease. He has had multiple previous access procedures using most of the usual central veins. At Surgery, there was a large external jugular vein at left side, where the catheter was placed and easily positioned in the superior vena cava. Blood aspirated free from the port at the end of the procedure. TECHNIQUE: After adequate general anesthesia with the patient in supine position. The subclavian areas of the neck on both sides were prepped and draped in sterile fashion with ChloraPrep solution. There was considerable scarring in each subclavian area, but there was a large external jugular vein particularly in the left side. This vein was aspirated and J wire was passed into the vein and passed easily without resistance. There was positioned in the superior vena cava under fluoroscopy. Using Seldinger technique, the catheter was passed through the vein and positioned in the superior vena cava under fluoroscopy. The catheter was aspirated, found to aspirate blood freely, then flushed with heparinized saline. The catheter was then tunneled from the neck insertion site to the left subclavian area and brought out in the left subclavian area. A subcutaneous pocket was created in the left subclavian area. The catheter was cut to the appropriate length, connected to the port which had placed in the subcutaneous pocket. Port was held in place with sutures of 2-0 Ethibond. The port was aspirated, found to aspirate blood freely, then flushed with heparinized saline. The needle was removed. Hemostasis at each wound was seen to be adequate. The port was inspected with fluoroscopy. There were no kinks that were seen at the tip of the catheters in the superior vena cava. The neck wound insertion site was closed with subcuticular suture of 4-0 Vicryl. The subclavian wound was closed with 3-0 Vicryl subcutaneous tissue and 4-0 Vicryl subcuticular to the skin. Dermabond was applied to each wound. Sterile pressure dressing applied. The patient tolerated the procedure well. Estimated blood loss was 30 mL. There were no complications. All counts were correct. The patient was taken to the recovery room in satisfactory condition. MD NUSRAT Bear/CAROLA /[id number]
--- NOTE | 2020-04-07 17:39 | Progress Note ---
DATE: 04/06/2020 Cardiology Progress Note SUBJECTIVE: No major events. OBJECTIVE: VITAL SIGNS: Temperature afebrile, pulse 88, respiratory rate 20, blood pressure 139/77, and saturating 100%. GENERAL: Well developed, well nourished, appears lethargic. CARDIOVASCULAR: Irregular rate and rhythm. LUNGS: Clear to auscultation anteriorly. ABDOMEN: Soft, nontender, and nondistended. NEURO AND PSYCH: Alert and oriented. INPATIENT MEDICATIONS: Reviewed. LABORATORY DATA: Reviewed. No telemetry data was available. ASSESSMENT AND PLAN: 1. Peripheral arterial disease, status post multiple interventions, left below-knee amputation and right transmetatarsal amputation. 2. Nonhealing and chronically infected right transmetatarsal amputation wound. 3. Coronary artery disease, status post coronary artery bypass graft surgery. 4. Atrial fibrillation. 5. Status post AICD placement. PLAN: Arterial Doppler showed monophasic waveform of right lower extremity, concerning for inflow disease. We will plan for peripheral angiography and intervention, however, we will wait for his Port-A-Cath placement, as he may require Plavix afterwards. Continue other cardiovascular medications otherwise. Thank you for this consult. We will continue to follow. MD MALLY Hernandez/CAROLA /[id number]
--- NOTE | 2020-04-07 17:45 | Progress Note ---
DATE: 04/07/2020 Cardiology Progress Note SUBJECTIVE: No major events. Had peripheral angiography done today, showed patent stents. No further intervention needed. OBJECTIVE: VITAL SIGNS: Temperature afebrile, pulse 90, respiratory rate 15, blood pressure 139/72, and saturating 100% on nasal cannula. GENERAL: Well developed, well nourished, chronically ill-appearing and lethargic. CARDIOVASCULAR: Irregular rate and rhythm. LUNGS: Coarse breath sounds at bilateral bases. ABDOMEN: Soft, nontender, and nondistended. NEURO AND PSYCH: Alert and oriented. INPATIENT MEDICATIONS: Reviewed. LABORATORY DATA: Reviewed. ASSESSMENT AND PLAN: 1. Peripheral arterial disease. 2. Right transmetatarsal amputation wound. 3. End-stage renal disease. 4. Chronic systolic congestive heart failure. 5. Coronary artery disease, status post coronary artery bypass graft. 6. Status post AICD placement. PLAN: Peripheral angio showed no intervenable PAD in the right lower extremity. Has one vessel runoff all the way to the TMA site with good perfusion in that area. 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 Continue supportive care. Okay to be discharged from cardiovascular standpoint. Thank you for this consult. We will continue to follow. MD MALLY Hernandez/CAROLA /[id number]
--- NOTE | 2020-04-07 17:59 | Operative Report ---
DATE OF PROCEDURE: 04/07/2020 SURGEON: Ascencion Mackenzie MD INDICATIONS FOR PROCEDURE: Peripheral arterial disease, critical limb ischemia. PREPROCEDURE ASSESSMENT: The risks, benefits, and alternatives to treatment were explained to the patient prior to the procedure. Informed consent was obtained and documented in the medical record. MEDICATIONS: Please see nursing notes for medications administered throughout the procedure. PROCEDURES PERFORMED: 1. Abdominal aortography. 2. Catheter placement third-order. 3. Bilateral lower extremity angiography. 4. Vascular closure device. PROCEDURE DETAILS: The patient was brought to the cardiac catheterization laboratory in a fasting state. Left groin was prepped and draped in a sterile fashion. Access to the left common femoral artery was obtained using ultrasound guidance and micropuncture technique. A 5-Nigerian sheath was inserted. A 5-Nigerian Omni Flush catheter was used to perform abdominal aortography. A [place] Advantage wire was advanced through the Omni Flush catheter into the contralateral iliac artery and Omni Flush catheter was advanced. Angiography of the right lower extremity was performed. Omni Flush catheter was pulled back over a wire and angiography of the left lower extremity was performed with a 5-Nigerian sheath. There were no intervenable lesions. Access site was closed using an Angio-Seal vascular closure device. The patient tolerated the procedure well. There were no immediate complications. SIGNIFICANT FINDINGS: Abdominal aortogram demonstrated no significant aneurysmal dilation or stenosis of the abdominal aorta or bilateral external iliacs. There was a patent stent in the right external iliac. There was severe calcification with moderate plaquing of the right SFA with a patent stent in the distal portion. There was also a patent stent in the right TP trunk. Anterior tibial artery is large and patent all the way to the dorsalis pedis artery. Pedal vessels are all diffusely diseased and small. However, there is significant collaterals from the dorsalis pedis artery to the pedal arch and providing blood supply to the heel. The posterior tibial artery and peroneal arteries are small and taper off into CTOs in the distal portions with reconstitution only via many tortuous collaterals. 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 There is severe diffuse stenosis of the left SFA, popliteal, and stumps of posterior tibial and anterior tibial arteries. GRAFTS AND IMPLANTS: None. SPECIMEN REMOVED: None. COMPLICATIONS: None. ESTIMATED BLOOD LOSS: 10 mL. FINAL RECOMMENDATIONS: Continue supportive care. MD MALLY Hernandez/CAROLA /[id number]
[2020-04-07] MEDS: VANCOMYCIN 750MG/NS 150ML IVPB 150 ML IV SCH (18:26)
--- NOTE | 2020-04-07 19:30 | NUR ---
Received pt in room, no distress. dialysis nurse at bedside starts to do hemodialysis. bed alarm on. call light within reach.
--- NOTE | 2020-04-07 20:07 | Diagnostic Imaging Report ---
EXAMINATION: CHEST SINGLE (PORTABLE) INDICATION: Evaluate line placement. COMPARISON: Multiple prior chest radiographs including most recent on 02/15/2020. FINDINGS: TUBES and LINES: There has been interval placement of a left Port-A-Cath which likely coils in the left internal jugular vein and terminates in the distal brachiocephalic vein. LUNGS: Low lung volumes and bronchovascular crowding and chronic elevation of the right hemidiaphragm. There is interstitial prominence throughout both lungs and bibasilar atelectasis. No focal consolidations. PLEURA: No pleural effusion or pneumothorax. HEART AND MEDIASTINUM: The cardiomediastinal silhouette is mildly enlarged. There are atherosclerotic calcifications within the aorta. BONES AND SOFT TISSUES: Degenerative changes in the spine and shoulders. Median sternotomy wires are unchanged. Soft tissues are unremarkable. UPPER ABDOMEN: No free air under the diaphragm. IMPRESSION: 1. Interval placement of left chest wall Port-A-Cath which likely coils in the left internal jugular vein and terminates in the distal brachiocephalic vein. 2. Cardiomegaly with mild interstitial pulmonary edema, slightly worsened since prior examination. Signed by: Vaelrie Gale MD on 04/07/2020 8:04 PM
[2020-04-07] MEDS ORDERED: ALTEPLASE RECOMBINANT 2 MG/2 ML VIAL IV ONE ×2 (20:30→20:45)
[2020-04-07] MEDS ORDERED: WATER STERILE 10 ML VIAL IV ONE (20:45)
[2020-04-07] MEDS: METOPROLOL SUCCINATE 50 MG TAB XL PO SCH (21:00)
[2020-04-07] MEDS ORDERED: HEPARIN SOD (PORCINE) 1000 UNIT/ML SDV IV ONE ×2 (22:00)
[2020-04-07] MEDS: ACETAMINOPHEN 325 MG TAB PO PRN (22:50)
[2020-04-08] VITALS: BP 112/58
[2020-04-08] MEDS: INSULIN LISPRO 100 UNIT/1 ML 3ML VIAL SQ SCH ×2 (00:24→07:30)
[2020-04-08] MEDS: MIDODRINE HCL 5 MG TABLET PO SCH ×2 (00:26→09:00)
[2020-04-08] MEDS: TEMAZEPAM 15 MG CAP PO SCH (00:26)
[2020-04-08] MEDS: GABAPENTIN 100 MG CAP PO SCH ×2 (00:26→09:00)
[2020-04-08] MEDS: LEVOTHYROXINE SODIUM 100 MCG TAB PO SCH (05:22)
[2020-04-08 05:49] VITALS: BP 102/72
[2020-04-08] MEDS: MORPHINE SULFATE 2 MG/ML SYR 1ML IV PRN (06:27)
[2020-04-08 06:42] LABS: BASOPHILS # (AUTO) 0.1 (0.0-0.1); BASOPHILS % 0.8 % (0.0-1.0); EOSINOPHILS # (AUTO) 0.4 (0.0-0.4); EOSINOPHILS % 3.9 % (0.0-6.0); HEMATOCRIT 42.8 % (38.2-49.6); HEMOGLOBIN 13.3 g/dL (14.0-18.0); LYMPHOCYTES % 9.3 % (18.0-39.1); MEAN CORPUSCULAR HEMOGLOBIN 29.6 pg (28-32); MEAN CORPUSCULAR HGB CONC 31.1 g/dL (31-35); MEAN CORPUSCULAR VOLUME 95.3 fL (81-99); MONOCYTES # (AUTO) 0.6 (0.2-0.8); MONOCYTES % 5.9 % (4.4-11.3); NEUTROPHILS # (AUTO) 8.4 (2.1-6.9); NEUTROPHILS % 79.7 % (38.7-80.0); PLATELET COUNT 234 x10e3/uL (140-360); RED BLOOD COUNT 4.49 x10e6/uL (4.3-5.7); RED CELL DISTRIBUTION WIDTH 14.8 % (11.7-14.4)
[2020-04-08 06:50] LABS: INR 1.22
[2020-04-08 07:12] LABS: ALBUMIN/GLOBULIN RATIO 0.5 (0.8-2.0); ALKALINE PHOSPHATASE 171 IU/L (40-150); ANION GAP 16.8 mmol/L (8-16); BLOOD UREA NITROGEN 19 mg/dL (7-26); BUN/CREATININE RATIO 4 (6-25); CALCIUM 10.5 mg/dL (8.4-10.2); CARBON DIOXIDE 25 mmol/L (22-29); CHLORIDE 102 mmol/L (98-107); CREATININE, SERUM 4.23 mg/dL (0.72-1.25); EST GLOMERULAR FILTRATION RATE 14 ML/MIN (60-); GLUCOSE 90 mg/dL (74-118); POTASSIUM 4.8 mmol/L (3.5-5.1); SODIUM 139 mmol/L (136-145)
[2020-04-08 07:13] LABS: ALANINE AMINOTRANSFERASE < 6 IU/L (0-55)
[2020-04-08] MEDS ORDERED: TYLENOL # 31 EA PO (07:30)
[2020-04-08 08:25] VITALS: BP 111/82
[2020-04-08 08:31] VITALS: BP 111/82
[2020-04-08] MEDS: PANTOPRAZOLE SOD 40 MG TABEC PO SCH (08:59)
[2020-04-08] MEDS: SEVELAMER CARBONATE 800 MG TAB PO SCH (08:59)
[2020-04-08] MEDS: ISOSORBIDE MONONITRATE 30 MG TAB CR PO SCH (09:00)
[2020-04-08] MEDS: BUSPIRONE HCL 5 MG TAB PO SCH (09:00)
[2020-04-08] MEDS: CILOSTAZOL 100 MG TAB PO SCH (09:00)
[2020-04-08] MEDS: COLLAGENASE 5 GM TUBE TP SCH (09:00)
[2020-04-08] MEDS: ACETAMINOPHEN/CODEINE 300MG - 30MG TAB PO PRN (09:01)
[2020-04-08] MEDS ORDERED: ASPIRIN 325 MG TAB PO SCH (10:00)
[2020-04-08] MEDS ORDERED: BISACODYL 5 MG TAB EC PO ONE (10:30)
[2020-04-08] MEDS ORDERED: HEPARIN 500 UNITS/5ML MDV INJ ONE (11:30)
--- NOTE | 2020-04-08 11:35 | NUR ---
Pt discharged home at this time. 0 s/s of acute distress noted at time of discharge. Left chest portacath was accessed with .75 gutierrez needle per sterile technique. Pt will be on rn long term care antibiotics for right foot infection. Dressing to left groin is dry and intact. Family and patient verbalized understanding of all discharge and follow up instructions.
--- NOTE | 2020-04-08 11:51 | Progress Note ---
DATE: Cardiology Progress Note SUBJECTIVE: The patient complains of constipation and some abdominal discomfort this morning. No any other complaints. Denies chest pain or shortness of breath. OBJECTIVE: VITAL SIGNS: Temperature 97.3, pulse 73, respiratory rate 17, blood pressure 111/82, and oxygen saturation 99% on room air. GENERAL: Alert and oriented x3. Chronically ill-appearing male, resting comfortably in bed. Family at bedside. NECK: Supple. No JVD noted. CARDIOVASCULAR: Irregular rate and rhythm. LUNGS: Diminished breath sounds. Posterior lower lobes. ABDOMEN: Soft, nontender. EXTREMITIES: Right lower extremity with a wound, left [id number] amputation. CARDIOVASCULAR MEDICATIONS: Isosorbide 30 mg p.o. daily, gabapentin 100 mg p.o. t.i.d., Pletal 50 mg p.o. b.i.d., metoprolol 25 p.o. HS. LABORATORY DATA: WBC 10.48, hemoglobin 13.3, hematocrit 42.8, and platelets 234. Sodium 139, potassium 4.8, BUN 19, creatinine 4.23, AST 9, ALT less than 6. ASSESSMENT AND PLAN: 1. Peripheral arterial disease. 2. Right transmetatarsal amputation wound. 3. End-stage renal disease, on hemodialysis. 4. Chronic systolic congestive heart failure. 5. Coronary artery disease, status post coronary artery bypass graft. 6. Status post AICD placement. PLAN: Peripheral angiogram yesterday showed no intervenable PAD in the right lower extremity. 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 Continue supportive care. We will continue to follow this patient closely. Dictated by Luda Collado NP MD KIMMY Baez/CAROLA /[id number]
--- NOTE | 2020-04-08 12:42 | Progress Note ---
DATE: 04/08/2020 SUBJECTIVE: Overall, the patient has been doing well. Arrangements for home antibiotics have been made. OBJECTIVE: VITAL SIGNS: Temperature 97.3, pulse 72, respiratory rate 17, and blood pressure 111/82. HEENT: Normocephalic, atraumatic. Extraocular movements not assessed. NECK: Supple. LUNGS: Fair air entry bilaterally. Clear to auscultation. HEART: Sounds S1, S2. No murmur. No gallop. ABDOMEN: Soft, nontender, normoactive bowel sounds. EXTREMITIES: Left groin has hemodialysis catheter placed. Right leg has erythema and induration, that has improved, transmetatarsal amputation wound with an ulcer without any drainage. LABORATORY DATA: WBC count is 10.3, hemoglobin 13, and platelets 234. Cultures from the wound are now showing Serratia marcescens. ASSESSMENT: 1. Soft tissue infection/cellulitis, right leg. 2. Right transmetatarsal amputation infected with Serratia. 3. End-stage renal disease, on hemodialysis. 4. Diabetes mellitus. 5. Peripheral vascular disease. RECOMMENDATIONS: 1. Antibiotic regimen of vancomycin and meropenem have been arranged for post discharge, will [facility] 72 hours. 2. Cardiology notes reviewed, no interventions related to the peripheral vascular disease at this time. Damion Perry MD SR/CAROLA /[id number]
--- NOTE | 2020-04-09 08:00 | NUR ---
Late note: CM was informed on 04/07/20 @ 7454 that home health was arranged with [facility] CM confirmed with rep Mary Jane for [facility]. States they are scheduled to see pt on Friday04/09/20. Home health information was given to TAMIR Hung to give to pt.
--- NOTE | 2020-04-10 03:28 | Discharge Summary ---
ADMISSION DIAGNOSES: 1. Right transmetatarsal amputation wound, present on admission. 2. End-stage renal disease. 3. Type 2 diabetes. 4. Anxiety. 5. Depression. 6. Diabetic neuropathy. 7. Ambulatory dysfunction. DISCHARGE DIAGNOSES: 1. Right transmetatarsal amputation wound, present on admission. 2. End-stage renal disease. 3. Type 2 diabetes. 4. Anxiety. 5. Depression. 6. Diabetic neuropathy. 7. Ambulatory dysfunction. 8. Peripheral arterial disease with critical limb ischemia, present on admission of the right lower extremity. 9. Serratia of the right lower extremity, present on admission. HISTORY: Type 2 diabetes, hypothyroidism, end-stage renal disease, anxiety, depression, GERD, and diabetic neuropathy. SURGICAL HISTORY: Cholecystectomy, CABG, ICD placement and removal, left BKA, right TMA, left hand 2nd through 4th finger amputations. FAMILY HISTORY: The patient's mom, dad, and brothers had diabetes. The patient's brother had a stroke. SOCIAL HISTORY: Noncontributory. HOSPITAL COURSE: A 64-year-old male [facility] due to a chronic right TMA wound. On admission, the patient was started on Merrem and vancomycin. His ESR was 80. Right lower extremity venous Doppler showed severe PAD. X-ray showed status post transmetatarsal amputation of the foot. No evidence of osteomyelitis. MRI of the right foot was nondiagnostic. The wound will be treated as if it is osteomyelitis due to the elevated ESR and chronic wound. Wound culture came back positive for Serratia. The patient had to have a Port-A-Cath placed due to poor venous access and long-term antibiotic needs. He also had an abdominal aortogram with bilateral lower extremity angio with stent placement per Cardiology recommendation. The patient will discharge back home with 4 weeks of vancomycin and Merrem per Infectious Disease recommendation. Home health was advised help to care for the Port-A-Cath. The patient and understand discharge instructions and agrees to plan. He will continue to follow up with wound care at the clinic. Vital signs are stable. The patient is afebrile. Dictated by Kathleen Rocha NP MD LITO Alvarez/MODL /[id number]
== END 2020-04-08 11:57 | disposition home health service (06) | DRG 564 ==
LOC: MED/SURG2 15:19
PROVIDERS: ADMIT Internal Medicine; ATTEND Internal Medicine
PROC: 5A1D70Z Performance of Urinary Filtration, Intermittent, Less than 6 Hours Per Day (ICD-10-PCS; principal; 2020-04-05)
PROC: 5A1D70Z Performance of Urinary Filtration, Intermittent, Less than 6 Hours Per Day (ICD-10-PCS; 2020-04-07)
PROC: 05PYX3Z Removal of Infusion Device from Upper Vein, External Approach (ICD-10-PCS; 2020-04-07)
PROC: 02HV33Z Insertion of Infusion Device into Superior Vena Cava, Percutaneous Approach (ICD-10-PCS; 2020-04-07)
PROC: 0JH63XZ Insertion of Tunneled Vascular Access Device into Chest Subcutaneous Tissue and Fascia, Percutaneous Approach (ICD-10-PCS; 2020-04-07)
PROC: B5181ZA Fluoroscopy of Superior Vena Cava using Low Osmolar Contrast, Guidance (ICD-10-PCS; 2020-04-07)
PROC: B4101ZZ Fluoroscopy of Abdominal Aorta using Low Osmolar Contrast (ICD-10-PCS; 2020-04-07)
PROC: B41G1ZZ Fluoroscopy of Left Lower Extremity Arteries using Low Osmolar Contrast (ICD-10-PCS; 2020-04-07)
PROC: B41F1ZZ Fluoroscopy of Right Lower Extremity Arteries using Low Osmolar Contrast (ICD-10-PCS; 2020-04-07)
DX: T87.43 Infection of amputation stump, right lower extremity (principal); N18.6 End stage renal disease; L03.115 Cellulitis of right lower limb; L97.416 Non-pressure chronic ulcer of right heel and midfoot with bone involvement without evidence of necrosis; M86.671 Other chronic osteomyelitis, right ankle and foot; N25.81 Secondary hyperparathyroidism of renal origin; I13.2 Hypertensive heart and chronic kidney disease with heart failure and with stage 5 chronic kidney disease, or end stage renal disease; I50.22 Chronic systolic (congestive) heart failure; I70.92 Chronic total occlusion of artery of the extremities; E11.22 Type 2 diabetes mellitus with diabetic chronic kidney disease; E11.621 Type 2 diabetes mellitus with foot ulcer; E03.9 Hypothyroidism, unspecified; Z99.2 Dependence on renal dialysis; E11.42 Type 2 diabetes mellitus with diabetic polyneuropathy; K21.9 Gastro-esophageal reflux disease without esophagitis; F41.9 Anxiety disorder, unspecified; Z90.49 Acquired absence of other specified parts of digestive tract; Z95.1 Presence of aortocoronary bypass graft; Z89.512 Acquired absence of left leg below knee; Z89.022 Acquired absence of left finger(s); Z83.3 Family history of diabetes mellitus; Z82.3 Family history of stroke; E11.69 Type 2 diabetes mellitus with other specified complication; I48.91 Unspecified atrial fibrillation; I70.234 Atherosclerosis of native arteries of right leg with ulceration of heel and midfoot; E11.51 Type 2 diabetes mellitus with diabetic peripheral angiopathy without gangrene; I70.221 Atherosclerosis of native arteries of extremities with rest pain, right leg; Z20.828 Contact with and (suspected) exposure to other viral communicable diseases; Z79.01 Long term (current) use of anticoagulants; Z79.84 Long term (current) use of oral hypoglycemic drugs
CPT/HCPCS: 36247; 36415; 36561; 71045; 74470; 75630; 77001; 80048; 80053; 82948; 85025; 85610; 85651; 86140; 87040; 87071; 87186; 87205; 93926; 96372; 97139; 99251; C1751; C1769; J1644; J2001; J2250; J2270; J2370; J2997; J3010; J7030; J7040; J7050; Q9967

== ENCOUNTER → 2020-05-01 | Outpatient (RCR) | payer MEDICARE ==
[~2020-05-01] MED LIST changes: +BUPIVACAINE HCL 0.5% INJ 30 ML VIAL INJ ONE; +COLLAGENASE OINTMENT 30 GM TUBE ONE; +HEPARIN SOD (PORCINE) 1000 UNIT/ML SDV ONE; +LIDOCAINE VISC 2% SOLN 15 ML UDC ONE; +MINERAL OIL/PETROLAT/GLYCERI 6OZ BTL ONE; +SODIUM CHLORIDE 0.9% 0 ML ONE; +SODIUM CHLORIDE 0.9% 500ML 0 ML ONE; +TYLENOL # 31 EA PO
== END ==
LOC: EDSTATUS 04-04 14:34 → WCC 04-04 14:35
PROVIDERS: ATTEND Podiatrist Foot & Ankle Surgery
DX: E11.621 Type 2 diabetes mellitus with foot ulcer (principal); E11.40 Type 2 diabetes mellitus with diabetic neuropathy, unspecified; E11.65 Type 2 diabetes mellitus with hyperglycemia; E11.51 Type 2 diabetes mellitus with diabetic peripheral angiopathy without gangrene; M86.671 Other chronic osteomyelitis, right ankle and foot; L97.416 Non-pressure chronic ulcer of right heel and midfoot with bone involvement without evidence of necrosis; I70.201 Unspecified atherosclerosis of native arteries of extremities, right leg; N18.6 End stage renal disease; R91.8 Other nonspecific abnormal finding of lung field; B96.89 Other specified bacterial agents as the cause of diseases classified elsewhere; E78.49 Other hyperlipidemia; Z01.810 Encounter for preprocedural cardiovascular examination; Z01.811 Encounter for preprocedural respiratory examination; Z74.01 Bed confinement status
CPT/HCPCS: 15275 ×2; 36415 ×9; 82948 ×9; 97602 ×3; 99212 ×2; 99213 ×5; G0277 ×9; Q4186 ×2; J1644; J7040; J7050

== ENCOUNTER 2020-05-23 10:43 | Outpatient (RCR) | payer MEDICARE ==
[~2020-05-23 10:43] MED LIST changes: -BUPIVACAINE HCL 0.5% INJ 30 ML VIAL INJ ONE; -COLLAGENASE OINTMENT 30 GM TUBE ONE; -HEPARIN SOD (PORCINE) 1000 UNIT/ML SDV ONE; -LIDOCAINE VISC 2% SOLN 15 ML UDC ONE; +LIDOCAINE/PRILOCAINE 2.5-2.5% KIT ONE; -SODIUM CHLORIDE 0.9% 0 ML ONE; -SODIUM CHLORIDE 0.9% 500ML 0 ML ONE
== END 2020-06-01 ==
LOC: WCC 10:43
PROVIDERS: ATTEND Podiatrist Foot & Ankle Surgery
DX: E11.621 Type 2 diabetes mellitus with foot ulcer (principal); E11.51 Type 2 diabetes mellitus with diabetic peripheral angiopathy without gangrene; E11.40 Type 2 diabetes mellitus with diabetic neuropathy, unspecified; E11.65 Type 2 diabetes mellitus with hyperglycemia; M86.671 Other chronic osteomyelitis, right ankle and foot; L97.416 Non-pressure chronic ulcer of right heel and midfoot with bone involvement without evidence of necrosis; I70.201 Unspecified atherosclerosis of native arteries of extremities, right leg; R91.8 Other nonspecific abnormal finding of lung field; B96.89 Other specified bacterial agents as the cause of diseases classified elsewhere; E78.49 Other hyperlipidemia; N18.6 End stage renal disease; Z01.810 Encounter for preprocedural cardiovascular examination; Z01.811 Encounter for preprocedural respiratory examination; Z74.01 Bed confinement status
CPT/HCPCS: 11042; 15275 ×3; 36415 ×7; 82948 ×7; 99213 ×7; Q4186 ×3

== ENCOUNTER 2020-06-20 15:04 | Outpatient (RCR) | payer MEDICARE ==
[~2020-06-20 15:04] MED LIST changes: +LIDOCAINE VISC 2% SOLN 15 ML UDC ONE; -LIDOCAINE/PRILOCAINE 2.5-2.5% KIT ONE
== END 2020-07-02 ==
LOC: WCC 15:04
PROVIDERS: ATTEND Podiatrist Foot & Ankle Surgery
DX: E11.621 Type 2 diabetes mellitus with foot ulcer (principal); E11.40 Type 2 diabetes mellitus with diabetic neuropathy, unspecified; E11.65 Type 2 diabetes mellitus with hyperglycemia; L97.411 Non-pressure chronic ulcer of right heel and midfoot limited to breakdown of skin; L97.416 Non-pressure chronic ulcer of right heel and midfoot with bone involvement without evidence of necrosis; M86.671 Other chronic osteomyelitis, right ankle and foot; I70.201 Unspecified atherosclerosis of native arteries of extremities, right leg; R91.8 Other nonspecific abnormal finding of lung field; B96.89 Other specified bacterial agents as the cause of diseases classified elsewhere; E78.49 Other hyperlipidemia; N18.6 End stage renal disease; Z01.810 Encounter for preprocedural cardiovascular examination; Z01.811 Encounter for preprocedural respiratory examination; Z74.01 Bed confinement status
CPT/HCPCS: 36415; 82948; 99211; 99213 ×4; G0277 ×7

== ENCOUNTER 2020-07-25 14:21 | Outpatient (RCR) | payer MEDICARE ==
[~2020-07-25 14:21] MED LIST changes: -LIDOCAINE VISC 2% SOLN 15 ML UDC ONE; -MINERAL OIL/PETROLAT/GLYCERI 6OZ BTL ONE
== END 2020-07-30 ==
LOC: WCC 14:21
PROVIDERS: ATTEND Podiatrist Foot & Ankle Surgery
DX: E11.621 Type 2 diabetes mellitus with foot ulcer (principal); E11.40 Type 2 diabetes mellitus with diabetic neuropathy, unspecified; E11.65 Type 2 diabetes mellitus with hyperglycemia; M86.671 Other chronic osteomyelitis, right ankle and foot; L97.416 Non-pressure chronic ulcer of right heel and midfoot with bone involvement without evidence of necrosis; L97.411 Non-pressure chronic ulcer of right heel and midfoot limited to breakdown of skin; I70.201 Unspecified atherosclerosis of native arteries of extremities, right leg; N18.6 End stage renal disease; R91.8 Other nonspecific abnormal finding of lung field; B96.89 Other specified bacterial agents as the cause of diseases classified elsewhere; E78.49 Other hyperlipidemia; Z01.810 Encounter for preprocedural cardiovascular examination; Z01.811 Encounter for preprocedural respiratory examination; Z74.01 Bed confinement status